=== PATIENT | female | born 1955 | race Caucasian/White ===

== ENCOUNTER 2023-04-22 23:38 | Emergency (ER) | payer MEDICARE, SELFPAY ==
[2023-04-22 23:45] VITALS: BP 155/99; PULSE 101; RESP 18; TEMP 36.6; O2SAT 100; BMI 40.2
[2023-04-23] MEDS: 0.9 % SODIUM CHLORIDE 1,000 ML 999 ML IV (00:46)
[2023-04-23] MEDS: HYOSCYAMINE SULFATE 0.125 MG TAB.SUBL SL (00:47)
[2023-04-23 00:54] LABS: Basophils Absolute Auto 0.1 10^3/uL (0.0-0.1); Basophils Percent Auto 0.9 % (0.2-2.0); Eosinophils Absolute Auto 0.4 10^3/uL (0.0-0.7); Eosinophils Percent Auto 5.8 % (0.9-7.0); Hematocrit 31.4 % (36.0-48.0); Hemoglobin 10.6 g/dL (12.0-16.0); Immature Granulocytes Abs Auto 0.05 10^3/uL (0.00-0.03); Immature Granulocytes Pct Auto 0.8 % (0.0-0.5); Lymphocytes Absolute Auto 1.4 10^3/uL (1.2-3.8); Lymphocytes Percent Auto 22.7 % (20.5-60.0); Mean Corpuscular HGB Conc 33.8 g/dL (29.9-35.2); Mean Corpuscular Hemoglobin 30.6 pg (26.7-34.0); Mean Corpuscular Volume 90.8 fL (81.0-99.0); Mean Platelet Volume 8.5 fL (9.5-13.5); Monocytes Absolute Auto 1.2 10^3/uL (0.3-0.8); Monocytes Percent Auto 19.4 % (1.7-12.0); Neutrophils Absolute Auto 3.2 10^3/uL (1.4-6.5); Neutrophils Percent Auto 50.4 % (43.0-75.0); Platelet Count 307 10^3/uL (150-450); Red Blood Count 3.46 10^6/uL (4.20-5.40); Red Cell Distribution Width 14.3 % (11.0-15.0); White Blood Count 6.3 10^3/uL (4.0-11.0)
[2023-04-23 01:15] LABS: Alanine Aminotransferase 29 U/L (14-59); Albumin Globulin Ratio 0.9; Albumin Level 3.2 g/dL (3.4-5.0); Alkaline Phosphatase 89 U/L (46-116); Anion Gap 13.5; Aspartate Amino Transferase 16 U/L (15-37); BUN Creatinine Ratio 15.2; Bilirubin Total 0.2 mg/dL (0.2-1.0); Calcium 9.4 mg/dL (8.5-10.1); Carbon Dioxide 24.1 mmol/L (21.0-32.0); Chloride 96 mmol/L (98-107); Estimated GFR (African America >60 (>=60); Estimated GFR (Non-African Ame >60 (>=60); Globulin 3.4 g/dL; Glucose 111 mg/dL (74-106); Potassium 3.6 mmol/L (3.5-5.1); Sodium 130 mmol/L (136-145); Total Protein 6.6 g/dL (6.4-8.2)
[2023-04-23 01:17] LABS: Bilirubin Urine NEGATIVE (NEGATIVE); Blood Urine NEGATIVE (NEGATIVE); Clarity Urine CLEAR (CLEAR); Color Urine LT. YELLOW (YELLOW); Glucose Urine UA NEGATIVE (NEGATIVE); Ketones Urine NEGATIVE (NEGATIVE); Leukocyte Esterase Urine NEGATIVE (NEGATIVE); Nitrite Urine NEGATIVE (NEGATIVE); Protein Urine NEGATIVE (NEG/TRACE); Specific Gravity Urine <=1.005 (1.005-1.025); Urine Microscopic Indicated NO; Urobilinogen Urine 0.2 EU/dL (0.2-1.0); pH Urine 5.5 (5.0-9.0)
--- NOTE | 2023-04-23 01:27 | CT_ITS ---
The [address] [address] Patient Name: SELENA REYES MRN: [id number] date: 1955 Sex: F Assigned Patient Location: ER Current Patient Location: ER Accession/Order Number: [id number] Exam Date: 04/23/2023 01:27 Report Date: 04/23/2023 02:13 At the request of: LOPEZ RICHARD Procedure: CT abdomen pelvis w con CT abdomen pelvis w con: 04/23/2023 1:27 AM EDT CLINICAL HISTORY: 67 years old Female with midline abdominal pain. TECHNIQUE: Axial CT images through the abdomen and pelvis are obtained after the intravenous administration of contrast. Coronal and sagittal reformations are also obtained. Dose reduction techniques were achieved by using automated exposure control and/or adjustment of mA and/or kV according to patient size and/or use of iterative reconstruction technique. COMPARISON: CT abdomen pelvis 08/18/2022. FINDINGS: The lung bases are clear with no dependent infiltrate or effusion. The gallbladder, spleen, pancreas and bilateral adrenal glands are unremarkable. Simple renal cyst of the left hepatic lobe measures 2.1 cm. Numerous subcentimeter hypoattenuation's of the liver too small to characterize likely cysts or biliary hamartomas. The bilateral kidneys demonstrate normal enhancement without hydronephrosis. Normal excretion of the kidneys bilaterally is present. The bilateral ureters demonstrate no gross abnormality or obstruction. The stomach and small bowel are unremarkable. The appendix is not clearly delineated; however no pericecal inflammatory changes present innumerable diverticula of the descending and sigmoid colon are. Minimal mesenteric stranding and vascular engorgement at the proximal sigmoid colon is present with focal mucosal thickening. The bladder appears unremarkable. There is no evidence of aortic aneurysm present. Calcific atherosclerosis is present. No enlarged lymph nodes are seen. No free air or free fluid is seen. The uterus and adnexa are within normal limits. Sclerosis is present with multilevel degenerative change with diffuse vacuum disc phenomena. No acute compression fracture deformity or suspicious osseous abnormality is identified. IMPRESSION: Uncomplicated proximal sigmoid colon acute diverticulitis. Electronically authenticated by: ALICE MARCUS Date: 04/23/2023 02:13
--- NOTE | 2023-04-23 01:31 | ED_ITS ---
HPI - Abdominal Pain General Chief Complaint: Abdominal Pain Stated Complaint: constipation Time Seen by Provider: 04/23/23 00:15 Source: patient Mode of arrival: walk-in Limitations: no limitations History of Present Illness HPI narrative: cc - I am constipated Patient has been experiencing waxing and waning abdominal pain for at least 2 months. She was previously diagnosed with Crohn's but told me that it is in remission . Over the last few months she has been experinecing abdominal pain - usually along the midline - along with constipation. No blood in urine or stool. No symptoms. She has been eating normally - no nausea or vomiting - but passing stools has been difficult. She said that the stools are hard and smaller amounts than usual pass. The pain has steadily worsened and tonight became severe . She previously saw Dr Pineda in [place]. She has not spoke with her PCP, Dr Prater, about the abdominal pain oer constipation. No relief with laxatives and other OTC preps. She also told me that she has chronic low sodium and wanted that checked as well. Related Data Home Medications Medication Instructions Recorded Confirmed albuterol sulfate 2.5 mg/3 mL mg 04/22/23 (0.083 %) solution for nebulization albuterol sulfate 90 mcg/actuation inhalation 04/22/23 aerosol inhaler (Ventolin HFA) cyclobenzaprine 10 mg tablet mg 04/22/23 lisinopril 20 mg tablet mg 04/22/23 lisinopril 40 mg tablet mg 04/22/23 montelukast 10 mg tablet mg 04/22/23 theophylline 400 mg mg PO 04/22/23 tablet,extended release 24 hr Allergies Allergy/AdvReac Type Severity Reaction Status Date / Time Sulfa (Sulfonamide Allergy Severe Verified 04/23/23 00:01 Antibiotics) Penicillins AdvReac Intermediate Verified 04/23/23 00:01 codine AdvReac Severe Uncoded 04/23/23 00:01 [facility] Medical History (Updated 04/23/23 @ 02:30 by Tavo Chun) Exam Narrative Exam Narrative: Nurses notes and vital signs reviewed and patient is not hypoxic. afebrile General: Well-appearing and in no apparent distress. Skin: Warm, dry, no pallor noted. No rash to abdomen or flank. Head: Normocephalic, atraumatic. Eye: Pupils are equal, round and EOMI. No scleral icterus. Ears, Nose, Mouth, and Throat: Oral mucosa is moist Cardiovascular: Regular Rate and Rhythm without murmur, gallop or rub. Respiratory: No accessory muscle use or respiratory distress. Lungs are clear to auscultation, no wheezing, rales or rhonchi Back: No midline thoracic or lumbar vertebral tenderness. No CVA tenderness Musculoskeletal: normal ROM, no calf or popliteal tenderness, no lower extremity edema/swelling GI: Abdomen is soft, non-distended. Normal bowel sounds. No masses appreciated. Midline tenderness to palpation. No rebound, guarding, or rigidity noted. Neurological: A&O x4. No cranial nerve dysfunction observed. No truncal ataxia. Moves all extremities. Sensation intact. Psychiatric: Cooperative and interactive. Normal mood and affect. Constitutional Vital Signs - 24 hr 04/22/23 23:45 04/23/23 02:04 Temperature 98 F Pulse Rate [Monitor] 101 H 80 Respiratory Rate 18 16 Blood Pressure [Left Arm] 155/99 H 129/76 H Pulse Oximetry 100 99 Oxygen Delivery Method Room Air Room Air Course Vital Signs Vital signs: Vital Signs Temperature 98 F 04/22/23 23:45 Pulse Rate 101 H 04/22/23 23:45 Respiratory Rate 18 04/22/23 23:45 Blood Pressure 155/99 H 04/22/23 23:45 Pulse Oximetry 100 04/22/23 23:45 Oxygen Delivery Method Room Air 04/22/23 23:45 Temperature 98 F 04/22/23 23:45 Pulse Rate 80 04/23/23 02:04 Respiratory Rate 16 04/23/23 02:04 Blood Pressure 129/76 H 04/23/23 02:04 Pulse Oximetry 99 04/23/23 02:04 Oxygen Delivery Method Room Air 04/23/23 02:04 MDM - Abdominal Pain MDM Narrative Medical decision making narrative: Patient sent for CT scan of abdomen and pelvis while we awaited the results of her blood and urine testing. CBC with normal WBC, Hb 10. CMP revealed Na 130 and Cl; 96, the rest was unremarkable. Patient given NS IVF along with levsin while in the ED. CT revealed acute sigmoid diverticulitis so she was given Cipro and Flagyl in the ED and prescribed the same to take at home. She was also rpescribed levsin. Recommended clear liquid diet for the next 2 days. PCP follow up recommended. ED return if she worsens. Lab Data Attestation: I reviewed the patient's lab results. Labs: Lab Results 04/23/23 04/23/23 Range/Units 00:45 00:56 WBC 6.3 (4.0-11.0) 10^3/uL RBC 3.46 L (4.20-5.40) 10^6/uL Hgb 10.6 L (12.0-16.0) g/dL Hct 31.4 L (36.0-48.0) % MCV 90.8 (81.0-99.0) fL MCH 30.6 (26.7-34.0) pg MCHC 33.8 (29.9-35.2) g/dL RDW 14.3 (11.0-15.0) % Plt Count 307 (150-450) 10^3/uL MPV 8.5 L (9.5-13.5) fL Neut % (Auto) 50.4 (43.0-75.0) % Lymph % (Auto) 22.7 (20.5-60.0) % [place] % (Auto) 19.4 H (1.7-12.0) % Eos % (Auto) 5.8 (0.9-7.0) % Baso % (Auto) 0.9 (0.2-2.0) % Neut # (Auto) 3.2 (1.4-6.5) 10^3/uL Lymph # (Auto) 1.4 (1.2-3.8) 10^3/uL [place] # (Auto) 1.2 H (0.3-0.8) 10^3/uL Eos # (Auto) 0.4 (0.0-0.7) 10^3/uL Baso # (Auto) 0.1 (0.0-0.1) 10^3/uL Abs Immat Gran (auto) 0.05 H (0.00-0.03) 10^3/uL Imm/Tot Granulo (auto) 0.8 H (0.0-0.5) % Sodium 130 L (136-145) mmol/L Potassium 3.6 (3.5-5.1) mmol/L Chloride 96 L (98-107) mmol/L Carbon Dioxide 24.1 (21.0-32.0) mmol/L Anion Gap 13.5 BUN 10.0 (7.0-18.0) mg/dL Creatinine 0.66 (0.55-1.02) mg/dL Est GFR ( Amer) >60 (>=60) Est GFR (Non-Af Amer) >60 (>=60) BUN/Creatinine Ratio 15.2 Glucose 111 H (74-106) mg/dL Calcium 9.4 (8.5-10.1) mg/dL Total Bilirubin 0.2 (0.2-1.0) mg/dL AST 16 (15-37) U/L ALT 29 (14-59) U/L Alkaline Phosphatase 89 (46-116) U/L Total Protein 6.6 (6.4-8.2) g/dL Albumin 3.2 L (3.4-5.0) g/dL Globulin 3.4 g/dL Albumin/Globulin Ratio 0.9 Lipase 65.0 L (73.0-393.0) U/L Urine Color Lt. yellow (YELLOW) Urine Clarity Clear (CLEAR) Urine pH 5.5 (5.0-9.0) Ur Specific [place] <=1.005 A (1.005-1.025) Urine Protein Negative (NEG/TRACE) mg/dL Urine Glucose (UA) Negative (NEGATIVE) mg/dL Urine Ketones Negative (NEGATIVE) mg/dL Urine Occult Blood Negative (NEGATIVE) Urine Nitrite Negative (NEGATIVE) Urine Bilirubin Negative (NEGATIVE) Urine Urobilinogen 0.2 (0.2-1.0) EU/dL Ur Leukocyte Esterase Negative (NEGATIVE) Imaging Data ct abd/pelvis: Radiologist's impression: FINDINGS: The lung bases are clear with no dependent infiltrate or effusion. The gallbladder, spleen, pancreas and bilateral adrenal glands are unremarkable. Simple renal cyst of the left hepatic lobe measures 2.1 cm. Numerous subcentimeter hypoattenuation's of the liver too small to characterize likely cysts or biliary hamartomas. The bilateral kidneys demonstrate normal enhancement without hydronephrosis. Normal excretion of the kidneys bilaterally is present. The bilateral ureters demonstrate no gross abnormality or obstruction. The stomach and small bowel are unremarkable. The appendix is not clearly delineated; however no pericecal inflammatory changes present innumerable diverticula of the descending and sigmoid colon are. Minimal mesenteric stranding and vascular engorgement at the proximal sigmoid colon is present with focal mucosal thickening. The bladder appears unremarkable. There is no evidence of aortic aneurysm present. Calcific atherosclerosis is present. No enlarged lymph nodes are seen. No free air or free fluid is seen. The uterus and adnexa are within normal limits. Sclerosis is present with multilevel degenerative change with diffuse vacuum disc phenomena. No acute compression fracture deformity or suspicious osseous abnormality is identified. IMPRESSION: Uncomplicated proximal sigmoid colon acute diverticulitis. Electronically authenticated by: ALICE MARCUS Date: 04/23/2023 02:13 Discharge Plan Discharge Chief Complaint: Abdominal Pain Clinical Impression: Diverticulitis, Abdominal pain, Chronic hyponatremia Time of Disposition Decision: 02:19 Condition: Good Prescriptions / Home Meds: No Action cyclobenzaprine 10 mg tablet albuterol sulfate 2.5 mg /3 mL (0.083 %) solution for nebulization theophylline 400 mg tablet extended release 24 hr PO lisinopril 20 mg tablet montelukast 10 mg tablet albuterol sulfate [Ventolin HFA] 90 mcg/actuation HFA aerosol inhaler INHALATION lisinopril 40 mg tablet Instructions: Diverticulitis (ED), Hyponatremia (ED) Stand Alone Forms: Portal Instructions Referrals: LARRY PRATER [Primary Care Provider] - 1 week
[2023-04-23 02:04] VITALS: BP 129/76; PULSE 80; RESP 16; O2SAT 99
[2023-04-23] MEDS: METRONIDAZOLE 250 MG TABLET 500 MG PO (02:37)
[2023-04-23] MEDS: CIPROFLOXACIN HCL 500 MG TABLET PO (02:38)
== END 2023-04-23 02:46 | disposition home or self-care (01) ==
PROVIDERS: Emergency Provider Emergency Medicine; PCP Family Medicine
DX: R10.9 Unspecified abdominal pain (principal); K57.32 Diverticulitis of large intestine without perforation or abscess without bleeding; E87.1 Hypo-osmolality and hyponatremia; Z79.899 Other long term (current) drug therapy
CPT/HCPCS: 36415; 74177; 80053; 81003; 83690; 85025; 99284; Q9967

== ENCOUNTER 2023-05-06 10:07 | Outpatient (OUT) | payer MEDICARE, SELFPAY ==
[2023-05-06 11:02] LABS: BUN Creatinine Ratio 10.8; Calcium 9.3 mg/dL (8.5-10.1); Carbon Dioxide 25.1 mmol/L (21.0-32.0); Chloride 100 mmol/L (98-107); Estimated GFR (African America >60 (>=60); Estimated GFR (Non-African Ame >60 (>=60); Glucose 102 mg/dL (74-106); Potassium 4.1 mmol/L (3.5-5.1); Sodium 134 mmol/L (136-145)
== END 2023-05-06 10:08 ==
LOC: LAB 10:09
PROVIDERS: PCP Family Medicine; Visit Provider Family Medicine
DX: E87.1 Hypo-osmolality and hyponatremia (principal)
CPT/HCPCS: 36415; 80048

== ENCOUNTER 2023-08-01 14:33 | Outpatient (OUT) | payer MEDICARE, SELFPAY ==
--- NOTE | 2023-08-01 14:36 | CT_ITS ---
The [address] [address] Patient Name: SELENA REYES MRN: [id number] date: 1955 Sex: F Assigned Patient Location: CT Current Patient Location: Accession/Order Number: [id number] Exam Date: 08/01/2023 14:40 Report Date: 08/02/2023 07:19 At the request of: SUE STARR Procedure: CT lung screening low-dose EXAMINATION: CT lung screening low-dose HISTORY: History of tobacco dependence Z87.891 COMPARISON: 07/31/2022 TECHNIQUE: Axial, Coronal, and Sagittal images were created without the administration of IV contrast material. Dose reduction techniques were achieved by using automated exposure control and/or adjustment of mA and/or kV according to patient size and/or use of iterative reconstruction technique. FINDINGS: LUNGS: Scattered subcentimeter solid noncalcified pulmonary nodules the largest in the right lower lobe measures 5 mm, axial image 70 and left lower lobe axial image 62. Mild paraseptal emphysema with an upper lobe predominance. PLEURA: No mass, effusion, or pneumothorax. VASCULATURE: No abnormality. ZAYNAB: No mass or pathologic adenopathy. MEDIASTINUM: No mass or pathologic adenopathy. CARDIAC: No enlargement, pericardial thickening, or significant calcification. AORTA: No aortic aneurysm. Mild to moderate atherosclerosis CHEST WALL: No mass or axillary adenopathy BONES: No bone lesion or fracture. LIMITED ABDOMEN: No suspicious findings. Limited images of the upper abdomen. OTHER: Negative. CT/CT lung screening low-dose IMPRESSION: Slight interval increase in both number and size of subcentimeter pulmonary nodules measuring up to 5 mm. Short interval follow-up is recommended given the change from the prior exam LUNG SCREENING: Lung-RADS Category 3- Probably benign. Probably benign finding(s)- short term follow up suggested; includes nodules with a low likelihood of becoming a clinically active cancer. Six month LDCT. Electronically authenticated by: FRANCISCO JAVIER WHEELER Date: 08/02/2023 07:19
== END 2023-08-01 14:34 | disposition home or self-care (01) ==
LOC: CT 14:33
PROVIDERS: PCP Family Medicine; Visit Provider Internal Medicine
DX: Z87.891 Personal history of nicotine dependence (principal)
CPT/HCPCS: 71271

== ENCOUNTER 2024-07-30 17:01 | Emergency (ER) | payer OTHER, SELFPAY ==
[2024-07-30] VITALS (25 sets, daily range): BP systolic 148–180; BP diastolic 94–121; PULSE 86–97; TEMP 36.8; O2SAT 93; BMI 40.7
--- NOTE | 2024-07-30 17:24 | ECG_ITS ---
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
--- NOTE | 2024-07-30 17:24 | ED.GENADUL1 ---
HPI HPI - General Adult General Chief complaint: Recheck/Abnormal Lab/Rx Stated complaint: REFERRAL, HIGH BLOOD PRESSURE Time Seen by Provider: 07/30/24 17:21 Source: patient and family Mode of arrival: Wheelchair Limitations: no limitations History of Present Illness HPI narrative: 68-year-old female presents for elevated blood pressure. She has a history of hypertension and has been taking her medicine as prescribed. She checked her blood pressure at home and it was high so she came in. She does not seem to have any symptoms. She does not have a headache or chest pain or dizziness or palpitations. Related Data Home Medications ?Medication ?Instructions ?Recorded ?Confirmed albuterol sulfate 2.5 mg/3 mL mg 04/22/23 (0.083 %) solution for nebulization albuterol sulfate 90 mcg/actuation inhalation 04/22/23 aerosol inhaler (Ventolin HFA) cyclobenzaprine 10 mg tablet mg 04/22/23 lisinopril 20 mg tablet mg 04/22/23 lisinopril 40 mg tablet mg 04/22/23 montelukast 10 mg tablet mg 04/22/23 theophylline 400 mg mg PO 04/22/23 tablet,extended release 24 hr Allergies Allergy/AdvReac Type Severity Reaction Status Date / Time Sulfa (Sulfonamide Allergy Severe Verified 04/23/23 00:01 Antibiotics) Penicillins AdvReac Intermediate Verified 04/23/23 00:01 codine AdvReac Severe Uncoded 04/23/23 00:01 Opioid HPI Opioid Management Most Recent Opioid Data: No Data to Display Review of Systems ROS Narrative A ten point review of systems is negative except as noted above. Positive for mild chronic low back pain [facility] Medical History (Updated 07/30/24 @ 18:47 by Alexandro Max MD) Crohn's disease ?K50.90 - Crohn's disease, unspecified, without complications (ICD-10) Colitis ?K52.9 - Noninfective gastroenteritis and colitis, unspecified (ICD-10) Acute diverticulitis ?K57.92 - Diverticulitis of intestine, part unspecified, without perforation or abscess without bleeding (ICD-10) IBS (irritable bowel syndrome) ?K58.9 - Irritable bowel syndrome without diarrhea (ICD-10) Exam Narrative Exam Narrative: Nurses note and vital signs reviewed and patient is not hypoxic. General: The patient appears well and in no apparent distress. Patient is resting comfortably on cart. Skin: Warm, dry, no pallor noted. There is no rash noted. Head: Normocephalic, atraumatic Eye: Normal conjunctiva, no drainage Ears, Nose, Mouth, and Throat: oral mucosa is moist. Nares patent. Cardiovascular: Regular Rate and Rhythm Respiratory: Patient is in no distress, no accessory muscle use, lungs are clear to auscultation, no wheezing, rales or rhonchi Back: non-tender GI: Soft and nontender Musculoskeletal: The patient has no evidence of calf tenderness, no pitting edema, symmetrical pulses noted bilaterally Neurological: Awake and alert Psychiatric: Cooperative Constitutional Vital Signs, click to edit/add: Last Vital Signs Temp 98.3 F 07/30/24 17:11 Pulse 88 07/30/24 17:11 Resp 18 07/30/24 17:11 BP 170/110 H 07/30/24 18:22 Pulse Ox 93 L 07/30/24 17:11 O2 Del Method Room Air 07/30/24 17:11 Course Vital Signs Vital signs: Vital Signs Temperature 98.3 F 07/30/24 17:11 Pulse Rate 88 07/30/24 17:11 Respiratory Rate 18 07/30/24 17:11 Blood Pressure 151/121 H 07/30/24 17:11 Pulse Oximetry 93 L 07/30/24 17:11 Oxygen Delivery Method Room Air 07/30/24 17:11 Temperature 98.3 F 07/30/24 17:11 Pulse Rate 88 07/30/24 17:11 Respiratory Rate 18 07/30/24 17:11 Blood Pressure 170/110 H 07/30/24 18:22 Pulse Oximetry 93 L 07/30/24 17:11 Oxygen Delivery Method Room Air 07/30/24 17:11 Medical Decision Making MDM Narrative Medical decision making narrative: The patient presents with elevated blood pressure. The patient was given IV hydralazine and the patient is signed out to Dr. Whipple at change of shift. Differential Diagnosis Differential Diagnosis: Hypertension, acute kidney injury Lab Data Lab results reviewed: Yes I reviewed the patient's lab results Labs: Lab Results 07/30/24 Range/Units 17:52 WBC 6.1 (4.0-11.0) 10^3/uL RBC 4.14 L (4.20-5.40) 10^6/uL Hgb 13.5 (12.0-16.0) g/dL Hct 40.0 (36.0-48.0) % MCV 96.6 (81.0-99.0) fL MCH 32.6 (26.7-34.0) pg MCHC 33.8 (29.9-35.2) g/dL RDW 13.4 (11.0-15.0) % Plt Count 235 (150-450) 10^3/uL MPV 9.5 (9.5-13.5) fL Neut % (Auto) 55.6 (43.0-75.0) % Lymph % (Auto) 24.4 (20.5-60.0) % [place] % (Auto) 13.7 H (1.7-12.0) % Eos % (Auto) 4.8 (0.9-7.0) % Baso % (Auto) 0.8 (0.2-2.0) % Neut # (Auto) 3.4 (1.4-6.5) 10^3/uL Lymph # (Auto) 1.5 (1.2-3.8) 10^3/uL [place] # (Auto) 0.8 (0.3-0.8) 10^3/uL Eos # (Auto) 0.3 (0.0-0.7) 10^3/uL Baso # (Auto) 0.1 (0.0-0.1) 10^3/uL Abs Immat Gran (auto) 0.04 H (0.00-0.03) 10^3/uL Imm/Tot Granulo (auto) 0.7 H (0.0-0.5) % Sodium 134 L (136-145) mmol/L Potassium 4.1 (3.5-5.1) mmol/L Chloride 100 (98-107) mmol/L Carbon Dioxide 28.2 (21.0-32.0) mmol/L Anion Gap 9.9 BUN 15.0 (7.0-18.0) mg/dL Creatinine 0.64 (0.55-1.02) mg/dL Est GFR ( Amer) >60 (>=60) Est GFR (Non-Af Amer) >60 (>=60) BUN/Creatinine Ratio 23.4 Glucose 105 (74-106) mg/dL Calcium 9.4 (8.5-10.1) mg/dL TSH & Free T4 Interp 0.812 (0.358-3.740) uIU/mL ECG Data Attestation: I personally reviewed and interpreted this ECG as follows: (EKG on my interpretation shows normal sinus rhythm with a rate of 85 and no acute change) Critical Care Time Critical Care Time Critical Care Time: Yes Total Critical Care Time: 35 Attestation: Due to the high probability of sudden and clinically significant deterioration in the patient's condition he/she required the highest level of my preparedness to intervene urgently I provided critical care time including documentation time, medication orders and management, reevaluation, vital sign assessment, ordering and reviewing of lab tests, ordering and reviewing of x-ray studies, and admission orders. Aggregate critical care time is 35 minutes including only time during which I was engaged in work directly related to his/her care and did not include time spent treating other patients simultaneously. Discharge Plan Discharge Patient Disposition: Still a Patient
[2024-07-30 18:04] LABS: Basophils Absolute Auto 0.1 10^3/uL (0.0-0.1); Basophils Percent Auto 0.8 % (0.2-2.0); Eosinophils Absolute Auto 0.3 10^3/uL (0.0-0.7); Eosinophils Percent Auto 4.8 % (0.9-7.0); Hemoglobin 13.5 g/dL (12.0-16.0); Immature Granulocytes Abs Auto 0.04 10^3/uL (0.00-0.03); Immature Granulocytes Pct Auto 0.7 % (0.0-0.5); Lymphocytes Absolute Auto 1.5 10^3/uL (1.2-3.8); Lymphocytes Percent Auto 24.4 % (20.5-60.0); Mean Corpuscular HGB Conc 33.8 g/dL (29.9-35.2); Mean Corpuscular Hemoglobin 32.6 pg (26.7-34.0); Mean Corpuscular Volume 96.6 fL (81.0-99.0); Mean Platelet Volume 9.5 fL (9.5-13.5); Monocytes Absolute Auto 0.8 10^3/uL (0.3-0.8); Monocytes Percent Auto 13.7 % (1.7-12.0); Neutrophils Absolute Auto 3.4 10^3/uL (1.4-6.5); Neutrophils Percent Auto 55.6 % (43.0-75.0); Platelet Count 235 10^3/uL (150-450); Red Blood Count 4.14 10^6/uL (4.20-5.40); Red Cell Distribution Width 13.4 % (11.0-15.0); White Blood Count 6.1 10^3/uL (4.0-11.0)
[2024-07-30 18:17] LABS: Anion Gap 9.9; BUN Creatinine Ratio 23.4; Calcium 9.4 mg/dL (8.5-10.1); Carbon Dioxide 28.2 mmol/L (21.0-32.0); Chloride 100 mmol/L (98-107); Estimated GFR (African America >60 (>=60); Estimated GFR (Non-African Ame >60 (>=60); Glucose 105 mg/dL (74-106); Sodium 134 mmol/L (136-145)
[2024-07-30] MEDS: HYDRALAZINE HCL 20 MG/ML VIAL 10 MG IVP (18:22)
[2024-07-30 18:28] LABS: Potassium 4.1 mmol/L (3.5-5.1)
[2024-07-30 18:30] LABS: TSH W/ REFLEX FT4 0.812 uIU/mL (0.358-3.740)
[2024-07-30] MEDS: CLONIDINE HCL 0.1 MG TABLET PO (19:34)
== END 2024-07-30 20:17 | disposition home or self-care (01) ==
PROVIDERS: Emergency Medicine; Emergency Provider Internal Medicine; PCP Family Medicine
DX: I10 Essential (primary) hypertension (principal); Z79.899 Other long term (current) drug therapy
CPT/HCPCS: 36415; 80048; 84443; 85025; 93005; 96374; 99285; J0360

== ENCOUNTER 2024-09-25 12:40 | Outpatient (OUT) | payer OTHER, SELFPAY ==
--- NOTE | 2024-09-25 12:49 | CT_ITS ---
[address] [address] Patient Name: SELENA REYES MRN: [id number] date: 1955 Sex: F Assigned Patient Location: CT Current Patient Location: Accession/Order Number: [id number] Exam Date: 09/25/2024 12:55 Report Date: 09/29/2024 07:45 At the request of: SUE STARR Procedure: CT chest wo con EXAMINATION: CT chest wo con HISTORY: Nonspecific Abnormal Finding Of Lung Field COMPARISON: 08/01/2023 TECHNIQUE: Multi-planar CT images were created with IV contrast. Axial, Coronal, and Sagittal images. Dose reduction techniques were achieved by using automated exposure control and/or adjustment of mA and/or kV according to patient size and/or use of iterative reconstruction technique. FINDINGS: LUNGS: Mild paraseptal emphysema with an upper lobe predominance. Linear opacities in both lung bases likely atelectasis. Scattered punctate pulmonary nodules measuring up to 5 mm. PLEURA: No mass, effusion, or pneumothorax. VASCULATURE: No abnormality. ZAYNAB: No mass or adenopathy. MEDIASTINUM: No mass or adenopathy. CARDIAC: No enlargement, pericardial thickening, or significant calcification. AORTA: No aortic aneurysm. Moderate calcific atherosclerosis CHEST WALL: No mass or axillary adenopathy. BONES: No bone lesion or fracture. LIMITED ABDOMEN: Diffuse hypoattenuation of the liver suggests hepatic steatosis. OTHER: Negative. CT/CT chest wo con IMPRESSION: Scattered punctate pulmonary nodules measuring up to 5 mm Electronically authenticated by: FRANCISCO JAVIER WHEELER Date: 09/29/2024 07:45
[2024-09-25 13:21] LABS: Basophils Absolute Auto 0.1 10^3/uL (0.0-0.1); Eosinophils Absolute Auto 0.3 10^3/uL (0.0-0.7); Eosinophils Percent Auto 5.7 % (0.9-7.0); Hematocrit 40.9 % (36.0-48.0); Hemoglobin 13.7 g/dL (12.0-16.0); Immature Granulocytes Abs Auto 0.02 10^3/uL (0.00-0.03); Immature Granulocytes Pct Auto 0.3 % (0.0-0.5); Lymphocytes Absolute Auto 1.6 10^3/uL (1.2-3.8); Lymphocytes Percent Auto 27.9 % (20.5-60.0); Mean Corpuscular HGB Conc 33.5 g/dL (29.9-35.2); Mean Corpuscular Hemoglobin 32.2 pg (26.7-34.0); Mean Corpuscular Volume 96.2 fL (81.0-99.0); Mean Platelet Volume 9.3 fL (9.5-13.5); Monocytes Absolute Auto 1.1 10^3/uL (0.3-0.8); Monocytes Percent Auto 18.1 % (1.7-12.0); Neutrophils Absolute Auto 2.7 10^3/uL (1.4-6.5); Platelet Count 226 10^3/uL (150-450); Red Blood Count 4.25 10^6/uL (4.20-5.40); Red Cell Distribution Width 13.2 % (11.0-15.0); White Blood Count 5.8 10^3/uL (4.0-11.0)
== END 2024-09-25 12:41 | disposition home or self-care (01) ==
LOC: CT 12:43
PROVIDERS: PCP Family Medicine; Visit Provider Internal Medicine
DX: J43.8 Other emphysema (principal); R91.8 Other nonspecific abnormal finding of lung field
CPT/HCPCS: 36415; 71250; 85025

== ENCOUNTER 2025-03-01 21:06 | Emergency (ER) | payer MEDICARE, SELFPAY ==
[2025-03-01 21:14] VITALS: BP 188/97; PULSE 92; TEMP 36.8; O2SAT 97; BMI 35.4
--- OUTSIDE RECORDS SUMMARY | 2025-03-01 21:16 | XMS_ITS | CCD ---
Author Organization [facility] CliniSymo Care Team Providers Care Family [facility] Justice Name Role Phone MD Madeleine Garcia Attending Provider [phone] Geovany, DO Rios Primary Care Provider [phone] Madeleine Garcia Unavailable Silvano Hooker Unavailable Gabriel Prater Unavailable Unavailable Unavailable Dr. PASTORA JOYNER Attending Unavailable AR, Dr. ARIAS Referring Unavailable Geovany, Dr. Rios [facility] Primary Care Unava ilable Jose Miguel Diehl Unavailable [phone] House, DO Rios Primary Care Provider DO Gabriel Prater Referring Provider [phone] MD Jose Miguel Diehl Attending Provider Vineet Rowley II Unavailable [phone] House, DO Rios Primary Care Provider MD Vineet Rowley II Attending Provider [phone] MD Madeleine Garcia Attending Provider DR GABRIEL PRATER Primary Care Unavailable MISC, DR BRASHER Admitting Unavailable MISC, DR BRASHER Consulting Unavailable MISC, DR BRASHER Attending Unavailable ZIVICENTA, DR CHANI Burton Consulting Unavailable SAMSA .SUE Attending Unavailable SAMSA .SUE Admitting Unavailable HOUSE, DR RIOS Primary Care Unavailable SAMSA .SUE Consulting Unavailable HOUSE, DR RIOS Consulting Unavailable HOUSE, DR RIOS Attending Unavailable HOUSE, DR RIOS Admitting Unavailable HOUSE, DR RIOS Primary Care Unavailable NAYELI MARTINS Consulting Unavailable MOMO .RON Attending Unavailable MOMO ., RON Consulting Unavailable MOMO .RON Admitting Unavailable HOUSE, DR RIOS Primary Care Unavailable DREA HA Consulting Unavailable PAY ., DR HEALY Attending Unavailable PAY ., DR HEALY Admitting Unavailable PAY ., DR HEALY Consulting Unavailable HOUSE, DR RIOS Primary Care Unavailable DUSTIN LAMB Consulting Unavailable MISC, DR BRASHER Admitting Unavailable HOUSE, DR RIOS Primary Care Unavailable MISC, DR BRASHER Consulting Unavailable MISC, DR BRASHER Attending Unavailable Joyner, Pastora Referring Unavailable House, Dr. Gabriel Bautista Primary Care Unava ilable Joyner, Pastora Attending Unavailable Joyner, Pastora Attending Unavailable Joyner, Pastora Referring Unavailable House, Dr. Gabriel Bautista Primary Care Unava ilable Joyner, Pastora Attending Unavailable Joyner, Pastora Referring Unavailable House, Dr. Gabriel Bautista Primary Care Unava ilGabriel Bangura Primary Care Physician [phone] DO Gabriel Prater Primary Care Provider Ritchie Rodrigues Unavailable MD Vineet Juarez Primary Care Provider MD Ritchie Rodrigues Attending Provider VINEET JUAREZ Primary Care Physician MD Vineet Juarez Primary Care Provider MD Madeleine Garcia Attending Provider MD Vineet Juarez Primary Care Provider MD Madeleine Garcia Attending Provider DO Pierre Guadalupe Emergency Provider MD Vineet Juarez Primary Care Provider MD Madeleine Garcia Attending Provider DO Mary Hassan Attending Provider [phone] MO Sharpe Referring Provider MD Vineet Juarez Primary Care Provider [phone] MD Madeleine Garcia Attending Provider [phone] Vineet Juarez MD Primary Care Provider [phone] Paul KAUFMAN, Elsie Ross Unavailable Ritchie Rodrigues MD Unavailable Madeleine Garcia MD Unavailable Ar KAUFMAN, Pastora Unavailable Larry KAUFMAN, Vineet Brunson Unavailable Larry KAUFMAN, Vineet Primary Care Provider [phone] Madeleine Garcia MD Attending Provider [phone] LyMary Admitting Unavailable Ly, Mary Brunson Attending Unavailable Magan Sharpe Referring Unavail able Hill, Vineet Primary Care Unavailable Pierre Guadalupe Admitting Unavailable Pierre Guadalupe Attending Unavailable Hill, Vineet Primary Care Unavailable Hill, Vineet Primary Care Unavailable Calvey, Madeleine R Attending Unavailable Calvey, Madeleine R Admitting Unavailable Hill, Vineet Primary Care Unavailable Janinaey, Madeleine R Attending Unavailable Calvey, Madeleine R Admitting Unavailable Hill, Vineet Primary Care Unavailable Ritchie Rodrigues Admitting Unavailable Ritchie Rodrigues Attending Unavailable Jose, Madeleine R Attending Unavailable Jose, Madeleine R Admitting Unavailable Hill, Vineet Primary Care Unavailable Jose, Madeleine R Attending Unavailable Janinaey, Madeleine R Admitting Unavailable Hill, Vineet Primary Care Unavailable Hill, Vineet Primary Care Unavailable Calvey, Madeleine R Admitting Unavailable Jose, Madeleine R Attending Unavailable Jose, Madeleine Burton Attending Unavailable Janinaey, Madeleine R Admitting Unavailable Hill, Vineet Primary Care Unavailable Larry KAUFMAN, Vineet Brunson Unavailable Sue Macdonald MD Unavailable PRABHJOT ALEXANDRE Attending Unavailable ANGIE RODRIGUES Attending Unavailable PRABHJOT ALEXANDRE Referring Unavailable HILL, VINEET Brunson Attending Unavailable HILL, VINEET L Referring Unavailable HILL, VINEET L Referring Unavailable RISALITIJENNIFER Attending Unavailable DARRYL BUTT Attending Unavailable MADELEINE GARCIA Referring Unavailable MAGAN PATEL Attending Unavailable MAGAN PATEL Referring Unavailable HILL, VINEET L Referring Unavailable DIDIONADEOLA Attending Unavailable DIDIONADEOLA Referring Unavailable HILL, VINEET L Attending Unavailable HILL, VINEET L Referring Unavailable PRABHJOT ALEXANDRE Attending Unavailable HILL, VINEET L Referring Unavailable HILL, VINEET L Referring Unavailable RISALITIJENNIFER Attending Unavailable HILL, VINEET L Referring Unavailable HILL, VINEET L Referring Unavailable Pastora Joyner MD Unavailable Larry KAUFMAN, Vineet Brunson Unavailable Papito Funez Attending Unavaila Papito Harris Referring Unavaila Papito Harris Admitting Unavaila Papito Harris Attending Unavaila stephani Allergies Allergy Classification Reported Allergen(s) Allergy Type Date of Onset Reaction(s) Facility (20 sources) Codeine; Translations: [codeine] Drug Allergy 3 Other [facility] (20 sources) moxifloxacin; Translations: [moxifloxacin] Drug Allergy 2 Unknown [facility] Comment on above: beet red skin reacti on whole body rash (20 sources) Penicillins; Translations: [Penicillins] Allergy to substance 3 Hives [facility] (20 sources) perfume; Translations: [perfume] Allergy to substance 2 Difficulty Breathing [facility] (10 sources) scents Allergy to substance 2 Difficulty Breathing [facility] (17 sources) penicillAMINE Drug Allergy 4 Unknown, Unknown Reaction [facility] (11 sources) moxifloxacin; Translations: [Avelox] Drug Allergy Shortness of breath [facility] Rep[facility] (2 sources) Sucralose, Splenda Allergy to substance (finding) [facility] Work Phone: (2 sources) Aspartame, Nutrasweet, Equal Allergy to substance (finding) [facility] y 250 DO Work Phone: (1 source) Aspartame Drug Allergy [facility] Rep[facility] (1 source) Erythromycin Drug Allergy 4 [facility] (1 source) moxifloxacin Drug Allergy 3 [facility] (9 sources) Mold Extract; Translations: [Mold] Drug Allergy Cough (finding) [facility] (9 sources) Penicillin; Translations: [Penicillin] Drug Allergy [facility] (20 sources) tenapanor; Translations: [tenapanor] Allergy to substance 4 Diarrhea [facility] (11 sources) Aluminum aspirin Drug Allergy 3 GI intolerance [facility] (11 sources) Lisinopril Propensity to adverse reactions 4 Swelling [facility] (11 sources) Metoprolol Drug Allergy 4 [facility] (11 sources) Nifedipine Allergy to substance 4 Swelling [facility] (3 sources) carvedilol Drug Allergy 4 [facility] Medications Current Medications Medication Drug Class(es) Dates Sig (Normalized) Sig (Original) acetaminophen 500 mg oral tablet (8 sources) take 500-1000 mg by mouth every six hours as needed for pain acetaminophen (Tylenol) 500 MG tablet Take 500-1,000 mg by mouth every 6 (six) hours if needed for mild pain Active Acidophilus Probiotic Blend (5 sources) Start: 11-14-2023 Acidophilus Probiotic Blend Oral, Daily, Refill(s) 0, Prophylaxis Start Date: 11/14/23 Status: Ordered Repeat number: 1 Start: 11-14-2023 Acidophilus Pr obiotic Blend Refill(s) 0 Start Date: 11/14/23 Status: Ordered [id number] 200 actuat albuterol 0.09 mg/actuat metered dose inhaler (20 sources) beta2-Adrenergic Agonist Start: 06-24-2024 take 2 puff(s) by mouth every six hours as needed albuterol HFA 90 mcg/act inhaler Indications: Asthma, chronic, severe persistent, uncomplicated (CMS/HCC) INHALE 2 PUFFS BY MOUTH EVERY 6 HOURS NEEDED SHORTNESS OF BREATH 18 g 3 06/24/2024 Active Start: 12-12-2023 albuterol (2.5 MG/3ML) 0.083% nebulizer solution Indications: Asthma, chronic, severe persistent, uncomplicated (CMS/HCC) Take 3 mL (2.5 mg) by nebulization every 6 (six) hours if needed for shortness of breath 75 mL 3 12/12/2023 Active Start: 09-15-2022 take 1 puff(s) by in halation every four hours as needed Ventolin HFA 108 (90 Base) MCG/ACT Inhalation Aerosol Solution INHALE 1 PUFF EVERY 4 HOURS NEEDED. Quantity: 0 Refills: 0 Ordered: 15-Sep-2022 DO Start : 29-Oct-2022 Active Start: 02-08-2022 Albuterol Sulf ate (Ventolin Hfa) 90 mcg/actuation HFA aerosol inhaler Active 2 INH INHALATION Four times daily as needed for Shortness Of Breath Or Wheezing February 07, 2022 11:00pm Ventolin HFA 108 (90 Base) MCG/ACT Inhalation for 25 Active 120 actuat budesonide 0.16 mg/actuat / formoterol fumarate 0.0048 mg/actuat / glycopyrrolate 0.009 mg/actuat metered dose inhaler (6 sources) Corticosteroid, beta2-Adrenergic Agonist Start: 09-22-2024 take 2 puff(s) by mouth twice daily Breztri Aerosphere 160-9-4.8 MCG/ACT aerosol INHALE 2 PUFFS BY MOUTH TWICE DAILY (rinse after use) 09/22/2024 Active candesartan cilexetil 16 mg oral tablet (20 sources) Angiotensin 2 Receptor Hannah Start: 08-26-2024 take 1 tablet by mouth twice daily candesartan 16 mg Tab 16 mg = 1 tab(s), Oral, BID, Refills(s) 0, High blood pressure Start Date: 02/03/25 Status: Ordered Repeat number: 1 Start: 06-02-2024 take 1 tablet by butch th once daily Candesartan 16 mg tablet Active 16 MG PO Daily June 01, 2024 11:00pm Start: 06-01-2024 End: 06-01-2025 take 1 tablet by mouth once daily candesartan (Atacand) 32 MG tablet Indications: Essential hypertension (CMS/HCC) Take 1 tablet (32 mg) by mouth Daily 30 tablet 06/01/2024 2024 Discontinued carvedilol 6.25 mg oral tablet (20 sources) alpha-Adrenergic Hannah, beta-Adrenergic Hannah Start: 08-04-2024 take 1 tablet by mouth in the morning carvedilol (Coreg) 6.25 MG tablet Indications: Essential hypertension (CMS/HCC) Take 1 tablet (6.25 mg) by mouth in the morning and 1 tablet (6.25 mg) in the evening. Take with meals. 180 tablet 3 08/04/2024 Active Start: 02-13-2024 End: 08-04-2024 take 1 tablet by mouth in the morning carvedilol (Coreg) 3.125 MG tablet Take 3.125 mg by mouth in the morning and 3.125 mg in the evening. Take with meals. 02/13/2024 08/04/2024 Discontinued celecoxib 100 mg oral capsule (20 sources) Nonsteroidal Anti-inflammatory Drug Start: 02-13-2024 take 1 capsule by mouth twice daily at mealtime Celecoxib 100 mg capsule Active 100 MG PO Twice daily February 12, 2024 11:00pm [employer] capsule with food Orally TWICE A DAY; Note: Source Status: Not-TakingundefinedPRN; Refills: 1; Qty: 60 Capsule; Provider: Amrik Wilder Start: 01-17-2023 take 1 capsule by [facility] every twelve hours Celecoxib 100 MG 1 capsule with food Orally TWICE A DAY for 30 days Jan, Not-Taking/PRN cyclobenzaprine hydrochloride 10 mg oral tablet (20 sources) Muscle Relaxant Start: 02-03-2025 take 1 tablet by mouth three times daily at bedtime cyclobenzaprine (Flexeril) 10 MG tablet Indications: Chronic bilateral low back pain with right-sided sciatica TAKE 1 TABLET BY MOUTH THREE TIMES DAILY (IN THE MORNING, IN THE EVENING, and BEFORE bedtime) 90 tablet 3 02/03/2025 Active Start: 05-02-2023 cyclobenzaprin e Refills(s) 0, Muscle pain Start Date: 05/02/23 Status: Ordered Repeat number: 1 Start: 05-02-2023 cyclobenzaprin e Refills(s) 0, Muscle pain Start Date: 05/02/23 Status: Ordered Start: 05-02-2023 cyclobenzaprin e Refills(s) 0 Start Date: 05/02/23 Status: Ordered Start: 03-25-2023 take 1 tablet by butch th three times daily at bedtime cyclobenzaprine (Flexeril) 10 MG tablet Indications: Chronic bilateral low back pain with right-sided sciatica TAKE 1 TABLET BY MOUTH THREE TIMES DAILY (IN THE MORNING, IN THE EVENING, and BEFORE bedtime) 90 tablet 3 09/28/2024 Active take 1 tablet by butch th every twenty-four hours Cyclobenzaprine HCl 10 MG 1 tablet at bedtime as needed Orally Once a day Active docusate sodium 100 mg oral capsule (13 sources) Start: 02-13-2024 Docusate Sodium (Dulcolax Stool Softener (Dss)) 100 mg capsule Active 200 MG PO Every morning February 12, 2024 11:00pm fluticasone / salmeterol (6 sources) Corticostero id, beta2-Adrene rgic Agonist Start: 01-06-2016 take 1 puff(s) by inhalation once daily Advair 250 mcg-50 mcg Powder 1 puff(s), Inhalation, Daily Allergy symptoms, Refill(s) 0 Start Date: 01/06/16 Status: Ordered hydroCHLOROthiazide 12.5 mg oral tablet (2 sources) Thiazide Diuretic Start: 08-04-2024 End: 09-03-2024 take 1 tablet by mouth once daily hydroCHLOROthiazide (HYDRODiuril) 12.5 MG tablet Indications: Essential hypertension (CMS/HCC) Take 1 tablet (12.5 mg) by mouth Daily 30 tablet 2 08/04/2024 09/03/2024 Active hydroCHLOROthiazide 25 mg / triamterene 37.5 mg oral capsule (13 sources) Potassium-sp aring Diuretic, Thiazide Diuretic Start: 02-13-2024 take 1 capsule by mouth once daily in the morning Triamterene-Hydrochlor othiazid 37.5-25 mg capsule Active 1 CAP PO Every morning February 12, 2024 11:00pm lactobacillus acidophilus [id number] unt oral capsule (18 sources) Start: 02-13-2024 take 10 capsules by mouth once daily in the morning Lactobacillus Acidophilus (Probiotic) 10 billion cell capsule Active 56481 MMU CELLS PO Every morning February 12, 2024 11:00pm End: 2024 take 1 capsule by mouth once daily Lactobacillus (Probiotic Acidophilus) capsule Take 1 capsule by mouth Daily 2024 Discontinued Levsin Sublingual (6 sources) Start: 01-06-2016 take 1 tablet by mouth four times daily as needed for muscle spasms Levsin Sublingual 0.125 mg = 1 tab(s), Oral, QID, PRN for spasm, # 40 tab(s), Refills(s) 1 Start Date: 01/06/16 Status: Ordered lidocaine 0.05 mg/mg medicated patch (8 sources) Antiarrhythmic, Amide Local Anesthetic Start: 2024 End: 2025 apply 1 dose transdermal route every twelve hours lidocaine (Lidoderm) 5 % patch Indications: Chronic bilateral low back pain with right-sided sciatica , Primary osteoarthritis involving multiple joints Apply 1 patch over 12 hours topically Daily Apply to painful area 12 hours per day, remove for 12 hours. 30 patch 11 2024 2025 Active linaclotide 0.145 mg oral capsule (3 sources) Guanylate Cyclase-C Agonist Start: 05-02-2023 take 1 capsule by mouth every other day Linzess 145 mcg oral capsule 145 mcg = 1 cap(s), Oral, Every other day, Refills(s) 0, Constipation Start Date: 05/02/23 Status: Ordered Magnesium (8 sources) Magnesium Active magnesium oxide 500 mg oral tablet (20 sources) Start: 08-04-2024 take 1 tablet by mouth once daily magnesium oxide 500 MG tablet Indications: Essential hypertension (CMS/HCC) Take 1 tablet (500 mg) by mouth Daily 08/04/2024 Active Start: 05-02-2023 magnesium oxid e Refills(s) 0, Prophylaxis Start Date: 05/02/23 Status: Ordered Repeat number: 1 Start: 05-02-2023 magnesium oxid e Refills(s) 0, Prophylaxis Start Date: 05/02/23 Status: Ordered Start: 05-02-2023 magnesium oxid e Refills(s) 0 Start Date: 05/02/23 Status: Ordered Start: 03-25-2023 take 1 tablet by butch th once daily magnesium oxide (Mag-Ox) 400 (240 Mg) MG tablet Indications: Irritable bowel syndrome with both constipation and diarrhea TAKE 1 TABLET BY MOUTH DAILY 30 tablet 11 03/30/2024 Active Magnesium Oxide 400 MG CAPS TAKE 1 CAPSULE Daily Quantity: 0 Refills: 0 Ordered: 26-Jul-2022 DO Active montelukast 10 mg oral tablet (20 sources) Leukotriene Receptor Antagonist Start: 05-02-2023 montelukast Refills(s) 0, Asthma Start Date: 05/02/23 Status: Ordered Repeat number: 1 Start: 05-02-2023 montelukast Re fills(s) 0, Asthma Start Date: 05/02/23 Status: Ordered Start: 05-02-2023 montelukast Re fills(s) 0 Start Date: 05/02/23 Status: Ordered Start: 03-25-2023 take 1 tablet by butch th in the morning montelukast (Singulair) 10 MG tablet Take 10 mg by mouth in the morning. 07/13/2023 Active pantoprazole 40 mg extended release oral tablet (6 sources) Proton Pump Inhibitor Start: 01-06-2016 take 40 mg by mouth once daily pantoprazole 40 mg, Oral, Daily, Refills(s) 0, Control of stomach acid Start Date: 01/06/16 Status: Ordered polyethylene glycol 3350 08516 mg powder for oral solution (18 sources) Osmotic Laxative Start: 02-13-2024 Polyethylene Glycol 3350 (Miralax) 17 gram/dose powder Active 17 GM PO Daily as needed for constipation February 12, 2024 11:00pm Start: 11-14-2023 take 17 g by mouth every week Miralax 14 dose bottle 17 gm, Oral, qWeek, Refills(s) 0, Constipation Start Date: 11/14/23 Status: Ordered Repeat number: 1 Start: 11-14-2023 Miralax 14 dos e bottle Refills(s) 0 Start Date: 11/14/23 Status: Ordered prednisoLONE acetate 10 mg/ml ophthalmic suspension (13 sources) Corticosteroid Start: 02-13-2024 take 1 drop(s) into the eye(s) once daily Prednisolone Acetate 1 % drops,suspension Active 1 DROPS EYE-RIGHT Daily February 12, 2024 11:00pm Start: 02-13-2024 take 1 drop(s) into the eye(s) once daily Prednisolone Acetate Active 1 DROPS EYE-RIGHT Daily February 13, 2024 12:00am Psyllium Husk (Daily Fiber) 0.4 gram capsule (13 sources) Start: 02-13-2024 Psyllium Husk (Daily Fiber) 0.4 gram capsule Active 0.4 GM PO Q2D February 12, 2024 11:00pm Start: 02-13-2024 Psyllium Husk (Daily Fiber) 0.4 gram capsule Active 0.4 GM PO Q2D February 13, 2024 12:00am sodium chloride 0.854 meq/ml ophthalmic solution (11 sources) Start: 02-20-2024 take 1 drop(s) into the eye(s) in the morning sodium chloride (Aleida 128) 5 % ophthalmic solution Administer 1 drop into both eyes in the morning and 1 drop before bedtime. 02/20/2024 Active sulfaSALAzine 500 mg oral tablet (20 sources) Aminosalicylate Start: 02-08-2022 Sulfasalazine 500 mg tablet Active 500 MG PO As Directed as needed for Crohn's flare up February 07, 2022 11:00pm Start: 11-17-2015 take 2 tablets by mo uth three times daily as needed sulfasalazine 500 mg, Oral, TID, PRN Irritable bowel symptoms, 2 tablets tid/anti-inflammatory, Refills(s) 0 Start Date: 11/17/15 Status: Ordered Repeat number: 1 Start: 11-17-2015 take 2 tablets by mo uth three times daily as needed sulfasalazine 500 mg, Oral, TID, PRN Irritable bowel symptoms, 2 tablets tid/anti-inflammatory, Refills(s) 0 Start Date: 11/17/15 Status: Ordered tenapanor 50 mg oral tablet (3 sources) Start: 11-14-2023 take 1 tablet by mouth twice daily tenapanor 50 mg oral tablet 50 mg = 1 tab(s), Oral, BID, # 60 tab(s), Refills(s) 6, Pharmacy: [id number], 157, cm, 11/14/23 13:35:00 EST, Height/Length Dosing, 102, kg, 11/14/23 13:35:00 EST, Weight Dosing Start Date: 11/14/23 Status: Ordered theophylline 400 mg extended release oral tablet (20 sources) Methylxanthine Start: 01-06-2016 take 1 tablet by mouth in the morning, then take 1 tablet by mouth every twenty-four hours theophylline ER (Uniphyl) 400 MG 24 hr tablet Take 400 mg by mouth in the morning. 07/13/2023 Active take 1 tablet by butch every twenty-four hours Theophylline ER 400 MG Oral Tablet Extended Release 24 Hour TAKE TABLET Quantity: 0 Refills: 0 Ordered: 26-Jul-2022 DO Active traMADol hydrochloride 50 mg oral tablet (6 sources) Opioid Agonist Start: 12-24-2024 End: 02-11-2025 take 1-2 tablets by mouth every six hours for pain traMADol (Ultram) 50 MG tablet Indications: Chronic bilateral low back pain with right-sided sciatica Take 1-2 tablets (50-100 mg) by mouth every 6 (six) hours if needed for severe pain 42 tablet 02/11/2025 Active Trelegy Ellipta (6 sources) Start: 05-02-2023 Trelegy Ellipt a Refills(s) 0, Asthma Start Date: 05/02/23 Status: Ordered Start: 05-02-2023 Trelegy Ellipt a Refills(s) 0 Start Date: 05/02/23 Status: Ordered Triamcinolone (20 sources) Corticosteroid Start: 01-14-2025 Azmacort inhal er Azmacort inhaler, See Instructions Start Date: 01/14/25 Status: Ordered Repeat number: 1 Start: 01-14-2025 Azmacort inhal er Azmacort inhaler, See Instructions Start Date: 01/14/25 Status: Ordered Start: 12-18-2023 Kenalog-40 Nov, 20 mg Start: 04-24-2021 Kenalog -40 mg Apr, 20 mg Ventolin HFA 90 mcg/inh Aerosol (8 sources) Start: 11-17-2015 Ventolin HFA 9 0 mcg/inh Aerosol 1 puff(s), Inhalation, Shortness of breath or wheezing, Refill(s) 0 Start Date: 11/17/15 Status: Ordered Repeat number: 1 Start: 11-17-2015 Ventolin HFA 9 0 mcg/inh Aerosol 1 puff(s), Inhalation, Shortness of breath or wheezing, Refill(s) 0 Start Date: 11/17/15 Status: Ordered Completed/Discontinued Medications Medication Drug Class(es) Dates Sig (Normalized) Sig (Original) acetaminophen 325 mg / HYDROcodone bitartrate 5 mg oral tablet (20 sources) Opioid Agonist Start: 02-27-2024 End: 05-19-2024 take 1 tablet by mouth every four to six hours as needed for pain Hydrocodone-Acetami nophen 5-325 mg tablet Discontinued 1 - 2 TAB PO EVERY 4-6 HOURS as needed for pain 30 April 07, 2024 May 19, 2024 1:03pm dispense #30 (thirty) dx: Z98.890 postoperative status Start: 03-08-2022 End: 03-25-2023 take 1 tablet by mouth every four to six hours as needed for pain Hydrocodone-Acetaminophen 5-325 mg table t Discontinued 1 - 2 TAB PO EVERY 4-6 HOURS as needed for pain 50 7 March 08, 2022 March 25, 2023 10:09am azithromycin 250 mg oral tablet (2 sources) Macrolide Antimicrobial Start: 07-10-2024 End: 09-30-2024 Azithromycin 250 mg tablet Discontinued 0 PO .COMPLEX 6 July 09, 2024 11:00pm September 30, 2024 1:26pm For 250 mg dose pack: take 500 mg today (day 1), then 250 mg for 4 days (days 2-5) PO bumetanide 1 mg oral tablet (10 sources) Loop Diuretic take 1 tablet by mouth once daily Bumetanide 1 MG Oral Tablet Take 1 tablet daily Quantity: 0 Refills: 0 Ordered: 26-Jul-2022 DO Active doxycycline hyclate 100 mg oral capsule (20 sources) Tetracycline-class Drug Start: 04-07-2024 End: 05-19-2024 take 1 capsule by mouth twice daily Doxycycline Hyclate 100 mg capsule Discontinued 100 MG PO Twice daily April 06, 2024 11:00pm May 19, 2024 1:03pm Start: 02-27-2024 End: 03-04-2024 take 1 tablet by mouth twice daily Doxycycline Hyclate 100 mg tablet Discontinued 100 MG PO Twice daily 10 February 26, 2024 11:00pm March 04, 2024 10:13am Start: 03-08-2022 End: 03-25-2023 take 1 tablet by mouth twice daily Doxycycline Hyclate 100 mg tablet Discontinued 100 MG PO Twice daily 10 March 07, 2022 11:00pm March 25, 2023 10:09am lisinopril 20 mg oral tablet (20 sources) Angiotensin Converting Enzyme Inhibitor Start: 02-08-2022 End: 06-02-2024 take 2 tablets by mouth once daily in the morning Lisinopril 20 mg tablet Discontinued 40 MG PO Every morning February 07, 2022 11:00pm June 02, 2024 10:20am Start: 02-08-2022 End: 06-02-2024 take 40 mg by mouth once daily in the morning Lisinopril Discontinued 40 MG PO Every morning February 08, 2022 12:00am June 02, 2024 11:20am Start: 03-24-2022 take 20 mg by mouth once daily in the morning Lisinopril Active 20 MG PO Every morning February 08, 2022 11:41am Start: 11-17-2015 take 40 mg by mouth once daily lisinopril 40 mg, Oral, Daily, Refills(s) 0, High blood pressure Start Date: 11/17/15 Status: Ordered Repeat number: 1 meloxicam 15 mg oral tablet (20 sources) Nonsteroidal Anti-inflammatory Drug Start: 06-15-2021 End: 03-25-2023 take 1 tablet by mouth once daily in the morning Meloxicam 15 mg tablet Discontinued 15 MG PO Every morning February 07, 2022 11:00pm March 25, 2023 10:14am methylPREDNISolone (2 sources) Corticosteroid Start: 02-11-2025 End: 02-18-2025 methylPREDNISolone (Medrol Dospak) 4 MG tablets Indications: Chronic bilateral low back pain with right-sided sciatica Take as directed on package. 21 tablet 02/11/2025 02/18/2025 24 hr metoprolol succinate 50 mg extended release oral tablet (18 sources) beta-Adrenergic Hannah Start: 02-13-2024 End: 06-02-2024 take 1 tablet by mouth once daily in the morning Metoprolol Succinate 50 mg tablet extended release 24 hr Discontinued 50 MG PO Every morning February 12, 2024 11:00pm June 02, 2024 10:21am Start: 11-14-2023 metoprolol 25 mg ER Tab Refills(s) 0 Start Date: 11/14/23 Status: Ordered take 1 tablet by butch every twelve hours Metoprolol Tartrate 25 MG 1 tablet with food Orally Twice a day Active naproxen 375 mg oral tablet (19 sources) Nonsteroidal Anti-inflammatory Drug Start: 08-04-2024 End: 2024 take 1 tablet by mouth twice daily as needed for pain naproxen (Naprosyn) 375 MG tablet Indications: Primary osteoarthritis involving multiple joints Take 1 tablet (375 mg) by mouth 2 (two) times a day as needed for mild pain (pain) 08/04/2024 2024 Discontinued Start: 03-25-2023 take 2 capsules by m outh every eight hours as needed for headache Naproxen Sodium (Aleve) 220 mg Capsule Active 440 MG PO Q8H as needed for Headache March 24, 2023 11:00pm NIFEdipine 60 mg osmotic 24 hr extended release oral tablet (20 sources) Dihydropyridine Calcium Channel Hannah Start: 02-08-2022 End: 03-25-2023 Nifedipine 60 mg tablet extended release 24 hr Discontinued 50 MG PO Every morning February 07, 2022 11:00pm March 25, 2023 10:15am Start: 02-08-2022 End: 03-25-2023 take 50 mg by mouth once daily in the morning Nifedipine Discontinued 50 MG PO Every morning February 08, 2022 12:00am March 25, 2023 11:15am Start: 11-17-2015 take 60 mg by mouth once daily NIFEdipine 60 mg, Oral, Daily, Refills(s) 0, High blood pressure Start Date: 11/17/15 Status: Ordered Repeat number: 1 NIFEdipine ER Os motic Release 60 MG Oral for 30 Not-Taking/PRN nystatin 162073 unt/ml oral suspension (17 sources) Polyene Antifungal Start: 03-25-2023 End: 02-13-2024 take 1 mL by mouth three times daily Nystatin 100,000 unit/mL suspension Discontinued 5 ML PO Three times daily March 24, 2023 11:00pm February 13, 2024 10:15am polyethylene glycol 3350 [id number] mg / potassium chloride 1480 mg / sodium bicarbonate 5720 mg / sodium chloride 07770 mg powder for oral solution (1 source) Osmotic Laxative Start: 05-02-2023 NuLYTELY Colon oral powder for reconstitution See Instructions, 1 EA, Refill(s) 0, Prior to colonoscopy., [facility], 157.4, cm, 05/02/23 13:27:00 EDT, Height/Length Dosing, 102.3, kg, 05/02/23 13:27:00 EDT, Weight Dosing Start Date: 05/02/23 Status: Ordered predniSONE 20 mg oral tablet (2 sources) Start: 07-10-2024 End: 09-30-2024 take 2 tablets by mouth once daily Prednisone 20 mg tablet Discontinued 20 MG PO .COMPLEX July 09, 2024 11:00pm September 30, 2024 1:26pm Take 2 tabs po daily x 5 days Psyllium (5 sources) End: 2024 take 2 capsules by mouth in the morning psyllium (Metamucil) 0.36 g capsule Take 2 capsules by mouth in the morning. 2024 Discontinued take 2 capsules by mouth in the morning psyllium (Metamucil) 0.36 g capsule Take 2 capsules by mouth in the morning. Active spironolactone 25 mg oral tablet (20 sources) Aldosterone Antagonist Start: 02-08-2022 End: 06-02-2024 take 1 tablet by mouth twice daily Spironolactone 25 mg tablet Discontinued 25 MG PO Twice daily February 07, 2022 11:00pm June 02, 2024 10:22am sulindac 200 mg oral tablet (6 sources) Nonsteroidal Anti-inflammatory Drug Sulindac 200 MG Oral for 30 Not-Taking Problems Active Problems Problem Classification Problem Date Documented Da te Episodic/Chronic Abdominal pain (18 sources) Unspecified abdominal pain; Translations: [Epigastric pain] Onset: 2 Episodic Administrative/social admission (3 sources) Follow-up status; Translations: [Other specified counseling] Episodic Asthma (20 sources) Asthma; Translations: [Asthma, unspecified type, unspecified] Onset: 2 09-11-2024 Chronic Chronic obstructive pulmonary disease and bronchiectasis (15 sources) Pulmonary emphysema; Translations: [Other emphysema] Onset: 4 09-11-2024 Chronic Chronic obstructive pulmonary disease and bronchiectasis (4 sources) Bronchitis; Translations: [Bronchitis, not specified as acute or chronic] 07-10-2024 Episodic Deficiency and other anemia (11 sources) Anemia; Translations: [Anemia, unspecified] Onset: 3 Episodic Diverticulosis and diverticulitis (1 source) Diverticula of intestine; Translations: [Diverticulosis of intestine, part unspecified, without perforation or abscess without bleeding] Onset: 3 Chronic Essential hypertension (20 sources) Benign essential hypertension; Translations: [Benign essential hypertension] Onset: 2 Resolved: 2 11-14-2023 Chronic Fluid and electrolyte disorders (4 sources) Hypo-osmolality and hyponatremia; Translations: [Hyponatremia] Onset: 2 2024 Episodic Immunizations and screening for infectious disease (15 sources) Patient encounter status; Translations: [Other specified vaccination] Resolved: 3 07-10-2024 Episodic Neoplasms of unspecified nature or uncertain behavior (2 sources) Neoplastic disease; Translations: [Neoplasm of unspecified behavior of bone, soft tissue, and skin] 12-28-2024 Episodic Osteoarthritis (20 sources) Arthritis of hand; Translations: [Unilateral primary osteoarthritis of first carpometacarpal joint, unspecified hand] Onset: 2 Resolved: 2 03-08-2022 Chronic Other aftercare (10 sources) Treatment changed; Translations: [Long-term (current) use of other medications] Episodic Other and unspecified benign neoplasm (8 sources) History of polyp of colon; Translations: [Personal history of colonic polyps] Onset: 4 Episodic Other bone disease and musculoskeletal deformities (2 sources) Osteopenia; Translations: [Other specified disorders of bone density and structure, multiple sites] 12-22-2024 Episodic Other connective tissue disease (1 source) Other bursitis of hip, right hip Episodic Other connective tissue disease (2 sources) Pain in left hand Episodic Other diseases of veins and lymphatics (10 sources) Lymphedema; Translations: [Other lymphedema] Chronic Other diseases of veins and lymphatics (9 sources) Lymphedema, not elsewhere classified; Translations: [Lymphedema] Chronic Other diseases of veins and lymphatics (10 sources) Vascular insufficiency; Translations: [Venous (peripheral) insufficiency, unspecified] Episodic Other gastrointestinal disorders (13 sources) Irritable bowel syndrome; Translations: [Mixed irritable bowel syndrome] Onset: 4 09-11-2024 Chronic Other gastrointestinal disorders (1 source) Irritable bowel syndrome with constipation; Translations: [Irritable bowel syndrome with constipation] Onset: 4 Chronic Other gastrointestinal disorders (10 sources) History of irritable bowel syndrome; Translations: [Personal history of other diseases of digestive system] Episodic Other gastrointestinal disorders (2 sources) Constipation, unspecified; Translations: [Constipation, unspecified] Onset: 3 Episodic Other gastrointestinal disorders (2 sources) H/O: gastrointestinal disease; Translations: [Personal history of other diseases of the digestive system] Onset: 3 Episodic Other gastrointestinal disorders (15 sources) Constipation; Translations: [Constipation, unspecified] 05-02-2023 Episodic Other gastrointestinal disorders (8 sources) History of Crohns disease 05-02-2023 Episodic Other gastrointestinal disorders (8 sources) History of diverticulitis 05-02-2023 Episodic Other lower respiratory disease (11 sources) Dyspnea; Translations: [Shortness of breath] Onset: 2 Episodic Other lower respiratory disease (10 sources) Snoring; Translations: [Other respiratory abnormalities] Episodic Other nervous system disorders (2 sources) Chronic pain; Translations: [Other chronic pain] Chronic Other nervous system disorders (1 source) Other chronic pain Chronic Other nervous system disorders (4 sources) Chronic low back pain; Translations: [Other chronic pain] Onset: 3 02-11-2025 Chronic Other nervous system disorders (20 sources) Pain in limb; Translations: [Other acute postprocedural pain] 03-08-2022 Episodic Other non-traumatic joint disorders (2 sources) Pain in right hip Episodic Other nutritional; endocrine; and metabolic disorders (10 sources) Body mass index 40+ - severely obese; Translations: [Morbid obesity] Chronic Other screening for suspected conditions (not mental disorders or infectious disease) (2 sources) Mammography abnormal; Translations: [Other abnormal and inconclusive findings on diagnostic imaging of breast] 12-24-2024 Episodic Other skin disorders (1 source) Localized swelling, mass and lump, lower limb, bilateral Episodic Other skin disorders (2 sources) Excessive sweating; Translations: [Generalized hyperhidrosis] 2024 Episodic Other skin disorders (2 sources) Disorder of sweat gland; Translations: [Eccrine sweat disorder, unspecified] 08-04-2024 Episodic Other skin disorders (2 sources) Inflamed seborrheic keratosis; Translations: [Inflamed seborrheic keratosis] 12-28-2024 Episodic Other upper respiratory disease (4 sources) Lesion of skin of nose; Translations: [Disorder of the skin and subcutaneous tissue, unspecified] 12-24-2024 Episodic Other upper respiratory infections (2 sources) Viral upper respiratory tract infection; Translations: [Acute upper respiratory infection, unspecified] 2024 Episodic Regional enteritis and ulcerative colitis (10 sources) Crohn's disease; Translations: [Regional enteritis of unspecified site] Chronic Residual codes; unclassified (10 sources) Edema of lower extremity; Translations: [Edema] Episodic Residual codes; unclassified (3 sources) Family history of malignant neoplasm of digestive organ; Translations: [Family history of malignant neoplasm of digestive organs] Onset: 4 Episodic Residual codes; unclassified (4 sources) Family history of cancer of colon 02-05-2024 Episodic Residual codes; unclassified (14 sources) Postprocedural state finding; Translations: [Other specified postprocedural states] 02-10-2024 Episodic Residual codes; unclassified (2 sources) Abnormal flushing and sweating; Translations: [Flushing] 02-11-2025 Episodic Screening and history of mental health and substance abuse codes (14 sources) Ex-smoker; Translations: [Personal history of tobacco use] Onset: 2 Episodic Comment on above: Quit in 2013; Spondylosis; intervertebral disc disorders; other back problems (6 sources) Lumbar spondylosis; Translations: [Other spondylosis with radiculopathy, lumbar region] Chronic Unclassified (1 source) COUGH, UNSPECIFIED; Translations: [COUGH, UNSPECIFIED] Onset: 2 Unclassified (1 source) CONTACT W/AND (SUSP) EXPOS COVID-19; Translations: [CONTACT W/AND (SUSP) EXPOS COVID-19] Onset: 2 Unclassified (2 sources) LOW BACK PAIN, UNSPECIFIED; Translations: [LOW BACK PAIN, UNSPECIFIED] Onset: 2 Unclassified (1 source) Other low back pain; Translations: [Other low back pain] Onset: 3 Viral infection (11 sources) Herpes simplex; Translations: [Herpesviral infection, unspecified] Onset: 3 07-31-2023 Episodic Past or Other Problems Problem Classification Problem Date Documented Da te Episodic/Chronic Other aftercare (1 source) Other usp (current) drug therapy; Translations: [OTH REDUCING SYSTEM OPERATOR CURRENT DRUG THERAPY] Onset: 08-21-2022 Episodic Other connective tissue disease (1 source) Other muscle spasm; Translations: [OTHER MUSCLE SPASM] Onset: 08-21-2022 Episodic Other connective tissue disease (1 source) Pain in unspecified limb; Translations: [Pain in unspecified limb] Onset: 02-27-2024 Episodic Other gastrointestinal disorders (13 sources) Chronic constipation; Translations: [Other constipation] Onset: 07-31-2023 09-11-2024 Episodic Other lower respiratory disease (4 sources) Shortness of breath; Translations: [Shortness of breath] Onset: 08-20-2022 Episodic Other nervous system disorders (1 source) Other acute postprocedural pain; Translations: [Other acute postprocedural pain] Onset: 02-27-2024 Episodic Residual codes; unclassified (20 sources) Other specified postprocedural states; Translations: [Other postprocedural status] Onset: 03-16-2022 Resolved: 05-15-2022 Episodic Residual codes; unclassified (5 sources) Localized edema; Translations: [Localized edema] Onset: 08-09-2022 Episodic Spondylosis; intervertebral disc disorders; other back problems (15 sources) Chronic low back pain; Translations: [Lumbago with sciatica, right side] Onset: 07-31-2023 09-22-2024 Episodic Unclassified (10 sources) Patient status finding; Translations: [Patient new to provider] Resolved: 09-17-2022 Unclassified (1 source) LOW BACK PAIN, UNSPECIFIED; Translations: [LOW BACK PAIN, UNSPECIFIED] Onset: 08-18-2022 Unclassified (1 source) Other low back pain M54.59 Results Test Name Value Interpretation Reference Range Facility Patient Letter FTon 2024 Patient Letter [facility] Patient Letter [facility] February 23, 2025 ELSA FIGUEREDO [address] [place] [id number] : 1955 Below is a summary of the results of your recent colonoscopy. Your results have been sent to your primary care provider along with recommendations on when the procedure should be repeated. COLONOSCOPY Type of polyp no polyps identified Based on your results we are recommending you repeat the procedure in 5 years- due to family history of colon cancer Please contact the office with any further questions or concerns or if you wish to make an appointment. [facility] [phone] [facility] Reminderson 02-23-2025 Reminders Reminders From: Lyly James MA S To: [facility] - Reminders/Recalls; Sent: 02/23/2025 13:09:43 EDT Show up: 12/19/2029 13:09:00 EST Subject: colon recall Due Date/Time: 02/03/2030 13:09:00 EDT Reminder/Recall [address] Funez 02/03/25 [facility] Basic metabolic 1998 panelon 02-17-2025 Calcium [Mass/Vol] 10.1 mg/dL 8.7 - 10. 3 mg/dL [facility] Chloride [Moles/Vol] 100 mmol/L 96 - 10 6 mmol/L [facility] CO2 [Moles/Vol] 24 mmol/L 20 - 29 mmol/L [facility] Creatinine [Mass/Vol] 0.66 mg/dL 0.57 - 1.00 mg/dL [facility] GFR/1.73 sq M.predicted among non-blacks MDRD (S/P/Bld) [Vol rate/Area] 95 mL/min/{1.73_m2} 59 - PINF mL/min/1.7 3 [facility] Glucose [Mass/Vol] 99 mg/dL 70 - 99 mg/dL [facility] Potassium [Moles/Vol] 4.4 mmol/L 3.5 - 5.2 mmol/L [facility] Sodium [Moles/Vol] 138 mmol/L 134 - 144 mmol/L [facility] Urea nitrogen [Mass/Vol] 11 mg/dL 8 - 27 mg/dL [facility] Urea nitrogen/Creatinine [Mass ratio] 17 mg/mg 12 - 28 [facility] CBC W Auto Differential pane l (Bld)on 02-17-2025 Basophils (Bld) [#/Vol] 0.1 10*3/uL [facility] Basophils/100 WBC (Bld) 1 % Not Estab. [facility] Eosinophils (Bld) [#/Vol] 0.3 10*3/uL [facility] Eosinophils/100 WBC (Bld) 5 % Not Estab. [facility] Erythrocyte distribution width (RBC) [Ratio] 13 % 11.7 - 15.4 % [facility] Hematocrit (Bld) [Volume fraction] 42.6 % 34.0 - 46.6 % [facility] Hemoglobin (Bld) [Mass/Vol] 14.4 g/dL 11.1 - 15.9 g/dL [facility] Immature granulocytes (Bld) [#/Vol] 0 10*3/uL [facility] Immature granulocytes/100 WBC (Bld) 0 % Not Estab. [facility] Lymphocytes (Bld) [#/Vol] 1.6 10*3/uL [facility] Lymphocytes/100 WBC (Bld) 29 % Not Estab. [facility] MCH (RBC) [Entitic mass] 31.6 pg 26.6 - 33.0 pg [facility] MCHC (RBC) [Mass/Vol] 33.8 g/dL 31.5 - 35.7 g/dL [facility] MCV (RBC) [Entitic vol] 94 fL 79 - 97 fL [facility] Monocytes (Bld) [#/Vol] 0.7 10*3/uL [facility] Monocytes/100 WBC (Bld) 14 % Not Estab. [facility] Neutrophils (Bld) [#/Vol] 2.7 10*3/uL [facility] Neutrophils/100 WBC (Bld) 51 % Not Estab. [facility] Platelets (Bld) [#/Vol] 243 10*3/uL [facility] RBC (Bld) [#/Vol] 4.55 10*6/uL [facility] WBC (Bld) [#/Vol] 5.3 10*3/uL [facility] Hepatic function 2000 panelo n 02-17-2025 Albumin [Mass/Vol] 4.4 g/dL 3.9 - 4.9 g/dL [facility] ALP [Catalytic activity/Vol] 129 U/L High [facility] ALT [Catalytic activity/Vol] 67 U/L High [facility] AST [Catalytic activity/Vol] 46 U/L High [facility] Bilirubin [Mass/Vol] 0.4 mg/dL 0.0 - 1 .2 mg/dL [facility] Bilirubin.direct [Mass/Vol] 0.15 mg/dL 0.00 - 0.40 mg/dL [facility] Protein [Mass/Vol] 6.8 g/dL 6.0 - 8.5 g/dL [facility] Laboratory - Chemistry and C hemistry - challengeon 02-17-2025 CRP [Mass/Vol] 7 mg/L 0 - 10 mg/L [facility] Free T3 [Mass/Vol] 3.4 pg/mL 2.0 - 4.4 pg/mL [facility] Free T4 [Mass/Vol] 0.86 ng/dL 0.82 - 1.77 ng/dL [facility] Metanephrine Free [Mass/Vol] <25.0 0.0 - 88.0 pg/mL [facility] Normetanephrine [Mass/Vol] 291.3 pg/mL High 0.0 - 285.2 pg/mL [facility] TSH Qn 1.19 m[IU]/L [facility] Laboratory - Hematology and Cell countson 02-17-2025 ESR (Bld) [Velocity] 33 mm/h [facility] No Panel Informationon 02-17 Interpretation and review of laboratory results Abnormal [facility] Test(s) 358170-[id number], Pl; [id number]-Glyrdbwetjtc, Pl was developed and its performance characteristics determined by [facility]. It has not been cleared or approved by the Food and Drug Administration. Performed at: [address] [id number] Assurance Sourcing Manager: Lucas Burgos MD, Phone: [phone] [facility] Performed at: [address] [id number] Assurance Sourcing Manager: Mariano Gastelum PhD, Phone: [phone] [facility] XR LUMBAR SPINE 2-3 VIEWSon 02-11-2025 XR LUMBAR SPINE 2-3 VIEWS Exam: XR LUMBAR SPINE 2-3 VIEWS Reason for exam: Worsening low back pain, right lower back pain into right posterior hip, no injury Prior comparative studies: None Findings: There is a sigmoid scoliosis to a moderate degree in the thoracolumbar spine. Vertebral heights are maintained. No subluxation is apparent. There is profound endplate sclerosis and osteophyte formation throughout the lumbar spine. Facet sclerosis is pronounced at L3-S1. No acute fractures identified. Aortic calcification is noted without dilatation. IMPRESSION: 1. Severe degenerative changes throughout the lumbar spine with moderate sigmoid scoliosis. Dictated on: 02/11/2025 10:08 AM This report has been electronically signed and approved by the interpreting radiologist. Normal Not Available XR Lumbar spine 2 or 3 Views on 02-11-2025 Exam: XR LUMBAR SPIN E 2-3 VIEWS Reason for exam: Worsening low back pain, right lower back pain into right posterior hip, no injury Prior comparative studies: None Findings: There is a sigmoid scoliosis to a moderate degree in the thoracolumbar spine. Vertebral heights are maintained. No subluxation is apparent. There is profound endplate sclerosis and osteophyte formation throughout the lumbar spine. Facet sclerosis is pronounced at L3-S1. No acute fractures identified. Aortic calcification is noted without dilatation. IMPRESSION: 1. Severe degenerative changes throughout the lumbar spine with moderate sigmoid scoliosis. Dictated on: 02/11/2025 10:08 AM This report has been electronically signed and approved by the interpreting radiologist. IMAGING Magno Barrera MD - 02/11/2025 Exam: XR LUMBAR SPINE 2-3 VIEWS Reason for exam: Worsening low back pain, right lower back pain into right posterior hip, no injury Prior comparative studies: None Findings: There is a sigmoid scoliosis to a moderate degree in the thoracolumbar spine. Vertebral heights are maintained. No subluxation is apparent. There is profound endplate sclerosis and osteophyte formation throughout the lumbar spine. Facet sclerosis is pronounced at L3-S1. No acute fractures identified. Aortic calcification is noted without dilatation. IMPRESSION: 1. Severe degenerative changes throughout the lumbar spine with moderate sigmoid scoliosis. Dictated on: 02/11/2025 10:08 AM This report has been electronically signed and approved by the interpreting radiologist. [facility] Radiology Study observation (narrative) [facility] XR Lumbar spine 2 or 3 Views Ordered By: Magno Barrera on 02-11-2025 [facility] Work Phone: Main OR Intraoperative Recor don 02-04-2025 Main OR Intraoperative Record Main OR Intraoperative Record IntraOp Document Type FT Summary Primary Physician: Papito Funez MD Finalized Date/Time: 02/04/25 12:29:01 Pt. Name: ELSA FIGUEREDO/Sex: 1955 Female Med Rec #: [id number] Physician: Papito Funez MD Financial #: [id number] Pt. Type: O Room/Bed: / Admit/Disch: 02/03/25 11:10:37 - 02/04/25 23:59:59 Institution: Case Times FT Entry 1 Patient Times In Room 02/03/25 12:42:00 Out Room 02/03/25 13:08:00 Procedure Times Start 02/03/25 12:46:00 Stop 02/03/25 13:06:00 Anesthesia Times Start 02/03/25 12:42:00 Stop 02/03/25 13:08:00 Time at [facility] 02/03/25 12:54:00 Last Modified By: Clint SEPULVEDA, Socorro Tripp 02/03/25 13:08:48 Case Attendance FT Entry 1 Entry 2 Entry 3 Case Attendee Alin FOSS, Jose Antonio Jaramillo RN, Socorro Landaverde SHEET ROCK TAPER, Jaclyn Wilder Role Performed BLACK ASH BURNER OPERATOR Personal Security Specialist - Primary Scrub - Primary Time In 02/03/25 12:42:00 02/03/25 12:42:00 02/03/25 12:42:00 Time Out 02/03/25 13:08:00 02/03/25 13:08:00 02/03/25 13:08:00 Procedure COLONOSCOPY(.) COLONOSCOPY(.) COLONOSCOPY(.) Comments Dr. Garcia supervising procedure. Last Modified By: Chanell SHEET ROCK TAPER, Angelica Jaramillo RN, Socorro Jaramillo RN, Socorro Tripp 02/04/25 12:28:32 02/03/25 13:08:49 02/03/25 13:08:49 Entry 4 Case Attendee Papito Funez MD Role Performed Surgeon - Primary Time In 02/03/25 12:42:00 Time Out 02/03/25 13:08:00 Procedure COLONOSCOPY(.) Comments Last Modified By: Socorro Jaramillo RN 02/03/25 13:08:49 Perioperative Protocols FT Pre-Care Text: Implements protective measures prior to operative or invasive procedure, confirms identity before the operative or invasive procedure, verifies operative procedure, surgical site, and laterality Entry 1 Procedure(s) COLONOSCOPY(.) Patient Identity Birthday, ID Band Verified (select at Check, Patient least 2): Participation Consents / H and P Anesthesia Consent, Operative Site N/A Verified H&P, Surgery/Procedure Marking Verified Consent Surgical Site No Laterality Verified n/a Verified Procedure Verified Yes Correct Patient Yes Position Verified Availability Equipment, Medication Prep Dry n/a Verified (If Applicable) PreOp Antibiotic No Time Out AlinJose Antonio farmer CRNA, Given Participants Clint SEPULVEDA, Socorro Tripp, Akhil SHEET ROCK TAPER, Armin Villegas MD, Papito Nuno Time Out Complete 02/03/25 12:43:00 Outcomes Met? Yes Last Modified By: Socorro Jaramillo RN 02/03/25 12:44:25 Post-Care Text: The patient is free from signs and symptoms of injury caused by extraneous objects Allergy Information FT Pre-Care Text: Verifies allergies Entry 1 Allergies Reviewed? Yes Allergies Reviewed Self/Patient With Outcomes Met? Yes Last Modified By: Socorro Jaramillo RN 02/03/25 12:44:32 Post-Care Text: The patient received appropriate medication(s) safely administered during the perioperative period Surgical Procedures FT Entry 1 Procedure Description Procedure COLONOSCOPY Modifiers . Surgeon Description Colonoscopy Primary Procedure Yes Primary Surgeon Armin KAUFMAN, Papito Nuno Start 02/03/25 12:46:00 Stop 02/03/25 13:06:00 Anesthesia Type General Surgical Service Gastroenterology Wound Class 2 - Clean-Contaminated Last Modified By: Socorro Jaramillo RN 02/03/25 13:06:34 General Case Data FT Pre-Care Text: Classifies surgical wound, implements aseptic technique, initiates traffic control Entry 1 Case Information OR ENDO 1 FT Case Level Level 2 Wound Class 2 - Clean-Contaminated Specialty Gastroenterology ASA Class 3 Preop Diagnosis FAMILY HX OF COLON Postop Same As Preop No CANCER, HX OF COLON POLYPS Postop Diagnosis Diverticulosis, Outcomes Met? Yes ascending colon lipoma and internal hemorrhoids Last Modified By: Socorro Jaramillo RN 02/03/25 13:06:28 Post-Care Text: The patient is free from signs and symptoms of infection Skin Assessment (Pre Procedure) FT Pre-Care Text: Implements protective measures to prevent skin/ tissue injury due to thermal or mechanical sources Evaluates for signs and symptoms of physical injury to skin and tissue Entry 1 Skin Integrity Intact, [place], Warm, & Skin Abnormality No Dry Outcomes Met? Yes Last Modified By: Socorro Jaramillo RN 02/03/25 12:44:55 Post-Care Text: The patient is free from signs and symptoms of injury caused by extraneous objects Patient Positioning FT Pre-Care Text: Identifies physical alterations that require additional precautions for procedure-specific positioning, verifies presence of prosthetics or corrective devices, positions the patient, evaluates the patient for signs and symptoms of injury as a result of positioning Entry 1 Procedure COLONOSCOPY(.) Body Position Lateral, right side up Feet Uncrossed? Yes Left Arm Position Resting at Side Right Arm Position Resting at Side Left Leg Position Extended Right Leg Position Ext (more content not included)... Normal [facility] Discharge Instructionson Discharge Instructions Discharge Instructions ELSA FIGUEREDO :1955 Visit Date:02/03/2025 Inpatient Discharge Instructions Your Care Team Admitting Physician - Papito Funez MD Referring Physician - Papito Funez MD Reason for Your Visit FAMILY HX OF COLON CANCER, HX OF COLON POLYPS Your Diagnosis Family history of colon cancer This Is Your Medications List NIFEdipine Non-Formulary Medication (Azmacort inhaler) albuterol (Ventolin HFA 90 mcg/inh Aerosol) candesartan (candesartan 16 mg Tab) cyclobenzaprine lactobacillus acidophilus (Acidophilus Probiotic Blend) lisinopril magnesium oxide montelukast polyethylene glycol 3350 (Miralax 14 dose bottle) sulfasalazine theophylline Procedure History Colonoscopy (02/03/2025), Mammography (11/07/2023), Colonoscopy (07/11/2023), Colonoscopy (06/21/2023), Esophagogastroduodenoscopy (06/21/2023), EGD (esophagogastroduodenoscop y) and closure of duodenal fistula (01/06/2016), Colonoscopy (11/29/2015). What to do next Instructions From Your Doctor Event Name Event Result Discharge Activity Resume normal activities in 24 hours Discharge Restrictions No driving for 24 hrs Discharge Diet(s) Regular Call Your Doctor For Persistent or heavy bleeding Discharge Instructions Discharge Instructions New Follow Up Appointments after Discharge Follow Up with Armin KAUFMAN, Papito Nuno, [facility], [facility] When: Comments: Office to call with pathology results in 7-10 days. If you do not have a follow-up appointment already scheduled, please call to make follow up appointment. Please call for any problems. Where: [address] [place], [place] [address]samanta Bazan, [address] [address] [phone] Medications What How Much When Instructions Next Dose Unchanged albuterol (Ventolin HFA 90 mcg/ inh Aerosol) 1 Puffs Inhalation As needed for Shortness of breath or wheezing Unchanged candesartan (candesartan 16 mg Tab) 1 Tablets By Mouth 2 times a day Unchanged cyclobenzaprine Unchanged lactobacillus acidophilus (Acidophilus Probiotic Blend) By Mouth Every day Unchanged lisinopril 40 Milligram By Mouth Every day Unchanged magnesium oxide Unchanged montelukast Unchanged NIFEdipine 60 Milligram By Mouth Every day Unchanged Non-Formulary Medication (Azmacort inhaler) See instructions Unchanged polyethylene glycol 3350 (Miralax 14 dose bottle) 17 Gram By Mouth Every week Unchanged sulfasalazine 500 Milligram By Mouth 3 times a day as needed for Irritable bowel symptoms 2 tablets tid/ anti-inflammatory Unchanged theophylline 400 Milligram By Mouth Every day Test Results No qualifying data available. Allergies Mold (Cough) Avelox Penicillin codeine Problems Ongoing - Any problem that you are currently receiving treatment for. Anemia Constipation Epigastric pain Family history of colon cancer in mother History of colon polyps History of Crohn's disease History of diverticulitis Hypertension Personal history of colonic polyps Education Materials Colonoscopy Care After Surgery Please read the instructions outlined below and refer to this sheet in the next few weeks. These discharge instructions provide you with general information on caring for yourself after you leave the hospital. Your doctor may also give you specific instructions. While your treatment has been planned according to the most current medical practices available, unavoidable complications occasionally occur. If you have any problems or questions after discharge, please call your doctor. ACTIVITY You may resume your regular activity, but move at a slower pace for the next 24 hours. Take frequent rest periods for the next 24 hours. Walking will help get rid of the air and reduce the bloated feeling in your abdomen (belly). No driving for 24 hours (because of the anesthesia (medicine) used during the test). You may shower. Do not sign any important legal documents or operate any machinery for 24 hours (because of the anesthesia used during the test). NUTRITION Drink plenty of fluids. You may resume your normal diet as instructed by your doctor. Begin with a light meal and progress to your normal diet. Heavy or fried foods are harder to digest and may make you feel nauseated (sick to your stomach). Avoid alcoholic beverages for 24 hours or as instructed. MEDICATIONS You may resume your normal medications unless your doctor tells you otherwise. WHAT YOU CAN EXPECT TODAY Some feelings of bloating in the abdomen. Passage of more gas than usual. Spotting of blood in your stool or on the toilet paper. FOLLOW-UP Your doctor will discuss the results of your test with you. SEEK IMMEDIATE MEDICAL ATTENTION IF: There is more than a spotting of blood in your stool. There is abdominal distention (your abdomen is swollen). There is vomiting. You have a temperature over 101.5 F. There is abdominal (more content not included)... Normal [facility] Comment on above: Result Comment: Elec tronically Signed By: Zac SEPULVEDA, Vanessa Carranza\.br\Date and Time Signed: 02/03/25 13:19 EDT Inpatient Patient Summaryon 02-03-2025 Inpatient Patient Summary Inpatient Patient Summary [place] [id number] [facility] Clinical Discharge Instructions PERSON INFORMATION Name: ELSA FIGUEREDO PHYSICIANS Admitting Physician: Papito Funez MD Attending Physician: Papito Funez MD PCP: LARRY KAUFMAN, VINEET Brunson Discharge Diagnosis: Family history of colon cancer Comment: PATIENT EDUCATION INFORMATION Instructions: Medication Leaflets: Follow up: MEDICATION LIST Medications to Continue with No Changes Other Medications albuterol (Ventolin HFA 90 mcg/inh Aerosol) 1 Puffs Inhalation as needed Shortness of breath or wheezing. candesartan (candesartan 16 mg Tab) 1 Tablets By Mouth 2 times a day. cyclobenzaprine lactobacillus acidophilus (Acidophilus Probiotic Blend) By Mouth every day., takes daily lisinopril 40 Milligram By Mouth every day. magnesium oxide montelukast NIFEdipine 60 Milligram By Mouth every day. Non-Formulary Medication (Azmacort inhaler) polyethylene glycol 3350 (Miralax 14 dose bottle) 17 Gram By Mouth every week., takes once a week sulfasalazine 500 Milligram By Mouth 3 times a day as needed Irritable bowel symptoms. 2 tablets tid/anti-inflammatory. theophylline 400 Milligram By Mouth every day. Comment: Normal [facility] Main OR PACU II Recordon Main OR PACU II Record Main OR PACU II Record PACU Phase II Document Type FT Summary Primary Physician: Papito Funez MD Finalized Date/Time: 02/03/25 13:54:20 Pt. Name: ELSA FIGUEREDO Amber Grant/Sex: 1955 Female Med Rec #: [id number] Physician: Papito Funez MD Financial #: [id number] Pt. Type: O Room/Bed: / Admit/Disch: 02/03/25 11:10:37 - Institution: Case Times PACU II FT Pre-Care Text: Identifies barriers to communication and implements measures to provide psychological support and determines knowledge level Develops individualized plan of care, and ensures continuity of care Maintains patient's dignity and privacy, and maintains patient confidentiality Identifies and reports philosophical, cultural, and spiritual beliefs and values Identifies individual values and wishes concerning care administers prescribed antibiotic therapy and immunizing agents as ordered, Evaluates postoperative tissue perfusion Implements thermoregulation measures, and monitors body temperature Evaluates postoperative respiratory status Evaluates postoperative cardiac status Evaluates postoperative neurological status Assesses pain control, collaborated in initiating patient-controlled analgesia and implements alternative methods of pain control Verifies allergies, administers prescribed medications and solutions, evaluates response to medications Entry 1 In PACU II 02/03/25 13:10:00 Discharge from PACU 02/03/25 13:40:00 II Outcomes Met? Yes Last Modified By: Zac SEPULVEDA, Vanessa Carranza 02/03/25 13:54:17 Post-Care Text: The patient demonstrates knowledge of the expected response to the operative or invasive procedure The patient's care is consistent with the individualized perioperative plan of care The patient's right to privacy is maintained The patient's value system, lifestyle, ethnicity, and culture are considered, respected, and incorporated into the perioperative plan of care The patient participates in decisions affecting his or her perioperative plan of care. The patient is free from signs and symptoms of infection The patient has wound/tissue perfusion consistent with or improved from baseline levels established preoperatively The patient is at or returning to normothermia at the conclusion of the immediate postoperative period The patient's respiratory function is consistent with or improved from baseline levels established preoperatively The patient's cardiovascular status is consistent with or improved from baseline levels established preoperatively The patient's neurological status is consistent with or improved from baseline levels established preoperatively The patient demonstrates and/or reports adequate pain control throughout the perioperative period The patient received appropriate medication(s), safely administered during the perioperative period Finalized By: Vanessa Frank RN Document Signatures Signed By: Vanessa Frank RN 02/03/25 13:[address] [facility] Main OR Preoperative Recordo n 02-03-2025 Main OR Preoperative Record Main OR Preoperative Record Holding Area Document Type FT Summary Primary Physician: Papito Funez MD Finalized Date/Time: 02/03/25 11:33:41 Pt. Name: ELSA FIGUEREDO/Sex: 1955 Female Med Rec #: [id number] Physician: Papito Funez MD Financial #: [id number] Pt. Type: O Room/Bed: / Admit/Disch: 02/03/25 11:10:37 - Institution: Case Times Holding FT Pre-Care Text: Verifies consent for planned procedure, identifies individual values and wishes concerning care, includes family members in perioperative teaching Secures patient's records' belongings, and valuables, maintains patient's dignity and privacy, and maintains patient confidentiality Entry 1 In Holding 02/03/25 11:28:00 Outcomes Met? Yes Last Modified By: Bakari SEPULVEDA, Maria T Alvarado 02/03/25 11:32:42 Post-Care Text: The patient participates in decisions affecting his or her perioperative plan of care The patient's right to privacy is maintained Surgery Checklist FT Entry 1 Patient Birthday, ID Band Procedure History and Physical, Identification: Check, Patient Verification: Surgical Consent, With Participation Patient NPO after Midnight: Yes Date/Time: 02/03/25 08:30:00 Personal Items: Cataract Lens Implant, Personal Items dentures, clothes, Dentures Comment: shoes, bilat. cataract lens implant Limitations: n/a Complaints of Pain: Yes Pain Comment: 8/10 abdominal cramps Operative Site n/a Marking: Marked By: n/a Availability Equipment Verified: Does Patient Smoke No Patient states Yes Comment - Adult sister postop adult Supervision supervision available Case Cancelled in No Holding Area see comments below for reason Last Modified By: Maria T Villegas RN 02/03/25 11:33:39 General Comments: Pt finished colon prep at 0830, states stool is clear liquid yellow, has been NPO since. /,RN Finalized By: Maria T Villegas RN Document Signatures Signed By: Maria T Villegas RN 02/03/25 11:[address] [facility] Outpatient Surgery Discharge Instructionon 02-03-2025 Outpatient Surgery Discharge Instruction Outpatient Surgery Discharge Instruction [place] [id number] Patient Discharge Instructions PERSON INFORMATION Name: ELSA FIGUEREDO Date of : 1955 Current Date: 02/03/2025 12:40:44 PHYSICIANS Admitting Physician: Papito Funez MD Discharge Diagnosis: Family history of colon cancer ELSA FIGUEREDO has been given the following list of follow-up instructions, prescriptions, and patient education materials: PATIENT FOLLOW-UP INFORMATION Diet: Regular Discharge Activity: Resume normal activities in 24 hours Discharge Restrictions: No driving for 24 hrs Call Your Doctor For: Persistent or heavy bleeding IF UNABLE TO CONTACT YOUR PHYSICIAN AND YOU FEEL IT IS AN EMERGENCY, GO TO THE NEAREST EMERGENCY ROOM OR CALL 911 IAMY LAUREL J, have received the attached patient education materials/instructions and have verbalized understanding: May we do a follow up call? Yes No I was present when discharge instructions were given ____ Patient Signature _ Date Clinican/Nurse Signature Date Follow up: Pharmacy Information: You may receive a survey from Geovanna Hamlin asking you to rate your care experience. Your feedback is important and will help us understand what we do well and how we can improve the quality of care we provide to you, your loved ones and our community. It???s an honor to serve you. Thank you for choosing [facility] HERE ARE THE MEDICATION CHANGES THAT OCCURRED DURING YOUR HOSPITAL STAY Medications to Continue with No Changes Other Medications albuterol (Ventolin HFA 90 mcg/inh Aerosol) 1 Puffs Inhalation as needed Shortness of breath or wheezing. candesartan (candesartan 16 mg Tab) 1 Tablets By Mouth 2 times a day. cyclobenzaprine lactobacillus acidophilus (Acidophilus Probiotic Blend) By Mouth every day., takes daily lisinopril 40 Milligram By Mouth every day. magnesium oxide montelukast NIFEdipine 60 Milligram By Mouth every day. Non-Formulary Medication (Azmacort inhaler) polyethylene glycol 3350 (Miralax 14 dose bottle) 17 Gram By Mouth every week., takes once a week sulfasalazine 500 Milligram By Mouth 3 times a day as needed Irritable bowel symptoms. 2 tablets tid/anti-inflammatory. theophylline 400 Milligram By Mouth every day. PATIENT EDUCATION INFORMATION Instructions: Medication Leaflets: Normal [facility] Gastroenterology Office/Clin ic Noteon 01-14-2025 Gastroenterology Office/Clinic Note Gastroenterology Office/Clinic Note Chief Complaint 1 year colon recall HPI Staff Established patient is a(n) 69 year old female who presents today for a 1 year colonoscopy recall. Was scheduled 2023 but canceled. Constipation bloating Fhx colon cancer - mother. Hx colon polyps - hyperplastic 2015. Denies n/v/c/d, abd pain, bloody or mucus stools. Blood thinners? no. GLP-1 agonists? no. History of Present Illness Reviewed HPI collected by staff Review of Systems PHQ Score Initial Depression Screen Score: 0 SCORE All systems reviewed, negative; Except for above Physical Exam Vitals & Measurements HR: 65(Peripheral) RR: 14 BP: 147/88 HT: 62 in HT: 157 cm WT: 110 kg WT: 242.508 lb BMI: 44.63 General: in Nad Abdomen: Soft, NTND Procedure EGD 06/21/23 w/Dr. Pineda: Impression and Plan Normal EGD, random duodenal biopsies obtained Pathology: Final Diagnosis (Verified) DUODENUM, BIOPSY: ??? DUODENAL MUCOSA WITHIN NORMAL LIMITS. Colonoscopy 07/11/23 w/Dr. Pineda: Impression and Plan 1. External hemorrhoids 2. Severe diverticulosis of the sigmoid colon 3. No large polyps or lesions noted, but given the fair prep small lesions might have been missed. Recommendations: Repeat colonoscopy:: In 1 year, We will need to ensure good 2-day prep with 2 days of clear liquid diet, encourage patient compliance Assessment/Plan 1. History of colon polyps (Z86.0100: Personal history of colon polyps, unspecified) Colon 07/10 showed sever diverticulosis, no polyps but had a fair prep Was scheduled 2023 but canceled. Schedule Colonoscopy to evaluate. Discussed risks and benefits, patient agreeable. 2. Family history of colon cancer in mother (Z80.0: Family history of malignant neoplasm of digestive organs) I, Adeola Palomo, personally scribed for Papito Funez on 01/14/2025 15:27:29. . Documentation recorded by Janine Palomo, accurately reflects the services I performed and decisions made by me. Papito Funez MD Follow-up No qualifying data available Problem List/Past Medical History Ongoing Anemia Constipation Epigastric pain Family history of colon cancer in mother History of colon polyps History of Crohn's disease History of diverticulitis Hypertension Personal history of colonic polyps Historical No qualifying data Procedure/Surgical History Mammography (11/07/2023), Colonoscopy (07/11/2023), Colonoscopy (06/21/2023), Esophagogastroduodenoscopy (06/21/2023), EGD (esophagogastroduodenoscop y) and closure of duodenal fistula (01/06/2016), Colonoscopy (11/29/2015). Medications Acidophilus Probiotic Blend Azmacort inhaler, See Instructions cyclobenzaprine lisinopril, 40 mg, Oral, Daily magnesium oxide Miralax 14 dose bottle montelukast NIFEdipine, 60 mg, Oral, Daily, Not taking sulfasalazine, 500 mg, Oral, TID, PRN theophylline, 400 mg, Oral, Daily Ventolin HFA 90 mcg/inh Aerosol, 1 puff(s), Inhalation, PRN Allergies Mold (Cough) Avelox Penicillin codeine Social History Tobacco Former smoker, quit more than 30 days ago Tobacco Use:., 01/14/2025 Former smoker, quit more than 30 days ago Tobacco Use:. Never Smokeless Tobacco Use:. Cigarettes, Yes, 02/06/2024 Family History Primary malignant neoplasm of colon: Mother. Immunizations Vaccine Date Status influenza virus vaccine, inactivated 07/31/2023 Recorded influenza virus vaccine, inactivated 11/21/2022 Recorded SARS-CoV-2 (COVID-19) mRNA BNT-162b2 vax 2021 Recorded influenza virus vaccine, inactivated 08/30/2021 Recorded SARS-CoV-2 (COVID-19) mRNA BNT-162b2 vax 02/28/2021 Recorded SARS-CoV-2 (COVID-19) mRNA BNT-162b2 vax 02/06/2021 Recorded pneumococcal 13-valent vaccine 11/18/2020 Recorded zoster vaccine, inactivated 01/08/2020 Recorded pneumococcal 23-valent vaccine 09/17/2016 Recorded influenza, unspecified formulation 09/17/2016 Recorded influenza virus vaccine, inactivated 11/16/2013 Recorded Normal [facility] Comment on above: Result Comment: Elec tronically Signed By: Papito Funez MD\.br\Date and Time Signed: 01/14/25 15:32 EST\.br\Electronically Co-Signed By: Adeola Palomo MA\.br\Date and Time Co-Signed: 01/14/25 15:31 EST No Panel Informationon 12-28 Type of biopsy: key ential Informed consent: discussed and consent obtained Informed consent comment: The risks and benefits of the biopsy were discussed. Risks include but are not limited to bleeding, infection, scarring, pain, and nerve damage. An opportunity to ask questions prior to the procedure was permitted and all questions were answered. Patient was prepped and draped in usual sterile fashion: area cleansed with alcohol. Anesthesia: the lesion was anesthetized in a standard fashion Anesthetic: 1% lidocaine w/ epinephrine 1-100,000 buffered w/ 8.4% NaHCO3 Instrument used: DermaBlade Hemostasis achieved with: electrodesiccation Outcome: patient tolerated procedure well Outcome comment: The specimen was placed in a prelabeled formalin container to be sent for pathology Post-procedure details: sterile dressing applied and wound care instructions given Post-procedure details comment: Emphasized need to contact clinic for any signs of infection, uncontrollable bleeding, or complications. Dressing type: bandage Additional details: Photo taken Amount of lidocaine used: 1.0 cc [facility] [employer] [facility] [employer] [facility] BI MAMMOGRAM DIAGNOSTIC JOSESITO SYNTHESIS BILATERALon 12-02-2024 BI MAMMOGRAM DIAGNOSTIC TOMOSYNTHESIS BILATERAL This is a summary report. The complete report is available in the patient's medical record. If you cannot access the medical record, please contact the sending organization for a detailed fax or copy. EXAMINATION: BI MAMMOGRAM DIAGNOSTIC TOMOSYNTHESIS BILATERAL CLINICAL HISTORY: right breast lump TECHNIQUE: Diagnostic digital mammogram study of both breasts was performed with 2D and 3D tomosynthesis imaging. Study was compared to the screening mammograms of the breasts dated 11/07/2023 and ultrasound study of the right breast dated 12/02/2024. FINDINGS: Standard views of the breast were obtained as well as coned-down compression cc view on the right in the area of interest and true lateral view of the right breast. Skin marker is seen on the right in the area of clinically palpable lump. There is no convincing evidence of dominant spiculated mass, grouped microcalcifications or skin thickening which would be suggestive of malignancy. Ill-defined increased density in the area of lump similar to prior reviewed studies dating back to 10/25/2020, likely representing focal fibroglandular tissue. A few benign-appearing calcifications are seen bilaterally. Axillary lymph nodes are noted bilaterally. Ultrasound study demonstrates focal dense tissue without discrete mass. IMPRESSION: No specific evidence of malignancy seen in either breast. Likely dense fibroglandular tissue in the area of clinically palpable lump without obvious focal mass identified. Ultrasound study demonstrates dense tissue in the area of clinically palpable lump without discrete mass. When correlating the studies no convincing evidence of neoplasm. Follow-up diagnostic mammogram study of the right breast as well as ultrasound study of the right breast in 6 months recommended to assess stability. BIRADS 3 - Probably Benign Findings DENSITY: There are scattered areas of fibroglandular density. FOLLOW-UP: Diagnostic Mammogram in 6 Months, breast ultrasound in 6 months Board Certified Radiologists. Accredited by the ACR and FDA. MAMMOGRAPHY IS VERY IMPORTANT TO YOUR HEALTH. THE [place] [employer] GUIDELINES RECOMMEND THAT WOMEN 40 YEARS OF AGE AND OLDER SHOULD HAVE A MAMMOGRAM EVERY YEAR. A REMINDER LETTER WILL BE SENT AT THE APPROPRIATE TIME. ELECTRONICALLY SIGNED BY: Stanley Valdes M.D. Normal Not Available BI US BREAST LIMITED RIGHTon 12-02-2024 BI US BREAST LIMITED RIGHT Examination: BI US BREAST LIMITED RIGHT Reason for Study: right breast lump Comparison: Screening mammogram study of the breasts dated 11/07/2023, diagnostic mammogram study of the breasts dated 12/02/2024. Technique: Right breast ultrasound study was performed from the 1:00 to the 3:00 positions to include the area of clinically palpable lump. Findings: In the area of clinically palpable lump at the 1 o'clock position extending to approximately 3 o'clock position there is an area of decreased echogenicity which is ill-defined and somewhat linear in orientation likely representing dense fibroglandular tissue when correlated with the mammogram study. No obvious focal solid vascular mass to suggest neoplasm. IMPRESSION: Impression: Likely dense fibroglandular tissue at the 1:00 through 3:00 positions of the right breast as described. No obvious focal mass in the area of clinically palpable lump. No obvious neoplasm. Follow-up diagnostic mammogram study of the right breast as well as ultrasound study of the right breast in 6 months is recommended to assess stability. BI-RADS 3 ELECTRONICALLY SIGNED BY: Stanley Valdes M.D. 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 XR hand LT min 3V* 09/30/2024 9:10 AM SIGNS AND SYMPTOMS: Status post removal of trapezium PROTOCOL: Frontal, lateral, and oblique radiographs of the left hand COMPARISON: None FINDINGS: The trapezium has been removed. Degenerative changes are noted at the base of the first metacarpal. There is narrowing of the distal interphalangeal joints. There is no evidence of fracture or subluxation. XR/XR hand LT min 3V* IMPRESSION: The trapezium has been removed. Degenerative changes are noted at the base of the first metacarpal. There is narrowing of the distal interphalangeal joints. Impression dictated by: Nayeli Thompson M.D.09/30/2024 5:03 PM Dictation Location: [place] [address] Transcribed By: [facility] 09/30/241702 Dictated By: Nayeli Thompson II, MD 09/30/241701 Signed By: 09/30/24 [facility] Work Phone: XR hand LT min 3V*on 024 XR hand LT min 3V* [facility] [address] [place] [address] XRay Report Signed Patient: Elsa Figueredo MR#: [id number] : 1955 Acct:[id number] Age/Sex: 69 / F ADM Date: 09/30/24 Loc: [facility] Room: Type: [facility] CLI Attending Dr: Mdaeleine Garcia MD Copies to: Madeleine Garcia MD Ordering Provider: Madeleine Garcia MD Date of Service: 09/30/24 XR/XR hand LT min 3V*: 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 XR hand LT min 3V* 09/30/2024 9:10 AM SIGNS AND SYMPTOMS: Status post removal of trapezium PROTOCOL: Frontal, lateral, and oblique radiographs of the left hand COMPARISON: None FINDINGS: The trapezium has been removed. Degenerative changes are noted at the base of the first metacarpal. There is narrowing of the distal interphalangeal joints. There is no evidence of fracture or subluxation. XR/XR hand LT min 3V* IMPRESSION: The trapezium has been removed. Degenerative changes are noted at the base of the first metacarpal. There is narrowing of the distal interphalangeal joints. Impression dictated by: Nayeli Thompson M.D.09/30/2024 5:03 PM Dictation Location: [place] [address] Transcribed By: [facility] 09/30/241702 Dictated By: Nayeli Thompson II, MD 09/30/241701 Signed By: 09/30/241702 Normal [facility] XR hand LT min 3V*on 024 XR hand LT min 3V* [facility] [address] [place] [address] XRay Report Signed Patient: Elsa Figueredo MR#: [id number] : 1955 Acct:[id number] Age/Sex: 68 / F ADM Date: 06/30/24 Loc: [facility] Room: Type: [facility] Attending Dr: Madeleine Garcia MD Copies to: Madeleine Garcia MD Ordering Provider: Madeleine Garcia MD Date of Service: 06/30/24 XR/XR hand LT min 3V*: 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 4 views left hand plain film COMPARISON: 05/19/2024 HISTORY: Resection of the left trapezium. Follow-up assessment ACUTE FINDINGS: None DEGENERATIVE CHANGE: Similar interphalangeal degenerative changes. SOFT TISSUE FINDINGS: Unremarkable JOINT EFFUSION: None POSTOP CHANGES: Stable resection changes of the trapezium. Similar alignment. BONY MINERALIZATION: Adequate XR/XR hand LT min 3V* IMPRESSION: Stable postsurgical change Impression dictated by: Michael Godinez M.D.06/30/2024 4:12 PM Dictation Location: [place] [address] Transcribed By: [facility] 06/30/24 161 Dictated By: Michael Godinez DO 06/30/24 1611 Signed By: 06/30/24 1612 Normal [facility] No Panel InformationOrdered By: Mary Hassan on 06-16-2024 Miscellaneous Pathology Test See comment [facility] Comment on above: See report. Scanned copy available in EMR. Pathology Request for Lab Co rpon 06-16-2024 Pathology Request for Lab Samara Normal [facility] Comment on above: Order Comment: PATH- GI BX Result Comment: See report. Scanned copy available in EMR. PERFORMED BY: [place] [address] PATHOLOGIST RADIOLOGICAL HEALTH SPECIALIST ROMANA LEMUS M.D. Performed By: #### P ATH TO [facility] #### [facility] [address] [place] [address] [place] Alanine aminotransferase [En zymatic activity/volume] in Serum or PlasmaOrdered By: Pierre Guadalupe on 05-26-2024 ALT [Catalytic activity/Vol] 54 U/L High 7-52 [facility] Comment on above: Performed By: #### H EPATIC, CBC, LIPASE, CMP #### [facility] [address] [place] [address] [place] Albumin [Mass/volume] in Ser um or Plasma by Bromocresol green (BCG) dye binding methoOrdered By: Pierre Guadalupe on 05-26-2024 Albumin BCG dye [Mass/Vol] 4.2 g/dL 3.5-5.7 [facility] Alkaline phosphatase [Enzyma tic activity/volume] in Serum or PlasmaOrdered By: Pierre Guadalupe on 05-26-2024 ALP [Catalytic activity/Vol] 74 U/L Normal 34-104 [facility] Comment on above: Performed By: #### H EPATIC, CBC, LIPASE, CMP #### [address] Aspartate aminotransferase [ Enzymatic activity/volume] in Serum or PlasmaOrdered By: Pierre Guadalupe on 05-26-2024 AST [Catalytic activity/Vol] 35 U/L Normal 13-39 [facility] Comment on above: Performed By: #### H EPATIC, CBC, LIPASE, CMP #### [address] Automated basophil %Ordered By: Pierre Guadalupe on 05-26-2024 Basophils/100 WBC (Bld) 0.8 % Normal . [facility] Comment on above: Performed By: #### H EPATIC, CBC, LIPASE, CMP #### [address] Automated basophil countOrde red By: Pierre Guadalupe on 05-26-2024 Basophils (Bld) [#/Vol] 0.0 10*3/uL Normal 0.0-0.2 [facility] Comment on above: Result Comment: PERF ORMED BY: [place] [address] PATHOLOGIST RADIOLOGICAL HEALTH SPECIALIST ROMANA LEMUS M.D. Performed By: #### H EPATIC, CBC, LIPASE, CMP #### [address] Automated blood monocyte cou ntOrdered By: Pierre Guadalupe on 05-26-2024 Monocytes (Bld) [#/Vol] 0.8 10*3/uL Normal 0.0-0.8 [facility] Comment on above: Performed By: #### H EPATIC, CBC, LIPASE, CMP #### [address] Automated eosinophil %Ordere d By: Pierre Guadalupe on 05-26-2024 Eosinophils/100 WBC (Bld) 4.7 % Normal . [facility] Comment on above: Performed By: #### H EPATIC, CBC, LIPASE, CMP #### [address] Automated eosinophil countOr dered By: Pierre Guadalupe on 05-26-2024 Eosinophils (Bld) [#/Vol] 0.3 10*3/uL Normal 0.0-0.45 [facility] Comment on above: Performed By: #### H EPATIC, CBC, LIPASE, CMP #### [facility] [address] [place] [address] Automated monocyte %Ordered By: Pierre Guadalupe on 05-26-2024 Monocytes/100 WBC (Bld) 14.7 % Normal . [facility] Comment on above: Performed By: #### H EPATIC, CBC, LIPASE, CMP #### [address] Automated neutrophil %Ordere d By: Pierre Guadalupe on 05-26-2024 Neutrophils/100 WBC (Bld) 49.1 % Normal . [facility] Comment on above: Performed By: #### H EPATIC, CBC, LIPASE, CMP #### [address] Bilirubin Test strip Ql (U)O rdered By: Pierre Guadalupe on 05-26-2024 Bilirubin Ql (U) Negative Negative [facility] Bilirubin.direct [Mass/volum e] in Serum or PlasmaOrdered By: Pierre Guadalupe on 05-26-2024 Bilirubin.direct [Mass/Vol] 0.10 mg/dL 0.03-0.18 [facility] Bilirubin.total [Mass/volume ] in Serum or PlasmaOrdered By: Pierre Guadalupe on 05-26-2024 Bilirubin [Mass/Vol] 0.5 mg/dL Normal 0.3-1.0 [facility] Comment on above: Performed By: #### H EPATIC, CBC, LIPASE, CMP #### [facility] [address] [place] [address] CT abdomen pelvis w conon CT abdomen pelvis w con [facility] [place] [address] [place] [address] CT Scan Report Signed Patient: Elsa Figueredo MR#: [id number] : 1955 Acct:[id number] Age/Sex: 68 / F ADM Date: 05/26/24 Loc: ER Room: Type: [facility] ER Attending Dr: Copies to: Pierre Guadalupe DO Ordering Provider: Pierre Guadaulpe DO Date of Service: 05/26/24 CT/CT abdomen pelvis w con: abd pain CT ABDOMEN AND PELVIS WITH INTRAVENOUS CONTRAST: CLINICAL HISTORY: Nausea vomiting pain rule out bowel obstruction. COMPARISON: None TECHNIQUE: Spiral images were obtained through the abdomen and pelvis following the administration of intravenous contrast. This CT exam was performed using one or more following dose reduction techniques: Automated exposure control, adjustment of the mA and/or kV according to patient size, or use of iterative reconstruction technique. FINDINGS: Lung Bases: [Mild bibasilar scarring.] Organs:Hepatic steatosis. Liver cyst. Gallbladder portal vein spleen pancreas and adrenal glands appear unremarkable. No enhancing renal mass. Asymmetrical prominence of the right collecting system without obstructing mass or stone. Abdominal aorta appears normal in caliber.[ GI: Stomach is grossly unremarkable. Small bowel appears nondilated. Left colon diverticulosis.[ Pelvis:[Urinary bladder is grossly unremarkable. Uterus is atrophic. No adnexal mass.] Peritoneum/Retroperitoneum :No free air, free fluid or lymphadenopathy.[ Abd wall/Bones:Abdominal wall demonstrates no acute findings.[Osseous structures demonstrate degenerative change. CT/CT abdomen pelvis w con IMPRESSION: 1. No acute findings. 2. Asymmetrical prominence of the right collecting system without obstructing mass or stone. Finding is nonspecific. Attention on follow-up is suggested. 3. Left colon diverticulosis. Impression dictated by: Rakesh Joshi Jr., D.O.05/26/2024 2:05 PM Dictation Location: [place] [address] Transcribed By: [facility] 05/26/24 140 Dictated By: Rakesh Joshi Jr, DO 05/26/24 1402 Signed By: 05/26/24 140 Normal [facility] Calcium [Mass/volume] in Ser um or PlasmaOrdered By: Pierre Guadalupe on 05-26-2024 Calcium [Mass/Vol] 9.4 mg/dL Normal 8.6-10.3 [facility] Comment on above: Performed By: #### H EPATIC, CBC, LIPASE, CMP #### [address] Carbon dioxide, total [Moles /volume] in Serum or PlasmaOrdered By: Pierre Guadalupe on 05-26-2024 CO2 [Moles/Vol] 27.2 mmol/L Normal 21.0-31.[address] [facility] Comment on above: Performed By: #### H EPATIC, CBC, LIPASE, CMP #### [address] Chloride [Moles/volume] in S anamaria or PlasmaOrdered By: Pierre Guadalupe on 05-26-2024 Chloride [Moles/Vol] 101 mmol/L Normal 98-107 [facility] Comment on above: Performed By: #### H EPATIC, CBC, LIPASE, CMP #### [address] Color of Urine by AutoOrdere d By: Pierre Guadalupe on 05-26-2024 Color (U) Light-yellow Normal Yellow [facility] Comment on above: Order Comment: Name Collection Type:: Clean-Voided Midstream Performed By: #### U A #### [address] Complete Blood Count Auto Di ffon 05-26-2024 Mean Corpuscular HGB Conc 34.3 g/dL Normal 32.0-35.0 [facility] Comment on above: Performed By: #### H EPATIC, CBC, LIPASE, CMP #### [place] [address] [place] Monocytes/100 WBC (Bld) 15.79 % Normal 0.00-20.00 [facility] Comment on above: Performed By: #### H EPATIC, CBC, LIPASE, CMP #### [address] NRBC% 0.1 /100{WBC} Normal 0-0.5 [facility] Comment on above: Performed By: #### H EPATIC, CBC, LIPASE, CMP #### [address] Comprehensive Metabolic Pane meño 05-26-2024 Albumin [Mass/Vol] 4.2 g/dL Normal 3.5-5.7 The Count includes the [facility] Comment on above: Performed By: #### H EPATIC, CBC, LIPASE, CMP #### [address] Creatinine Clr Calc Pharmacy 79.54 Normal [facility] Comment on above: Performed By: #### H EPATIC, CBC, LIPASE, CMP #### [address] GFR/1.73 sq M.predicted MDRD (S/P/Bld) [Vol rate/Area] mL/min/{1.73_m2} Normal [facility] Comment on above: Performed By: #### H EPATIC, CBC, LIPASE, CMP #### [address] Creatinine [Mass/volume] in Serum or PlasmaOrdered By: Pierre Guadalupe on 05-26-2024 Creatinine [Mass/Vol] 0.62 mg/dL Normal 0.60-1.20 [facility] Comment on above: Performed By: #### H EPATIC, CBC, LIPASE, CMP #### [address] Erythrocyte distribution wid th [Ratio] by Automated countOrdered By: Pierre Guadalupe on 05-26-2024 Erythrocyte distribution width (RBC) [Ratio] 13.4 % Normal 11.9-15.3 [facility] Comment on above: Performed By: #### H EPATIC, CBC, LIPASE, CMP #### [address] Erythrocytes [#/volume] in B lood by Automated countOrdered By: Pierre Guadalupe on 05-26-2024 RBC (Bld) [#/Vol] 4.23 10*6/uL Normal 3.60-5.00 [facility] Comment on above: Performed By: #### H EPATIC, CBC, LIPASE, CMP #### [address] Glucose [Mass/volume] in Ser um or PlasmaOrdered By: Pierre Guadalupe on 05-26-2024 Glucose [Mass/Vol] 99 mg/dL Normal 70-100 [facility] Comment on above: ADA recommended refe rence rangeRandom Glucose Reference Range is dependent on time and content of last meal. Glucose of more than 200 mg/dL in a nonstressed, ambulatory subject supports the diagnosis of Diabetes Mellitus. Result Comment: [place] om Glucose Reference Range is dependent on time and content of last meal. Glucose of more than 200 mg/dL in a nonstressed, ambulatory subject supports the diagnosis of Diabetes Mellitus. ADA recommended reference range Performed By: #### H EPATIC, CBC, LIPASE, CMP #### [address] Glucose [Mass/volume] in Uri ne by Test stripOrdered By: Pierre Guadalupe on 05-26-2024 Glucose Test strip (U) [Mass/Vol] Normal mg/dL Normal [facility] Hematocrit [Volume Fraction] of Blood by Automated countOrdered By: Pierre Guadalupe on 05-26-2024 Hematocrit (Bld) [Volume fraction] 40.1 % Normal 34.0-46.4 [facility] Comment on above: Performed By: #### H EPATIC, CBC, LIPASE, CMP #### [address] Hemoglobin Test strip Ql (U) Ordered By: Pierre Guadalupe on 05-26-2024 Hemoglobin Ql (U) Negative Negative [facility] Hemoglobin [Mass/volume] in BloodOrdered By: Pierre Guadalupe on 05-26-2024 Hemoglobin (Bld) [Mass/Vol] 13.8 g/dL Normal 11.8-15.4 [facility] Comment on above: Performed By: #### H EPATIC, CBC, LIPASE, CMP #### [facility] [address] Hepatic Panelon 05-26-2024 Bilirubin,Indirect 0.4 mg/dL Normal The Count includes the [facility] Comment on above: Performed By: #### H EPATIC, CBC, LIPASE, CMP #### [facility] [address] [place] [address] Bilirubin.indirect [Mass/Vol] 0.10 mg/dL Normal 0.03-0.18 [facility] Comment on above: Performed By: #### H EPATIC, CBC, LIPASE, CMP #### [address] Ketones [Presence] in Urine by Test stripOrdered By: Pierre Guadalupe on 05-26-2024 Ketones Ql (U) Negative Normal Negative [facility] Comment on above: Order Comment: Name Collection Type:: Clean-Voided Midstream Performed By: #### U A #### [address] Leukocyte esterase [Presence ] in Urine by Test stripOrdered By: Pierre Guadalupe on 05-26-2024 Leukocyte esterase Test strip Ql (U) Negative Normal Negative [facility] Comment on above: Order Comment: Name Collection Type:: Clean-Voided Midstream Performed By: #### U A #### [address] Leukocytes [#/volume] correc jose for nucleated erythrocytes in Blood by Automated counOrdered By: Pierre Guadalupe on 05-26-2024 WBC corrected for nucl RBC Auto (Bld) [#/Vol] 5.6 10*3/uL 3.8-11.6 [facility] Leukocytes [#/volume] in Blo od by Automated countOrdered By: Pierre Guadalupe on 05-26-2024 WBC (Bld) [#/Vol] 5.6 10*3/uL Normal 3.8-11.6 [facility] Comment on above: Performed By: #### H EPATIC, CBC, LIPASE, CMP #### [facility] [address] [place] [address] [place] Lipase [Enzymatic activity/v olume] in Serum or PlasmaOrdered By: Pierre Guadalupe on 05-26-2024 Lipase [Catalytic activity/Vol] 5.0 U/L Low 11.0-82.0 [facility] Comment on above: Result Comment: PERF ORMED BY: [place] [address] PATHOLOGIST RADIOLOGICAL HEALTH SPECIALIST ROMANA LEMUS M.D. Performed By: #### B MP #### [address] Lymphocytes [#/volume] in Bl ood by Automated countOrdered By: Pierre Guadalupe on 05-26-2024 Lymphocytes (Bld) [#/Vol] 1.7 10*3/uL Normal 1.00-4.8 [facility] Comment on above: Performed By: #### H EPATIC, CBC, LIPASE, CMP #### [address] Lymphocytes/100 leukocytes i n Blood by Automated countOrdered By: Pierre Guadalupe on 05-26-2024 Lymphocytes/100 WBC (Bld) 30.7 % Normal . [facility] Comment on above: Performed By: #### H EPATIC, CBC, LIPASE, CMP #### [address] MCH [Entitic mass] by Automa ojse countOrdered By: Pierre Guadalupe on 05-26-2024 MCH (RBC) [Entitic mass] 32.6 pg Normal 24.7-34.3 [facility] Comment on above: Performed By: #### H EPATIC, CBC, LIPASE, CMP #### [address] MCHC Auto (RBC) [Mass/Vol]Or dered By: Pierre Guadalupe on 05-26-2024 MCHC (RBC) [Mass/Vol] 34.3 g/dL 32.0-35.0 [facility] MCV [Entitic volume] by Auto mated countOrdered By: Pierre Guadalupe on 05-26-2024 MCV (RBC) [Entitic vol] 94.9 fL Normal 80-100 [facility] Comment on above: Performed By: #### H EPATIC, CBC, LIPASE, CMP #### [address] Monocyte distribution width [Entitic volume] in Blood by AutomatedOrdered By: Pierre Guadalupe on 05-26-2024 Monocyte distribution width Auto (Bld) [Entitic vol] 15.79 % 0.00-20.00 [facility] Neutrophils [#/volume] in Bl ood by Automated countOrdered By: Pierre Guadalupe on 05-26-2024 Neutrophils (Bld) [#/Vol] 2.7 10*3/uL Normal 1.8-7.7 [facility] Comment on above: Performed By: #### H EPATIC, CBC, LIPASE, CMP #### [facility] [address] [place] [address] Nitrite Test strip Ql (U)Ord ered By: Pierre Guadalupe on 05-26-2024 Nitrite Ql (U) Negative Negative [facility] No Panel InformationOrdered By: Pierre Guadalupe on 05-26-2024 Estimated GFR (CKD-EPI) > 60.0 mL/Min [facility] Creatinine Clearance (Chem 79.54 [facility] Nucleated erythrocytes [Pres ence] in Blood by Automated countOrdered By: Pierre Guadalupe on 05-26-2024 Nucleated RBC Auto Ql (Bld) 0.1 /100{WBC} 0-0.5 [facility] Platelet mean volume [Entiti c volume] in Blood by Automated countOrdered By: Pierre Guadalupe on 05-26-2024 Platelet mean volume (Bld) [Entitic vol] 7.4 fL Normal 6.3-10.7 [facility] Comment on above: Performed By: #### H EPATIC, CBC, LIPASE, CMP #### [facility] [address] [place] [address] Platelets [#/volume] in Bloo d by Automated countOrdered By: Pierre Guadalupe on 05-26-2024 Platelets (Bld) [#/Vol] 265 10*3/uL Normal 150-450 [facility] Comment on above: Performed By: #### H EPATIC, CBC, LIPASE, CMP #### [facility] [address] [place] [address] [place] Potassium [Moles/volume] in Serum or PlasmaOrdered By: Pierre Guadalupe on 05-26-2024 Potassium [Moles/Vol] 3.9 mmol/L Normal 3.5-5.1 [facility] Comment on above: Performed By: #### H EPATIC, CBC, LIPASE, CMP #### [address] Protein Test strip (U) [Mass /Vol]Ordered By: Pierre Guadalupe on 05-26-2024 Protein (U) [Mass/Vol] Negative Negative [facility] Protein [Mass/volume] in Ser um or PlasmaOrdered By: Pierre Guadalupe on 05-26-2024 Protein [Mass/Vol] 7.2 g/dL Normal 6.4-8.9 [facility] Comment on above: Performed By: #### H EPATIC, CBC, LIPASE, CMP #### [address] Serum globulin measurement b y calculation (mass/volume)Ordered By: Pierre Guadalupe on 05-26-2024 Globulin (S) [Mass/Vol] 3.0 g/dL [facility] Comment on above: Performed By: #### H EPATIC, CBC, LIPASE, CMP #### [address] Serum or plasma albumin/glob ulin mass ratioOrdered By: Pierre Guadalupe on 05-26-2024 Albumin/Globulin [Mass ratio] 1.4 {ratio} [facility] Comment on above: Performed By: #### H EPATIC, CBC, LIPASE, CMP #### [facility] [address] [place] [address] Serum or plasma anion gap de terminationOrdered By: Pierre Guadalupe on 05-26-2024 Anion gap [Moles/Vol] 10.7 mmol/L Normal 6.0-15.0 [facility] Comment on above: Performed By: #### H EPATIC, CBC, LIPASE, CMP #### [address] Serum or plasma non-glucuron idated bilirubin measurement (mass/volume)Ordered By: Pierre Guadalupe on 05-26-2024 Bilirubin.indirect [Mass/Vol] 0.4 mg/dL [facility] Sodium [Moles/volume] in Ser um or PlasmaOrdered By: Pierre Guadalupe on 05-26-2024 Sodium [Moles/Vol] 135 mmol/L Low 136-145 [facility] Comment on above: Performed By: #### H EPATIC, CBC, LIPASE, CMP #### [address] Specific gravity Test strip (U) [Rel density]Ordered By: Pierre Guadalupe on 05-26-2024 Specific gravity (U) [Rel density] 1.008 1.001-1.03 0 [facility] Urea nitrogen [Mass/volume] in Serum or PlasmaOrdered By: Pierre Guadalupe on 05-26-2024 Urea nitrogen [Mass/Vol] 10 mg/dL Normal 7-25 [facility] Comment on above: Performed By: #### H EPATIC, CBC, LIPASE, CMP #### [address] Urinalysison 05-26-2024 Bilirubin,Urine Negative Normal Negative [facility] Comment on above: Order Comment: Name Collection Type:: Clean-Voided Midstream Performed By: #### U A #### [address] Glucose Ql (U) Normal Normal Normal [facility] Comment on above: Order Comment: Name Collection Type:: Clean-Voided Midstream Performed By: #### U A #### [place] [address] [place] Nitrite,Urine Negative Normal Negative [facility] Comment on above: Order Comment: Name Collection Type:: Clean-Voided Midstream Performed By: #### U A #### [address] Occult Blood,Urine Negative Normal Negative The Count includes the [facility] Comment on above: Order Comment: Name Collection Type:: Clean-Voided Midstream Result Comment: PERF ORMED BY: [place] [address] PATHOLOGIST RADIOLOGICAL HEALTH SPECIALIST ROMANA LEMUS M.D. Performed By: #### U A #### [facility] [address] Protein,Urine Negative Normal Negative [facility] Comment on above: Order Comment: Name Collection Type:: Clean-Voided Midstream Performed By: #### U A #### [address] Specificy [place],Urine 1.008 Normal 1.001-1.03 0 [facility] Comment on above: Order Comment: Name Collection Type:: Clean-Voided Midstream Performed By: #### U A #### [address] Urobilinogen,Urine Normal Normal Normal The Count includes the [facility] Comment on above: Order Comment: Name Collection Type:: Clean-Voided Midstream Performed By: #### U A #### [address] Urine appearanceOrdered By: Pierre Guadalupe on 05-26-2024 Appearance (U) Clear Normal Clear [facility] Comment on above: Order Comment: Name Collection Type:: Clean-Voided Midstream Performed By: #### U A #### [address] Urobilinogen Test strip (U) [Mass/Vol]Ordered By: Pierre Guadalupe on 05-26-2024 Urobilinogen (U) [Mass/Vol] Normal mg/dL Normal [facility] pH of Urine by Test stripOrd ered By: Pierre Guadalupe on 05-26-2024 pH (U) 5.5 [pH] Normal 5.0-9.0 [facility] Comment on above: Order Comment: Name Collection Type:: Clean-Voided Midstream Performed By: #### U A #### [place] [address] [place] XR hand LT min 3V*on 024 XR hand LT min 3V* [facility] [address] [place] [id number] XRay Report Signed Patient: Elsa Figueredo MR#: [id number] 3128 : 1955 Acct:[id number] Age/Sex: 68 / F ADM Date: 05/19/24 Loc: SOXD Room: Type: [facility] Attending Dr: Madeleine Garcia MD Copies to: Madeleine Garcia MD Ordering Provider: Madeleine Garcia MD Date of Service: 05/19/24 XR/XR hand LT min 3V*: 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 4 views left hand plain film COMPARISON: 04/07/2024 HISTORY: Resection of trapezium. Follow-up assessment ACUTE FINDINGS: Stable trapezium resection changes. DEGENERATIVE CHANGE: Similar SOFT TISSUE FINDINGS: Unremarkable JOINT EFFUSION: None POSTOP CHANGES: K wire removed BONY MINERALIZATION: Adequate XR/XR hand LT min 3V* IMPRESSION: Stable resection changes of trapezium. Impression dictated by: Michael Godinez M.D.05/19/2024 3:59 PM Dictation Location: [place] [address] Transcribed By: [facility] 05/19/24 1559 Dictated By: Michael Godinez DO 05/19/24 1557 Signed By: 05/19/24 1559 Normal [facility] CT CHEST WO IV CONTRASTon CT CHEST WO IV CONTRAST EXAM: CT CHEST WO IV CONTRAST History: Pulmonary nodule Technique: Multiple contiguous axial images were obtained of the thorax from the thoracic inlet through the upper abdomen without IV contrast. Multiplanar reformats were obtained including maximum intensity projection images (MIPS). All CT scans at this facility use dose modulation, iterative reconstruction, and/or weight based dosing when appropriate to reduce radiation dose to as low as reasonably achievable. Comparison: Chest radiographs September 10, 2023 Findings: Visualized portion of the thyroid gland is within normal limits. No axillary, mediastinal, or hilar lymphadenopathy. No thoracic aortic aneurysm. Atherosclerotic calcification of the thoracic aorta. Heart size is within normal limits. No significant pericardial effusion. No coronary artery calcifications noted. Esophagus is within normal limits. Solid pleural-based 3 mm right upper lobe nodule as seen on axial series 3 image 29. Solid pleural-based 3 mm left lower lobe nodule as seen on axial series 3 image 41. No consolidation, pleural effusion, or pneumothorax. No acute osseous abnormality. Visualized upper abdomen demonstrates no acute abnormality. A few simple density fluid structures scattered throughout the liver measure up to approximately 2 cm and are most likely cysts. IMPRESSION: Bilateral pulmonary nodules measuring up to 3 mm. Follow-up recommended per Fleischner criteria. Fleischner Society 2017 Guidelines for Management of Incidentally Detected Pulmonary Nodules in Adults A: Solid Nodules* Single Low risk <6 mm No routine follow-up 6-[address] at 6-12 months, then consider CT at 18-24 months >[address] at 3 months, PET/CT, or tissue sampling Nodules <6 mm do not require routine follow-up, but certain patients at high risk with suspicious nodule morphology, upper lobe location, or both may warrant 12-month follow-up (recommendation 1A). High risk <[address] at 12 months 6-[address] at 6-12 months, then CT at 18-24 months >[address] at 3 months, PET/CT, or tissue sampling Nodules <6 mm do not require routine follow-up, but certain patients at high risk with suspicious nodule morphology, upper lobe location, or both may warrant 12-month follow-up (recommendation 1A). Multiple Low risk <6 mm No routine follow-up 6-[address] at 3-6 months, then consider CT at 18-24 months >[address] at 3-6 months, then consider CT at 18-24 months Use most suspicious nodule as guide to management. Follow-up intervals may vary according to size and risk (recommendation 2A). High risk <[address] at 12 months 6-[address] at 3-6 months, then at 18-24 months >[address] at 3-6 months, then at 18-24 months Use most suspicious nodule as guide to management. Follow-up intervals may vary according to size and risk (recommendation 2A). B: Subsolid Nodules* Single Ground glass <6 mm No routine follow-up >=[address] at 6-12 months to confirm persistence, then CT every 2 years until 5 years In certain suspicious nodules <6 mm, consider follow-up at 2 and 4 years. If solid component(s) or growth develops, consider resection. (Recommendations 3A and 4A). Part solid <6 mm No routine follow-up >=[address] at 3-6 months to confirm persistence. If unchanged and solid component remains <6 mm, annual CT should be performed for 5 years. In practice, part-solid nodules cannot be defined as such until >=6 mm, and nodules <6 mm do not usually require follow-up. Persistent part-solid nodules with solid components >=6 mm should be considered highly suspicious (recommendations 4A-4C) Multiple <[address] at 3-6 months. If stable, consider CT at 2 and 4 years. >=[address] at 3-6 months. Subsequent management based on the most suspicious nodule(s). Multiple <6 mm pure ground-glass nodules are usually benign, but consider follow-up in selected patients at high risk at 2 and 4 years (recommendation 5A). Note.--These recommendations do not apply to lung cancer screening, patients with immunosuppression, or patients with known primary cancer. * Dimensions are average of long and short axes, rounded to the nearest millimeter. Consider all relevant risk factors (see Risk Factors). ELECTRONICALLY SIGNED BY: Vineet Honeycutt, Normal Not Available XR hand LT min 3V*on 024 XR hand LT min 3V* [facility] [address] [place] [address] XRay Report Signed Patient: Elsa Figueredo MR#: [id number] 3128 : 1955 Acct:[id number] Age/Sex: 68 / F ADM Date: 04/07/24 Loc: [facility] Room: Type: [facility] Attending Dr: Madeleine Garcia MD Copies to: Madeleine Garcia MD Ordering Provider: Madeleine Garcia MD Date of Service: 04/07/24 XR/XR hand LT min 3V*: Z98.890 - Other specified postprocedural states LEFT HAND - 4 views CLINICAL DATA: Follow-up after trapeziectomy COMPARISON: 02/27/2024 AP, lateral and oblique views were obtained along with supplemental AP view of the thumb. There is prior trapeziectomy. There is redemonstration of a K wire that traverses the first metacarpal and metacarpal phalangeal joint. There is no developing fracture or dislocation. Mild degenerative changes are again seen at the interphalangeal joints. There are no significant soft tissue abnormalities. XR/XR hand LT min 3V* IMPRESSION: STABLE POSTOPERATIVE AND DEGENERATIVE CHANGES. Impression dictated by: Drea Castillo M.D.04/07/2024 5:47 PM Dictation Location: [place] [address] Transcribed By: [facility] 04/07/241746 Dictated By: Drea Castillo MD 04/07/241744 Signed By: 04/07/241746 Normal [facility] XR finger LT thumbon 024 XR finger LT thumb [facility] [place] [address] XRay Report Signed Patient: Elsa Figueredo MR#: [id number] 3128 : 1955 Acct:[id number] Age/Sex: 68 / F ADM Date: 02/27/24 Loc: [place] Room: Type: [facility] Attending Dr: Madeleine Garcia MD Copies to: Madeleine Garcia MD Ordering Provider: Madeleine Garcia MD Date of Service: 02/27/24 XR/XR finger LT thumb: . Fluoroscopy for left thumb trapezium ectomy HISTORY: Resection of the trapezium with pending. 21 image was obtained. Cumulative Air Kerma in mGy: 1.2 mGy Trapezium resection changes. Adequate bony alignment impending. XR/XR finger LT thumb IMPRESSION: Postsurgical change. Impression dictated by: Michael Godinez M.D.03/13/2024 1:48 PM Dictation Location: [facility] Transcribed By: MARK 03/13/24 1348 Dictated By: Michael Godinez DO 03/13/24 1346 Signed By: 03/13/24 1348 Normal [facility] Amphetamine Screen Ql (U)Ord ered By: Rajat Rosas on 02-27-2024 Amphetamines Ql (U) Negative Negative [facility] Barbiturates [Presence] in U rine by Screen methodOrdered By: Rajat Rosas on 02-27-2024 Barbiturates Screen Ql (U) Negative Negative [facility] Basic Metabolic Panelon 02-16 Creatinine Clr Calc Pharmacy 79.59 Normal [facility] Comment on above: Order Comment: Comme nt please send stat on admission Result Comment: PERF ORMED BY: [place] [address] PATHOLOGIST RADIOLOGICAL HEALTH SPECIALIST ROMANA LEMUS M.D. Performed By: #### B MP #### [facility] [address] [place] [address] GFR/1.73 sq M.predicted MDRD (S/P/Bld) [Vol rate/Area] mL/min/{1.73_m2} Normal [facility] Comment on above: Order Comment: Comme nt please send stat on admission Performed By: #### B MP #### [facility] [address] [place] [address] Benzodiazepines Screen Ql (U )Ordered By: Rajat Rosas on 02-27-2024 Benzodiazepines Ql (U) Negative Negative [facility] Benzoylecgonine [Presence] i n Urine by Screen methodOrdered By: Rajat Rosas on 02-27-2024 Benzoylecgonine Screen Ql (U) Negative Negative [facility] Calcium [Mass/volume] in Ser um or PlasmaOrdered By: Vineet Cummings on 02-27-2024 Calcium [Mass/Vol] 9.3 mg/dL Normal 8.6-10.3 [facility] Comment on above: Order Comment: Comme nt please send stat on admission Performed By: #### B MP #### [facility] [address] [place] [address] Cannabinoids [Presence] in U rine by Screen methodOrdered By: Rajat Alison on 02-27-2024 Cannabinoids Screen Ql (U) Negative Negative [facility] Comment on above: These are unconfirme d results and should not be used for legal purposes. Drug Cut-Off Concentration: AMPH 1000 ng/mL TONIE 200 ng/mL MISTI 200 ng/mL COCM 300 ng/mL OP 300 ng/mL PCP 25 ng/mL THC 20 ng/mL Carbon dioxide, total [Moles /volume] in Serum or PlasmaOrdered By: Vineet Cummings on 02-27-2024 CO2 [Moles/Vol] 26.0 mmol/L Normal 21.0-31.[address] [facility] Comment on above: Order Comment: Comme nt please send stat on admission Performed By: #### B MP #### [place] [address] [place] Chloride [Moles/volume] in S anamaria or PlasmaOrdered By: Vineet Cummings on 02-27-2024 Chloride [Moles/Vol] 100 mmol/L Normal 98-107 [facility] Comment on above: Order Comment: Comme nt please send stat on admission Performed By: #### B MP #### [place] [address] [place] Creatinine [Mass/volume] in Serum or PlasmaOrdered By: Vineet Cummings on 02-27-2024 Creatinine [Mass/Vol] 0.59 mg/dL Low 0.60-1.20 [facility] Comment on above: Order Comment: Comme nt please send stat on admission Performed By: #### B MP #### [facility] [address] [place] [address] [place] Drug Screen,Urineon 02-27-20 24 Amphetamine Screen,Urine Negative Normal Negative [facility] Comment on above: Performed By: #### U RDS #### [place] [address] [place] Barbiturate Screen,Urine Negative Normal Negative [facility] Comment on above: Performed By: #### U RDS #### [place] [address] [place] Benzodiazepines Screen,Urine Negative Normal Negative [facility] Comment on above: Performed By: #### U RDS #### [address] Cannabinoid Screen,Urine Negative Normal Negative [facility] Comment on above: Result Comment: Thes e are unconfirmed results and should not be used for legal purposes. Drug Cut-Off Concentration: AMPH 1000 ng/mL TONIE 200 ng/mL MISTI 200 ng/mL COCM 300 ng/mL OP 300 ng/mL PCP 25 ng/mL THC 20 ng/mL PERFORMED BY: [place] [address] PATHOLOGIST RADIOLOGICAL HEALTH SPECIALIST ROMANA LEMUS M.D. Performed By: #### U RDS #### [address] Cocaine Screen,Urine Negative Normal Negative [facility] Comment on above: Performed By: #### U RDS #### [address] Opiate Screen,Urine Negative Normal Negative [facility] Comment on above: Performed By: #### U RDS #### [address] Phencyclidine Screen,Urine Negative Normal Negative [facility] Comment on above: Performed By: #### U RDS #### [address] Glucose [Mass/volume] in Ser um or PlasmaOrdered By: Vineet Cummings on 02-27-2024 Glucose [Mass/Vol] 99 mg/dL Normal 70-100 [facility] Comment on above: ADA recommended refe rence rangeRandom Glucose Reference Range is dependent on time and content of last meal. Glucose of more than 200 mg/dL in a nonstressed, ambulatory subject supports the diagnosis of Diabetes Mellitus. Order Comment: Comme nt please send stat on admission Result Comment: [place] om Glucose Reference Range is dependent on time and content of last meal. Glucose of more than 200 mg/dL in a nonstressed, ambulatory subject supports the diagnosis of Diabetes Mellitus. ADA recommended reference range Performed By: #### B MP #### [address] [place] [address] [place] No Panel InformationOrdered By: Vineet Cummings on 02-27-2024 Estimated GFR (CKD-EPI) > 60.0 mL/Min [facility] Creatinine Clearance (Chem 79.59 [facility] Opiates [Presence] in Urine by Screen methodOrdered By: Rajat Rosas on 02-27-2024 Opiates Screen Ql (U) Negative Negative [facility] Phencyclidine Screen Ql (U)O rdered By: Rajat Rosas on 02-27-2024 Phencyclidine Ql (U) Negative Negative [facility] Potassium [Moles/volume] in Serum or PlasmaOrdered By: Vineet Cummings on 02-27-2024 Potassium [Moles/Vol] 3.7 mmol/L Normal 3.5-5.1 [facility] Comment on above: Order Comment: Comme nt please send stat on admission Performed By: #### B MP #### [facility] [address] Serum or plasma anion gap de terminationOrdered By: Vineet Cummings on 02-27-2024 Anion gap [Moles/Vol] 12.7 mmol/L Normal 6.0-15.0 [facility] Comment on above: Order Comment: Comme nt please send stat on admission Performed By: #### B MP #### [facility] [address] [place] [address] [place] Sodium [Moles/volume] in Ser um or PlasmaOrdered By: Vineet Cummings on 02-27-2024 Sodium [Moles/Vol] 135 mmol/L Low 136-145 [facility] Comment on above: Order Comment: Comme nt please send stat on admission Performed By: #### B MP #### [facility] [address] [place] [address] [place] Urea nitrogen [Mass/volume] in Serum or PlasmaOrdered By: Vineet Cummings on 02-27-2024 Urea nitrogen [Mass/Vol] 10 mg/dL Normal 7-25 [facility] Comment on above: Order Comment: Comme nt please send stat on admission Performed By: #### B MP #### [facility] [address] [place] [address] [place] Alanine aminotransferase [En zymatic activity/volume] in Serum or PlasmaOrdered By: Madeleine Garcia on 02-13-2024 ALT [Catalytic activity/Vol] 31 U/L Normal 7-52 [facility] Comment on above: Performed By: #### C MP wRFX A1C, CBC #### [facility] [address] [place] [address] [place] Albumin [Mass/volume] in Ser um or Plasma by Bromocresol green (BCG) dye binding methoOrdered By: Madeleine Garcia on 02-13-2024 Albumin BCG dye [Mass/Vol] 4.2 g/dL 3.5-5.7 [facility] Alkaline phosphatase [Enzyma tic activity/volume] in Serum or PlasmaOrdered By: Madeleine Garcia on 02-13-2024 ALP [Catalytic activity/Vol] 81 U/L Normal 34-104 [facility] Comment on above: Result Comment: PERF ORMED BY: [place] [address] PATHOLOGIST RADIOLOGICAL HEALTH SPECIALIST ROMANA LEMUS M.D. Performed By: #### C MP wRFX A1C, CBC #### [address] Aspartate aminotransferase [ Enzymatic activity/volume] in Serum or PlasmaOrdered By: Madeleine Garcia on 02-13-2024 AST [Catalytic activity/Vol] 23 U/L Normal 13-39 [facility] Comment on above: Performed By: #### C MP wRFX A1C, CBC #### [facility] [address] [place] [address] Automated basophil %Ordered By: Madeleine Garcia on 02-13-2024 Basophils/100 WBC (Bld) 1.0 % Normal . [facility] Comment on above: Performed By: #### C MP wRFX A1C, CBC #### [facility] [address] [place] [address] Automated basophil countOrde red By: Madeleine Garcia on 02-13-2024 Basophils (Bld) [#/Vol] 0.1 10*3/uL Normal 0.0-0.2 [facility] Comment on above: Result Comment: PERF ORMED BY: [place] [address] PATHOLOGIST RADIOLOGICAL HEALTH SPECIALIST ROMANA LEMUS M.D. Performed By: #### C MP wRFX A1C, CBC #### [address] Automated blood monocyte cou ntOrdered By: Madeleine Garcia on 02-13-2024 Monocytes (Bld) [#/Vol] 0.9 10*3/uL High 0.0-0.8 [facility] Comment on above: Performed By: #### C MP wRFX A1C, CBC #### [address] Automated eosinophil %Ordere d By: Madeleine Garcia on 02-13-2024 Eosinophils/100 WBC (Bld) 6.2 % Normal . [facility] Comment on above: Performed By: #### C MP wRFX A1C, CBC #### [address] Automated eosinophil countOr dered By: Madeleine Garcia on 02-13-2024 Eosinophils (Bld) [#/Vol] 0.3 10*3/uL Normal 0.0-0.45 [facility] Comment on above: Performed By: #### C MP wRFX A1C, CBC #### [address] Automated monocyte %Ordered By: Madeleine Garcia on 02-13-2024 Monocytes/100 WBC (Bld) 18.8 % Normal . [facility] Comment on above: Performed By: #### C MP wRFX A1C, CBC #### [address] Automated neutrophil %Ordere d By: Madeleine Garcia on 02-13-2024 Neutrophils/100 WBC (Bld) 49.6 % Normal . [facility] Comment on above: Performed By: #### C MP wRFX A1C, CBC #### [address] [place] [address] [place] Bilirubin.total [Mass/volume ] in Serum or PlasmaOrdered By: Madeleine Garcia on 02-13-2024 Bilirubin [Mass/Vol] 0.3 mg/dL Normal 0.3-1.0 [facility] Comment on above: Performed By: #### C MP wRFX A1C, CBC #### [facility] [address] CMP with reflex to A1Con Albumin [Mass/Vol] 4.2 g/dL Normal 3.5-5.7 The Count includes the [facility] Comment on above: Performed By: #### C MP wRFX A1C, CBC #### [place] [address] [place] GFR/1.73 sq M.predicted MDRD (S/P/Bld) [Vol rate/Area] mL/min/{1.73_m2} Normal [facility] Comment on above: Performed By: #### C MP wRFX A1C, CBC #### [place] [address] [place] Calcium [Mass/volume] in Ser um or PlasmaOrdered By: Madeleine Garcia on 02-13-2024 Calcium [Mass/Vol] 9.5 mg/dL Normal 8.6-10.3 [facility] Comment on above: Performed By: #### C MP wRFX A1C, CBC #### [facility] [address] [place] [address] [place] Carbon dioxide, total [Moles /volume] in Serum or PlasmaOrdered By: Madeleine Garcia on 02-13-2024 CO2 [Moles/Vol] 26.5 mmol/L Normal 21.0-31.[address] [facility] Comment on above: Performed By: #### C MP wRFX A1C, CBC #### [facility] [address] [place] [address] [place] Chloride [Moles/volume] in S anamaria or PlasmaOrdered By: Madeleine Garcia on 02-13-2024 Chloride [Moles/Vol] 94 mmol/L Low 98-107 [facility] Comment on above: Performed By: #### C MP wRFX A1C, CBC #### [facility] [address] [place] [address] Complete Blood Count Auto Di ffon 02-13-2024 Mean Corpuscular HGB Conc 34.3 g/dL Normal 32.0-35.0 [facility] Comment on above: Performed By: #### C MP wRFX A1C, CBC #### [facility] [address] NRBC% 0.0 /100{WBC} Normal 0-0.5 [facility] Comment on above: Performed By: #### C MP wRFX A1C, CBC #### [facility] [address] [place] [address] Creatinine [Mass/volume] in Serum or PlasmaOrdered By: Madeleine Garcia on 02-13-2024 Creatinine [Mass/Vol] 0.55 mg/dL Low 0.60-1.20 [facility] Comment on above: Performed By: #### C MP wRFX A1C, CBC #### [facility] [address] [place] [address] ECG 12 lead ECGon 02-13-2024 ECG 12 lead ECG [facility] [place] [address] [place] [address] Electrocardiograph Report Signed Patient: Elsa Figueredo MR#: [id number] 3128 : 1955 Acct:[id number] Age/Sex: 68 / F ADM Date: 02/13/24 Loc: Room: Type: [facility] Attending Dr: Madeleine Garcia MD Ordering Provider: Madeleine Garcia MD Date of Service: 02/13/24 ECG/ECG 12 lead ECG: Pre op Copies to: Test Reason : Blood Pressure : / mmHG Vent. Rate : 085 BPM Atrial Rate : 085 BPM P-R Int : 162 ms QRS Dur : 094 ms QT Int : 370 ms P-R-T Axes : 055 -08 006 degrees QTc Int : 440 ms Normal sinus rhythm Nonspecific T wave abnormality Abnormal ECG When compared with ECG of 08-FEB-2022 11:08, No significant change was found Confirmed by CARLOS KAUFMAN [id number] on 02/13/2024 1:56:20 PM Referred By: JOSE Electronically Signed By:BELTRAN RICHARDSON MD [facility] Transcribed By: JOLIE Signed By Mahesh Richardson MD 02/13/24 1356 Normal [facility] Erythrocyte distribution wid th [Ratio] by Automated countOrdered By: Madeleine Garcia on 02-13-2024 Erythrocyte distribution width (RBC) [Ratio] 13.6 % Normal 11.9-15.3 [facility] Comment on above: Performed By: #### C MP wRFX A1C, CBC #### [facility] [address] [place] [address] [place] Erythrocytes [#/volume] in B lood by Automated countOrdered By: Madeleine Garcia on 02-13-2024 RBC (Bld) [#/Vol] 4.02 10*6/uL Normal 3.60-5.00 [facility] Comment on above: Performed By: #### C MP wRFX A1C, CBC #### [facility] [address] [place] [address] [place] Glucose [Mass/volume] in Ser um or PlasmaOrdered By: Madeleine Garcia on 02-13-2024 Glucose [Mass/Vol] 95 mg/dL Normal 70-100 [facility] Comment on above: Performed By: #### C MP wRFX A1C, CBC #### [facility] [address] [place] [address] [place] Hematocrit [Volume Fraction] of Blood by Automated countOrdered By: Madeleine Garcia on 02-13-2024 Hematocrit (Bld) [Volume fraction] 38.5 % Normal 34.0-46.4 [facility] Comment on above: Performed By: #### C MP wRFX A1C, CBC #### [facility] [address] [place] [address] [place] Hemoglobin [Mass/volume] in BloodOrdered By: Madeleine Garcia on 02-13-2024 Hemoglobin (Bld) [Mass/Vol] 13.2 g/dL Normal 11.8-15.4 [facility] Comment on above: Performed By: #### C MP wRFX A1C, CBC #### [facility] [address] Leukocytes [#/volume] correc jose for nucleated erythrocytes in Blood by Automated counOrdered By: Madeleine Garcia on 02-13-2024 WBC corrected for nucl RBC Auto (Bld) [#/Vol] 4.9 10*3/uL 3.8-11.6 [facility] Leukocytes [#/volume] in Blo od by Automated countOrdered By: Madeleine Garcia on 02-13-2024 WBC (Bld) [#/Vol] 4.9 10*3/uL Normal 3.8-11.6 [facility] Comment on above: Performed By: #### C MP wRFX A1C, CBC #### [address] Lymphocytes [#/volume] in Bl ood by Automated countOrdered By: Madeleine Garcia on 02-13-2024 Lymphocytes (Bld) [#/Vol] 1.2 10*3/uL Normal 1.00-4.8 [facility] Comment on above: Performed By: #### C MP wRFX A1C, CBC #### [address] Lymphocytes/100 leukocytes i n Blood by Automated countOrdered By: Madeleine Garcia on 02-13-2024 Lymphocytes/100 WBC (Bld) 24.4 % Normal . [facility] Comment on above: Performed By: #### C MP wRFX A1C, CBC #### [facility] [address] [place] [address] [place] MCH [Entitic mass] by Automa jose countOrdered By: Madeleine Garcia on 02-13-2024 MCH (RBC) [Entitic mass] 32.8 pg Normal 24.7-34.3 [facility] Comment on above: Performed By: #### C MP wRFX A1C, CBC #### [address] MCHC Auto (RBC) [Mass/Vol]Or dered By: Madeleine Garcia on 02-13-2024 MCHC (RBC) [Mass/Vol] 34.3 g/dL 32.0-35.0 [facility] MCV [Entitic volume] by Auto mated countOrdered By: Madeleine Garcia on 02-13-2024 MCV (RBC) [Entitic vol] 95.7 fL Normal 80-100 [facility] Comment on above: Performed By: #### C MP wRFX A1C, CBC #### [facility] [address] Neutrophils [#/volume] in Bl ood by Automated countOrdered By: Madeleine Garcia on 02-13-2024 Neutrophils (Bld) [#/Vol] 2.4 10*3/uL Normal 1.8-7.7 [facility] Comment on above: Performed By: #### C MP wRFX A1C, CBC #### [facility] [address] No Panel InformationOrdered By: Madeleine Garcia on 02-13-2024 Estimated GFR (CKD-EPI) > 60.0 mL/Min [facility] Creatinine Clearance (Chem N/A [facility] Nucleated erythrocytes [Pres ence] in Blood by Automated countOrdered By: Madeleine Garcia on 02-13-2024 Nucleated RBC Auto Ql (Bld) 0.0 /100{WBC} 0-0.5 [facility] Platelet mean volume [Entiti c volume] in Blood by Automated countOrdered By: Madeleine Garcia on 02-13-2024 Platelet mean volume (Bld) [Entitic vol] 7.2 fL Normal 6.3-10.7 [facility] Comment on above: Performed By: #### C MP wRFX A1C, CBC #### [facility] [address] Platelets [#/volume] in Bloo d by Automated countOrdered By: Madeleine Garcia on 02-13-2024 Platelets (Bld) [#/Vol] 275 10*3/uL Normal 150-450 [facility] Comment on above: Performed By: #### C MP wRFX A1C, CBC #### [facility] [address] Potassium [Moles/volume] in Serum or PlasmaOrdered By: Madeleine Garcia on 02-13-2024 Potassium [Moles/Vol] 4.6 mmol/L Normal 3.5-5.1 [facility] Comment on above: Performed By: #### C MP wRFX A1C, CBC #### [facility] [address] [place] [address] Protein [Mass/volume] in Ser um or PlasmaOrdered By: Madeleine Garcia on 02-13-2024 Protein [Mass/Vol] 6.5 g/dL Normal 6.4-8.9 [facility] Comment on above: Performed By: #### C MP wRFX A1C, CBC #### [facility] [address] [place] [address] Serum globulin measurement b y calculation (mass/volume)Ordered By: Madeleine Garcia on 02-13-2024 Globulin (S) [Mass/Vol] 2.3 g/dL [facility] Comment on above: Performed By: #### C MP wRFX A1C, CBC #### [facility] [address] [place] [address] Serum or plasma albumin/glob ulin mass ratioOrdered By: Madeleine Garcia on 02-13-2024 Albumin/Globulin [Mass ratio] 1.8 {ratio} [facility] Comment on above: Performed By: #### C MP wRFX A1C, CBC #### [facility] [address] [place] [address] Serum or plasma anion gap de terminationOrdered By: Madeleine Garcia on 02-13-2024 Anion gap [Moles/Vol] 10.1 mmol/L Normal 6.0-15.0 [facility] Comment on above: Performed By: #### C MP wRFX A1C, CBC #### [facility] [address] [place] [address] [place] Sodium [Moles/volume] in Ser um or PlasmaOrdered By: Madeleine Garcia on 02-13-2024 Sodium [Moles/Vol] 126 mmol/L Low 136-145 [facility] Comment on above: Performed By: #### C TRISTA wRFX A1C, CBC #### [facility] [address] [place] [address] [place] Urea nitrogen [Mass/volume] in Serum or PlasmaOrdered By: Madeleine Garcia on 02-13-2024 Urea nitrogen [Mass/Vol] 12 mg/dL Normal 7-25 [facility] Comment on above: Performed By: #### C MP wRFX A1C, CBC #### [facility] [address] [place] [address] [facility] CHEMISTRYOrdered By: SYSTEM SYSTEM on 11-14-2023 Ferritin Lvl 21 ng/mL Normal 11 - 307 ng/mL Remisol Chem Iron [Mass/Vol] 119 ug/dL Normal 35 - 153 mcg/dL Remisol Chem TIBC 435 ug/dL High 250 - 400 mcg/dL Remisol Chem Transferrin [Mass/Vol] 311 mg/dL Normal 200 - 370 mg/dL Remisol Chem HEMATOLOGYOrdered By: SYSTEM SYSTEM on 11-14-2023 Basophils/100 WBC (Bld) 1.1 % Normal 0.0 - 2.0 % [facility] Basophils/Leukocytes Auto (Bld) [Pure # fraction] 0.1 E9/L Normal 0.0 - 0.2 E9/L [facility] Eosinophils/100 WBC (Bld) 5.3 % Normal 0.0 - 8.0 % [facility] Eosinophils/Leukocyte s Auto (Bld) [Pure # fraction] 0.3 E9/L Normal 0.0 - 0.5 E9/L [facility] Lymphocytes/100 WBC (Bld) 21.0 % Normal 14.0 - 50.0 % [facility] Lymphocytes/Leukocyte s Auto (Bld) [Pure # fraction] 1.3 E9/L Normal 1.0 - 4.0 E9/L [facility] Monocytes/100 WBC (Bld) 11.9 % Normal 4.0 - 14.0 % [facility] Monocytes/Leukocytes Auto (Bld) [Pure # fraction] 0.7 E9/L Normal 0.2 - 1.0 E9/L [facility] Neutrophils/100 WBC (Bld) 60.7 % Normal 36.0 - 75.0 % [facility] Neutrophils/Leukocyte s Auto (Bld) [Pure # fraction] 3.8 E9/L Normal 2.0 - 7.5 E9/L [facility] HEMATOLOGYOrdered By: Massiel Rock on 11-14-2023 Erythrocyte distribution width (RBC) [Ratio] 14.9 % High 10.9 - 14.2 % [facility] Hematocrit (Bld) [Volume fraction] 40.1 % Normal 34.0 - 46.0 % [facility] Hemoglobin (Bld) [Mass/Vol] 13.7 g/dL Normal 12.0 - 16.0 gm/dL [facility] MCH (RBC) [Entitic mass] 31.5 pg Normal 27.0 - 34.0 pg [facility] MCHC (RBC) [Mass/Vol] 34.0 g/dL Normal 31.4 - 36.0 gm/dL [facility] MCV (RBC) [Entitic vol] 92.7 fL Normal 80.0 - 100.0 fL [facility] Platelet mean volume (Bld) [Entitic vol] 7.4 fL Normal 6.4 - 10.8 fL [facility] Platelets (Bld) [#/Vol] 238.0 E9/L Normal 150.0 - 500.0 E9/L [facility] RBC (Bld) [#/Vol] 4.3 E12/L Normal 4.3 - 5.9 E12/L [facility] WBC corrected for nucl RBC Auto (Bld) [#/Vol] 6.3 E9/L Normal 4.0 - 11.0 E9/L [facility] XR lumbar spine AP/LAT/FLX/E XTon 10-23-2023 XR lumbar spine AP/LAT/FLX/EXT [address] [address] XRay Report Signed Patient: Elsa Figueredo MR#: [id number] : 1955 Acct:[id number] Age/Sex: 68 / F ADM Date: 10/23/23 Loc: XD Room: Type: [facility] Attending Dr: Ritchie Rodrigues MD Copies to: Ritchie Rodrigues MD Ordering Provider: Ritchie Rodrigues MD Date of Service: 10/23/23 XR/XR lumbar spine AP/LAT/FLX/EXT: Other low back pain XR lumbar spine AP/LAT/FLX/EXT 10/23/2023 12:26 PM SIGNS AND SYMPTOMS: Low back pain PROTOCOLS: Frontal, lateral, and flexion-extension views of the lumbar spine COMPARISON: None FINDINGS: There is a dextro convex curvature of the thoracolumbar junction with a levoconvex curvature of the lumbar spine. There is preservation of vertebral body height. There is moderate disc height loss at T12-L1. There is severe disc height loss at L1-L2, L2-3 and L3-L4, and L4-5. There is mild disc height loss throughout otherwise. There is anterior osteophyte formation at the thoracolumbar junction. The sacroiliac joints. Atherosclerotic changes are noted in the abdominal aorta. Flexion and extension view show no pathologic movement. XR/XR lumbar spine AP/LAT/FLX/EXT IMPRESSION: No fracture or subluxation. There is an S-shaped curvature of the thoracolumbar spine. Degenerative changes are noted throughout the lumbar spine, as above. Impression dictated by: Nayeli Thompson M.D.10/23/2023 4:52 PM Dictation Location: [place] [address] Transcribed By: [facility] 10/23/23 1652 Dictated By: Nayeli Thompson II, MD 10/23/23 1649 Signed By: 10/23/23 165 Normal [facility] Office Visit (Cardiology)on 04-01-2023 Follow-up visit Diagnoses/Problems Assessed Primary hypertension (401.9) (I10) Hyponatremia (276.1) (E87.1) Former smoker (V15.82) (Z87.891) Quit in 2013 Medication list inaccurate Morbid obesity with BMI of 40.0-44.9, adult (278.01,V85.41) (E66.01,Z68.41) Preop cardiovascular exam (V72.81) (Z01.810) Orders Morbid obesity with BMI of 40.0-44.9, adult Healthy Weight Tips; Status:Complete - Retrospective Authorization; Done: [id number] Some eating tips that can help you lose weight.; Status:Complete - Retrospective Authorization; Done: [id number] SocHx: Former smoker Tobacco Use Screening; Status:Complete; Done: [id number] Patient Instructions Please bring all medicines, vitamins, and herbal supplements with you when you come to the office. Prescriptions will not be filled unless you are compliant with your follow up appointments or have a follow up appointment scheduled as per instruction of your physician. Refills should be requested at the time of your visit. Patient is clear for surgery from a cardiac standpoint Follow up as needed only Chief Complaint ELSA FIGUEREDO is being seen for a 6 month follow-up of. History of Present Illness 6-month follow-up. Patient with hypertension possible reactive airway disease, possible obstructive sleep apnea, I first saw her for lower extremity edema, her edema has resolved with initiation of some diuretic therapy and discontinuation of nifedipine. Her blood pressure is on the low side. She does not bring in her medications today, tells me that Dr. Prater has discontinued her spironolactone because of hyponatremia and I concur. I do not think she is taking Bumex at this time. She does not seem volume overloaded. She is planning to have surgery to her wrist area this coming week. She breaks out in a sweat during the night and sometimes sporadically. She denies any shortness of breath or palpitations. She denies lightheadedness or falls. Laboratory data reviewed. On 03/25/2023, glucose was 104 BUN 13 creatinine 1.7 sodium 121 GFR greater than 60 potassium 5.1. In July 2022 sodium was 123 potassium 4.3 History so far ; 1. Hypertension 2. Lower extremity edema 3. Increased BMI 4. ? Reactive airway disease.Pt on inhalers. 5. Lexiscan Myoview July 2021- normal perfusion ,LVef 65% 6. History of snoring-no prior sleep study. 7. Lower extremity edema could be multifactorial. He had to look for systolic and diastolic heart failure, pulmonary hypertension, she has pulmonary hypertension we need to look for obstructive sleep apnea as one of the causes, and lastly she may benefit from evaluation at the vein clinic to look for venous insufficiency. 8. Increasing aerobic activity will increase venous tone, and help venous return as well. 9. Procardia may be contributory to her lower extremity edema.Procardia was discontinued. 10. Echocardiogram July 2021-normal LV systolic and diastolic function, grossly normal valves, normal right-sided pressures, trace anterior pericardial effusion. LV wall thickness 1.3 cm consistent with at least mild concentric left ventricular hypertrophy, left atrial volume index 26 mL/m, left atrial diameter 4 cm, no aortic stenosis mitral stenosis no mitral regurgitation was reported, RV systolic pressure was about 25 mmHg. 11. Venous duplex lower extremities was negative for DVT. No reflux was identified in the left lower extremity. In the right lower extremity there was reflux of greater than 5 seconds in the common femoral vein, saphenofemoral junction and greater saphenous vein. The right greater saphenous vein was patent from groin to ankle. 13. Echocardiogram August 2022-LVEF 55% normal pattern of LV diastolic filling left atrial diameter 3.6 cm right atrial size normal aortic sclerosis peak and mean gradient 10 and 5 mmHg respectively trace mitral regurgitation trace tricuspid regurgitation no pericardial effusion. RV systolic pressure 21 mmHg. Assessment: 1. Hypertension-blood pressure is running on the low side, she does not report any symptoms of arterial hypotension 2. Hyponatremia, slight decrease from July 2022 at which time also patient was noted to have hyponatremia 3. Possible culprits for hyponatremia particularly in the setting of trending up potassium is spironolactone and I completely agree with discontinuation of this medication. 4. Other possible etiologies of hyponatremia include resume Bumex and lisinopril. Patient looked at the medication list and told me that she is not taking Bumex anymore. 5. Preoperative cardiac risk is acceptable to proceed with surgery as planned. Recommendations: 1. Could down titrate lisinopril to 20 mg daily and follow blood pressure and sodium levels. If significant hyponatremia still persists, then patient will have to come off the lisinopril, and be could use an alternate agent such as diltiazem for blood pressure management. Would stay off of beta-blockers given her history of asthma requiring theophylline (more content not included)... Normal [employer] Tobacco Screening.on 023 Adult depression screening assessment No [facility] y 250 DO Work Phone: Fall risk assessment a) No falls within the last year [facility] 250 DO Work Phone: Tobacco use status [facility] b) No [facility] 250 DO Work Phone: PROF CHEM 8 (BAS METB)on Anion gap [Moles/Vol] 10.6 mmol/L Normal [facility] Comment on above: Performed By: #### B MP ####[facility] [address] [place] [address]Dr. Lucho España Calcium [Mass/Vol] 9.1 mg/dL Normal 8.5-10.1 [facility] Comment on above: Performed By: #### B MP ####[facility] [address] [place], [place] [address]Dr. Lucho España Chloride [Moles/Vol] 88 mmol/L Critically low 98-107 [facility] Comment on above: Performed By: #### B MP ####[facility] [address] [place], [place] [address]Dr. Lucho España CO2 [Moles/Vol] 26.4 mmol/L Normal 21.0-32.[address] [facility] Comment on above: Performed By: #### B MP ####[facility] [address] [place], [place] [address]Dr. Lucho España Creatinine [Mass/Vol] 0.73 mg/dL Normal 0.55-1.02 [facility] Comment on above: Performed By: #### B MP ####[facility] [address] [place], [place] [address]Dr. Lucho España EGFR-AF GEORGIAN >60 Normal >=[address] [facility] Comment on above: Performed By: #### B MP ####[facility] [address] [place], [place] [address]Dr. Lucho España EGFR-NON AF GEORGIAN >60 Normal >=60 [facility] Comment on above: Performed By: #### B MP ####[facility] [address] [place], [place] [address]Dr. Lucho España Glucose [Mass/Vol] 107 mg/dL Critically high 74-106 [facility] Comment on above: Performed By: #### B MP ####[facility] [address] [place], [place] [address]Hx. Lucho España Potassium [Moles/Vol] 5.0 mmol/L Normal 3.5-5.1 [facility] Comment on above: Performed By: #### B MP ####[facility] [address] [place], [place] [address]Kw. Lucho España Sodium [Moles/Vol] 119 mmol/L Critically low 136-145 [facility] Comment on above: Performed By: #### B MP ####[facility] [address] [place], [place] [address]SlTulio España Urea nitrogen [Mass/Vol] 10.0 mg/dL Normal 7.0-18.0 [facility] Comment on above: Performed By: #### B MP ####[facility] [address] [place] [id number]. Lucho España Urea nitrogen/Creatinine [Mass ratio] 13.7 mg/mg Normal [facility] Comment on above: Performed By: #### B MP ####[facility] [address] [place], [place] [address]QtTulio España SODIUM RANDOM URINEon 2022 Sodium (U) [Moles/Vol] 19 mmol/L Critically low 30-90 [facility] Comment on above: Performed By: #### N AU #### [facility] [address] [place], [place] [address] Dr. Lucho España XR CHEST 2 Von 03-29-2023 XR CHEST 2 V EXAM: XR CHEST 2 V HISTORY: Chronic obstructive lung disease COMPARISON: 10/22/2022 TECHNIQUE: PA and lateral views of the chest. FINDINGS: The cardiomediastinal silhouette is normal. No focal consolidation is identified. There is no pneumothorax. No pleural effusion is noted. The osseous structures are intact. IMPRESSION: No acute cardiopulmonary process. Electronically authenticated by: NAYELI MARTINS Date: 2023-03-29 12:36 Normal [facility] Alanine aminotransferase [En zymatic activity/volume] in Serum or PlasmaOrdered By: Madeleine Garcia on 03-25-2023 ALT [Catalytic activity/Vol] 19 U/L 7-52 [facility] Albumin [Mass/volume] in Ser um or Plasma by Bromocresol green (BCG) dye binding methoOrdered By: Madeleine Garcia on 03-25-2023 Albumin BCG dye [Mass/Vol] 4.2 g/dL 3.5-5.7 [facility] Alkaline phosphatase [Enzyma tic activity/volume] in Serum or PlasmaOrdered By: Madeleine Garcia on 03-25-2023 ALP [Catalytic activity/Vol] 64 U/L 34-104 [facility] Aspartate aminotransferase [ Enzymatic activity/volume] in Serum or PlasmaOrdered By: Madeleine Garcia on 03-25-2023 AST [Catalytic activity/Vol] 16 U/L 13-39 [facility] Basophils Auto (Bld) [#/Vol] Ordered By: Madeleine Garcia on 03-25-2023 Basophils (Bld) [#/Vol] 0.1 10*3/uL 0.0-0.2 [facility] Basophils/100 WBC Auto (Bld) Ordered By: Madeleine Garcia on 03-25-2023 Basophils/100 WBC (Bld) 0.8 % . [facility] Bilirubin.total [Mass/volume ] in Serum or PlasmaOrdered By: Madeleine Garcia on 03-25-2023 Bilirubin [Mass/Vol] 0.5 mg/dL 0.3-1.0 [facility] Calcium [Mass/volume] in Ser um or PlasmaOrdered By: Madeleine Garcia on 03-25-2023 Calcium [Mass/Vol] 9.6 mg/dL 8.6-10.3 [facility] Carbon dioxide, total [Moles /volume] in Serum or PlasmaOrdered By: Madeleine Garcia on 03-25-2023 CO2 [Moles/Vol] 25.7 mmol/L 21.0-31.[address] [facility] Chloride [Moles/volume] in S anamaria or PlasmaOrdered By: Madeleine Garcia on 03-25-2023 Chloride [Moles/Vol] 88 mmol/L 98-107 [facility] Creatinine [Mass/volume] in Serum or PlasmaOrdered By: Madeleine Garcia on 03-25-2023 Creatinine [Mass/Vol] 0.70 mg/dL 0.60-1.20 [facility] Eosinophils Auto (Bld) [#/Vo l]Ordered By: Madeleine Garcia on 03-25-2023 Eosinophils (Bld) [#/Vol] 0.4 10*3/uL 0.0-0.45 [facility] Eosinophils/100 WBC Auto (Bl d)Ordered By: Madeleine Garcia on 03-25-2023 Eosinophils/100 WBC (Bld) 4.6 % . [facility] Erythrocyte distribution wid th Auto (RBC) [Ratio]Ordered By: Madeleine Garcia on 03-25-2023 Erythrocyte distribution width (RBC) [Ratio] 13.9 % 11.9-15.3 [facility] Globulin Calc (S) [Mass/Vol] Ordered By: Madeleine Garcia on 03-25-2023 Globulin (S) [Mass/Vol] 2.4 g/dL [facility] Glucose [Mass/volume] in Ser um or PlasmaOrdered By: Madeleine Garcia on 03-25-2023 Glucose [Mass/Vol] 104 mg/dL 70-100 [facility] Comment on above: ADA recommended refe rence rangeRandom Glucose Reference Range is dependent on time and content of last meal. Glucose of more than 200 mg/dL in a nonstressed, ambulatory subject supports the diagnosis of Diabetes Mellitus. Hematocrit Auto (Bld) [Volum e fraction]Ordered By: Madeleine Garcia on 03-25-2023 Hematocrit (Bld) [Volume fraction] 39.0 % 34.0-46.4 [facility] Hemoglobin [Mass/volume] in BloodOrdered By: Madeleine Garcia on 03-25-2023 Hemoglobin (Bld) [Mass/Vol] 13.3 g/dL 11.8-15.4 [facility] Leukocytes [#/volume] correc jose for nucleated erythrocytes in Blood by Automated counOrdered By: Madeleine Garcia on 03-25-2023 WBC corrected for nucl RBC Auto (Bld) [#/Vol] 8.8 10*3/uL 3.8-11.6 [facility] Lymphocytes Auto (Bld) [#/Vo l]Ordered By: Madeleine Garcia on 03-25-2023 Lymphocytes (Bld) [#/Vol] 1.4 10*3/uL 1.00-4.8 [facility] Lymphocytes/100 WBC Auto (Bl d)Ordered By: Madeleine Garcia on 03-25-2023 Lymphocytes/100 WBC (Bld) 15.4 % . [facility] MCH Auto (RBC) [Entitic mass ]Ordered By: Madeleine Garcia on 03-25-2023 MCH (RBC) [Entitic mass] 31.4 pg 24.7-34.3 [facility] MCHC Auto (RBC) [Mass/Vol]Or dered By: Madeleine Garcia on 03-25-2023 MCHC (RBC) [Mass/Vol] 33.9 g/dL 32.0-35.0 [facility] MCV Auto (RBC) [Entitic vol] Ordered By: Madeleine Garcia on 03-25-2023 MCV (RBC) [Entitic vol] 92.4 fL 80-100 [facility] Monocytes Auto (Bld) [#/Vol] Ordered By: Madeleine Garcia on 03-25-2023 Monocytes (Bld) [#/Vol] 1.5 10*3/uL 0.0-0.8 [facility] Monocytes/100 WBC Auto (Bld) Ordered By: Madeleine Garcia on 03-25-2023 Monocytes/100 WBC (Bld) 17.0 % . [facility] Neutrophils Auto (Bld) [#/Vo l]Ordered By: Madeleine Garcia on 03-25-2023 Neutrophils (Bld) [#/Vol] 5.5 10*3/uL 1.8-7.7 [facility] Neutrophils/100 WBC Auto (Bl d)Ordered By: Madeleine Garcia on 03-25-2023 Neutrophils/100 WBC (Bld) 62.2 % . [facility] No Panel InformationOrdered By: Madeleine Garcia on 03-25-2023 Estimated GFR (CKD-EPI) > 60.0 mL/Min [facility] Creatinine Clearance (Chem N/A [facility] Nucleated erythrocytes [Pres ence] in Blood by Automated countOrdered By: Madeleine Garcia on 03-25-2023 Nucleated RBC Auto Ql (Bld) 0.1 /100{WBC} 0-0.5 [facility] Platelet mean volume Auto (B ld) [Entitic vol]Ordered By: Madeleine Garcia on 03-25-2023 Platelet mean volume (Bld) [Entitic vol] 6.3 fL 6.3-10.7 [facility] Platelets Auto (Bld) [#/Vol] Ordered By: Madeleine Garcia on 03-25-2023 Platelets (Bld) [#/Vol] 363 10*3/uL 150-450 [facility] Potassium [Moles/volume] in Serum or PlasmaOrdered By: Madeleine Garcia on 03-25-2023 Potassium [Moles/Vol] 5.1 mmol/L 3.5-5.1 [facility] Protein [Mass/volume] in Ser um or PlasmaOrdered By: Madeleine Garcia on 03-25-2023 Protein [Mass/Vol] 6.6 g/dL 6.4-8.9 [facility] RBC Auto (Bld) [#/Vol]Ordere d By: Madeleine Garcia on 03-25-2023 RBC (Bld) [#/Vol] 4.22 10*6/uL 3.60-5.00 [facility] Serum or plasma albumin/glob ulin mass ratioOrdered By: Madeleine Garcia on 03-25-2023 Albumin/Globulin [Mass ratio] 1.8 {ratio} [facility] Serum or plasma anion gap de terminationOrdered By: Madeleine Garcia on 03-25-2023 Anion gap [Moles/Vol] 12.4 mmol/L 6.0-15.0 [facility] Sodium [Moles/volume] in Ser um or PlasmaOrdered By: Madeleine Garcia on 03-25-2023 Sodium [Moles/Vol] 121 mmol/L 136-145 [facility] Comment on above: Critical Result Call ed to and read back by: HARLAN PUGA at: 03/25/2023 13:55:01 by:[id number] Urea nitrogen [Mass/volume] in Serum or PlasmaOrdered By: Madeleine Garcia on 03-25-2023 Urea nitrogen [Mass/Vol] 13 mg/dL 7-25 [facility] WBC Auto (Bld) [#/Vol]Ordere d By: Madeleine Garcia on 03-25-2023 WBC (Bld) [#/Vol] 8.8 10*3/uL 3.8-11.6 [facility] XR hip RT min 2V(w/wo pelvis )*on 01-17-2023 XR hip RT min 2V(w/wo pelvis)* [facility] [employer] Other XR hip RT min 2V(w/wo pelvis)* [facility] [employer] Other XR hip RT min 2V(w/wo pelvis)* [address] [place] [address] [employer] Other XR hip RT min 2V(w/wo pelvis)* [place] [address] [employer] Other XR hip RT min 2V(w/wo pelvis)* XRay Report [employer] Other XR hip RT min 2V(w/wo pelvis)* Signed [employer] Other XR hip RT min 2V(w/wo pelvis)* Patient: Elsa Figueredo MR#: [id number] [employer] Other XR hip RT min 2V(w/wo pelvis)* 5185 [employer] Other XR hip RT min 2V(w/wo pelvis)* : 1955 Acct:[id number] [employer] Other XR hip RT min 2V(w/wo pelvis)* Age/Sex: 67 / F ADM Date: 01/17/23 [employer] Other XR hip RT min 2V(w/wo pelvis)* Loc: SOX Room: Type: [facility] [employer] Other XR hip RT min 2V(w/wo pelvis)* Attending Dr: Vineet Rowley II, MD [employer] Other XR hip RT min 2V(w/wo pelvis)* Copies to: Vineet Rowley MD [employer] Other XR hip RT min 2V(w/wo pelvis)* Ordering Provider: Vineet Rowley MD [employer] Other XR hip RT min 2V(w/wo pelvis)* Date of Service: 01/17/23 [employer] Other XR hip RT min 2V(w/wo pelvis)* XR/XR hip RT min 2V(w/wo pelvis)*: Right hip pain [employer] Other XR hip RT min 2V(w/wo pelvis)* RIGHT HIP - 2 views: [employer] Other XR hip RT min 2V(w/wo pelvis)* CLINICAL HISTORY: Right hip pain for 2 weeks. [employer] Other XR hip RT min 2V(w/wo pelvis)* COMPARISON: None [employer] Other XR hip RT min 2V(w/wo pelvis)* FINDINGS: No acute bony process or significant degenerative change. There are changes are noted [employer] Other XR hip RT min 2V(w/wo pelvis)* involving the visualized lower lumbar spine and SI joints. [employer] Other XR hip RT min 2V(w/wo pelvis)* XR/XR hip RT min 2V(w/wo pelvis)* [employer] Other XR hip RT min 2V(w/wo pelvis)* IMPRESSION: [employer] Other XR hip RT min 2V(w/wo pelvis)* NO ACUTE BONY PROCESS OR SIGNIFICANT DEGENERATIVE CHANGE OF THE HIPS.. [employer] Other XR hip RT min 2V(w/wo pelvis)* Impression dictated by: Rakesh Joshi Jr., D.O.01/17/2023 2:24 PM [employer] Other XR hip RT min 2V(w/wo pelvis)* Dictation Location: [place] [address] [employer] Other XR hip RT min 2V(w/wo pelvis)* Transcribed By: PWS 01/17/23 [facility] [employer] Other XR hip RT min 2V(w/wo pelvis)* Dictated By: Rakesh Joshi Jr, DO 01/17/23 [facility] [employer] Other XR hip RT min 2V(w/wo pelvis)* Signed By: [employer] Other XR hip RT min 2V(w/wo pelvis)* 01/17/23 [facility] [employer] Other BNPon 10-22-2022 Natriuretic peptide B (Bld) [Mass/Vol] 53.0 pg/mL Normal <=900.0 [facility] Comment on above: Performed By: #### C MP, CMADM, BNP #### [facility] [address] [place] [address] [address] Lucho España CARDIAC NAYELI ADMITon 022 CK [Catalytic activity/Vol] 62 U/L Normal 26-192 [facility] Comment on above: Performed By: #### C MP, CMADM, BNP #### [facility] [address] [place] [address] [address] Lucho España CK.MB [Mass/Vol] 1.21 ng/mL Normal <=3.60 [facility] Comment on above: Performed By: #### C MP, CMADM, BNP #### [facility] [address] [place] [address] Dr. Lucho España HSTROP 5.3 pg/mL Normal 4.0-51.3 [facility] Comment on above: Result Comment: CUT- OFF POINTS HAVE BEEN ESTABLISHED BASED ON THE FOURTH UNIVERSAL DEFINITIONS OF MYOCARDIAL INFARCTION. THE UPPER REFERENCE LIMIT (URL) OF TROPONIN, DEFINED THE 99TH PERCENTILE OF cTnI DISTRIBUTION IN A REFERENCE POPULATION, HAS BEEN CONFIRMED THE DECISION THRESHOLD FOR CA DIAGNOSIS. Performed By: #### C MP, CMADM, BNP #### [facility] [address] [place] [address] [address] Lucho España OLIVE 40 ng/mL Normal 9-82 [facility] Comment on above: Performed By: #### C MP, CMADM, BNP #### [facility] [address] [place] [address] [address] Lucho España CBC W MANUAL DIFFon 10-22-20 22 ATYPICAL LYMPH # Normal [facility] Comment on above: Performed By: #### C BCMAN ####[facility] [address] [place] [address]Dr. Lucho España ATYPICAL LYMPH % Normal [facility] Comment on above: Performed By: #### C RYLEE ####[facility] [address] [place] [address]Dr. Yilan España BAND # Normal 0.0-0.3 [facility] Comment on above: Performed By: #### C RYLEE ####[facility] [address] [place] [address]Dr. Yilan España BAND % Normal 0-5 [facility] Comment on above: Performed By: #### C BCMAN ####[facility] [address] [place] [address]Dr. Yilan España BASOM # 0.18 103/ul Critically high 0.00-0.10 [facility] Comment on above: Performed By: #### C BCMAN ####[facility] [address] [place] [address]Dr. Lucho España BASOM % 2.0 % Normal 0.2-2.0 [facility] Comment on above: Performed By: #### C BCMAN ####[facility] [address] [place] [address]Dr. Yilan España BLAST # Normal [facility] Comment on above: Performed By: #### C BCPEREZ ####[facility] [address] [place], [place] [address]Dr. Yilan España BLAST % Normal [facility] Comment on above: Performed By: #### C RYLEE ####[facility] [address] [place], [place] [address]Sy. Lucho España CORRECTED WBC Normal 4.0-11.0 [facility] Comment on above: Performed By: #### C RYLEE ####[facility] [address] [place], [place] [address]Td. Lucho España EOS # 0.27 103/ul Normal 0.00-0.70 [facility] Comment on above: Performed By: #### C RYLEE ####[facility] [address] [place], [place] [address]Uz. Lucho España EOS% 3.0 % Normal 0.9-7.0 [facility] Comment on above: Performed By: #### C RYLEE ####[facility] [address] [place], [place] [address]Hi. Lucho España HCT 31.3 % Critically low 36.0-48.0 [facility] Comment on above: Performed By: #### C RYLEE ####[facility] [address] [place], [place] [address]Zx. Lucho España HGB 11.0 g/dl Critically low 12.0-16.0 [facility] Comment on above: Performed By: #### C RYLEE ####[facility] [address] [place], [place] [address]Jb. Lucho España LYMPHM # 0.73 103/ul Critically low 1.20-3.80 [facility] Comment on above: Performed By: #### C RYLEE ####[facility] [address] [place], [place] [address]Pd. Lucho España LYMPHM% 8.0 % Critically low 20.5-60.0 [facility] Comment on above: Performed By: #### C RYLEE ####[facility] [address] [place], [place] [address]Qr. Lucho España MCH 31.8 pg Normal 26.7-34.0 [facility] Comment on above: Performed By: #### C RYLEE ####[facility] [address] [place] [id number]. Lucho España MCHC 35.1 g/dl Normal 29.9-35.2 [facility] Comment on above: Performed By: #### C RYLEE ####[facility] [address] [place] [id number]. Lucho España MCV 90.5 fL Normal 81.0-99.0 [facility] Comment on above: Performed By: #### C RYLEE ####[facility] [address] [place] [address]Dr. Lucho España METAMYELOCYTE # Normal [facility] Comment on above: Performed By: #### Duane MCKEE ####[facility] [address] [place] [address]Dr. Lucho España METAMYELOCYTE % Normal [facility] Comment on above: Performed By: #### Duane MCKEE ####[facility] [address] [place], [place] [address]Dr. Lucho España MONOM# 1.00 103/ul Critically high 0.30-0.[address] [facility] Comment on above: Performed By: #### Duane MCKEE ####[facility] [address] [place], [place] [address]Dr. Lucho España MONOM% 11.0 % Normal 1.7-12.0 [facility] Comment on above: Performed By: #### Duane MCKEE ####[facility] [address] [place], [place] [address]Dr. Lucho España MPV 8.6 fL Critically low 9.5-13.5 [facility] Comment on above: Performed By: #### Duane MCKEE ####[facility] [address] [place], [place] [address]Dr. Lucho España MYELOCYTE # Normal [facility] Comment on above: Performed By: #### Duane MCKEE ####[facility] [address] [place], [place] [address]Dr. Lucho España MYELOCYTE % Normal [facility] Comment on above: Performed By: #### Duane MCKEE ####[facility] [address] [place] [id number]. Lucho España NRBC Normal [facility] Comment on above: Performed By: #### Duane MCKEE ####[facility] [address] [place] [id number]. Lucho España PLT 235 103/ul Normal 150-450 [facility] Comment on above: Performed By: #### Duane MCKEE ####[facility] [address] [place] [id number]. Lucho España RBC 3.46 106/ul Critically low 4.20-5.40 [facility] Comment on above: Performed By: #### Duane MCKEE ####[facility] [address] [place] [id number]. Lucho España RDW 13.3 % Normal 11.0-15.0 [facility] Comment on above: Performed By: #### Duane MCKEE ####[facility] [address] [place] [id number]. Lucho España SEG # 6.92 103/ul Critically high 1.40-6.[address] [facility] Comment on above: Performed By: #### Duane MCKEE ####[facility] [address] [place] [id number]. Lucho España SEG % 76.0 % Critically high 43.0-75.0 [facility] Comment on above: Performed By: #### Duane MCKEE ####[facility] [address] [place] [address]Dr. Lucho España WBC 9.1 103/ul Normal 4.0-11.0 [facility] Comment on above: Performed By: #### Duane MCKEE ####[facility] [address] [place], [place] [address]Dr. Lucho España [facility]on SARS-CoV-2 (COVID-19) RNA WOO+probe Ql (Unsp spec) Not detected Normal NOT DETECTED [facility] Comment on above: Result Comment: When diagnostic testing is negative, the possibility of a false negative should be considered in the context of a patient's recent exposures and the presence of clinical signs and symptoms consistent with SARS-CoV-2. This test is not yet approved or cleared by the [place] FDA. When there are no FDA-approved or cleared tests available, and other criteria are met, FDA can make tests available under an emergency access mechanism called an Emergency Use Authorization (EUA). The EUA for this test is supported by the Optical Engineer of Health and Human Service's declaration that circumstances exist to justify the emergency use of in vitro diagnostics for the detection and/or diagnosis of the virus that causes COVID-19. This EUA will remain in effect for the duration of the COVID-19 declaration justifying emergency of IVDs, unless it is terminated or revoked by the FDA (after which the test may no longer be used). Performed By: #### C VDTBH ####[facility] [address] [place] [address]Dr. Lucho España PH VENOUS BLOODon 10-22-2022 PCO2 VENOUS 37.9 mmHg Critically low 40.0-52.0 [facility] Comment on above: Performed By: #### P HVEN #### [facility] [address] [place] [address] [address] Lucho España pH VENOUS 7.407 Normal 7.330-7.43 0 [facility] Comment on above: Performed By: #### P HVEN #### [facility] [address] [place] [address] Dr. Lucho España PROF 14(COMP METB)on 022 Albumin [Mass/Vol] 3.4 g/dL Normal 3.4-5.0 [facility] Comment on above: Performed By: #### C MP, CMADM, BNP #### [facility] [address] [place] [address] Dr. Lucho España Albumin/Globulin [Mass ratio] 1.1 {ratio} Normal [facility] Comment on above: Performed By: #### C MP, CMADM, BNP #### [facility] [address] [address] [address] Lucho España ALP [Catalytic activity/Vol] 81 U/L Normal 46-116 [facility] Comment on above: Performed By: #### C MP, CMADM, BNP #### [facility] [address] [place] [address] Dr. Lucho España ALT [Catalytic activity/Vol] 27 U/L Normal 14-59 [facility] Comment on above: Performed By: #### C MP, CMADM, BNP #### [facility] [address] [place] [address] Dr. Lucho España Anion gap [Moles/Vol] 11.9 mmol/L Normal [facility] Comment on above: Performed By: #### C MP CMADM, BNP #### [facility] [address] [place] [address] Dr. Lucho España AST [Catalytic activity/Vol] 16 U/L Normal 15-37 [facility] Comment on above: Performed By: #### C MP CMADM, BNP #### [facility] [address] [place] [address] Dr. Lucho España Bilirubin [Mass/Vol] 0.3 mg/dL Normal 0.2-1.0 [facility] Comment on above: Performed By: #### C MP CMADM, BNP #### [facility] [address] [place] [address] Dr. Lucho España Calcium [Mass/Vol] 9.3 mg/dL Normal 8.5-10.1 [facility] Comment on above: Performed By: #### C MP, CMADM, BNP #### [facility] [address] [place] [address] Dr. Lucho España Chloride [Moles/Vol] 93 mmol/L Critically low 98-107 [facility] Comment on above: Performed By: #### C MP, CMADM, BNP #### [facility] [address] [place] [address] Dr. Lucho España CO2 [Moles/Vol] 25.4 mmol/L Normal 21.0-32.[address] [facility] Comment on above: Performed By: #### C MP, CMADM, BNP #### [facility] [address] [address] [address] Lucho España Creatinine [Mass/Vol] 0.77 mg/dL Normal 0.55-1.02 [facility] Comment on above: Performed By: #### C MP, CMADM, BNP #### [facility] [address] [address] [address] Lucho España EGFR-AF GEORGIAN >60 Normal >=[address] [facility] Comment on above: Performed By: #### C MP, CMADM, BNP #### [facility] [address] [address] [address] Lucho España EGFR-NON AF GEORGIAN >60 Normal >=60 [facility] Comment on above: Performed By: #### C MP, CMADM, BNP #### [facility] [address] [address] [address] Lucho España Globulin (S) [Mass/Vol] 3.2 g/dL Normal [facility] Comment on above: Performed By: #### C MP, CMADM, BNP #### [facility] [address] [address] [address] Lucho España Glucose [Mass/Vol] 99 mg/dL Normal 74-106 [facility] Comment on above: Performed By: #### C MP, CMADM, BNP #### [facility] [address] [address] [address] Lucho España Potassium [Moles/Vol] 4.3 mmol/L Normal 3.5-5.1 [facility] Comment on above: Performed By: #### C MP, CMADM, BNP #### [facility] [address] [address] [address] Lucho España Protein [Mass/Vol] 6.6 g/dL Normal 6.4-8.2 [facility] [place] [facility] Comment on above: Performed By: #### C MP, CMADM, BNP #### [facility] [address] [address] [address] Lucho España Sodium [Moles/Vol] 126 mmol/L Critically low 136-145 [facility] Comment on above: Performed By: #### C MP, CMADM, BNP #### [facility] [address] [place], [place] [address] Dr. Lucho España Urea nitrogen [Mass/Vol] 12.0 mg/dL Normal 7.0-18.0 [facility] Comment on above: Performed By: #### C MP, CMADM, BNP #### [facility] [address] [place], [place] [address] Dr. Lucho España Urea nitrogen/Creatinine [Mass ratio] 15.6 mg/mg Normal [facility] Comment on above: Performed By: #### C MP, CMADM, BNP #### [facility] [address] [place], [place] [address] Dr. Lucho España XR CHEST 1 Von 10-22-2022 XR CHEST 1 V XR CHEST 1 V 10/22/20 3:51 PM EST HISTORY: Shortness of breath COMPARISON: 02/02/2022 FINDINGS: The lungs and pleural spaces are clear. No focal airspace opacity. No pleural effusion. The central airway is clear. No pneumothorax. The heart and pulmonary vascularity appear unremarkable. No acute bony abnormality. IMPRESSION: No acute cardiopulmonary abnormality. Electronically authenticated by: DUSTIN LAMB Date: 2022-10-22 16:39 Normal [facility] Office Visit (Cardiology)on 09-17-2022 Follow-up visit Diagnoses/Problems Assessed Crohn disease (555.9) (K50.90) History of Hypertension, essential, benign (401.1) (I10) Venous insufficiency (459.81) (I87.2) Morbid obesity with BMI of 40.0-44.9, adult (278.01,V85.41) (E66.01,Z68.41) Former smoker (V15.82) (Z87.891) Quit in 2013 Primary hypertension (401.9) (I10) Edema of lower extremity (782.3) (R60.0) Encounter to discuss test results (V65.49) (Z71.2) Orders Morbid obesity with BMI of 40.0-44.9, adult Healthy Weight Tips; Status:Complete - Retrospective Authorization; Done: 17Sep2022 Some eating tips that can help you lose weight.; Status:Complete - Retrospective Authorization; Done: 17Sep2022 PMH: Hypertension, essential, benign, Venous insufficiency Basic Metabolic Panel; Status:Active - Retrospective Authorization; Requested for:16Jan2023; SocHx: Former smoker Tobacco Use Screening; Status:Complete; Done: 17Sep2022 Patient Instructions Please bring all medicines, vitamins, and herbal supplements with you when you come to the office. Prescriptions will not be filled unless you are compliant with your follow up appointments or have a follow up appointment scheduled as per instruction of your physician. Refills should be requested at the time of your visit Follow up in 6 months Chief Complaint ECHO RESULTS. History of Present Illness Patient presents for follow-up after testing and medication change. She has noticed improvement in lower extremity edema when Procardia was discontinued. She is tolerating her current medical regimen and her blood pressure is at target. Results of testing was reviewed with her. She does have reflux in the greater saphenous vein on the right side. Her lower extremity edema is probably multifactorial, and she would benefit from continued follow-up at the vein clinic. I have encouraged her to increase aerobic activity. Results of echo were reviewed. Patient is satisfied with the way she feels at this time. No additional cardiac work-up is warranted. Will defer sleep study issue to primary care. May also benefit from pulmonary function testing if shortness of breath is of major concern. She did not report significant shortness of breath today. History so far ; 1. Hypertension 2. Lower extremity edema 3. Increased BMI 4. ? Reactive airway disease.Pt on inhalers. 5. Lexiscan Myoview July 2021- normal perfusion ,LVef 65% 6. History of snoring-no prior sleep study. 7. Lower extremity edema could be multifactorial. He had to look for systolic and diastolic heart failure, pulmonary hypertension, she has pulmonary hypertension we need to look for obstructive sleep apnea as one of the causes, and lastly she may benefit from evaluation at the vein clinic to look for venous insufficiency. 8. Increasing aerobic activity will increase venous tone, and help venous return as well. 9. Procardia may be contributory to her lower extremity edema.Procardia was discontinued. 10. Echocardiogram July 2021-normal LV systolic and diastolic function, grossly normal valves, normal right-sided pressures, trace anterior pericardial effusion. LV wall thickness 1.3 cm consistent with at least mild concentric left ventricular hypertrophy, left atrial volume index 26 mL/m, left atrial diameter 4 cm, no aortic stenosis mitral stenosis no mitral regurgitation was reported, RV systolic pressure was about 25 mmHg. 11. Venous duplex lower extremities was negative for DVT. No reflux was identified in the left lower extremity. In the right lower extremity there was reflux of greater than 5 seconds in the common femoral vein, saphenofemoral junction and greater saphenous vein. The right greater saphenous vein was patent from groin to ankle. 13. Echocardiogram August 2022-LVEF 55% normal pattern of LV diastolic filling left atrial diameter 3.6 cm right atrial size normal aortic sclerosis peak and mean gradient 10 and 5 mmHg respectively trace mitral regurgitation trace tricuspid regurgitation no pericardial effusion. RV systolic pressure 21 mmHg. Assessment: At this point I believe that her lower extremity edema is multifactorial, related to medications such as Procardia, venous insufficiency, and poor muscle tone.. There is improvement with a combination of diuretics and withdrawal of Procardia. Recommendations: 1. Continue current cardiac medications 2. Walking program is encouraged 3. 6-month follow-up 4. Abstain from cigarettes 5. Basic metabolic profile prior to next visit. 6. Strong consideration should be given to follow-up at the vein clinic for further recommendations. Past Medical History Problems History of Hypertension, essential, benign (401.1) (I10) Resolved Date: 17 Sep 2022 History of Patient new to provider Current Meds Medication NameInstruction Bumetanide 1 MG Oral TabletTake 1 tablet daily Lisinopril 40 MG Oral TabletTAKE 1 TABLET DAILY DIRECTED. Magnesium Oxide 400 MG CAPSTAKE 1 CAPSULE Daily Meloxicam 15 (more content not included)... Normal [employer] Tobacco Screening.on 022 Tobacco use status [facility]PHS b) No [facility] y 250 DO Work Phone: Echocardiogramon 08-20-[address] [facility] [address] [place] [address], Suite [facility], [place] [address] TRANSTHORACIC ECHOCARDIOGRAM REPORT Patient Name: ELSARUBEN FIGUEREDO Reading Physician: [id number] Mahesh Richardson MD Study Date: 08/20/2022 Referring Physician: PASTORA JOYNER MRN/PID: [id number] PCP: Gabriel Prater MD Accession/Order#: [id number] Department Location: [facility] Date of : 1955 Fellow: Gender: F Nurse: Admit Date: Aerial Photograph Interpreter: Ximena Barksdale RDCS, RVT Height: 157.48 cm CC Report to: Weight: 106.60 kg Study Type: Echocardiogram BSA: 2.05 m2 Blood Pressure: 132 /76 mmHg Diagnosis/ICD: R60.0-Localized edema; R06.02-Shortness of breath; S04-Cdeusatzw (primary) hypertension Indication: Morbid Obesity, Former Smoker, Asthma, Chron's Disease, Venous Insufficiency, Lymphedema Procedure/CPT: Echo Complete w Full Doppler-[id number] Study Detail: The following Echo studies were performed: 2D, M-Mode, Doppler and color flow. PHYSICIAN INTERPRETATION: Left Ventricle: Left ventricular systolic function is normal, with an estimated ejection fraction of 55%. There are no regional wall motion abnormalities. The left ventricular cavity size is normal. Spectral Doppler shows a normal pattern of left ventricular diastolic filling. Left Atrium: The left atrium is normal in size. Right Ventricle: The right ventricle is normal in size. There is normal right ventricular global systolic function. Right Atrium: The right atrium is normal in size. Aortic Valve: The aortic valve is trileaflet. There is evidence of mildly elevated transaortic gradients consistent with sclerosis of the aortic valve. There is no evidence of aortic valve regurgitation. The peak instantaneous gradient of the aortic valve is 10.2 mmHg. The mean gradient of the aortic valve is 5.0 mmHg. Mitral Valve: The mitral valve is normal in structure. There is trace mitral valve regurgitation. Tricuspid Valve: The tricuspid valve is structurally normal. There is trace tricuspid regurgitation. Pulmonic Valve: The pulmonic valve is not well visualized. There is no indication of pulmonic valve regurgitation. Pericardium: There is no pericardial effusion noted. Aorta: The aortic root is normal. CONCLUSIONS: 1. Left ventricular systolic function is normal with a 55% estimated ejection fraction. 2. Aortic valve sclerosis. QUANTITATIVE DATA SUMMARY: 2D MEASUREMENTS: Normal Ranges: Ao Root d: 3.30 cm (2.0-3.7cm) LAs: 3.60 cm (2.7-4.0cm) RVIDd: 2.70 cm (0.9-3.6cm) IVSd: 0.70 cm (0.6-1.1cm) LVPWd: 0.90 cm (0.6-1.1cm) LVIDd: 5.40 cm (3.9-5.9cm) LVIDs: 4.10 cm LV Mass Index: 75.7 g/m2 LV % FS 24.1 % LV SYSTOLIC FUNCTION BY 2D PLANIMETRY (MOD): Normal Ranges: EF-A4C View: 52.6 % (>55%) LV DIASTOLIC FUNCTION: Normal Ranges: MV Peak E: 0.88 m/s (0.7-1.2 m/s) MV Peak A: 1.05 m/s (0.42-0.7 m/s) E/A Ratio: 0.84 (1.0-2.2) MV lateral e' 0.12 m/s MV medial e' 0.11 m/s E/e' Ratio: 7.40 (<8.0) MITRAL VALVE: Normal Ranges: MV Vmax: 1.09 m/s (<1.3m/s) MV peak P.8 mmHg (<5mmHg) MV mean P.0 mmHg (<48mmHg) AORTIC VALVE: Normal Ranges: AoV Vmax: 1.60 m/s (<1.7m/s) AoV Peak P.2 mmHg (<20mmHg) AoV Mean P.0 mmHg (1.7-11.5mmHg) LVOT Max Rafita: 1.13 m/s (<1.1m/s) AoV VTI: 35.90 cm (18-25cm) LVOT VTI: 22.80 cm LVOT Diameter: 2.30 cm (1.8-2.4cm) AoV Area, VTI: 2.64 cm2 (2.5-5.5cm2) AoV Area,Vmax: 2.93 cm2 (2.5-4.5cm2) AoV Dimensionless Index: 0.64 TRICUSPID VALVE/RVSP: Normal Ranges: Peak TR Velocity: 2.10 m/s RV Syst Pressure: 20.6 mmHg (< 30mmHg) PULMONIC VALVE: Normal Ranges: PV Max Rafita: 1.0 m/s (0.6-0.9m/s) PV Max P.1 mmHg [id number] Mahesh Richardson MD Electronically signed on 08/22/2022 at 5:52:07 PM Final Normal [facility] Echocardiography Please click on the link to view the study images Normal [facility] [address] [place] Work Phone: Falls Screening (Age 18+)on 08-20-2022 Fall risk assessment a) No falls within the last year [facility] [address] [place] Work Phone: CBC AUTO DIFFon 08-18-2022 BASO # 0.1 103/ul Normal 0.0-0.1 [facility] Comment on above: Performed By: #### C BC #### [facility] [address] [place] [address] [address] Lucho España Basophils/100 WBC (Bld) 1.3 % Normal 0.2-2.0 [facility] [facility] Comment on above: Performed By: #### C BC #### [facility] [address] [address] [address] Lucho España EO # 0.3 103/ul Normal 0.0-0.7 [facility] Comment on above: Performed By: #### C BC #### [facility] [address] [address] [address] Lucho España Eosinophils/100 WBC (Bld) 6.8 % Normal 0.9-7.0 [facility] Comment on above: Performed By: #### C BC #### [facility] [address] [address] [address] Lucho España Erythrocyte distribution width (RBC) [Ratio] 12.9 % Normal 11.0-15.0 [facility] Comment on above: Performed By: #### C BC #### [facility] [address] [address] [address] Lucho España Hematocrit (Bld) [Volume fraction] 32.8 % Critically low 36.0-48.0 [facility] Comment on above: Performed By: #### C BC #### [facility] [address] [address] [address] Lucho España Hemoglobin (Bld) [Mass/Vol] 11.2 g/dL Critically low 12.0-16.0 [facility] Comment on above: Performed By: #### C BC #### [facility] [address] [address] [address] Lucho España IG # 0.01 10e3/ul Normal 0.00-0.03 [facility] Comment on above: Performed By: #### C BC #### [facility] [address] [address] [address] Lucho España IG % 0.2 % Normal 0.0-0.5 [facility] Comment on above: Performed By: #### C BC #### [facility] [address] [place] [address] Dr. Lucho España LYMPH # 1.1 103/ul Critically low 1.2-3.8 [facility] Comment on above: Performed By: #### C BC #### [facility] [address] [place] [address] Dr. Lucho España Lymphocytes/100 WBC (Bld) 24.7 % Normal 20.5-60.0 [facility] Comment on above: Performed By: #### C BC #### [facility] [address] [place] [address] Dr. Lucho España MANUAL DIFF REQ NO Normal [facility] Comment on above: Performed By: #### C BC #### [facility] [address] [place] [address] Dr. Lucho España MCH (RBC) [Entitic mass] 32.4 pg Normal 26.7-34.0 [facility] Comment on above: Performed By: #### C BC #### [facility] [address] [place] [address] Dr. Lucho España MCHC (RBC) [Mass/Vol] 34.1 g/dL Normal 29.9-35.2 [facility] Comment on above: Performed By: #### C BC #### [facility] [address] [place] [address] Dr. Lucho España MCV (RBC) [Entitic vol] 94.8 fL Normal 81.0-99.0 [facility] Comment on above: Performed By: #### C BC #### [facility] [address] [address] [address] Lucho España MONO # 0.7 103/ul Normal 0.3-0.8 [facility] Comment on above: Performed By: #### C BC #### [facility] [address] [address] [address] Lucho España Monocytes/100 WBC (Bld) 14.2 % Critically high 1.7-12.0 [facility] Comment on above: Performed By: #### C BC #### [facility] [address] [place] [address] Dr. Lucho España NEUT # 2.4 103/ul Normal 1.4-6.5 [facility] Comment on above: Performed By: #### C BC #### [facility] [address] [place] [address] Dr. Lucho España Neutrophils/100 WBC (Bld) 52.8 % Normal 43.0-75.0 [facility] Comment on above: Performed By: #### C BC #### [facility] [address] [place] [address] Dr. Lucho España Platelet mean volume (Bld) [Entitic vol] 8.4 fL Critically low 9.5-13.5 [facility] Comment on above: Performed By: #### C BC #### [facility] [address] [place] [address] Dr. Lucho España PLT 296 103/ul Normal 150-450 [facility] Comment on above: Performed By: #### C BC #### [facility] [address] [place] [address] Dr. Lucho España RBC 3.46 106/ul Critically low 4.20-5.40 [facility] Comment on above: Performed By: #### C BC #### [facility] [address] [place] [address] Dr. Lucho España WBC 4.6 103/ul Normal 4.0-11.0 [facility] Comment on above: Performed By: #### C BC #### [facility] [address] [address] [address] ABD/PELVIS WO CONon 08-18 CT ABD/PELVIS WO CON EXAM: CT ABD/PELVIS WO CON INDICATION: CALCULUS OF KIDNEY. COMPARISON: None. TECHNIQUE: Multiple contiguous axial CT images of the abdomen and pelvis were obtained without the use of intravenous contrast. Sagittal and coronal reconstructions were performed. Dose reduction techniques were achieved by using: automated exposure control and/or adjustment of mA and /or kV according to patient size and/or use of iterative reconstruction technique. FINDINGS: Evaluation of visceral organs limited by noncontrast technique. LOWER CHEST: Clear lung bases. The heart is normal in size. No pericardial or pleural effusion. ABDOMEN: No renal, ureteral, or bladder calculi. No hydronephrosis or perinephric fatty stranding. Stable hypoattenuating liver lesions, likely a combination of cysts and hemangiomas. Unremarkable gallbladder, pancreas, spleen, and adrenal glands. Normal caliber bowel without wall thickening or inflammation. Colonic diverticulosis without diverticulitis. The appendix is surgically absent. Nonaneurysmal abdominal aorta with mild atherosclerotic calcifications. No abdominal adenopathy or ascites. PELVIS: Unremarkable uterus, adnexa, and bladder. No free pelvic fluid or adenopathy. MUSCULOSKELETAL: No acute osseous abnormality or suspicious osseous lesion. Moderate to advanced multilevel degenerative changes of the lumbar spine. Thoracolumbar spine dextroscoliosis. IMPRESSION: 1. No acute process identified in the abdomen or pelvis. Specifically, no collecting system stone or hydronephrosis. 2. Colonic diverticulosis. Electronically authenticated by: DREA HA Date: 2022-08-18 14:01 Normal [facility] ER URINE PROFILEon 2 Bilirubin Ql (U) Negative Normal NEGATIVE [facility] Comment on above: Performed By: #### E RUR ####[facility] [address] [address]DrTulio España Clarity (U) CLEAR Normal CLEAR [facility] Comment on above: Performed By: #### E RUR ####[facility] [address] [address]DrTulio España Color (U) LT. YELLOW Normal YELLOW [facility] Comment on above: Performed By: #### E RUR ####[facility] [address] [address]Dr. Lucho España ERUAHD A micrscopic examina tion will be performed if indicated. Normal [facility] Comment on above: Performed By: #### E RUR ####[facility] [address] [address]Dr. Lucho España Glucose Ql (U) Negative Normal NEGATIVE [facility] Comment on above: Performed By: #### E RUR ####[facility] [address] [place], [place] [address]Dr. Lucho España Hemoglobin Ql (U) Negative Normal NEGATIVE [facility] Comment on above: Performed By: #### E RUR ####[facility] [address] [place], [place] [address]Dr. Lucho Taco Ketones Ql (U) Negative Normal NEGATIVE [facility] Comment on above: Performed By: #### E RUR ####[facility] [address] [place], [place] [address]Dr. Lucho Taco LEUKOCYTES Negative Normal NEGATIVE [facility] Comment on above: Performed By: #### E RUR ####[facility] [address] [place], [place] [address]Dr. Lucho España Nitrite Ql (U) Negative Normal NEGATIVE [facility] Comment on above: Performed By: #### E RUR ####[facility] [address] [place], [place] [address]Dr. Marcelladarian Taco pH (U) 6.0 [pH] Normal 5-9 [facility] Comment on above: Performed By: #### E RUR ####[facility] [address] [place], [place] [address]Dr. Marcelladarian Taco SPEC GRAVITY 1.010 Normal 1.005-<=1. 025 [facility] Comment on above: Performed By: #### E RUR ####[facility] [address] [place], [place] [address]Dr. Lucho España UA PROTEIN Negative Normal NEGATIVE/ TRACE [facility] Comment on above: Performed By: #### E RUR ####[facility] [address] [place], [place] [address]CtTulio España UR MICRO IND NOT INDICATED Normal [facility] Comment on above: Performed By: #### E RUR ####[facility] [address] [place], [place] [address]SpTulio España Urobilinogen Qn (U) 0.2 {Kristyn'U}/dL Normal 0.2 - 1. 0 [facility] Comment on above: Performed By: #### E RUR ####[facility] [address] [place], [place] [address]VhTulio España PROF CHEM 8 (BAS METB)on Anion gap [Moles/Vol] 7.9 mmol/L Normal [facility] Comment on above: Performed By: #### B MP #### [facility] [address] [address] [address] Lucho España Calcium [Mass/Vol] 8.7 mg/dL Normal 8.5-10.1 [facility] Comment on above: Performed By: #### B MP #### [facility] [address] [address] [address] Lucho España Chloride [Moles/Vol] 93 mmol/L Critically low 98-107 [facility] Comment on above: Performed By: #### B MP #### [facility] [address] [address] [address] Lucho España CO2 [Moles/Vol] 28.0 mmol/L Normal 21.0-32.0 [facility] Comment on above: Performed By: #### B MP #### [facility] [address] [address] [address] Lucho España Creatinine [Mass/Vol] 0.75 mg/dL Normal 0.55-1.02 [facility] Comment on above: Performed By: #### B MP #### [facility] [address] [address] [address] Lucho España EGFR-AF GEORGIAN >60 Normal >=60 [facility] Comment on above: Performed By: #### B MP #### [facility] [address] [address] [address] Lucho España EGFR-NON AF GEORGIAN >60 Normal >=60 [facility] Comment on above: Performed By: #### B MP #### [facility] [address] [address] [address] Lucho España Glucose [Mass/Vol] 98 mg/dL Normal 74-106 [facility] Comment on above: Performed By: #### B MP #### [facility] [address] [address] [address] Lucho España Potassium [Moles/Vol] 4.9 mmol/L Normal 3.5-5.1 [facility] Comment on above: Performed By: #### B MP #### [facility] [address] [address] [address] Lucho España Sodium [Moles/Vol] 124 mmol/L Critically low 136-145 [facility] Comment on above: Performed By: #### B MP #### [facility] [address] [address] [address] Lucho España Urea nitrogen [Mass/Vol] 13.0 mg/dL Normal 7.0-18.0 [facility] Comment on above: Performed By: #### B MP #### [facility] [address] [address] [address] Lucho España Urea nitrogen/Creatinine [Mass ratio] 17.3 mg/mg Normal [facility] Comment on above: Performed By: #### B MP #### [facility] [address] [address] [address] Lucho España PROF CHEM 8 (BAS METB)on Anion gap [Moles/Vol] 11.0 mmol/L Normal [facility] Comment on above: Performed By: #### B MP #### [facility] [address] [address] [address] Lucho España Calcium [Mass/Vol] 9.2 mg/dL Normal 8.5-10.1 [facility] Comment on above: Performed By: #### B MP #### [facility] [address] [address] [address] Lucho España Chloride [Moles/Vol] 92 mmol/L Critically low 98-107 [facility] Comment on above: Performed By: #### B MP #### [facility] [address] [address] [address] Lucho España CO2 [Moles/Vol] 26.6 mmol/L Normal 21.0-32.[address] [facility] Comment on above: Performed By: #### B MP #### [facility] [address] [address] [address] Lucho España Creatinine [Mass/Vol] 0.84 mg/dL Normal 0.55-1.02 [facility] Comment on above: Performed By: #### B MP #### [facility] [address] [place] [address] Dr. Lucho España EGFR-AF GEORGIAN >60 Normal >=[address] [facility] Comment on above: Performed By: #### B MP #### [facility] [address] [address] [address] Lucho España EGFR-NON AF GEORGIAN >60 Normal >=60 [facility] Comment on above: Performed By: #### B MP #### [facility] [address] [place] [address] Dr. Lucho España Glucose [Mass/Vol] 109 mg/dL Critically high 74-106 [facility] Comment on above: Performed By: #### B MP #### [facility] [address] [address] [address] Lucho España Potassium [Moles/Vol] 4.6 mmol/L Normal 3.5-5.1 [facility] Comment on above: Performed By: #### B MP #### [facility] [address] [address] [address] Lucho España Sodium [Moles/Vol] 125 mmol/L Critically low 136-145 [facility] Comment on above: Performed By: #### B MP #### [facility] [address] [address] [address] Lucho España Urea nitrogen [Mass/Vol] 13.0 mg/dL Normal 7.0-18.0 [facility] Comment on above: Performed By: #### B MP #### [facility] [address] [place], [place] [address] Dr. Lucho España Urea nitrogen/Creatinine [Mass ratio] 15.5 mg/mg Normal [facility] Comment on above: Performed By: #### B MP #### [facility] [address] [place], [place] [address] [address] LUNG CANCER SCREENINGon 0 07-31-2022 CT LUNG CANCER SCREENING EXAMINATION: CT LUNG CANCER SCREENING HISTORY: Nicotine dependence COMPARISON: CT lung cancer screening 07/28/2021 TECHNIQUE: Axial, Coronal, and Sagittal images were created without the administration of IV contrast material. Dose reduction techniques were achieved by using automated exposure control and/or adjustment of mA and/or kV according to patient size and/or use of iterative reconstruction technique. FINDINGS: LUNGS: Stable appearance of a few tiny 2-3 mm nodules scattered within the lungs. No suspicious nodules or acute infiltrates. No significant emphysematous changes. PLEURA: No mass, effusion, or pneumothorax. VASCULATURE: No abnormality. ZAYNAB: No mass or pathologic adenopathy. MEDIASTINUM: No mass or pathologic adenopathy. CARDIAC: No enlargement, pericardial thickening, or significant calcification. AORTA: No aneurysm or dissection. CHEST WALL: No mass or axillary adenopathy BONES: No bone lesion or fracture. LIMITED ABDOMEN: Stable small cysts versus hemangioma within right hepatic dome. Limited images of the upper abdomen. OTHER: Negative. IMPRESSION: 1. LUNG SCREENING: Lung-RADS Category 2- Benign Appearance or Behavior. Nodules with a very low likelihood of becoming a clinically active cancer due to size or lack of growth. 2. Continue annual screening with LDCT in 12 months. Electronically authenticated by: CHANI HAYDEN Date: 2022-07-31 15:33 Normal [facility] Office Visit (Cardiology)on 07-26-2022 Follow-up visit Diagnoses/Problems Assessed Patient new to provider Morbid obesity with BMI of 40.0-44.9, adult (278.01,V85.41) (E66.01,Z68.41) Asthma, unspecified asthma severity, unspecified whether complicated, unspecified whether persistent (493.90) (J45.909) History of IBS (V12.79) (Z87.19) Crohn disease (555.9) (K50.90) Medication course changed (V58.69) (Z79.899) Snoring (786.09) (R06.83) Lymphedema (457.1) (I89.0) Venous insufficiency (459.81) (I87.2) Shortness of breath (786.05) (R06.02) Hypertension, essential, benign (401.1) (I10) Edema of lower extremity (782.3) (R60.0) *Orders Edema of lower extremity Basic Metabolic Panel; Status:Active; Requested for:09Aug2022; Edema of lower extremity, Shortness of breath Basic Metabolic Panel; Status:Active; Requested for:26Jul2022; Echocardiogram; Status:Active; Requested for:20Aug2022; AMA Intake Activity Log Entry by Zulma Barnes ([email or web address]) on 2022-08-01 16:54 Status Change : Confirmed - SMN Module AMA Intake updated by Zulma Barnes ([email or web address]) on 2022-08-01 16:54 New Recipient: Pastora Joyner Appointment Date: 2022-08-20 14:30 AMA Intake Activity Log Entry by Zulma Barnes ([email or web address]) on 2022-08-01 16:54 Status Change: To Confirmed - N/A Hypertension, essential, benign Start: Lisinopril 40 MG Oral Tablet; TAKE 1 TABLET DAILY DIRECTED IO EKG Electrocardiogram- 12 Lead; Status:Complete; Done: 26Jul2022 Lymphedema Vascular Medicine Referral Evaluation and Treatment Evaluate AND Treat Status: Active Requested for: 26Jul2022 AMA Intake Activity Log Entry by Zulma Barnes ([email or web address]) on 2022-08-01 16:56 Status Change: To Closed - Unable To Schedule-Patient Will Schedule With Non-[facility] Morbid obesity with BMI of 40.0-44.9, adult Healthy Weight Tips; Status:Complete; Done: 26Jul2022 Snoring Adult Sleep Medicine Referral Evaluation and Treatment Evaluate AND Treat Status: Active Requested for: 26Jul2022 Unlinked Stop: NIFEdipine ER 60 MG Oral Tablet Extended Release 24 Hour Edema of lower extremity (782.3) (R60.0) Hypertension, essential, benign (401.1) (I10) Shortness of breath (786.05) (R06.02) Venous insufficiency (459.81) (I87.2) Lymphedema (457.1) (I89.0) Edema of lower extremity (782.3) (R60.0) Hypertension, essential, benign (401.1) (I10) Shortness of breath (786.05) (R06.02) Patient Instructions Please bring all medicines, vitamins, and herbal supplements with you when you come to the office. Prescriptions will not be filled unless you are compliant with your follow up appointments or have a follow up appointment scheduled as per instruction of your physician. Refills should be requested at the time of your visit. Follow up after testing The provider reviewed the following test(s) and result(s) with the patient: chest x-ray, ECG, echocardiogram, laboratory tests and Myocardial perfusion study Chief Complaint ELSA FIGUEREDO is being seen for an initial evaluation of Leg edema. History of Present Illness Patient is new to this provider, she is a 56-year-old female who presents for evaluation of lower extremity edema that has been noticeable for at least a year. She says it is worse in the evenings, and better in the mornings. She also has some exertional shortness of breath functional class III, with unaccustomed physical activity. She does not report any palpitations chest pressure tightness or heaviness. BMI is excessive. She has degenerative joint disease and hypertension. Medications were reviewed. She is also giving a diagnosis of history of asthma, she will take theophylline Ventolin as needed. Prior testing and EKGs were reviewed. Patient does not report orthopnea or PND but does admit to excessive snoring. She does not complain of chest pressure tightness or heaviness, denies lightheadedness presyncope or syncope. Does have joint disease for which she takes meloxicam. Assessment: 1. Hypertension 2. Lower extremity edema 3. Increased BMI 4. Patient symptomatic prolapse,-? Reactive airway disease 5. History of Vascepa cigarettes 6. Increased BMI 7. Lower extremity edema could be multifactorial. He had to look for systolic and diastolic heart failure, pulmonary hypertension, she has pulmonary hypertension we need to look for obstructive sleep apnea as one of the causes, and lastly she may benefit from evaluation at the vein clinic to look for venous insufficiency. 8. Increasing aerobic activity will increase venous tone, and help venous return as well. 9. Cardiac may be contributory to her lower extremity edema. Recommendations: 1. Discontinue Procardia XL, start lisinopril 40 mg p.o. daily 2. Proceed with echocardiogram in the near future 3. Venous duplex of lower extremities to rule out DVT 4. Vein clinic referral if edema persists despite changing medical therapy 5. Defer to primary to whether she needs a home sleep study 6. She should continue the bumetanide 1 mg daily 7. Basic meta (more content not included)... Normal [facility] PROF CHEM 8 (BAS METB)on Anion gap [Moles/Vol] 12.8 mmol/L Normal [facility] Comment on above: Performed By: #### B MP ####[facility] [address] [address] Lucho España Calcium [Mass/Vol] 9.5 mg/dL Normal 8.5-10.1 [facility] Comment on above: Performed By: #### B MP ####[facility] [address] [address]Dr. Lucho España Chloride [Moles/Vol] 90 mmol/L Critically low 98-107 [facility] Comment on above: Performed By: #### B MP ####[facility] [address] [address]Dr. Lucho España CO2 [Moles/Vol] 25.6 mmol/L Normal 21.0-32.0 [facility] Comment on above: Performed By: #### B MP ####[facility] [address] [address]Dr. Lucho España Creatinine [Mass/Vol] 0.85 mg/dL Normal 0.55-1.02 [facility] Comment on above: Performed By: #### B MP ####[facility] [address] [address]Dr. Lucho España EGFR-AF GEORGIAN >60 Normal >=60 [facility] Comment on above: Performed By: #### B MP ####[facility] [address] [place], [place] [address]Md. Lucho Taco EGFR-NON AF GEORGIAN >60 Normal >=60 [facility] Comment on above: Performed By: #### B MP ####[facility] [address] [place], [place] [address]Mo. Marcelladarian Taco Glucose [Mass/Vol] 111 mg/dL Critically high 74-106 [facility] Comment on above: Performed By: #### B MP ####[facility] [address] [id number] Lucho España Potassium [Moles/Vol] 4.3 mmol/L Normal 3.5-5.1 [facility] Comment on above: Performed By: #### B MP ####[facility] [address] [address]. Lucho España Sodium [Moles/Vol] 123 mmol/L Critically low 136-145 [facility] Comment on above: Performed By: #### B MP ####[facility] [address] [address]Dr. Marcelladarian España Urea nitrogen [Mass/Vol] 16.0 mg/dL Normal 7.0-18.0 [facility] Comment on above: Performed By: #### B MP ####[facility] [address] [address]. Lucho España Urea nitrogen/Creatinine [Mass ratio] 18.8 mg/mg Normal [facility] Comment on above: Performed By: #### B MP ####[facility] [address]. Marcelladarian España Tobacco Screening.on 022 Adult depression screening assessment No [facility] y 250 DO Work Phone: Fall risk assessment a) No falls within the last year [facility] y 250 DO Work Phone: Tobacco use status [facility] b) No [facility] y 250 DO Work Phone: Creatinine and Glomerular fi ltration rate.predicted panel (S/P/Bld)Ordered By: Farhat Leahy on 03-08-2022 Creatinine [Mass/Vol] 0.70 mg/dL 0.44-1.03 [facility] Estimated glomerular filtrat ion rate (GFR) non- AmericanOrdered By: Farhta Leahy on 03-08-2022 GFR/1.73 sq M.predicted among non-blacks MDRD (S/P/Bld) [Vol rate/Area] > 60 mL/Min [facility] No Panel InformationOrdered By: Farhat Leahy on 03-08-2022 Estimated GFR () > 60 mL/Min [facility] Comment on above: GFR estimated refere nce range: According to KDOQI guidelines, <60 ml/min/1.73m2 is sufficient to diagnose a patient with chronic kidney disease. Pharmacy Creatinine Clearance (Chem 81.46 [facility] Serum or plasma calcium [place] urement (mass/volume)Ordered By: Farhat Leahy on 03-08-2022 Calcium [Mass/Vol] 9.6 mg/dL 8.2-10.2 [facility] Serum or plasma chloride [place] surement (moles/volume)Ordered By: Farhat Leahy on 03-08-2022 Chloride [Moles/Vol] 99 mmol/L 95-114 [facility] Serum or plasma glucose [place] urement (mass/volume)Ordered By: Farhat Leahy on 03-08-2022 Glucose [Mass/Vol] 104 mg/dL 70-100 [facility] Comment on above: ADA recommended refe rence rangeRandom Glucose Reference Range is dependent on time and content of last meal. Glucose of more than 200 mg/dL in a nonstressed, ambulatory subject supports the diagnosis of Diabetes Mellitus. ADA recommended refe rence range Random Glucose Reference Range is dependent on time and content of last meal. Glucose of more than 200 mg/dL in a nonstressed, ambulatory subject supports the diagnosis of Diabetes Mellitus. Serum or plasma potassium me asurement (moles/volume)Ordered By: Farhat Leahy on 03-08-2022 Potassium [Moles/Vol] 4.0 mmol/L 3.5-5.1 [facility] Serum or plasma sodium measu rement (moles/volume)Ordered By: Farhat Armond on 03-08-2022 Sodium [Moles/Vol] 133 mmol/L 136-146 [facility] Serum or plasma total carbon dioxide measurement (moles/volume)Ordered By: Farhat Armond on 03-08-2022 CO2 [Moles/Vol] 21.5 mmol/L 22.0-30.[address] [facility] Serum or plasma urea nitroge n measurement (mass/volume)Ordered By: Farhat Leahy on 03-08-2022 Urea nitrogen [Mass/Vol] 8 mg/dL 9- [facility] COVID-19 Positive/NegativeOr dered By: Madeleine Garcia on 02-20-2022 SARS-CoV-2 (COVID-19) N gene WOO+probe Ql (Resp) Positive Negative [facility] Comment on above: Positive results jj l only be called to Providers for the following groups of patients: Pre-Surgical Testing, Emergency Room, and Inpatients.Testing for SARS-CoV-2 by RT-PCRThis test was developed and its performance characteristics determined by [employer] and validated at the [facility]. This test has not been FDA cleared or approved. This test has been authorized by FDA under an Emergency Use Authorization (EUA). This test has been validated in accordance with the FDA's Guidance Document (Policy for Diagnostics Testing in Laboratories Certified to Perform High Complexity Testing under CLIA prior to Emergency Use Authorization for Coronavirus Disease-2019 during the Public Health Emergency) issued on February 18, 2020. This test is only authorized for the duration of time the declaration that circumstances exist justifying the authorization of the emergency use of in vitro diagnostic tests for detection of SARS-CoV-2 virus and/or diagnosis of COVID-19 infection under section 564(b)(1) of the Act, 21 U.S.C. 360bbb-3(b)(1), unless the authorization is terminated or revoked sooner. Positive results jj l only be called to Providers for the following groups of patients: Pre-Surgical Testing, Emergency Room, and Inpatients. Testing for SARS-CoV-2 by RT-PCR This test was developed and its performance characteristics determined by [employer] and validated at the [facility]. This test has not been FDA cleared or approved. This test has been authorized by FDA under an Emergency Use Authorization (EUA). This test has been validated in accordance with the FDA's Guidance Document (Policy for Diagnostics Testing in Laboratories Certified to Perform High Complexity Testing under CLIA prior to Emergency Use Authorization for Coronavirus Disease-2019 during the Public Health Emergency) issued on February 18, 2020. This test is only authorized for the duration of time the declaration that circumstances exist justifying the authorization of the emergency use of in vitro diagnostic tests for detection of SARS-CoV-2 virus and/or diagnosis of COVID-19 infection under section 564(b)(1) of the Act, 21 U.S.C. 360bbb-3(b)(1), unless the authorization is terminated or revoked sooner. Basophils Auto (Bld) [#/Vol] Ordered By: Madeleine Garcia on 02-08-2022 Basophils (Bld) [#/Vol] 0.1 10*3/uL 0.0-0.2 [facility] Basophils/100 WBC Auto (Bld) Ordered By: Madeleine Garcia on 02-08-2022 Basophils/100 WBC (Bld) 1.1 % [facility] Blood hemoglobin measurement (mass/volume)Ordered By: Madeleine Garcia on 02-08-2022 Hemoglobin (Bld) [Mass/Vol] 12.8 g/dL 11.8-15.4 [facility] Blood leukocytes automated c ount (number/volume)Ordered By: Madeleine Garcia on 02-08-2022 WBC (Bld) [#/Vol] 6.3 10*3/uL 4.5-11.0 [facility] Body fluid albumin measureme nt (mass/volume)Ordered By: Madeleine Garcia on 02-08-2022 Albumin (Body fld) [Mass/Vol] 3.7 g/dL 3.2-5.5 [facility] Creatinine and Glomerular fi ltration rate.predicted panel (S/P/Bld)Ordered By: Madeleine Garcia on 02-08-2022 Creatinine [Mass/Vol] 0.69 mg/dL 0.44-1.03 [facility] Eosinophils Auto (Bld) [#/Vo l]Ordered By: Madeleine Garcia on 02-08-2022 Eosinophils (Bld) [#/Vol] 0.4 10*3/uL 0.0-0.45 [facility] Eosinophils/100 WBC Auto (Bl d)Ordered By: Madeleine Garcia on 02-08-2022 Eosinophils/100 WBC (Bld) 6.5 % [facility] Erythrocyte distribution wid th Auto (RBC) [Ratio]Ordered By: Madeleine Garcia on 02-08-2022 Erythrocyte distribution width (RBC) [Ratio] 13.1 % 11.9-15.3 [facility] Estimated glomerular filtrat ion rate (GFR) non- AmericanOrdered By: Madeleine Garcia on 02-08-2022 GFR/1.73 sq M.predicted among non-blacks MDRD (S/P/Bld) [Vol rate/Area] > 60 mL/Min [facility] Globulin Calc (S) [Mass/Vol] Ordered By: Madeleine Garcia on 02-08-2022 Globulin (S) [Mass/Vol] 2.5 g/dL [facility] Hematocrit Auto (Bld) [Volum e fraction]Ordered By: Madeleine Garcia on 02-08-2022 Hematocrit (Bld) [Volume fraction] 37.2 % 34.0-46.4 [facility] Laboratory - Hematology and Cell countsOrdered By: Madeleine Garcia on 02-08-2022 Nucleated RBC/100 WBC (Bld) [Ratio] 0.1 % 0-0.5 [facility] Lymphocytes Auto (Bld) [#/Vo l]Ordered By: Madeleine Garcia on 02-08-2022 Lymphocytes (Bld) [#/Vol] 1.0 10*3/uL 1.00-4.8 [facility] Lymphocytes/100 WBC Auto (Bl d)Ordered By: Madeleine Garcia on 02-08-2022 Lymphocytes/100 WBC (Bld) 16.7 % [facility] MCH Auto (RBC) [Entitic mass ]Ordered By: Madeleine Garcia on 02-08-2022 MCH (RBC) [Entitic mass] 32.6 pg 24.7-34.3 [facility] MCHC Auto (RBC) [Mass/Vol]Or dered By: Madeleine Garcia on 02-08-2022 MCHC (RBC) [Mass/Vol] 34.4 g/dL 32.0-35.0 [facility] MCV Auto (RBC) [Entitic vol] Ordered By: Madeleine Garcia on 02-08-2022 MCV (RBC) [Entitic vol] 95.0 fL 80-100 [facility] Monocytes Auto (Bld) [#/Vol] Ordered By: Madeleine Garcia on 02-08-2022 Monocytes (Bld) [#/Vol] 1.0 10*3/uL 0.0-0.8 [facility] Monocytes/100 WBC Auto (Bld) Ordered By: Madeleine Garcia on 02-08-2022 Monocytes/100 WBC (Bld) 15.4 % [facility] Neutrophils Auto (Bld) [#/Vo l]Ordered By: Madeleine Garcia on 02-08-2022 Neutrophils (Bld) [#/Vol] 3.8 10*3/uL 1.8-7.7 [facility] Neutrophils/100 WBC Auto (Bl d)Ordered By: Madeleine Garcia on 02-08-2022 Neutrophils/100 WBC (Bld) 60.3 % [facility] No Panel InformationOrdered By: Madeleine Garcia on 02-08-2022 Estimated GFR () > 60 mL/Min [facility] Comment on above: GFR estimated refere nce range: According to KDOQI guidelines, <60 ml/min/1.73m2 is sufficient to diagnose a patient with chronic kidney disease. Pharmacy Creatinine Clearance (Chem N/A [facility] Platelet mean volume Auto (B ld) [Entitic vol]Ordered By: Madeleine Garcia on 02-08-2022 Platelet mean volume (Bld) [Entitic vol] 7.3 fL 6.3-10.7 [facility] Platelets Auto (Bld) [#/Vol] Ordered By: Madeleine Garcia on 02-08-2022 Platelets (Bld) [#/Vol] 258 10*3/uL 150-450 [facility] Protein [Mass/volume] in Ser um or PlasmaOrdered By: Madeleine Garcia on 02-08-2022 Protein [Mass/Vol] 6.2 g/dL 6.1-7.9 [facility] RBC Auto (Bld) [#/Vol]Ordere d By: Madeleine Garcia on 02-08-2022 RBC (Bld) [#/Vol] 3.91 10*6/uL 3.60-5.00 [facility] Serum or plasma alanine mclaughlin otransferase measurement without P-5'-P (enzymatic activiOrdered By: Madeleine Garcia on 02-08-2022 ALT No additional P-5'-P [Catalytic activity/Vol] 36 U/L 10-60 [facility] Serum or plasma albumin/glob ulin mass ratioOrdered By: Madeleine Garcia on 02-08-2022 Albumin/Globulin [Mass ratio] 1.5 {ratio} [facility] Serum or plasma alkaline nasir sphatase measurement (enzymatic activity/volume)Ordered By: Madeleine Garcia on 02-08-2022 ALP [Catalytic activity/Vol] 63 U/L 32-92 [facility] Serum or plasma aspartate am inotransferase measurement (enzymatic activity/volume)Ordered By: Madeleine Garcia on 02-08-2022 AST [Catalytic activity/Vol] 29 U/L 10-42 [facility] Serum or plasma calcium [place] urement (mass/volume)Ordered By: Madeleine Garcia on 02-08-2022 Calcium [Mass/Vol] 9.9 mg/dL 8.2-10.2 [facility] Serum or plasma chloride [place] surement (moles/volume)Ordered By: Madeleine Garcia on 02-08-2022 Chloride [Moles/Vol] 96 mmol/L 95-114 [facility] Serum or plasma glucose [place] urement (mass/volume)Ordered By: Madeleine Garcia on 02-08-2022 Glucose [Mass/Vol] 100 mg/dL 70-100 [facility] Comment on above: ADA recommended refe rence rangeRandom Glucose Reference Range is dependent on time and content of last meal. Glucose of more than 200 mg/dL in a nonstressed, ambulatory subject supports the diagnosis of Diabetes Mellitus. ADA recommended refe rence range Random Glucose Reference Range is dependent on time and content of last meal. Glucose of more than 200 mg/dL in a nonstressed, ambulatory subject supports the diagnosis of Diabetes Mellitus. Serum or plasma potassium me asurement (moles/volume)Ordered By: Madeleine Garcia on 02-08-2022 Potassium [Moles/Vol] 4.9 mmol/L 3.5-5.1 [facility] Serum or plasma sodium measu rement (moles/volume)Ordered By: Madeleine Garcia on 02-08-2022 Sodium [Moles/Vol] 130 mmol/L 136-146 [facility] Serum or plasma total biliru bin measurement (mass/volume)Ordered By: Madeleine Garcia on 02-08-2022 Bilirubin [Mass/Vol] 0.6 mg/dL 0.3-1.2 [facility] Serum or plasma total carbon dioxide measurement (moles/volume)Ordered By: Madeleine Garcia on 02-08-2022 CO2 [Moles/Vol] 24.4 mmol/L 22.0-30.[address] [facility] Serum or plasma urea nitroge n measurement (mass/volume)Ordered By: Madeleine Garcia on 02-08-2022 Urea nitrogen [Mass/Vol] 15 mg/dL 9-23 [facility] Vital Signs Date Time Vital Sign Value Performing Clinician Facility 02-11-2025 10:47-0400 Diastolic blood pressure 70 mm[Hg] Vineet Juarez MD Work Phone: [facility] 02-11-2025 10:47-0400 Heart rate 101 /min Vineet Juarez MD Work Phone: [facility] 02-11-2025 10:47-0400 SaO2% (BldA) [Mass fraction] 97 % Vineet Juarez MD Work Phone: [facility] 02-11-2025 10:47-0400 Systolic blood pressure 136 mm[Hg] Vineet Juarez MD Work Phone: [facility] 02-03-2025 13:30-0400 Diastolic blood pressure 74 mm[Hg] Papito Funez [facility] 02-03-2025 13:30-0400 Heart rate 82 /min Cobos Sarmini [facility] 02-03-2025 13:30-0400 Respiratory rate 18 /min Cobos Sarmini [facility] 02-03-2025 13:30-0400 SaO2% (BldA) [Mass fraction] 97 % Cobos Sarmini [facility] 02-03-2025 13:30-0400 Systolic blood pressure 125 mm[Hg] Cobos Sarmini [facility] 02-03-2025 13:20-0400 Heart rate 91 /min Cobos Sarmini [facility] 02-03-2025 13:20-0400 Respiratory rate 17 /min Cobos Sarmini [facility] 02-03-2025 13:20-0400 SaO2% (BldA) [Mass fraction] 95 % Cobos Sarmini [facility] 02-03-2025 13:20-0400 Diastolic blood pressure 76 mm[Hg] Cobos Sarmini [facility] 02-03-2025 13:20-0400 Systolic blood pressure 135 mm[Hg] Cobos Sarmini [facility] 02-03-2025 13:10-0400 SaO2% (BldA) [Mass fraction] 97 % Cobos Sarmini [facility] 02-03-2025 13:10-0400 Diastolic blood pressure 75 mm[Hg] Cobos Sarmini [facility] 02-03-2025 13:10-0400 Systolic blood pressure 148 mm[Hg] Cobos Sarmini [facility] 02-03-2025 13:10-0400 Body temperature 97.7 [degF] Cobos Sarmini [facility] 02-03-2025 13:10-0400 Heart rate 97 /min Cobos Sarmini [facility] 02-03-2025 13:10-0400 Respiratory rate 18 /min Cobos Sarmini [facility] 02-03-2025 11:46-0400 Blood Pressure Location Cobos Sarmini [facility] 02-03-2025 11:44-0400 Blood Pressure Location Cobos Sarmini [facility] 02-03-2025 11:40-0400 Blood Pressure Location Cobos Sarmini [facility] 02-03-2025 11:40-0400 Body temperature 98.06 [degF] Cobos Sarmini [facility] 01-14-2025 15:01-0500 Blood Pressure Location Cobos Sarmini [facility] 01-14-2025 15:01-0500 Diastolic blood pressure 88 mm[Hg] Cobos Sarmini [facility] 01-14-2025 15:01-0500 Heart rate 65 /min Cobos Sarmini [facility] 01-14-2025 15:01-0500 Respiratory rate 14 /min Cobos Sarmini [facility] 01-14-2025 15:01-0500 Systolic blood pressure 147 mm[Hg] Cobos Sarmini [facility] 12-24-2024 14:09-0500 Body height 160 cm Summer Workman PA Work Phone: [facility] 12-24-2024 14:09-0500 Body mass index (BMI) [Ratio] 43.05 kg/m2 Summer Workman PA Work Phone: [facility] 12-24-2024 14:09-0500 Body weight 110.22 kg Summer Workman PA Work Phone: [facility] 12-24-2024 14:09-0500 Diastolic blood pressure 88 mm[Hg] Summer Workman PA Work Phone: [facility] 12-24-2024 14:09-0500 Heart rate 89 /min Summer Workman PA Work Phone: [facility] 12-24-2024 14:09-0500 SaO2% (BldA) [Mass fraction] 96 % Summer Workman PA Work Phone: [facility] 12-24-2024 14:09-0500 Systolic blood pressure 138 mm[Hg] [facility] Workman PA Work Phone: [facility] 2024 13:53-0500 Body height 160 cm Vineet Juarez MD Work Phone: [facility] 2024 13:53-0500 Body mass index (BMI) [Ratio] 42.34 kg/m2 Vineet Juarez MD Work Phone: [facility] 2024 13:53-0500 Body weight 108.41 kg Vineet Juarez MD Work Phone: [facility] 2024 13:53-0500 Diastolic blood pressure 80 mm[Hg] Vineet Juarez MD Work Phone: [facility] 2024 13:53-0500 Heart rate 78 /min Vineet Juarez MD Work Phone: [facility] 2024 13:53-0500 SaO2% (BldA) [Mass fraction] 97 % Vineet Juarez MD Work Phone: [facility] 2024 13:53-0500 Systolic blood pressure 140 mm[Hg] Vineet Juarez MD Work Phone: [facility] 08-04-2024 13:22-0400 Body height 160 cm Summer Workman PA Work Phone: [facility] 08-04-2024 13:22-0400 Body mass index (BMI) [Ratio] 42.69 kg/m2 Summer Workman PA Work Phone: [facility] [employer] 08-04-2024 13:22-0400 Body weight 109.32 kg Summer Workman PA Work Phone: [facility] 08-04-2024 13:22-0400 Diastolic blood pressure 80 mm[Hg] [employer] Workman PA Work Phone: [facility] 08-04-2024 13:22-0400 Heart rate 95 /min [employer] Workman PA Work Phone: [facility] 08-04-2024 13:22-0400 SaO2% (BldA) [Mass fraction] 99 % Summer Workman PA Work Phone: [facility] 08-04-2024 13:22-0400 Systolic blood pressure 142 mm[Hg] [employer] Workman PA Work Phone: [facility] 07-10-2024 [id number] Body height 160.02 cm MD Vineet Juarez Work Phone: [facility] 07-10-2024 14:17-0400 Body mass index (BMI) [Ratio] 41.8 kg/m2 MD Vineet Juarez Work Phone: [facility] 07-10-2024 [id number] Body temperature 97.2 [degF] MD Vineet Juarez Work Phone: [facility] 07-10-2024 14:17-0400 Body weight 107.1 kg MD Vineet Juarez Work Phone: [facility] 07-10-2024 14:17-0400 Diastolic blood pressure 94 mm[Hg] MD Vineet Juarez Work Phone: [facility] 07-10-2024 14:17-0400 Heart rate 60 /min MD Vineet Juarez Work Phone: [facility] 07-10-2024 14:17-0400 Respiratory rate 18 /min MD Vineet Juarez Work Phone: [facility] 07-10-2024 14:17-0400 SaO2% (BldA) [Mass fraction] 91 % MD Vineet Juarez Work Phone: [facility] 07-10-2024 14:17-0400 Systolic blood pressure 171 mm[Hg] MD Vineet Juarez Work Phone: [facility] 06-16-2024 09:43-0400 Diastolic blood pressure 83 mm[Hg] MD Vineet Juarez Work Phone: [facility] 06-16-2024 09:43-0400 Heart rate 78 /min MD Vineet Juarez Work Phone: [facility] 06-16-2024 09:43-0400 Respiratory rate 16 /min MD Vineet Juarez Work Phone: [facility] 06-16-2024 09:43-0400 SaO2% (BldA) [Mass fraction] 97 % MD Vineet Juarez Work Phone: [facility] 06-16-2024 09:43-0400 Systolic blood pressure 122 mm[Hg] MD Vineet Juarez Work Phone: [facility] 06-16-2024 08:22-0400 Body height 160.02 cm MD Vineet Juarez Work Phone: [facility] 06-16-2024 08:22-0400 Body weight 104.32 kg MD Vineet Juarez Work Phone: [facility] 05-26-2024 13:47-0400 Diastolic blood pressure 86 mm[Hg] MD Vineet Juarez Work Phone: [facility] 05-26-2024 13:47-0400 Heart rate 93 /min MD Vineet Juarez Work Phone: [facility] 05-26-2024 13:47-0400 Respiratory rate 20 /min MD Vineet Juarez Work Phone: [facility] 05-26-2024 13:47-0400 SaO2% (BldA) [Mass fraction] 97 % MD Vineet Juarez Work Phone: [facility] 05-26-2024 13:47-0400 Systolic blood pressure 172 mm[Hg] MD Vineet Juarez Work Phone: [facility] 05-26-2024 10:52-0400 Body height 160.02 cm MD Vineet Juarez Work Phone: [facility] 05-26-2024 10:52-0400 Body temperature 98.2 [degF] MD Vineet Juarez Work Phone: [facility] 05-26-2024 10:52-0400 Body weight 106 kg MD Vineet Juarez Work Phone: [facility] 02-27-2024 10:45-0400 Diastolic blood pressure 77 mm[Hg] MD Vineet Juarez Work Phone: [facility] 02-27-2024 10:45-0400 Heart rate 91 /min MD Vineet Juarez Work Phone: [facility] 02-27-2024 10:45-0400 Inhaled oxygen flow rate 4 L/min MD Vineet Juarez Work Phone: [facility] 02-27-2024 10:45-0400 Respiratory rate 16 /min MD Vineet Juarez Work Phone: [facility] 02-27-2024 10:45-0400 SaO2% (BldA) [Mass fraction] 96 % MD Vineet Juarez Work Phone: [facility] 02-27-2024 10:45-0400 Systolic blood pressure 127 mm[Hg] MD Vineet Juarez Work Phone: [facility] 02-27-2024 07:27-0400 Body mass index (BMI) [Ratio] 41.4 kg/m2 MD Vineet Juarez Work Phone: [facility] 02-27-2024 07:15-0400 Body height 160.02 cm MD Vineet Juarez Work Phone: [facility] 02-27-2024 07:15-0400 Body weight 106.1 kg MD Vineet Juarez Work Phone: [facility] 02-27-2024 06:08-0400 Body temperature 97.8 [degF] MD Vineet Juarez Work Phone: [facility] 02-11-2024 11:04-0400 Body height 152.4 cm [facility] 02-11-2024 11:04-0400 Body mass index (BMI) [Ratio] 43.1 kg/m2 [facility] 02-11-2024 11:04-0400 Body weight 100.24 kg [facility] 02-06-2024 14:47-0400 Blood Pressure Location Cobos Sarmini [facility] 02-06-2024 14:47-0400 Diastolic blood pressure 82 mm[Hg] Cobos Sarmini [facility] 02-06-2024 14:47-0400 Heart rate 78 /min Cobos Sarmini [facility] 02-06-2024 14:47-0400 Respiratory rate 18 /min Cobos Sarmini [facility] 02-06-2024 14:47-0400 Systolic blood pressure 138 mm[Hg] Cobos Sarmini [facility] 12-18-2023 14:30-0500 Body height 160.02 cm Madeleine Garcia Other [facility] 12-18-2023 14:30-0500 Body mass index (BMI) [Ratio] 39.14 kg/m2 Madeleine Garcia Other [facility] [place] Other 12-18-2023 14:30-0500 Body weight 100.25 kg Madeleine Garcia Other [facility] [place] Other 12-18-2023 14:30-0500 Body weight 100.24 kg [facility] 07-11-2023 14:28-0400 Diastolic blood pressure 98 mm[Hg] Cobos Sarmini [facility] 07-11-2023 14:28-0400 Heart rate 82 /min Cobos Sarmini [facility] 07-11-2023 14:28-0400 Mean blood pressure 103 mm[Hg] Cobos Sarmini [facility] 07-11-2023 14:28-0400 Respiratory rate 16 /min Cobos Sarmini [facility] 07-11-2023 14:28-0400 SaO2% (BldA) [Mass fraction] 98 % Cobos Sarmini [facility] 07-11-2023 14:28-0400 Systolic blood pressure 114 mm[Hg] Cobos Sarmini [facility] 07-11-2023 14:15-0400 Diastolic blood pressure 94 mm[Hg] Cobos Sarmini [facility] 07-11-2023 14:15-0400 Heart rate 87 /min Cobos Sarmini [facility] 07-11-2023 14:15-0400 Mean blood pressure 114 mm[Hg] Cobos Sarmini [facility] 07-11-2023 14:15-0400 Respiratory rate 17 /min Cobos Sarmini [facility] 07-11-2023 14:15-0400 SaO2% (BldA) [Mass fraction] 97 % Cobos Sarmini [facility] 07-11-2023 14:15-0400 Systolic blood pressure 154 mm[Hg] Cobos Sarmini [facility] 07-11-2023 14:10-0400 Diastolic blood pressure 81 mm[Hg] Cobos Sarmini [facility] 07-11-2023 14:10-0400 Heart rate 93 /min Cobos Sarmini [facility] 07-11-2023 14:10-0400 Mean blood pressure 97 mm[Hg] Cobos Sarmini [facility] 07-11-2023 14:10-0400 Respiratory rate 17 /min Cobos Sarmini [facility] 07-11-2023 14:10-0400 SaO2% (BldA) [Mass fraction] 98 % Cobos Sarmini [facility] 07-11-2023 14:10-0400 Systolic blood pressure 129 mm[Hg] Cobos Sarmini [facility] 07-11-2023 14:03-0400 Body temperature 97.52 [degF] Cobos Sarmini [facility] 07-11-2023 13:55-0400 Respiratory rate 17 /min Cobos Sarmini [facility] 07-11-2023 13:50-0400 Respiratory rate 18 /min Cobos Sarmini [facility] 07-11-2023 13:45-0400 Respiratory rate 15 /min Cobos Sarmini [facility] 07-11-2023 12:58-0400 Blood Pressure Location Cobos Sarmini [facility] 07-11-2023 12:58-0400 Body temperature 96.8 [degF] Cobos Sarmini [facility] 06-21-2023 12:45-0400 Diastolic blood pressure 90 mm[Hg] Byrnes SALAM [facility] 06-21-2023 12:45-0400 Heart rate 83 /min Byrnes SALAM [facility] 06-21-2023 12:45-0400 Respiratory rate 20 /min Byrnes SALAM [facility] 06-21-2023 12:45-0400 SaO2% (BldA) [Mass fraction] 96 % Byrnes SALAM [facility] 06-21-2023 12:45-0400 Systolic blood pressure 143 mm[Hg] Byrnes SALAM [facility] 06-21-2023 12:30-0400 Diastolic blood pressure 88 mm[Hg] Byrnes SALAM [facility] 06-21-2023 12:30-0400 Heart rate 93 /min Byrnes SALAM [facility] 06-21-2023 12:30-0400 Respiratory rate 13 /min Byrnes SALAM [facility] 06-21-2023 12:30-0400 SaO2% (BldA) [Mass fraction] 97 % Byrnes SALAM [facility] 06-21-2023 12:30-0400 Systolic blood pressure 133 mm[Hg] Byrnes SALAM [facility] 06-21-2023 12:25-0400 Diastolic blood pressure 89 mm[Hg] Byrnes SALAM [facility] 06-21-2023 12:25-0400 Heart rate 96 /min Byrnes SALAM [facility] 06-21-2023 12:25-0400 Respiratory rate 22 /min Byrnes SALAM [facility] 06-21-2023 12:25-0400 SaO2% (BldA) [Mass fraction] 96 % Byrnes SALAM [facility] 06-21-2023 12:25-0400 Systolic blood pressure 125 mm[Hg] Byrnes SALAM [facility] 06-21-2023 12:18-0400 Body temperature 96.98 [degF] Byrnes SALAM [facility] 06-21-2023 12:04-0400 Respiratory rate 12 /min Byrnes SALAM [facility] 06-21-2023 11:49-0400 Blood Pressure Location Byrnes SALAM [facility] 06-21-2023 11:49-0400 Body temperature 97.7 [degF] Byrnes SALAM [facility] 05-02-2023 13:20-0400 Blood Pressure Location Rosalinda Martinez [facility] 05-02-2023 13:20-0400 Body temperature 97.7 [degF] Rosalinda Martinez [place] [facility] 13:20-0400 Diastolic blood pressure 84 mm[Hg] Rosalinda Martinez [facility] 05-02-2023 13:20-0400 Heart rate 86 /min Rosalinda Martinez [facility] 05-02-2023 13:20-0400 Systolic blood pressure 132 mm[Hg] Rosalinda Martinez [facility] 04-01-2023 13:12-0400 Body height 157.48 cm Gabriel P Eyenalyze Work Phone: [facility] 250 DO Work Phone: 04-01-2023 13:12-0400 Body mass index (BMI) [Ratio] 41.15 kg/m2 Gabriel P House Work Phone: [facility] 250 DO Work Phone: 04-01-2023 13:12-0400 Body surface area Derived from formula 2.01 m2 Gabriel P House Work Phone: [facility] 250 DO Work Phone: 04-01-2023 13:12-0400 Body weight 102.06 kg Gabriel P House Work Phone: [facility] 250 DO Work Phone: 04-01-2023 13:12-0400 Diastolic blood pressure 74 mm[Hg] Gabriel P House Work Phone: [facility] 250 DO Work Phone: 04-01-2023 13:12-0400 Heart rate 86 /min Gabriel P House Work Phone: [facility] 250 DO Work Phone: 04-01-2023 13:12-0400 Systolic blood pressure 108 mm[Hg] Gabriel P House Work Phone: [facility] 250 DO Work Phone: 03-25-2023 10:34-0400 Body height 157.48 cm DO Gabriel House Work Phone: [facility] 03-25-2023 10:34-0400 Body temperature 98.4 [degF] DO Gabriel House Work Phone: [facility] 03-25-2023 10:34-0400 Body weight 102 kg DO Gabriel House Work Phone: [facility] 03-25-2023 10:34-0400 Diastolic blood pressure 82 mm[Hg] DO Gabriel House Work Phone: [facility] 03-25-2023 10:34-0400 Heart rate 101 /min DO Gabriel House Work Phone: [facility] 03-25-2023 10:34-0400 Respiratory rate 20 /min DO Gabriel House Work Phone: [facility] 03-25-2023 10:34-0400 SaO2% (BldA) [Mass fraction] 95 % DO Gabriel House Work Phone: [facility] 03-25-2023 10:34-0400 Systolic blood pressure 138 mm[Hg] DO Gabriel House Work Phone: [facility] 03-13-2023 15:15-0400 Body height 160.02 cm Madeleine Jose Other [employer] [facility] [place] Other 03-13-2023 15:15-0400 Body mass index (BMI) [Ratio] 40.74 kg/m2 Madeleine Garcia Other [employer] [facility] [place] Other 03-13-2023 15:15-0400 Body weight 104.33 kg Madeleine Garcia Other [employer] Other 01-17-2023 11:30-0500 Body height 160.02 cm Vineet Rowley II Other [employer] Other 01-17-2023 11:30-0500 Body mass index (BMI) [Ratio] 40.74 kg/m2 Vineet Leonle II Other [employer] Other 01-17-2023 11:30-0500 Body weight 104.33 kg Vineet Leonle II Other [employer] Other 09-17-2022 13:12-0400 Body height 157.48 cm Gabriel P [employer]ze [facility] DO Work Phone: 09-17-2022 13:12-0400 Body mass index (BMI) [Ratio] 42.62 kg/m2 Gabriel P House Work Phone: [facility] DO Work Phone: 09-17-2022 13:12-0400 Body surface area Derived from formula 2.04 m2 Gabriel P House Work Phone: [facility] 250 DO Work Phone: 09-17-2022 13:12-0400 Body weight 105.69 kg Gabriel P House Work Phone: [facility] 250 DO Work Phone: 09-17-2022 13:12-0400 Diastolic blood pressure 70 mm[Hg] Gabriel P House Work Phone: [facility] 250 DO Work Phone: 09-17-2022 13:12-0400 Heart rate 88 /min Gabriel P House Work Phone: [facility] [employer] 250 DO Work Phone: 09-17-2022 13:12-0400 Systolic blood pressure 118 mm[Hg] Gabriel P House Work Phone: [facility] 250 DO Work Phone: 08-29-2022 12:15-0400 Body height 160.02 cm Jose Miguel Diehl Other [employer] Other 08-29-2022 12:15-0400 Body mass index (BMI) [Ratio] 37.2 kg/m2 Jose Miguel Diehl Other [employer] Other 08-29-2022 12:15-0400 Body temperature 98.1 [degF] Jose Miguel Diehl Other [employer] Other 08-29-2022 12:15-0400 Body weight 95.26 kg Jose Miguel Diehl Other [employer] Other 08-29-2022 12:15-0400 Diastolic blood pressure 76 mm[Hg] Jose Miguel Diehl Other [employer] Other 08-29-2022 12:15-0400 SaO2% (BldA) [Mass fraction] 95 % Jose Miguel Diehl Other [employer] Other 08-29-2022 12:15-0400 Systolic blood pressure 124 mm[Hg] Jose Miguel Diehl Other [employer] Other 08-20-2022 14:30-0400 55 1 Gabriel P House Work Phone: [facility] [employer] 250 DO Work Phone: Comment on above: [id number] 07-26-2022 14:56-0400 Diastolic blood pressure 78 mm[Hg] Gabriel P House Work Phone: [facility] 250 DO Work Phone: 07-26-2022 14:56-0400 Systolic blood pressure 136 mm[Hg] Gabriel P House Work Phone: [facility] 250 DO Work Phone: 07-26-2022 14:55-0400 Body height 157.48 cm Gabriel P House Work Phone: [facility] 250 DO Work Phone: 07-26-2022 14:55-0400 Body mass index (BMI) [Ratio] 42.98 kg/m2 Gabriel P House Work Phone: [facility] 250 DO Work Phone: 07-26-2022 14:55-0400 Body surface area Derived from formula 2.05 m2 Gabriel P House Work Phone: [facility] 250 DO Work Phone: 07-26-2022 14:55-0400 Body weight 106.6 kg Gabriel P House Work Phone: [facility] 250 DO Work Phone: 07-26-2022 14:55-0400 Diastolic blood pressure 70 mm[Hg] Gabriel P House Work Phone: [facility] 250 DO Work Phone: 07-26-2022 14:55-0400 Heart rate 85 /min Gabriel P House Work Phone: [facility] 250 DO Work Phone: 07-26-2022 14:55-0400 Systolic blood pressure 138 mm[Hg] Gabriel P House Work Phone: [facility] 250 DO Work Phone: 03-08-2022 12:55-0400 Diastolic blood pressure 66 mm[Hg] MD Madeleine Garcia Work Phone: [facility] 03-08-2022 12:55-0400 Heart rate 66 /min MD Madeleine Garcia Work Phone: [facility] 03-08-2022 12:55-0400 Respiratory rate 16 /min MD Madeleine Garcia Work Phone: [facility] 03-08-2022 12:55-0400 SaO2% (BldA) [Mass fraction] 94 % MD Madeleine Garcia Work Phone: [facility] 03-08-2022 12:55-0400 Systolic blood pressure 109 mm[Hg] MD Madeleine Garcia Work Phone: [facility] 03-08-2022 12:25-0400 Inhaled oxygen flow rate 3 L/min MD Madeleine Garcia Work Phone: [facility] 03-08-2022 10:21-0400 Body height 157.48 cm MD Madeleine Garcia Work Phone: [facility] 03-08-2022 10:21-0400 Body mass index (BMI) [Ratio] 43.9 kg/m2 MD Madeleine Garcia Work Phone: [facility] 03-08-2022 10:21-0400 Body weight 108.86 kg MD Madeleine Garcia Work Phone: [facility] 03-08-2022 08:36-0400 Body temperature 97.9 [degF] MD Madeleine Garcia Work Phone: [facility] 02-08-2022 11:00-0400 Body height 157.48 cm MD Madelenie Garcia Work Phone: [facility] 02-08-2022 11:00-0400 Body mass index (BMI) [Ratio] 44.7 kg/m2 MD Madeleine Garcia Work Phone: [facility] 02-08-2022 11:00-0400 Body temperature 98.1 [degF] MD Madeleine Garcia Work Phone: [facility] 02-08-2022 11:00-0400 Body weight 111 kg MD Madeleine Garcia Work Phone: [facility] 02-08-2022 11:00-0400 Diastolic blood pressure 73 mm[Hg] MD Madeleine Garcia Work Phone: [facility] 02-08-2022 11:00-0400 Heart rate 80 /min MD Madeleine Garcia Work Phone: [facility] 02-08-2022 11:00-0400 Respiratory rate 22 /min MD Madeleine Garcia Work Phone: [facility] 02-08-2022 11:00-0400 SaO2% (BldA) [Mass fraction] 97 % MD Madeleine Garcia Work Phone: [facility] 02-08-2022 11:00-0400 Systolic blood pressure 128 mm[Hg] MD Madeleine Garcia Work Phone: [facility] 01-31-2022 12:00-0400 Body height 160.02 cm Madeleine Garcia Other [employer] [facility] [place] Other 01-31-2022 12:00-0400 Body mass index (BMI) [Ratio] 37.2 kg/m2 Madeleine Garcia Other [employer] [facility] [place] Other 01-31-2022 12:00-0400 Body weight 95.26 kg Madeleine Garcia Other [facility] [place] Other Encounters Encounter Date Encounter Type Care Provider Facility Start: 02-11-2025 End: 02-11-2025 Office outpatient visit 25 minutes Vineet Juarez MD Work Phone: [facility] Comment on above: Chronic bilateral lo w back pain with right-sided sciatica (Primary Dx); Abnormal flushing and sweating Start: 02-11-2025 End: 02-11-2025 ambulatory VINEET JUAREZ Not Available Start: 02-03-2025 End: 02-03-2025 ambulatory Papito Funez Facility:[facility] Start: 02-03-2025 End: 02-04-2025 Patient encounter procedure Papito Kessleri [facility] Start: 01-14-2025 End: 01-14-2025 ambulatory Papito Funez Facility:[facility] Start: 01-14-2025 End: 01-14-2025 Patient encounter procedure Papito Funez [facility] Start: 12-28-2024 End: 12-28-2024 ambulatory ANGIE Cody FRANKLIN Not Available Start: 12-28-2024 End: 12-28-2024 Patient encounter procedure Angie Rodrigues CARE PROVIDER-[employer] WORKER Work Phone: [facility] Comment on above: Inflamed seborrheic keratosis; Neoplasm of unspecified behavior of bone, soft tissue, and skin Start: 12-24-2024 End: 12-24-2024 Office outpatient visit 25 minutes Prabhjot VICENTE Work Phone: [facility] Comment on above: Essential hypertensi on (CMS/HCC) (Primary Dx); Asthma, chronic, severe persistent, uncomplicated (CMS/HCC); Other emphysema (CMS/HCC); Primary osteoarthritis involving multiple joints; Osteopenia of multiple sites; Medicare annual wellness visit, subsequent; ACP (advance care planning); Screening for lipid disorders; Abnormal mammogram of right breast; Chronic bilateral low back pain with right-sided sciatica; Lesion of skin of nose Start: 12-24-2024 End: 12-24-2024 Patient encounter procedure Prabhjot VICENTE Work Phone: [facility] Start: 12-24-2024 End: 12-24-2024 ambulatory SUMMER M WORKMAN Not Available Start: 12-02-2024 End: 12-02-2024 ambulatory VINEET JUAREZ Not Available Start: 09-30-2024 End: 09-30-2024 ambulatory Vineet Juarez MD Work Phone: [facility] Work Phone: Start: 09-30-2024 End: 09-30-2024 Patient encounter procedure Vineet Juarez MD Work Phone: [facility] Work Phone: Start: 09-30-2024 End: 09-30-2024 Patient encounter procedure Vineet Juarez MD Work Phone: [facility] Start: 09-30-2024 End: 09-30-2024 ambulatory Vineet Juarez MD Work Phone: [facility] Work Phone: Start: 2024 End: 2024 Office outpatient visit 25 minutes Vineet Juarez MD Work Phone: [facility] Comment on above: Essential hypertensi on (CMS/HCC) (Primary Dx); Asthma, chronic, severe persistent, uncomplicated (CMS/HCC); Chronic constipation; Other emphysema (CMS/HCC); Irritable bowel syndrome with both constipation and diarrhea; Chronic bilateral low back pain with right-sided sciatica; Primary osteoarthritis involving multiple joints; Viral URI with cough; Hyponatremia; Diaphoresis Start: 2024 End: 2024 ambulatory VINEET JUAREZ Not Available Start: 08-04-2024 End: 08-04-2024 Bamboo flowsheet summer Workman PA Work Phone: [facility] Start: 08-04-2024 End: 08-04-2024 Bamboo flowsheet Summer M Workman PA Work Phone: [facility] Start: 08-04-2024 End: 08-04-2024 Office outpatient visit 25 minutes summer Workman PA Work Phone: [facility] Comment on above: Essential hypertensi on (CMS/HCC) (Primary Dx); Sweating abnormality Start: 08-04-2024 End: 08-04-2024 ambulatory PRABHJOT Wilder WORKMAN Not Available Start: 07-30-2024 Non-patient / Non-visit Vineet Juarez MD Work Phone: [facility] Work Phone: Start: 07-10-2024 End: 07-10-2024 ambulatory MD Vineet Juarez Work Phone: [facility] Work Phone: Start: 07-10-2024 End: 07-10-2024 Patient encounter procedure MD Vineet Juarez Work Phone: [facility] Ur[facility] Care Luis Work Phone: Start: 06-30-2024 End: 06-30-2024 ambulatory MD Vineet Juarez Work Phone: [facility] Work Phone: Start: 06-30-2024 End: 06-30-2024 Patient encounter procedure MD Vineet Juarez Work Phone: [facility] Work Phone: Start: 06-30-2024 End: 06-30-2024 Patient encounter procedure MD Vineet Juarez Work Phone: [facility] Start: 06-30-2024 End: 06-30-2024 ambulatory MD Vineet Juarez Work Phone: [facility] Work Phone: Start: 06-24-2024 Non-patient / Non-visit MD Salazar Juarez Work Phone: [facility] Work Phone: Start: 06-16-2024 Non-patient / Non-visit MD Salazar Juarez Work Phone: [facility] Work Phone: Start: 06-16-2024 End: 06-16-2024 Admission to same day surgery center MD Vineet Juarez Work Phone: [facility] Work Phone: Start: 06-16-2024 End: 06-16-2024 ambulatory MD Vineet Juarez Work Phone: [facility] Work Phone: Start: 06-11-2024 End: 06-11-2024 ambulatory VINEET JUAREZ Not Available Start: 05-26-2024 End: 05-26-2024 Emergency department patient visit MD Vineet Juarez Work Phone: [facility]Emer[facility] Work Phone: Start: 05-19-2024 End: 05-19-2024 ambulatory ADEOLA Nannette SZYMANSKI Not Available Start: 05-19-2024 End: 05-19-2024 ambulatory MD Vineet Juarez Work Phone: [facility] Work Phone: Start: 05-19-2024 End: 05-19-2024 Patient encounter procedure MD Vineet Juarez Work Phone: [facility] Work Phone: Start: 05-19-2024 End: 05-19-2024 Patient encounter procedure MD Vineet Juarez Work Phone: [facility] Start: 05-19-2024 End: 05-19-2024 ambulatory MD Vineet Juarez Work Phone: [facility] Work Phone: Start: 05-07-2024 End: 05-07-2024 ambulatory MAGAN PATEL Not Available Start: 04-30-2024 End: 04-30-2024 ambulatory MAGAN PATEL Not Available Start: 04-21-2024 End: 04-21-2024 ambulatory DARRYL BUTT Not Available Start: 04-07-2024 End: 04-07-2024 ambulatory MD Vineet Juarez Work Phone: [facility] Work Phone: Start: 04-07-2024 End: 04-07-2024 Patient encounter procedure MD Vineet Juarez Work Phone: [facility] Work Phone: Start: 03-04-2024 End: 03-04-2024 ambulatory MD Vineet Juarez Work Phone: [facility] Work Phone: Start: 03-04-2024 End: 03-04-2024 Patient encounter procedure MD Vineet Juarez Work Phone: [facility] Work Phone: Start: 02-27-2024 Non-patient / Non-visit MD Salazar Juarez Work Phone: [facility] Work Phone: Start: 02-27-2024 End: 02-27-2024 Admission to same day surgery center MD Vineet Juarez Work Phone: [facility] [place] Start: 02-27-2024 End: 02-27-2024 ambulatory Madeleine Garcia Facility:[facility] Start: 02-21-2024 End: 02-21-2024 ambulatory JENNIFER ALMARAZ Not Available Start: 02-13-2024 End: 02-13-2024 Patient encounter procedure MD Vineet Juarez Work Phone: [facility] Testing Work Phone: Start: 02-13-2024 End: 02-13-2024 ambulatory MD Vineet Juarez Work Phone: [facility] Work Phone: Start: 02-13-2024 Encounter for other preprocedural examination Madeleine Garcia [facility] Start: 02-11-2024 End: 02-11-2024 ambulatory [facility] Work Phone: Start: 02-11-2024 End: 02-11-2024 Patient encounter procedure [facility] Work Phone: Start: 02-10-2024 Patient encounter status [facility] Start: 02-06-2024 End: 06-16-2024 Pre-admission assessment Papito Cornellal [facility] Start: 02-06-2024 End: 02-06-2024 Patient encounter procedure Papito Cornellal [facility] Start: 12-18-2023 End: 12-18-2023 ambulatory Madeleine Garcia Other [employer] [facility] [place] Other Start: 12-18-2023 Office outpatient vi sit 25 minutes Madeleine Garcia [facility] Start: 12-18-2023 End: 12-18-2023 Patient encounter procedure [facility]- Start: 11-14-2023 End: 11-14-2023 Patient encounter procedure Papito Kessleri [facility] Start: 10-24-2023 End: 10-24-2023 ambulatory Ritchie Rodrigues Other [employer] [facility] [place] Other Start: 10-24-2023 Office outpatient vi sit 25 minutes Ritchie Rodrigues [facility] [place] Start: 10-23-2023 End: 10-23-2023 Patient encounter procedure MD Vineet Juarez Work Phone: [facility] Work Phone: Start: 10-23-2023 End: 10-23-2023 ambulatory MD Vineet Juarez Work Phone: [facility] Work Phone: Start: 10-14-2023 End: 10-14-2023 ambulatory Ritchie Rodrigues Other [facility] [place] Other Start: 10-14-2023 Telephone encounter Ritchie Rodrigues [facility] [place] Start: 08-29-2023 End: 08-29-2023 ambulatory Madeleine Garcia Other [facility] [place] Other Start: 08-29-2023 Telephone encounter Madeleine [facility] Start: 07-11-2023 End: 07-11-2023 Patient encounter procedure Papito Funez [facility] Start: 06-21-2023 End: 06-21-2023 Patient encounter procedure Soniya PINEDA [facility] Start: 05-02-2023 End: 05-02-2023 Patient encounter procedure Rosalinda Martinez [facility] Start: 04-04-2023 End: 04-04-2023 ambulatory DO Gabriel Prater Work Phone: [facility] Work Phone: Start: 04-04-2023 End: 04-04-2023 Departed Referred DO Gabriel Prater Work Phone: [facility] [place] Start: 04-01-2023 ambulatory Pastora Joyner Facility:[id number] Start: 04-01-2023 Office outpatient vi sit 15 minutes Gabriel Floyd House Work Phone: -[facility] 250 DO Work Phone: Start: 03-29-2023 End: 03-30-[address] GABRIEL PRATER Facility: Start: 03-25-2023 Telephone encounter Madeleine Calvey [facility] Start: 03-25-2023 End: 03-25-2023 ambulatory DO Gabriel House Work Phone: [facility] Work Phone: Start: 03-25-2023 End: 03-25-2023 Patient encounter procedure DO Gabriel House Work Phone: [facility]gd-Lvt[facility]qsio[facility] Testing Work Phone: Start: 03-13-2023 End: 03-13-2023 Patient encounter procedure DO Gabriel House Work Phone: [facility] Start: 03-13-2023 End: 03-13-2023 ambulatory Madeleine Garcia Other [employer] Other Start: 03-13-2023 Office outpatient vi sit 25 minutes Madeleine Garcia [facility] Start: 02-14-2023 End: 02-14-2023 ambulatory Vineet [place] II Other [employer] Other Start: 02-14-2023 Telephone encounter Vineet Rowley II [facility] Start: 01-17-2023 End: 01-17-2023 ambulatory Vineet [place] II Other [employer] Other Start: 01-17-2023 FQ visit new patient Vineet Leon le II [facility] Start: 01-17-2023 End: 01-17-2023 Patient encounter procedure DO Gabriel House Work Phone: [facility] Start: 10-22-2022 End: 10-22-[address] MICHAEL ACKERMAN . Facility: Start: 09-17-2022 Office outpatient vi sit 15 minutes Gabriel P House Work Phone: [facility] 250 DO Work Phone: Start: 10-31-2022 ambulatory Pastora Joyner Facility:[id number] Start: 09-05-2022 End: 09-05-2022 ambulatory DO Gabriel Geovany Work Phone: [facility] Work Phone: Start: 09-05-2022 End: 09-05-2022 Patient encounter procedure DO Gabriel Prater Work Phone: [facility]-Ul[facility]ound [facility] [place] Start: 08-29-2022 End: 08-29-2022 ambulatory Jose Miguel Diehl Other [employer] Other Start: 08-29-2022 Office outpatient ne w 30 minutes Jose Miguel Diehl [facility] Vascular Surgery Start: 08-20-2022 Result Review Gabriel P Hous e Work Phone: [facility] 250 DO Work Phone: Start: 08-20-2022 Patient encounter procedure Gabriel P House Work Phone: [facility] [place] Work Phone: Start: 08-20-[address] PASTORA JOYNER [facility] ty:[id number] Start: 08-18-2022 End: 08-18-2022 ambulatory RON BARR . Facility:[facility] Start: 08-09-2022 End: 08-10-[address] DOCTOR CHAVEZ Facility:[facility] Start: 07-31-2022 End: 08-01-[address] CHANI HAYDEN Facility:[facility] Start: 07-26-2022 End: 07-27-[address] GABRIEL PRATER Facility:[facility] Start: 07-26-2022 Patient encounter procedure Gabriel P House Work Phone: [facility] 250 DO Work Phone: Start: 07-26-2022 ambulatory Pastora Joyner Facility:[id number] Start: 05-15-2022 End: 05-15-2022 ambulatory Madeleine Garcia Other [facility] [place] Other Start: 05-15-2022 Postop follow up vis it related to original px Madeleine Calvey [facility] Start: 04-13-2022 End: 04-13-2022 ambulatory Madeleine Garcia Other [employer] Other Start: 04-13-2022 Postop follow up vis it related to original px Madeleine Calvey [facility] Start: 04-13-2022 End: 04-13-2022 Patient encounter procedure MD Madeleine Garcia Work Phone: [facility] Start: 03-16-2022 End: 03-16-2022 ambulatory Madeleine Garcia Other [employer] Other Start: 03-16-2022 Postop follow up vis it related to original px Madeleine Calvey [facility] Start: 03-14-2022 End: 03-14-2022 ambulatory Madeleine Garcia Other [employer] Other Start: 03-14-2022 Telephone encounter Madeleine Alvarado [facility] Start: 03-08-2022 End: 03-08-2022 Admission to same day surgery center MD Madeleine Garcia Work Phone: [facility] [place] Start: 02-22-2022 End: 02-22-2022 ambulatory Silvano Hooker Other [employer] Other Start: 02-22-2022 Telephone encounter Silvano Hooker [facility] Start: 02-22-2022 End: 02-22-2022 Departed Referred MD Madeleine Garcia Work Phone: [facility] [place] Start: 02-20-2022 End: 02-20-2022 Patient encounter procedure MD Madeleine Garcia Work Phone: [facility]-Pre-Surgical Testing Start: 02-08-2022 End: 02-08-2022 Patient encounter procedure MD Madeleine Garcia Work Phone: [facility]-Surgical [facility] Start: 01-31-2022 End: 01-31-2022 ambulatory Madeleine Garcia Other [facility] [place] Other Start: 01-31-2022 Encounter for other preprocedural examination Madeleine Garcia [facility] Start: 01-31-2022 Office outpatient ne w 45 minutes Madeleine Garcia [facility] Patient encounter status Gabriel Prater Work Phone: -[facility] 250 DO Work Phone: Procedures Date Procedure Procedure Detail Performing Clinician Start: 02-11-2025 Basic metabolic panel calcium total Vineet Juarez MD Work Phone: Start: 02-11-2025 Complete blood count with white cell differential, automated Vineet Juarez MD Work Phone: Start: 02-11-2025 Hepatic function panel Vineet Juarez MD Work Phone: Start: 02-11-2025 Radex spine lumbosacral 2/3 views Vineet Juarez MD Work Phone: Start: 02-03-2025 Colonoscopy Vineet Juarez MD Work Phone: Start: 02-03-2025 Colonoscopy [facility] Start: 12-28-2024 SKIN / NAIL BIOPSY Angie Brarer CARE PROVIDER-[employer] MILL WORKER Work Phone: Start: 12-28-2024 CRYOTHERAPY SKIN LESION Angie A Felter CARE PROVIDER-SUGAR MILL WORKER Work Phone: Start: 12-02-2024 Mammography Summer Workman CINTHIA Work Phone: Start: 09-30-2024 Plain X-ray of left hand Vineet Juarez MD Work Phone: Start: 06-30-2024 Plain X-ray of left hand MD Vineet Juarez Work Phone: Start: 06-16-2024 End: 06-16-2024 Colonoscopy MD Vineet Juarez Work Phone: Start: 05-26-2024 Computed tomography of abdomen and pelvis with contrast MD Vineet Juarez Work Phone: Start: 05-19-2024 Plain X-ray of left hand MD Vineet Juarez Work Phone: Start: 04-07-2024 Plain X-ray of left hand MD Vineet Juarez Work Phone: Start: 02-27-2024 Arthroplasty of joint of the thumb MD Debora Juarez Work Phone: Start: 02-27-2024 Plain X-ray of left thumb MD Vineet Juarez Work Phone: Start: 11-07-2023 End: 11-07-2023 Mammography Prabhjot Workperez CINTHIA Work Phone: Start: 10-23-2023 X-ray of lumbar spine, four views MD Salazar Juarez Work Phone: Start: 07-11-2023 Colonoscopy Papito Funez Start: 06-21-2023 Colonoscopy Soniya PINEDA Comment on above: poor prep Start: 06-21-2023 Esophagogastroduodenoscopy Byrnes DEN Comment on above: biopsied for celiac Start: 03-13-2023 Plain X-ray of left hand DO Gabriel Hous e Work Phone: Start: 01-17-2023 Plain X-ray of right hip DO Gabriel Hous e Work Phone: Start: 08-20-2022 Echocardiography Gabriel Prater Work Phone: Start: 04-13-2022 Plain X-ray of right hand MD Madeleine rolon Work Phone: Start: 03-08-2022 Plain X-ray of right hand MD Madeleine rolon Work Phone: Start: 03-08-2022 Wrist reconstruction MD Madeleine Garcia Work Phone: Start: 03-08-2022 Plain X-ray of right thumb MD Madeleine leyva Work Phone: Start: 11-18-2016 Total colonoscopy Gabriel Prater Work Phone: Start: 01-06-2016 Esophagogastroduodenoscopy and closure of duodenal fistula Rosalinda Martinez Start: 11-29-2015 Colonoscopy Rosalinda Martinez Arthroscopy of knee Gabriel Floyd Eyenalyze Work Phone: Ligation of fallopian tube C harmathieu Floyd Eyenalyze Work Phone: Operative procedure on foot Gabriel Floyd Eyenalyze Work Phone: Repair of shoulder Gabriel Floyd Eyenalyze Work Phone: Tonsillectomy and adenoidectomy Gabriel Floyd Eyenalyze Work Phone: Plan of Treatment Date Care Activity Detail Author Start: 02-03-2035 Screening for malignant neoplasm of colon [facility] Start: 06-16-2034 Screening for malignant neoplasm of colon [facility] Start: 12-24-2025 Medicare Annual Wellness (AWV) Medicare Annual Wellness (AWV) [facility] Start: 12-02-2025 Screening for malignant neoplasm of breast Mammogram [facility] Start: 07-19-2025 Influenza vaccination Influenza Vaccine (Season Ended) [facility] Start: 06-28-2025 End: 06-28-2025 Patient encounter procedure 06/28/2025 1:35 PM EDT Office Visit [facility] [address] [place] [id number] Angie Rodrigues APRN-SUGAR MILL WORKER [address] [place] [address] [facility] Start: 06-23-2025 End: 02-21-2026 DBT Breast - right diagnostic Right diagnostic mammogram with tomosynthesis Imaging Routine Abnormal mammogram of right breast Expected: 06/23/2025, Expires: 02/21/2026 [facility] Comment on above: Expected: 06/23/2025, Expires: Start: 06-23-2025 End: 12-24-2025 US Breast - right Right breast US complete Imaging Routine Abnormal mammogram of right breast Expected: 06/23/2025 (Approximate), Expires: 12/24/2025 [facility] Comment on above: Expected: 06/23/2025 (Approximate), Expi res: 12/24/2025 Start: 04-07-2025 End: 04-07-2025 Patient encounter procedure 04/07/2025 1:30 PM EDT Office Visit [facility] [address] [place] [address] Vineet Juarez MD [address] [place] [address] [facility] Start: 03-23-2025 End: 06-23-2025 CBC W Auto Differential panel - Blood CBC and differential Lab Routine Essential hypertension (CMS/HCC) Expected: 03/23/2025 (Approximate), Expires: 06/23/2025 [facility] Comment on above: Expected: 03/23/2025 (Approximate), Expi res: 06/23/2025 Start: 03-23-2025 End: 06-23-2025 Comprehensive metabolic 2000 panel - Serum or Plasma Comprehensive metabolic panel Lab Routine Essential hypertension (CMS/HCC) Expected: 03/23/2025 (Approximate), Expires: 06/23/2025 [facility] Work Phone: Comment on above: Expected: 03/23/2025 (Approximate), Expi res: 06/23/2025 Start: 03-23-2025 End: 06-23-2025 Lipid 1996 panel - Serum or Plasma Lipid panel Lab Routine Screening for lipid disorders Expected: 03/23/2025 (Approximate), Expires: 06/23/2025 [facility] Comment on above: Expected: 03/23/2025 (Approximate), Expi res: 06/23/2025 Start: 12-23-2024 End: 12-23-2024 Patient encounter procedure 12/23/2024 2:00 PM EST Office Visit [facility] [address] [place] [address] Vineet Juarez MD [address] [place] [address] [facility] Start: 11-16-2024 Influenza vaccination Influenza Vaccine (#1) [facility] Comment on above: Postponed from 07/19/2024 (Patient Refus ed) Start: 11-07-2024 Screening for malignant neoplasm of breast Mammogram [facility] Start: 10-30-2024 Medicare Annual Wellness (AWV) Medicare Annual Wellness (AWV) [facility] Start: 09-30-2024 Plain X-ray of left hand XR hand LT min 3V* [facility] Start: 09-30-2024 XR Hand - left GE 3 Views [facility] Start: 2024 End: 2024 Patient encounter procedure 2024 2:00 PM EST Office Visit [facility] [address] [address] Vineet Juarez MD [address] [place] [address] [facility] Start: 08-11-2024 End: 08-04-2025 Basic metabolic 1998 panel - Serum or Plasma Basic metabolic panel Lab Routine Essential hypertension (CMS/HCC) Expected: 08/11/2024 (Approximate), Expires: 08/04/2025 [facility] Comment on above: Expected: 08/11/2024 (Approximate), Expi res: 08/04/2025 Start: 08-04-2024 End: 08-04-2025 Metanephrines, urine, 24 hour Metanephrines, urine, 24 hour Lab Routine Essential hypertension (CMS/HCC) Expected: 08/04/2024 (Approximate), Expires: 08/04/2025 [facility] Work Phone: Comment on above: Expected: 08/04/2024 (Approximate), Expi res: 08/04/2025 Start: 08-04-2024 End: 08-04-2024 Patient encounter procedure 08/04/2024 1:00 PM EDT Office Visit [facility] [address] [place] [address] AbdiasPrabhjot toddCINTHIA [address] [place] [address] Arrived [facility] Comment on above: Arrived Start: 07-19-2024 Influenza vaccination Influenza Vaccine (#1) [facility] Start: 06-30-2024 Plain X-ray of left hand XR hand LT min 3V* [facility] Start: 06-30-2024 XR Hand - left GE 3 Views [facility] Start: 06-16-2024 [facility] Start: 05-19-2024 Plain X-ray of left hand XR hand LT min 3V* [facility] Start: 05-19-2024 XR Hand - left GE 3 Views [facility] Start: 04-07-2024 Plain X-ray of left hand XR hand LT min 3V* [facility] Start: 04-07-2024 XR Hand - left GE 3 Views [facility] Start: 02-27-2024 [facility] Start: 02-27-2024 [facility] Start: 02-27-2024 Plain X-ray of left thumb XR finger LT thumb [facility] Start: 02-27-2024 XR Thumb - left Views [facility] Start: 04-04-2023 Arthroplasty of joint of the thumb OR Thumb Arthroplasty (Left) [facility] Start: 04-01-2023 FUV, Provider: Pastora Joyner, Status: Pen, Time: 1:00 PM FUV, Provider: Pastora Joyner, Status: Pen, Time: 1:00 PM -[facility] [address] DO Work Phone: Start: 09-17-2022 FUV, Provider: Pastora Joyner, Status: Pen, Time: 1:30 PM FUV, Provider: Pastora Joyner, Status: Pen, Time: 1:30 PM [facility] Work Phone: Start: 09-05-2022 Duplex scan of lower limb veins US venous duplex LE BI [facility] Start: 09-05-2022 US Lower extremity vein - bilateral [facility] Start: 08-20-2022 ECHO, Provider: LDIIA HONEYCUTTI ULTRASOUND 01,[id number], Status: Pen, Time: 2:30 PM ECHO, Provider: [place] HONEYCUTTI ULTRASOUND 01,[id number], Status: Pen, Time: 2:30 PM [facility] Work Phone: Start: 03-08-2022 Plain X-ray of right hand XR hand RT min 3V* [facility] Start: 03-08-2022 Plain X-ray of right thumb XR finger RT thumb [facility] Start: 02-22-2022 Wrist reconstruction OR Trapeziectomy (Right) [facility] Start: 1955 Medicare Annual Wellness (AWV) Medicare Annual Wellness (AWV) [facility] Start: 1955 Screening for malignant neoplasm of colon [facility] C reactive protein [Mass/volume] in Serum or Plasma C-reactive protein Lab Routine Diaphoresis Ordered: 2024 [facility] Comment on above: Ordered: 2024 CBC W Auto Different ial panel - Blood CBC and differential Lab Routine Diaphoresis Ordered: 2024 [facility] Work Phone: Comment on above: Ordered: 2024 Comprehensive metabo lic 2000 panel - Serum or Plasma Comprehensive metabolic panel Lab Routine Hyponatremia Diaphoresis Ordered: 2024 [facility] Comment on above: Ordered: 2024 Dermatopathology exam Dermatopat hology exam Pathology and Cytology Timed Neoplasm of unspecified behavior of bone, soft tissue, and skin Release Upon Ordering for 1 Occurrences starting 12/28/2024 [facility] Work Phone: Comment on above: Release Upon Ordering for 1 Occurrences starting 12/28/2024 Osmolality, urine Osmolality, ur ine Lab Routine Hyponatremia Ordered: 2024 [facility] Comment on above: Ordered: 2024 Patient Education [facility] Work Phone: Patient referral [facility] Work Phone: Sodium, urine, random Sodium, ur ine, random Lab Routine Hyponatremia Ordered: 2024 [facility] Comment on above: Ordered: 2024 Thyrotropin [Units/volume] in Serum or Plasma TSH Lab Routine Diaphoresis Ordered: 2024 [facility] Comment on above: Ordered: 2024 Urinalysis complete panel - Urine Urinalysis with microscopic Lab Routine Diaphoresis Ordered: 2024 [facility] Comment on above: Ordered: 2024 [facility] Immunizations Immunization Date Immunization Notes Care Provider Fa cili 09-16-2023 ABRYSVO - Respirator y syncytial virus (RSV), vaccine, bivalent, protein subunit RSV prefusion F, diluent reconstituted, 0.5 mL, PF Summer Workman PA Work Phone: [facility] 07-31-2023 influenza virus vacc ine, unspecified formulation Papito Funez [facility] 07-31-2023 Influenza, Seasonal, Quadrivalent, Adjuvanted Summer Workman PA Work Phone: [facility] 11-21-2022 influenza virus vacc ine, unspecified formulation Rosalinda Martinez [facility] 11-21-2022 Influenza, High-dose Seasonal, Quadrivalent, Preservative Free Summer Workman PA Work Phone: [facility] 2021 COVID-19 mRNA, Selvin noel (Pfizer) MD Madeleine Garcia Work Phone: [facility] Comment on above: Series: 08-30-2021 influenza virus vacc ine, unspecified formulation Rosalinda Martinez [facility] 08-30-2021 influenza, injectabl e, quadrivalent, preservative free [email or web address] Work Phone: [facility] Work Phone: 02-28-2021 COVID-19 mRNASelvin (Pfizer) MD Madeleine Garcia Work Phone: [facility] Comment on above: Series: 02-06-2021 COVID-19 mRNASelvin (Pfizer) MD Madeleine Garcia Work Phone: [facility] Comment on above: Series: 11-18-2020 pneumococcal conjuga te vaccine, 13 valent Gabriel P Eyenalyze Work Phone: [facility] Comment on above: Series: 01-08-2020 zoster vaccine recombinant [address] [employer] Work Phone: [facility] 09-17-2016 influenza virus vacc ine, unspecified formulation Gabriel P Eyenalyze [facility] Work Phone: 09-17-2016 influenza, unspecifi ed formulation [employer] [facility] 09-17-2016 pneumococcal polysaccharide vaccine, 23 valent Gabriel P Eyenalyze Work Phone: [facility] 11-16-2013 influenza virus vacc ine, unspecified formulation [employer] [facility] 11-16-2013 influenza, seasonal, injectable Gabriel P Eyenalyze Work Phone: [facility] Work Phone: Payers Date Payer Category Payer Unknown [id number] 2023 Self-pay [id number] 2023 Medicare (Managed Care) 1.2. [id number] 2023 Unknown 2023 Unknown [id number] 2.16.840 .1.012434.19 1959 Private Health Insurance [id number] 1959 Unknown [id number] 1956 Unknown [id number] 2.16.8 40.1.769782.3.579.2.1068 1956 Unknown [id number] 2.16.84 0.1.763200.3.579.2.593 1956 Unknown [id number] 2.16.84 0.1.439292.3.579.2.593 1956 Unknown [id number] 2.16.84 0.1.171964.3.579.2.593 1956 Unknown [id number] 2.16.84 0.1.849684.3.579.2.593 1956 Unknown [id number] 2.16.84 0.1.855556.3.579.2.593 1956 Unknown [id number] 2.16.84 0.1.041896.3.579.2.593 1956 Unknown [id number] 2.16. 840.1.204522.3.579.2.356 1956 Unknown [id number] 2.16. 840.1.907348.3.579.2.356 1956 Unknown [id number] 2.16. 840.1.403616.3.579.2.356 1956 Unknown [id number] 2.16.84 0.1.894115.3.579.2.1259 1956 Unknown [id number] 2.16.84 0.1.205793.3.579.2.1259 1956 Unknown [id number] 2.16.84 0.1.925899.3.579.2.1259 1956 Unknown [id number] 2.16.84 0.1.406467.3.579.2.1259 1956 Unknown [id number] 2.16.84 0.1.829471.3.579.2.1259 1956 Unknown [id number] 2.16.84 0.1.517626.3.579.2.9 1956 Unknown [id number] 2.16.84 0.1.957827.3.579.2.9 1956 Unknown [id number] 2.16.84 0.1.885447.3.579.2.1258 1956 Unknown [id number] 2.16.84 0.1.234211.3.579.2.9 1956 Unknown [id number] 2.16.84 0.1.423080.3.579.2.1258 1956 Unknown [id number] 2.16.84 0.1.729270.3.579.2.1259 1956 Unknown [id number] 2.16.84 0.1.147180.3.579.2.125 1956 Unknown [id number] 2.16.84 0.1.503360.3.579.2.125 1956 Unknown [id number] 2.16.84 0.1.665888.3.579.2.1259 1956 Unknown [id number] 2.16.84 0.1.051303.3.579.2.1259 1956 Unknown [id number] 2.16.8 40.1.510077.3.579.2.727 1956 Unknown [id number] 2.16.8 40.1.151809.3.579.2.727 Unknown [id number] Unknown [id number] 2.16.8 40.1.733736.3.579.2.531 Unknown [id number] 2.16.8 40.1.847124.3.579.2.531 Unknown [id number] 2.16.8 40.1.004391.3.579.2.531 Unknown [id number] 2.16.8 40.1.529294.3.579.2.531 Unknown [id number] 2.16.8 40.1.688241.3.579.2.531 Unknown [id number] 2.16.8 40.1.606032.3.579.2.531 Unknown [id number] 2.16.8 40.1.354045.3.579.2.531 Unknown [id number] 2.16.8 40.1.308355.3.579.2.531 Social History Date Type Detail Facility Start: 02-08-2022 End: 06-11-2024 Tobacco smoking status [facility] Ex-smoker (finding) [facility] Start: 1955 Sex Assigned At Female F [facility] Start: 2024 End: 12-24-2024 Sex Assigned At [facility] Start: 06-11-2024 End: 12-24-2024 Former smoker Former smoker [place] [address] DO Work Phone: Comment on above: Quit in 2013; Tobacco smoking status Never [facility] Start: 05-26-2024 Tobacco smoking stat [facility] Never smoked tobacco (finding) [facility] Start: 04-20-1985 End: 04-20-2015 History of tobacco use Current smoker [facility] Start: 04-20-1985 End: 04-20-2015 History of tobacco use Cigarette Smoker [facility] Start: 07-25-2024 Tobacco use and exposure Smoke less tobacco non-user [facility] Start: 2024 End: 02-20-2025 Alcoholic beverage intake Current drinker of alcohol (finding) [facility] Start: 07-31-2023 Alcohol Comment 1-2 drinks mon thly or less. No Caffeine [facility] Start: 1955 Sex assigned at Not on file [facility] Start: 03-01-2010 End: 09-30-2024 Sex Female (finding) [facility] Sexual Orientation [facility] Medical Equipment Procedure Code Equipment Code Equipment Origin al Text Equipment Identifier Dates Trapeziectomy Tendon/ligament bone anchor, non-bioabsorbable [id number] FDA Start: 03-08-2022 Arthroplasty, thumb Orthopaedic bone wire [id number] FDA Start: 02-27-2024 Arthroplasty, thumb Tendon/ligam ent bone anchor, non-bioabsorbable [id number] FDA Start: 02-27-2024 Goals Date Patient Goal Desired Activity /State Functional Status Date Assessment Result Facility 02-03-2025 Functional Status N/A [facility] 01-14-2025 Functional Status N/A [facility] 02-06-2024 Functional Status N/A [facility] 07-11-2023 Functional Status N/A [facility] 06-21-2023 Functional Status N/A [facility] 05-02-2023 Functional Status N/A [facility] Clinical Notes 01-31-2022 to 02-11-2025 Vineet Juarez MD - 02/11/2025 10:45 AM EDTResult Encounter Note - Vineet Juarez MD - 02/11/2025 10:45 AM EDTResult Encounter Note - Vineet Juarez MD - 02/11/2025 10:45 AM EDT Note Date & Type Note Facility 02-11-2025 History of Presen t illness Narrative Images from the original note were not included. Elsa Figueredo is a 69 y.o. female presents with chief complaint of Back Pain (Pt has radicular pain down both legs, worsened over the past week. Denies any fall or known injury. At December she was prescribed Tramadol which does help. Requesting refill.) HPI: History of Present Illness The patient is a 69-year-old female who presents for evaluation of back pain and excessive sweating. She reports experiencing an exacerbation of her chronic back pain, which she has previously attempted to manage through therapy without success. The pain radiates down her right leg, occasionally shifting to the left, but never simultaneously affecting both legs. She also reports numbness and tingling sensations in her buttock and leg. She has not received any injections for her back pain but has had injections administered to her shoulders. She has been managing the pain with tramadol, which she finds effective, and cyclobenzaprine, which unfortunately does not provide relief. She has a history of steroid use and scoliosis. She continues to experience hot flashes, a symptom that has persisted since the onset of menopause at age 49. She is uncertain if these hot flashes were accompanied by sweating at that time. Currently, she experiences profuse sweating even at rest, but does not report any associated chest pain or nausea. She also reports episodes of night sweats, despite not covering herself. She is considering the use of [id number]-[id number] medications to manage these symptoms. I have reviewed and reconciled the history and medication list with the patient today. HISTORIES: PAST MEDICAL HISTORY: Past Medical History: Diagnosis Date Asthma, chronic, severe persistent, uncomplicated ([facility]) 07/31/2023 Chronic bilateral low back pain with right-sided sciatica 07/31/2023 Chronic constipation 07/31/2023 Essential hypertension ([facility]) 07/31/2023 Irritable bowel syndrome with both constipation and diarrhea 02/11/2024 Other emphysema ([facility]) 01/26/2024 Primary osteoarthritis involving multiple joints 07/31/2023 Recurrent cold sores 02/20/2025 SURGICAL HISTORY: Past Surgical History: Procedure Laterality Date APPENDECTOMY 1978 BUNIONECTOMY Left 2018 CATARACT EXTRACTION Bilateral COLONOSCOPY 06/16/2024 mod. diverticulosis, internal hemorrhoids, normal colon COLONOSCOPY 02/03/2025 small internal hemorrhoids, moderate sigmoid diverticulosis FINGER SURGERY Right 2021 R Thumb ROTATOR CUFF REPAIR Right 2009 TONSILLECTOMY 1994 TUBAL LIGATION 1980 SOCIAL HISTORY: Social History Tobacco Use Smoking status: Former Current packs/day: 0.00 Average packs/day: 1 pack/day for 30.0 years (30.0 ttl pk-yrs) Types: Cigarettes Start date: 04/20/1985 Quit date: 04/20/2015 Years since quittin.8 Smokeless tobacco: Never Vaping Use Vaping status: Never Used Substance Use Topics Alcohol use: Yes Comment: 1-2 drinks monthly or less. No Caffeine Drug use: Never Depression: Not at risk (12/24/2024) PHQ-2 PHQ-2 Score: 0 FAMILY HISTORY: Family History Problem Relation Name Age of Onset Diabetes Mother Colon cancer Mother Stomach cancer Mother 56 Osteoarthritis Father Stroke Father Other (cva) Father Osteoarthritis Sister Coronary artery disease Sister MEDICATIONS: Current Outpatient Medications Medication Instructions acetaminophen (TYLENOL) 500-1,000 mg, Every 6 hours PRN albuterol HFA 90 mcg/act inhaler INHALE 2 PUFFS BY MOUTH EVERY 6 HOURS NEEDED SHORTNESS OF BREATH albuterol 2.5 mg, Nebulization, Every 6 hours PRN Breztri Aerosphere 160-9-4.8 MCG/ACT aerosol INHALE 2 PUFFS BY MOUTH TWICE DAILY (rinse after use) candesartan (ATACAND) 16 mg, Oral, 2 times daily carvedilol (COREG) 6.25 mg, Oral, 2 times daily with meals cyclobenzaprine (Flexeril) 10 MG tablet TAKE 1 TABLET BY MOUTH THREE TIMES DAILY (IN THE MORNING, IN THE EVENING, and BEFORE bedtime) lidocaine (Lidoderm) 5 % patch 1 patch, Apply externally, Daily, Apply to painful area 12 hours per day, remove for 12 hours. magnesium oxide 500 mg, Oral, Daily montelukast (SINGULAIR) 10 mg, Daily sodium chloride (Aleida 128) 5 % ophthalmic solution 1 drop, 2 times daily theophylline ER (UNIPHYL) 400 mg, Daily traMADol (ULTRAM) 50-100 mg, Oral, Every 6 hours PRN ALLERGIES: Allergies Allergen Reactions Tenapanor Other Reaction(s): Diarrhea Aspirin GI intolerance Codeine Other syncope Lisinopril Swelling Metoprolol Moxifloxacin Unknown Nifedipine Swelling Penicillins Hives PHYSICAL EXAM: Visit Vitals BP 136/70 (BP Location: Left arm, Patient Position: Sitting) Pulse 101 SpO2 97% OB Status Postmenopausal Smoking Status Former BP Readings from Last 3 Encounters: 02/11/25 136/70 12/24/24 138/88 09/21/24 140/80 Wt Readings from Last 3 Encounters: 12/24/24 243 lb 09/21/24 239 lb 08/04/24 241 lb Physical Exam Vitals reviewed. Constitutional: General: She is not in acute distress. Appearance: Normal appearance. Neck: Vascular: No carotid bruit. Cardiovascular: Rate and Rhythm: Normal rate and regular rhythm. Heart sounds: No murmur heard. No friction rub. Pulmonary: Breath sounds: Normal breath sounds. No wheezing or rhonchi. Musculoskeletal: General: No deformity or signs of injury. Cervical back: Neck supple. Right lower leg: No edema. Left lower leg: No edema. Lymphadenopathy: Cervical: No cervical adenopathy. Skin: General: Skin is warm and dry. Neurological: General: No focal deficit present. Mental Status: She is alert. Comments: No foot drop noted ASSESSMENT AND PLAN: Assessment & Plan 1. Back pain The etiology of the pain could be attributed to nerve impingement or spinal canal stenosis. The absence of recent x-rays necessitates further investigation. A prescription for a steroid Dosepak will be provided to alleviate inflammation. Additionally, a refill of tramadol 50 mg will be sent to her pharmacy. She is advised to continue taking cyclobenzaprine as needed for muscle relaxation. A plain x-ray of the back will be ordered to rule out any compression fractures or other abnormalities. If the pain persists, physical therapy and potential injections will be considered. 2. Excessive sweating Previous tests for this condition have yielded negative results. A comprehensive panel of blood tests will be ordered to further investigate the cause of the sweating. She is advised to be patient as some results may take longer to process. Will also consider testing for GEORGINA to help explain possible night sweats. documented in this encounter [facility] 02-11-2025 Miscellaneous Notes Please call and tell her the x-ray showed severe arthritis and degenerative disc disease as well as some scoliosis. No fractures. documented in this encounter [facility] 02-11-2025 Progress note Formatting of t his note might be different from the original. Please call and tell her the x-ray showed severe arthritis and degenerative disc disease as well as some scoliosis. No fractures. [facility] 02-03-2025 Hospital Discharg e instructions Patient Education 02/03/2025 13:18:43 Colonoscopy, Care After Surgery Salam (CUSTOM) Colonoscopy Care After Surgery Please read the instructions outlined below and refer to this sheet in the next few weeks. These discharge instructions provide you with general information on caring for yourself after you leave the hospital. Your doctor may also give you specific instructions. While your treatment has been planned according to the most current medical practices available, unavoidable complications occasionally occur. If you have any problems or questions after discharge, please call your doctor. ACTIVITY You may resume your regular activity, but move at a slower pace for the next 24 hours. Take frequent rest periods for the next 24 hours. Walking will help get rid of the air and reduce the bloated feeling in your abdomen (belly). No driving for 24 hours (because of the anesthesia (medicine) used during the test). You may shower. Do not sign any important legal documents or operate any machinery for 24 hours (because of the anesthesia used during the test). NUTRITION Drink plenty of fluids. You may resume your normal diet as instructed by your doctor. Begin with a light meal and progress to your normal diet. Heavy or fried foods are harder to digest and may make you feel nauseated (sick to your stomach). Avoid alcoholic beverages for 24 hours or as instructed. MEDICATIONS You may resume your normal medications unless your doctor tells you otherwise. WHAT YOU CAN EXPECT TODAY Some feelings of bloating in the abdomen. Passage of more gas than usual. Spotting of blood in your stool or on the toilet paper. FOLLOW-UP Your doctor will discuss the results of your test with you. SEEK IMMEDIATE MEDICAL ATTENTION IF: There is more than a spotting of blood in your stool. There is abdominal distention (your abdomen is swollen). There is vomiting. You have a temperature over 101.5 F. There is abdominal pain or discomfort that is severe or gets worse throughout the day. 02/03/2025 13:18:40 Hemorrhoids, Sufx-en-Ynhy Hemorrhoids Hemorrhoids are swollen veins that may form: In the butt (rectum). These are called internal hemorrhoids. Around the opening of the butt (anus). These are called external hemorrhoids. Most hemorrhoids do not cause very bad problems. They often get better with changes to your lifestyle and what you eat. What are the causes? Having trouble pooping (constipation) or watery poop (diarrhea). Pushing too hard when you poop. . Being very overweight (obese). Sitting for too long. Riding a bike for a long time. Heavy lifting or other things that take a lot of effort. Anal sex. What are the signs or symptoms? Pain. Itching or soreness in the butt. Bleeding from the butt. Leaking poop. Swelling. One or more lumps around the opening of your butt. How is this treated? In most cases, hemorrhoids can be treated at home. You may be told to: Change what you eat. Make changes to your lifestyle. If these treatments do not help, you may need to have a procedure done. Your doctor may need to: Place rubber bands at the bottom of the hemorrhoids to make them fall off. Put medicine into the hemorrhoids to shrink them. Shine a type of light on the hemorrhoids to cause them to fall off. Do surgery to get rid of the hemorrhoids. Follow these instructions at home: Medicines Take vrak-wrc-pcyvndh and prescription medicines only as told by your doctor. Use creams with medicine in them or medicines that you put in your butt as told by your doctor. Eating and drinking Eat foods that have a lot of fiber in them. These include whole grains, beans, nuts, fruits, and vegetables. Ask your doctor about taking products that have fiber added to them (fibersupplements). Take in less fat. You can do this by: ?Eating low-fat dairy products. ?Eating less red meat. ?Staying away from processed foods. Drink enough fluid to keep your pee (urine) pale yellow. Managing pain and swelling Take a warm-water bath (sitz bath) for 20 minutes to ease pain. Do this 3 4 times a day. You may do this in a bathtub. You may also use a portable sitz bath that fits over the toilet. If told, put ice on the painful area. It may help to use ice between your warm baths. ?Put ice in a plastic bag. ?Place a towel between your skin and the bag. ?Leave the ice on for 20 minutes, 2 3 times a day. If your skin turns bright red, take off the ice right away to prevent skin damage. The risk of damage is higher if you cannot feel pain, heat, or cold. General instructions Exercise. Ask your doctor how much and what kind of exercise is best for you. Go to the bathroom when you need to poop. Do not wait. Try not to push too hard when you poop. Keep your butt dry and clean. Use wet toilet paper or moist towelettes after you poop. Do not sit on the toilet for a long time. Contact a doctor if: You have pain and swelling that do not get better with treatment. You have trouble pooping. You cannot poop. You have pain or swelling outside the area of the hemorrhoids. Get help right away if: You have bleeding from the butt that will not stop. This information is not intended to replace advice given to you by your health care provider. Make sure you discuss any questions you have with your health care provider. Document Revised: 07/17/2023 Document Reviewed: 07/17/2023 [employer] Patient Education 2023 [employer]. 02/03/2025 13:18:35 Diverticulosis MAGR (CUSTOM) Diverticulosis Many people have small pouches in their colon called diverticulum. The diverticulum bulge outward through weak spots in the colon. You could have one or more of these pouches in the colon. The condition of having these pouches in the colon is called diverticulosis or diverticular disease. Diverticulosis is usually diagnosed by tests to evaluate something else. For example, you may have had a colonoscopy to screen for colon cancer when the diverticulosis was found. Most people with diverticulosis do not have any discomfort or problems. If symptoms develop, they may include mild cramps, bloating, and constipation. A complication of this condition is called diverticulitis. This is when the diverticulum become inflamed and infected. How to treat diverticulosis: Increasing the amount of fiber in the diet may reduce symptoms of diverticulosis and prevent complications such as diverticulitis (infected diverticuli). Fiber keeps stool soft and lowers pressure inside the colon so that bowel contents can move through easily. You should eat 20 to 35 grams of fiber each day. The table below shows the amount of fiber in some foods that you can easily add to your diet. Adding fiber slowly may decrease the bloating and fullness sometimes felt with an immediate high fiber diet. The doctor may also recommend taking a fiber product such as Citrucel or Metamucil once a day. In the past people with diverticulosis were to avoid nuts, corn, and seeds. This has not been found to be true. If you find that certain foods create cramping or bloating, avoid that food. Foods high in fiber include: Fresh fruits, fresh vegetables, legumes (beans), whole wheat bread, bran muffins or cereal, and nuts. See the table below for examples of high fiber foods. Remember, your goal is 20-35 grams per day. Amount of fiber in different foods Food Serving Grams of fiber Fruits Apple (with skin) 1 medium apple 4.4 Banana 1 medium banana 3.1 Oranges 1 orange 3.1 Prunes 1 cup, pitted 12.4 Juices Apple, unsweetened, w/added ascorbic acid 1 cup 0.5 Grapefruit, white, canned, sweetened 1 cup 0.2 Grape, unsweetened, w/added ascorbic acid 1 cup 0.5 [place] 1 cup 0.7 Vegetables Cooked Green beans 1 cup 4.0 Carrots 1/2 cup sliced 2.3 Peas 1 cup 8.8 Potato (baked, with skin) 1 medium potato 3.8 Raw [place] (with peel) 1 cucumber 1.5 Lettuce 1 cup shredded 0.5 Tomato 1 medium tomato 1.5 Spinach 1 cup 0.7 Legumes Baked beans, canned, no salt added 1 cup 13.9 Kidney beans, canned 1 cup 13.6 [place] beans, canned 1 cup 11.6 Lentils, boiled 1 cup 15.6 Breads, pastas, flours Bran muffins 1 medium muffin 5.2 Oatmeal, cooked 1 cup 4.0 White bread 1 slice 0.6 Whole-wheat bread 1 slice 1.9 Pasta and rice, cooked Macaroni 1 cup 2.5 Rice, brown 1 cup 3.5 Rice, white 1 cup 0.6 Spaghetti (regular) 1 cup 2.5 Nuts Almonds 1/2 cup 8.7 Peanuts 1/2 [address] [facility] 2013. SEEK IMMEDIATE MEDICAL CARE IF: You develop abdominal (belly) pain. An oral temperature above _ 101 F__develops. Repeated vomiting occurs. Blood is being passed in stools (bright red or black tarry stools). You develop any bowel problems or changes which you have not had before. Extra Information: To learn how much fiber and other nutrients are in different foods, visit the [place] Department of Agriculture (USDA) National Nutrient Database at: http://www.[employer].usda.gov/fnic/fo odcomp/search/ Created using data from the USDA National Nutrient Database for Standard Reference. Available at http://www.[employer].gov/fnic/fo odcomp/search/. Information adapted from: [facility] Patient Information 2009 [employer]. [employer] 2012 http://www.[employer]/content s/cbffxvfokixj-xfywggg-fgjbwa-t he-basics Follow Up Care 01/22/2025 15:44:04 With:Armin KAUFMAN, CHAPIN Watson, [facility] Address: [address] [place] [address], [address] [phone] [phone] When: Unknown Comments:Office to call with pathology results in 7-10 days. If you do not have a follow-up appointment already scheduled, please call to make follow up appointment. Please call for any problems. [facility] 02-03-2025 Note Progress Note-Physic matteo Patient: ELSA FIGUEREDO Age: 69 years Sex: Female : 1955 Associated Diagnoses: None Author: Radha KAUFMAN, Dawood Segal Postoperative Information Postoperative disposition: Postoperative disposition: To PACU. Optimetrix number: Optimetrix number [id number]. Anesthetic utilized: General. Health Status Allergies: Allergic Reactions (Selected) Moderate Mold- Cough. Severity Not Documented Avelox- No reactions were documented. Codeine- No reactions were documented. Penicillin- No reactions were documented. Physical Examination Vital Signs 02/03/2025 13:30 EDT Heart Rate Monitored 82 bpm Respiratory Rate Monitored 18 br/min Systolic Blood Pressure 125 mmHg Diastolic Blood Pressure 74 mmHg SpO2 97 % 02/03/2025 13:20 EDT Heart Rate Monitored 91 bpm 02/03/2025 13:20 EDT Respiratory Rate Monitored 17 br/min 02/03/2025 13:20 EDT SpO2 95 % 02/03/2025 13:20 EDT Systolic Blood Pressure 135 mmHg Diastolic Blood Pressure 76 mmHg 02/03/2025 13:10 EDT SpO2 97 % 02/03/2025 13:10 EDT Systolic Blood Pressure 148 mmHg HI Diastolic Blood Pressure 75 mmHg 02/03/2025 13:10 EDT Temperature Temporal Artery 36.5 DegC Heart Rate Monitored 97 bpm Respiratory Rate Monitored 18 br/min 02/03/2025 11:46 EDT Systolic Blood Pressure 147 mmHg HI Diastolic Blood Pressure 71 mmHg Blood Pressure Location Left arm 02/03/2025 11:44 EDT Systolic Blood Pressure 139 mmHg Diastolic Blood Pressure 111 mmHg HI Blood Pressure Location Left arm 02/03/2025 11:43 EDT Systolic Blood Pressure 139 mmHg Diastolic Blood Pressure 111 mmHg HI 02/03/2025 11:40 EDT SpO2 97 % 02/03/2025 11:40 EDT Heart Rate Monitored 96 bpm 02/03/2025 11:40 EDT Respiratory Rate Monitored 19 br/min 02/03/2025 11:40 EDT Temperature Temporal Artery 36.7 DegC Blood Pressure Location Left arm 02/03/2025 11:38 EDT Systolic Blood Pressure 174 mmHg HI Diastolic Blood Pressure 92 mmHg HI Pain Assessment: Controlled. General: Awake, Alert, Appropriate. Respiratory: Adequate air exchange. Cardiovascular: Stable, Normal peripheral perfusion. Neurological: Normal sensory function, Normal motor function. Assessment Anesthetic outcome No anesthetic complications noted. Adequate pain relief. able to void without difficulty, able to ambulate with assist, tolerating PO intake, no N/V. Review / Management Condition: Stable. Plan Transfer/Discharge: Transfer/Discharge Discharge when meets criteria ( From PACU to floor ). [facility] Comment on above: Result Comment: Elec tronically Signed By: Radha KAUFMAN, Dawood Segal\.br\Date and Time Signed: 02/03/25 14:16 EDT 02-03-2025 Evaluation + Plan note Extrac jose from: Title:ANES Post-operative No te---General Radha Author:Dawood Garcia MD Date:02/03/25 Plan Transfer/Discharge: Transfer/Discharge Discharge when meets criteria ( From PACU to floor ). Extracted from: Title:1Preop H&P Author:Armin KAUFMAN, Papito powell Date:02/03/25 Impression and Plan Impression: Family history of colon cancer, history of colon polyps Plan: -Colonoscopy Extracted from: Title:ANES Pre-operative Note - Endo Author:Dawood Petit MD Date:02/03/25 Plan [place] [employer] Anesthesiologists (ASA) physical status classification: Class III. Anesthetic Preoperative Plan: Anesthesia General, and -TIVA. [facility] 03-19-2025 NotePatient Education - Text Colonoscopy Care After Surgery Please read the instructions outlined below and refer to this sheet in the next few weeks. These discharge instructions provide you with general information on [facility] Your doctor may also give you specific instructions. While your treatment has been planned according to the most current medical practices available, unavoidable complications occasionally occur. If you have any problems or questions after discharge, please call your doctor. ACTIVITY You may resume your regular activity, but move at a slower pace for the next 24 hours. Take frequent rest periods for the next 24 hours. Walking will help get rid of the air and reduce the bloated feeling in your abdomen (belly). No driving for 24 hours (because of the anesthesia (medicine) used during the test). You may shower. Do not sign any important legal documents or operate any machinery for 24 hours (because of the anesthesia used during the test). NUTRITION Drink plenty of fluids. You may resume your normal diet as instructed by your doctor. Begin with a light meal and progress to your normal diet. Heavy or fried foods are harder to digestand may make you feel nauseated (sick to your stomach). Avoid alcoholic beverages for 24 hours or as instructed. MEDICATIONS You may resume your normal medications unless your doctor tells you otherwise. WHAT YOU CAN EXPECT TODAY Some feelings of bloating in the abdomen. Passage of more gas than usual. Spotting of blood in your stool or on the toilet paper. FOLLOW-UP Your doctor will discuss the results of your test with you. SEEK IMMEDIATE MEDICAL ATTENTION IF: There is more than a spotting of blood in your stool. There is abdominal distention (your abdomen is swollen). There is vomiting. You have a temperature over 101.5 F. There is abdominal pain or discomfort that is severe or gets worse throughout the day. Diverticulosis Many people have small pouches in their colon called diverticulum. The diverticulum bulge outward through weak spots in the colon. You could have one or more of these pouches in the colon. The condition of having these pouches in the colon is called diverticulosis or diverticular disease. Diverticulosis is usually diagnosed by tests to evaluate something else. For example, you may have had a colonoscopy to screen for colon cancer when the diverticulosis was found. Most people with diverticulosis do not have any discomfort or problems. If symptoms develop, they may include mild cramps, bloating, and constipation. A complication of this condition is called diverticulitis. This is when the diverticulum become inflamed and infected. How to treat diverticulosis: Increasing the amount of fiber in the diet may reduce symptoms of diverticulosis and prevent complications such as diverticulitis (infected diverticuli). Fiber keeps stool soft and lowers pressure inside the colon so that bowel contents can move througheasily. You should eat 20 to 35 grams of fiber each day. The table below shows the amount of fiber in some foods that you can easily add to your diet. Adding fiber slowly may decrease the bloating and fullness sometimes felt with an immediate high fiber diet. The doctor may also recommend taking a fiber product such as Citrucel or Metamucil once a day. In the past people with diverticulosis were to avoid nuts, corn, and seeds. This has not been foundto be true. If you find that certain foods create cramping or bloating, avoid that food. Foods high in fiber include: Fresh fruits, fresh vegetables, legumes (beans), whole wheat bread, bran muffins or cereal, and nuts. See the table below for examples of high fiber foods. Remember, your goal is 20- 35 grams per day. Amount of fiber in different foods Food Serving Grams of fiber Fruits Apple (with skin) 1 medium apple 4.4 Banana 1 medium banana 3.1 Oranges 1 orange 3.1 Prunes 1 cup, pitted 12.4 Juices Apple, unsweetened, w/added ascorbic acid 1 cup 0.5 Grapefruit, white, canned, sweetened 1 cup 0.2 Grape, unsweetened, w/added ascorbic acid 1 cup 0.5 [place] 1 cup 0.7 Vegetables Cooked Green beans 1 cup 4.0 Carrots 1/2 cup sliced 2.3 Peas 1 cup 8.8 Potato (baked, with skin) 1 medium potato 3.8 Raw [place] (with peel) 1 cucumber 1.5 Lettuce 1 cup shredded 0.5 Tomato 1 medium tomato 1.5 Spinach 1 cup 0.7 Legumes Baked beans, canned, no salt added 1 cup 13.9 Kidney beans, canned 1 cup 13.6 [place] beans, canned 1 cup 11.6 Lentils, boiled 1 cup 15.6 Breads, pastas, flours Bran muffins 1 medium muffin 5.2 Oatmeal, cooked 1 cup 4.0 White bread 1 slice 0.6 Whole-wheat bread 1 slice 1.9 Pasta and rice, cooked Macaroni 1 cup 2.5 Rice, brown 1 cup 3.5 Rice, white 1 cup 0.6 Spaghetti (regular) 1 cup 2.5 Nuts Almonds 1/2 cup 8.7 Peanuts 1/2 cup 7.9 Chart from [employer] 2 (more content not included)...[facility] 02-03-2025 NoteEndoscopic Procedure Report - Other Patient: ELSA FIGUEREDO Age: 69 years Sex: Female : 1955 Associated Diagnoses: None Author: Papito Funez MD Pre-Procedure Procedure Date 02/03/2025 13:08:00 . Procedure Type: Colonoscopy. Procedure provider Performed by Papito Funez MD. Current history and physical Documented on chart. Reviewed. Mammography (procedure) ([id number]) on 11/07/2023 at 68 Years. Colonoscopy ([id number]) on 07/11/2023 at 67 Years. Esophagogastroduodenoscopy ([id number]) on 06/21/2023 at 67 Years. Comments: 06/21/2023 15:49 Radha Mcclure RN biopsied for celiac Colonoscopy ([id number]) on 06/21/2023 at 67 Years. Comments: 06/21/2023 15:50 Radha Mcclure RN poor prep EGD (esophagogastroduodenoscopy) and closure of duodenal fistula ([id number]) on 01/06/2016 at 60 Years. Colonoscopy ([id number]) on 11/29/2015 at 60 Years.. Past Medical History Active Hypertension ([id number]). Family History Primary malignant neoplasm of colon Mother . Procedure History Mammography (procedure) ([id number]) on 11/07/2023 at 68 Years. Colonoscopy ([id number]) on 07/11/2023 at 67 Years. Esophagogastroduodenoscopy ([id number]) on 06/21/2023 at 67 Years. Comments: 06/21/2023 15:49 Radha Mcclure RN biopsied for celiac Colonoscopy ([id number]) on 06/21/2023 at 67 Years. Comments: 06/21/2023 15:50 Radha Mcclure RN poor prep EGD (esophagogastroduodenoscopy) and closure of duodenal fistula ([id number]) on 01/06/2016 at 60 Years. Colonoscopy ([id number]) on 11/29/2015 at 60 Years.. Colorectal neoplasm risk assessment High risk Previous history of polyps. . Informed Consent After discussing the rationale, risks and benefits, and alternatives to this procedure, the patient provided signed consent for the procedure. Pre-procedure diagnosis: History of colon polyps. Medications (Selected) Inpatient Medications Ordered Sodium Chloride 0.9% IV Anjali 1000 mL 1,000 mL: 1,000 mL, IV, 20 mL/hr, Routine, Start date 02/03/25 11:30:00 EDT, 50 hour(s), Total volume (mL): 1,000, 110 kg, 2.19, m2 Documented Medications Documented Acidophilus Probiotic Blend: Oral, Daily, Refill(s) 0, Prophylaxis Azmacort inhaler: Azmacort inhaler, See Instructions Miralax 14 dose bottle: 17 gm, Oral, qWeek, Refills(s) 0, Constipation NIFEdipine: 60 mg, Oral, Daily, Refills(s) 0, High blood pressure Ventolin HFA 90 mcg/inh Aerosol: 1 puff(s), Inhalation, Shortness of breath or wheezing, Refill(s) 0 candesartan 16 mg Tab: 16 mg = 1 tab(s), Oral, BID, Refills(s) 0, High blood pressure cyclobenzaprine: Refills(s) 0, Muscle pain lisinopril: 40 mg, Oral, Daily, Refills(s) 0, High blood pressure magnesium oxide: Refills(s) 0, Prophylaxis montelukast: Refills(s) 0, Asthma sulfasalazine: 500 mg, Oral, TID, PRN Irritable bowel symptoms, 2 tablets tid/anti-inflammatory, Refills(s) 0 theophylline: 400 mg, Oral, Daily, Refills(s) 0, Shortness of breath or wheezing ASA Classification: Class III. . Monitoring: See anesthesia record. . Procedure The procedure was performed in the hospital. See anesthesia record for sedation given during procedure. The patient was positioned starting in the left lateral decubitus position. Endoscope type usedwas a pediatric-size. The endoscope was lubricated then introduced through the anus. The scope was advanced to the terminal ileum. No difficulties encountered during the procedure. The bowel preparation quality was good and was adequate (see polyps greater than or equal to 6 millimeters). The patient tolerated the procedure well. Time to Cecum: 8 min Withdrawal time 12 min Findings 1. Small internal hemorrhoids 2. Moderate sigmoid diverticulosis, otherwise normal colonic mucosa Post-Procedure Complications: none. Estimated blood loss: none. Specimens: none. Devices/ implants: none left in place. Impression and Plan 1. Small internal hemorrhoids 2. Moderate sigmoid diverticulosis, otherwise normal colonic mucosa Recommendations: Repeat colonoscopy:: In 5 years. Follow-up:: GI clinic as needed. Diet:: Previous. Medication resumption:: Continue current medications, Avoid NSAIDs. Return to activities:: After 24 hours. Education and Follow-up: Counseled: Patient, Family.[facility] Comment on above:Result Comment: Electronically Signed By: Armin KAUFMAN, Papito Nuno\.br\Date and Time Signed: 02/03/25 13:09 [id number] NoteHistory and Physical Patient: ELSA FIGUEREDO Age: 69 years Sex: Female : 1955 Associated Diagnoses: None Author: Papito Funez MD Preoperative Information Indication for procedure and diagnosis: Family history of colon cancer, history of colon polyps Chief Complaint as above Review of Systems All systems reviewed, negative except as mentioned above Health Status Current medications: (Selected) Inpatient Medications Ordered Sodium Chloride 0.9% IV Anjali 1000 mL 1,000 mL: 1,000 mL, IV, 20 mL/hr, Routine, Start date 02/03/25 11:30:00 EDT, 50 hour(s), Total volume (mL): 1,000, 110 kg, 2.19, m2 Documented Medications Documented Acidophilus Probiotic Blend: Oral, Daily, Refill(s) 0, Prophylaxis Azmacort inhaler: Azmacort inhaler, See Instructions Miralax 14 dose bottle: 17 gm, Oral, qWeek, Refills(s) 0, Constipation NIFEdipine: 60 mg, Oral, Daily, Refills(s) 0, High blood pressure Ventolin HFA 90 mcg/inh Aerosol: 1 puff(s), Inhalation, Shortness of breath or wheezing, Refill(s) 0 candesartan 16 mg Tab: 16 mg = 1 tab(s), Oral, BID, Refills(s) 0, High blood pressure cyclobenzaprine: Refills(s) 0, Muscle pain lisinopril: 40 mg, Oral, Daily, Refills(s) 0, High blood pressure magnesium oxide: Refills(s) 0, Prophylaxis montelukast: Refills(s) 0, Asthma sulfasalazine: 500 mg, Oral, TID, PRN Irritable bowel symptoms, 2 tablets tid/anti-inflammatory, Refills(s) 0 theophylline: 400 mg, Oral, Daily, Refills(s) 0, Shortness of breath or wheezing, Home Medications (12) Active Acidophilus Probiotic Blend , Oral, Daily Azmacort inhaler See Instructions candesartan 16 mg Tab 16 mg = 1 tab(s), Oral, BID cyclobenzaprine lisinopril 40 mg, Oral, Daily magnesium oxide Miralax 14 dose bottle 17 gm, Oral, qWeek montelukast NIFEdipine 60 mg, Oral, Daily sulfasalazine 500 mg, PRN, Oral, TID theophylline 400 mg, Oral, Daily Ventolin HFA 90 mcg/inh Aerosol 1 puff(s), PRN, Inhalation Problem list: All Problems History of diverticulitis / SNOMED CT 2297635641 / Confirmed Anemia / SNOMED CT 978967175 / Confirmed Constipation / SNOMED CT 12033648 / Confirmed Epigastric pain / SNOMED CT 897062937 / Confirmed History of Crohn's disease / SNOMED CT 1613479371 / Confirmed Hypertension / SNOMED CT 4984828850 / Confirmed Personal history of colonic polyps / SNOMED CT 6919677849 / Confirmed Family history of colon cancer in mother / SNOMED CT 468741310 / Confirmed History of colon polyps / SNOMED CT 9840981353 / Confirmed Histories Past Medical History: Active Hypertension ([id number]) Family History: Mother Primary malignant neoplasm of colon Procedure history: Mammography (procedure) ([id number]) on 11/07/2023 at 68 Years. Colonoscopy ([id number]) on 07/11/2023 at 67 Years. Esophagogastroduodenoscopy ([id number]) on 06/21/2023 at 67 Years. Comments: 06/21/2023 15:49 Radha Mcclure RN biopsied for celiac Colonoscopy ([id number]) on 06/21/2023 at 67 Years. Comments: 06/21/2023 15:50 Radha Mcclure RN poor prep EGD (esophagogastroduodenoscopy) and closure of duodenal fistula ([id number]) on 01/06/2016 at 60 Years. Colonoscopy ([id number]) on 11/29/2015 at 60 Years. Social History Social & Psychosocial Habits Tobacco 01/14/2025 Tobacco Use: Former smoker, quit more Smokeless tobacco use: Never Type: Cigarettes Smoking Cessation Yes 01/14/2025 Tobacco Use: Former smoker, quit more . Physical Examination Vital Signs (last 24 hrs) Last Charted Temp Temporal 36.7 DegC (FEB 03:40) Heart Rate Monitored 96 bpm (FEB 03:40) Resp Rate 19 br/min (FEB 03:40) SBP H 147 mmHg (FEB 03:46) DBP 71 mmHg (FEB 03:46) Weight 110 kg (FEB 03:33) BMI 44.63 (FEB 03:33) General: in Nad Abdomen: Soft, NTND Impression and Plan Impression: Family history of colon cancer, history of colon polyps [facility]: [facility] [place] [facility]Comment on above:Result Comment: Electronically Signed By: Armin KAUFMAN, Papito Nuno\.br\Date and Time Signed: 02/03/25 12:39 [id number] NoteProgress Note-Physician Patient: ELSA FIGUEREDO Age: 69 years Sex: Female : 1955 Associated Diagnoses: None Author: Radha KAUFMAN, Dawood Segal Preoperative Information Anesthesia history: Patient history: No prior anesthetic problems. Informed consent: Signed by patient. Re-evaluation prior to induction: Initial evaluation reviewed: No significant change. Review of Systems Respiratory: Negative except as documented in history of present illness. Cardiovascular: Negative except as documented in history of present illness. Health Status Allergies: Allergic Reactions (Selected) Moderate Mold- Cough. Severity Not Documented Avelox- No reactions were documented. Codeine- No reactions were documented. Penicillin- No reactions were documented., Allergies (4) Active Severity Reaction Mold Moderate Cough Avelox None Documented codeine None Documented Penicillin None Documented Current medications: (Selected) Inpatient Medications Ordered Sodium Chloride 0.9% IV Anjali 1000 mL 1,000 mL: 1,000 mL, IV, 20 mL/hr, Routine, Start date 02/03/25 11:30:00 EDT, 50 hour(s), Total volume (mL): 1,000, 110 kg, 2.19, m2 Documented Medications Documented Acidophilus Probiotic Blend: Oral, Daily, Refill(s) 0, Prophylaxis Azmacort inhaler: Azmacort inhaler, See Instructions Miralax 14 dose bottle: 17 gm, Oral, qWeek, Refills(s) 0, Constipation NIFEdipine: 60 mg, Oral, Daily, Refills(s) 0, High blood pressure Ventolin HFA 90 mcg/inh Aerosol: 1 puff(s), Inhalation, Shortness of breath or wheezing, Refill(s) 0 candesartan 16 mg Tab: 16 mg = 1 tab(s), Oral, BID, Refills(s) 0, High blood pressure cyclobenzaprine: Refills(s) 0, Muscle pain lisinopril: 40 mg, Oral, Daily, Refills(s) 0, High blood pressure magnesium oxide: Refills(s) 0, Prophylaxis montelukast: Refills(s) 0, Asthma sulfasalazine: 500 mg, Oral, TID, PRN Irritable bowel symptoms, 2 tablets tid/anti-inflammatory, Refills(s) 0 theophylline: 400 mg, Oral, Daily, Refills(s) 0, Shortness of breath or wheezing, Home Medications (12) Active Acidophilus Probiotic Blend , Oral, Daily Azmacort inhaler See Instructions candesartan 16 mg Tab 16 mg = 1 tab(s), Oral, BID cyclobenzaprine lisinopril 40 mg, Oral, Daily magnesium oxide Miralax 14 dose bottle 17 gm, Oral, qWeek montelukast NIFEdipine 60 mg, Oral, Daily sulfasalazine 500 mg, PRN, Oral, TID theophylline 400 mg, Oral, Daily Ventolin HFA 90 mcg/inh Aerosol 1 puff(s), PRN, Inhalation , Medications (1) Active Scheduled: (0) Continuous: (1) Sodium Chloride 0.9% 1,000 mL 1,000 mL, IV, 20 mL/hr PRN: (0) Problem list: All Problems Anemia / SNOMED CT 300118449 / Confirmed Constipation / SNOMED CT 64235184 / Confirmed Epigastric pain / SNOMED CT 323325802 / Confirmed Family history of colon cancer in mother / SNOMED CT 080605969 / Confirmed History of colon polyps / SNOMED CT 5389696035 / Confirmed History of Crohn's disease / SNOMED CT 9934217699 / Confirmed History of diverticulitis / SNOMED CT 2505319117 / Confirmed Hypertension / SNOMED CT 7642917074 / Confirmed Personal history of colonic polyps / SNOMED CT 8658831242 / Confirmed Canceled: Family history of colon cancer / SNOMED CT 806570594, Active Problems (9) Anemia Constipation Epigastric pain Family history of colon cancer in mother History of colon polyps History of Crohn's disease History of diverticulitis Hypertension Personal history of colonic polyps Histories Past Medical History: Active Hypertension ([id number]) Family History: Primary malignant neoplasm of colon Mother Procedure history: Mammography (procedure) ([id number]) on 11/07/2023 at 68 Years. Colonoscopy ([id number]) on 07/11/2023 at 67 Years. Esophagogastroduodenoscopy ([id number]) on 06/21/2023 at 67 Years. Comments: 06/21/2023 15:49 EDT - Radha Parrish RN biopsied for celiac Colonoscopy ([id number]) on 06/21/2023 at 67 Years. Comments: 06/21/2023 15:50 EDT Radha Peterson RN poor prep EGD (esophagogastroduodenoscopy) and closure of duodenal fistula ([id number]) on 01/06/2016 at 60 Years. Colonoscopy ([id number]) on 11/29/2015 at 60 Years. Social History Social & Psychosocial Habits Tobacco 01/14/2025 Tobacco Use: Former smoker, quit more Smokeless tobacco use: Never Type: Cigarettes Smoking Cessation Yes 01/14/2025 Tobacco Use: Former smoker, quit more . Physical Examination Vital Signs 02/03/2025 11:46 EDT Systolic Blood Pressure 147 mmHg HI Diastolic Blood Pressure 71 mmHg Blood Pressure Location Left arm 02/03/2025 11:44 EDT Systolic Blood Pressure 139 mmHg Diastolic Blood Pressure 111 mmHg HI Blood Pressure Location Left arm 02/03/2025 11:43 EDT Systolic Blood Pressure 139 mmHg Diastolic Blood Pressure 111 mmHg HI 02/03/2025 11:40 EDT SpO2 97 % 02/03/2025 11:40 EDT Heart Rate Monitored 96 bpm 02/03/2025 11:40 EDT Respiratory Ra (more content not included)...[facility] [place] CampusComment on above:Result Comment: Electronically Signed By: Radha KAUFMAN, Dawood Segal\.huma\Date and Time Signed: 02/04/2512:03 [id number] History of Present illness Narrative* Angie Rodrigues, CARE PROVIDER-[employer] M[employer] WORKER - 12/28/2024 2:25 PM EST Images from the original note were not included. Lesions: Location: Nose Duration: Months Quality: Asymptomatic Modifying factors: Patient states she traumatized the area and it bled. Does not bleed on its own Associated symptoms: Rough pigmented patch Treatments: None New patient, referred by Dr. Vineet Juarez MD Location # 2: Upper back Duration: Many years Quality: Bothersome Modifying factors: Rubs on clothing/jewelry Associated symptoms: Mole Treatments: None All pertinent medical history, medications, and allergies were reviewed. General Exam: alert, oriented to person, place, and time, normal affect, well appearing A focused exam completed based on patient reported problems, see below: 1. Inflamed seborrheic keratosis Right Nasal Sidewall Inflamed seborrheic keratoses: pink and brown stuck on verrucous scaly papule with surrounding erythema and bloody crust. The patient was informed that symptomatic seborrheic keratoses are benign growths that become inflamed, itchy, tender, traumatized, caught on clothing, or bleed. Symptomatic lesions can be treated with cryotherapy or curretage. Thicker lesions treated with cryotherapy may require more than one treatment. The patient was instructed to notify the office if abnormal redness or tenderness develops atthe treatment site. Cryotherapy today, see procedure note. Diagnosis: Inflamed seborrheic keratosis Indication: Inflamed Consent: Verbal consent was obtained and risks were discussed, including, but not limited to risks of scarring, darker or freezer person pigmentary changes, recurrence, incomplete removal and infection. Method: Liquid nitrogen was used to treat the lesion(s) with two 5-10 second freeze-thaw cycles Number of lesions treated: 1 Post-procedure instructions: Instructions were given orally and in writing. The office will be contacted if the lesion fails to resolve despite treatment, or if a side effect develops such as abnormal crusting, scabbing, redness or tenderness Cryotherapy, skin lesion - Right Nasal Sidewall 2. Neoplasm of unspecified behavior of bone, soft tissue, and skin Upper Mid Back Brown papule with surrounding erythema Lesion biopsy Type of biopsy: tangential Informed consent: discussed and consent obtained Informed consent comment: The risks and benefits of the biopsy were discussed. Risks include but are not limited to bleeding, infection, scarring, pain, and nerve damage. An opportunity to ask questions prior to the procedure was permitted and all questions were answered. Patient was prepped and draped in usual sterile fashion: area cleansed with alcohol. Anesthesia: the lesion was anesthetized in a standard fashion Anesthetic: 1% lidocaine w/ epinephrine 1-100,000 buffered w/ 8.4% NaHCO3 Instrument used: DermaBlade Hemostasis achieved with: electrodesiccation Outcome: patient tolerated procedure well Outcome comment: The specimen was placed in a prelabeled formalin container to be sent for pathology Post-procedure details: sterile dressing applied and wound care instructions given Post-procedure details comment: Emphasized need to contact clinic for any signs of infection, uncontrollable bleeding, or complications. Dressing type: bandage Additional details: Photo taken Amount of lidocaine used: 1.0 cc Specimen A - Dermatopathology exam Differential Diagnosis: Inflamed Nevus Check Margins: No Size of lesion: 1.0 x 1.0 cm Next Visit: 6 months, skin check documented in this encounterMer[id number] History of Present illness Narrative* CINTHIA Leonardo - 12/24/2024 2:30 PM EST Images from the original note were not included. Elsa Figueredo is a 69 y.o. female presents with chief complaint of 3 Month Follow Up of Chronic Conditions and Medicare Annual Wellness Visit Subsequent HPI: HPI History of Present Illness Patient presents today for her 3 month regular visit and MWV. She reports doing well other than herchronic low back pain, which sometimes goes down the right side of her leg. She uses flexeril 10 mgthree times a day without significant relief. Wants to see dermatology for lesion on her nose that has been there for months, she scratched and it bleed. Respiratory: admits chronic cough and wheeze, denies new/worsening shortness of breath. Cardiac: no chest pain, no edema, no palpitations, dizziness or fainting Gastrointestinal: denies constipation, rectal bleeding Neurologic: denies memory loss, tingling/numbness, tremor Pt. can get up from the chair without using the arms of the chair in < 30 seconds. Denies issueswith depression. Denies more than 2 falls in the past year. I have reviewed and reconciled the history and medication list with the patient today. CURRENT PCP/CARE TEAM: Patient Care Team: Vineet Juarez MD as PCP - General (Internal Medicine) Elsie Miller MD as Referring Physician (Dermatology) Madeleine Garcia MD as Consulting Physician (Orthopaedic Surgery) [facility] ([facility]) Pastora Joyner MD as Consulting Physician (Cardiology) Over the past 2 weeks, how often have you been bothered by any of the following problems? Little interest or pleasure in doing things: Not at all Feeling down, depressed, or hopeless: Not at all Patient Health Questionnaire-2 Score: 0 Solis Fall Risk History of Falling, Immediate or Within 3 Months: No Health Risk Assessment Form Do you need help eating, bathing, using the toilet, dressing, or getting around your home?: No Can you prepare your own meals?: Yes Can you do your own housework without help?: Yes Can you shop for groceries or clothes without help?: Yes Do you exercise for about 20 minutes 3 or more days a week?: No How confident are you that you can control and manage most of your health problems?: Very confident Can you mange your money, credit cards and accounts, pay bills and taxes?: Yes Vision Screening: Yes, patient sees regular slab off mill 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 diverticulosis, internal hemorrhoids, normal colon FINGER SURGERY Right 2021 R Thumb ROTATOR CUFF REPAIR Right 2008 TONSILLECTOMY 1993 TUBAL LIGATION 1980 SOCIAL HISTORY: Social History Tobacco Use Smoking status: Former Current packs/day: 0.00 Average packs/day: 1 pack/day for 30.0 years (30.0 ttl pk-yrs) Types: Cigarettes Start date: 04/20/1985 Quit date: 04/20/2015 Years since quittin.6 Smokeless tobacco: Never Vaping Use Vaping status: Never Used Substance Use Topics Alcohol use: Yes Comment: 1-2 drinks monthly or less. No Caffeine Drug use: Never Depression: Not at risk (12/24/2024) PHQ-2 PHQ-2 Score: 0 FAMILY HISTORY: Family History Problem Relation Name Age of Onset Diabetes Mother Colon cancer Mother Stomach cancer Mother 56 Osteoarthritis Father Stroke Father Other (cva) Father Osteoarthritis Sister Coronary artery disease Sister MEDICATIONS: Current Outpatient Medications Medication Instructions acetaminophen (TYLENOL) 500-1,000 mg, Every 6 hours PRN albuterol HFA 90 mcg/act inhaler INHALE 2 PUFFS BY MOUTH EVERY 6 HOURS NEEDED SHORTNESS OF BREATH albuterol 2.5 mg, Nebulization, Every 6 hours PRN Breztri Aerosphere 160-9-4.8 MCG/ACT aerosol INHALE 2 PUFFS BY MOUTH TWICE DAILY (rinse after use) candesartan (ATACAND) 16 mg, Oral, 2 times daily carvedilol (COREG) 6.25 mg, Oral, 2 times daily with meals cyclobenzaprine (Flexeril) 10 MG tablet TAKE 1 TABLET BY MOUTH THREE TIMES DAILY (IN THE MORNING, IN THE EVENING, and BEFORE bedtime) lidocaine (Lidoderm) 5 % patch 1 patch, Apply externally, Daily, Apply to painful area 12 hours perday, remove for 12 hours. magnesium oxide 500 mg, Oral, Daily montelukast (SINGULAIR) 10 mg, Daily sodium chloride (Aleida 128) 5 % ophthalmic solution 1 drop, 2 times daily theophylline ER (UNIPHYL) 400 mg, Daily ALLERGIES: Allergies Allergen Reactions Tenapanor Other Reaction(s): Diarrhea Aspirin GI intolerance Codeine Other syncope Lisinopril Swelling Metoprolol Moxifloxacin Unknown Nifedipine Swelling Penicillins Hives PHYSICAL EXAM: Visit Vitals BP 138/88 (BP Location: Left arm, Patient Position: Sitting) Pulse 89 Ht 5' 3 Wt 243 lb SpO2 96% BMI 43.05 kg/m OB Status Postmenopausal Smoking Status Former BSA 2.21 m BP Readings from Last 3 Encounters: 12/24/24 138/88 09/21/24 140/80 08/04/24 142/80 Wt Readings from Last 3 Encounters: 12/24/24 243 lb 09/21/24 239 lb 08/04/24 241 lb Physical Exam General Examination: alert, oriented, normal affect, well-appearing, in no acute distress, well developed, well nourished. Head: normocephalic, atraumatic Eyes: sclera non-icteric Heart: regular rate and rhythm, S1, S2 normal Lungs: clear to auscultation bilaterally. No wheezes, rales, rhonchi. Skin: small lesion to bridge of nose without active bleeding or drainage Extremities: bilateral non-pitting edema, no cyanosis Psych: alert, oriented, cognitive function intact, cooperative with exam. Results ASSESSMENT AND PLAN: Assessment & Plan 1. Essential hypertension (CMS/HCC) (Primary) Continue lifestyle modifications. Continue current regimen and call if at home BP is rising above goal BP of less than 140/90. - Comprehensive metabolic panel; Future - CBC and differential; Future - Comprehensive metabolic panel - CBC and differential 2. Asthma, chronic, severe persistent, uncomplicated (CMS/HCC) Following with Dr. Macdonald, reports her breathing is at her baseline. 3. Other emphysema (CMS/HCC) See above. 4. Primary osteoarthritis involving multiple joints See #10. 5. Osteopenia of multiple sites Due for DEXA at the end of the year. Encouraged vitamin D3 1,000 international units daily. 6. Medicare annual wellness visit, subsequent Patient here for annual Medicare Wellness visit. Demographics were updated. Self-assessment was completed. Past medical, family, and social history were updated. The medication list, including supplements being taken, was updated. A list of other current medical providers was established/updated. Time was spent discussing health maintenance issues, ordering proper testing, and a schedule was provided regarding recommended screening. We discussed safety issues and fall risk. Depression screeningwas completed and addressed. Fall screening was completed and addressed. Cognitive function was assessed by direct observation and assessment of ability to perform ADL's and IADL's was done. The current BMI was provide and will continue to be monitored at routine office visits as well. Major risk factors for chronic disease including family history were discussed and a list was provided with the care plan. 7. ACP (advance care planning) Patient has living will, encouraged healthcare POA and wishes to be full code. 8. Screening for lipid disorders Lipids with next labs. - Lipid panel; Future - Lipid panel 9. Abnormal mammogram of right breast Reviewed with her need for repeat imaging in 6 months, ordered today. - Right diagnostic mammogram with tomosynthesis; Future - Right breast US complete; Future 10. Chronic bilateral low back pain with right-sided sciatica She is asking for something else for pain due to flexeril 10 mg TID that isn't helping much. I spoke with Dr. Juarez and sent TE on this, ok for tramadol as needed on bad days but she needs to get set up with PT and or pain management. 11. Lesion of skin of nose Referral to dermatology placed, she has seen Dr. Centeno in the past and we will set her up with her again for eval of lesion of nose. - Ambulatory referral to Dermatology; Future documented in this encounterMer[facility] [id number] History of Present illness Narrative* Vineet Juarez MD - 2024 2:00 PM EST Images from the original note were not included. Elsa Figueredo is a 69 y.o. female presents with chief complaint of 3 Month Follow-up (Review labdrawn 08/19/2024) and URI (Productive cough with green sputum, SOB, wheezing, nasal congestion x 4 days. ) HPI: History of Present Illness The patient presents for evaluation of multiple medical concerns. She has been consuming a specific tea daily, which has resulted in regular bowel movements. Despitethis, she has only lost a few pounds. She experiences occasional diarrhea, but it has been less frequent since she started drinking the tea. She was previously informed of low sodium levels. Her medication regimen includes candesartan 16 mg, carvedilol, and a daily magnesium supplement of 500 mg. She is not currently taking any diuretics. She is experiencing an upper respiratory cough and sinus issues. She reports no chest pain but mentions mild shortness of breath associated with her cold and cough. Her symptoms typically begin on Giancarlo evenings. She has been taking Mucinex, which she finds effective. She also uses an inhaler and a nebulizer, both of which provide relief. She is in severe pain in her lower back. She applies a patch for 8 hours and changes it every otherday. I have reviewed and reconciled the history and medication list with the patient today. HISTORIES: PAST MEDICAL HISTORY: Past Medical History: Diagnosis Date Arthritis Lung disease SURGICAL HISTORY: Past Surgical History: Procedure Laterality Date APPENDECTOMY 1978 BUNIONECTOMY Left 2018 COLONOSCOPY 06/16/2024 mod. diverticulosis, internal hemorrhoids, normal colon FINGER SURGERY Right 2021 R Thumb ROTATOR CUFF REPAIR Right 2008 TONSILLECTOMY 1993 TUBAL LIGATION 1980 SOCIAL HISTORY: Social History Tobacco Use Smoking status: Former Current packs/day: 0.00 Average packs/day: 1 pack/day for 30.0 years (30.0 ttl pk-yrs) Types: Cigarettes Start date: 04/20/1985 Quit date: 04/20/2015 Years since quittin.4 Smokeless tobacco: Never Vaping Use Vaping status: Never Used Substance Use Topics Alcohol use: Yes Comment: 1-2 drinks monthly or less. No Caffeine Drug use: Never Depression: Not at risk (2024) PHQ-2 PHQ-2 Score: 0 FAMILY HISTORY: Family History Problem Relation Name Age of Onset Diabetes Mother Colon cancer Mother Stomach cancer Mother 56 Osteoarthritis Father Stroke Father Other (cva) Father Osteoarthritis Sister Coronary artery disease Sister MEDICATIONS: Current Outpatient Medications Medication Instructions acetaminophen (TYLENOL) 500-1,000 mg, Every 6 hours PRN albuterol HFA 90 mcg/act inhaler INHALE 2 PUFFS BY MOUTH EVERY 6 HOURS NEEDED SHORTNESS OF BREATH albuterol 2.5 mg, Nebulization, Every 6 hours PRN candesartan (ATACAND) 16 mg, Oral, 2 times daily carvedilol (COREG) 6.25 mg, Oral, 2 times daily with meals cyclobenzaprine (Flexeril) 10 MG tablet TAKE 1 TABLET BY MOUTH THREE TIMES DAILY (IN THE MORNING, IN THE EVENING, and BEFORE bedtime) magnesium oxide 500 mg, Oral, Daily montelukast (SINGULAIR) 10 mg, Daily sodium chloride (Aleida 128) 5 % ophthalmic solution 1 drop, 2 times daily theophylline ER (UNIPHYL) 400 mg, Daily ALLERGIES: Allergies Allergen Reactions Tenapanor Other Reaction(s): Diarrhea Aspirin GI intolerance Codeine Other syncope Lisinopril Swelling Metoprolol Moxifloxacin Unknown Nifedipine Swelling Penicillins Hives PHYSICAL EXAM: Visit Vitals BP 140/80 Pulse 78 Ht 5' 3 Wt 239 lb SpO2 97% BMI 42.34 kg/m OB Status Postmenopausal Smoking Status Former BSA 2.19 m BP Readings from Last 3 Encounters: 09/21/24 140/80 08/04/24 142/80 06/11/24 116/78 Wt Readings from Last 3 Encounters: 09/21/24 239 lb 08/04/24 241 lb 06/11/24 236 lb Physical Exam HENT: Right Ear: Tympanic membrane and external ear normal. Left Ear: Tympanic membrane and external ear normal. Mouth/Throat: Mouth: Mucous membranes are moist. Neck: Vascular: No carotid bruit. Cardiovascular: Rate and Rhythm: Normal rate and regular rhythm. Heart sounds: No murmur heard. No friction rub. No gallop. Pulmonary: Effort: Pulmonary effort is normal. Breath sounds: Normal breath sounds. Abdominal: General: Bowel sounds are normal. Palpations: Abdomen is soft. Tenderness: There is no abdominal tenderness. Musculoskeletal: Right lower leg: No edema. Left lower leg: No edema. Lymphadenopathy: Cervical: No cervical adenopathy. Skin: General: Skin is warm and dry. Neurological: Mental Status: She is alert and oriented to person, place, and time. Psychiatric: Thought Content: Thought content normal. Physical Exam Results Laboratory Studies Sodium level is 125. ASSESSMENT AND PLAN: Assessment & Plan 1. Essential hypertension (CMS/HCC) (Primary) Doing well. Blood pressures have been good. Continue lifestyle modifications. Continue current medication. Call if any problems or if home blood pressures rising. 2. Asthma, chronic, severe persistent, uncomplicated (CMS/HCC) Stable. Continue current regimen. 3. Chronic constipation This has improved greatly with using Herbal tea. 4. Other emphysema (CMS/HCC) Stable. Continue current regimen. 5. Irritable bowel syndrome with both constipation and diarrhea Her symptoms of constipation have improved with the use of a tea containing senna. She reports regular bowel movements and occasional diarrhea, which has decreased since starting the tea. 6. Chronic bilateral low back pain with right-sided sciatica She reports severe pain in her lower back. A prescription for 5% lidocaine patches will be sent to [facility] She is instructed to apply the patch once for up to 12 hours a day and change it every other day. Discussed this may not be covered by insurance but we can check. - lidocaine (Lidoderm) 5 % patch; Apply 1 patch over 12 hours topically Daily Apply to painful area12 hours per day, remove for 12 hours. Dispense: 30 patch; Refill: 11 7. Primary osteoarthritis involving multiple joints As above. - lidocaine (Lidoderm) 5 % patch; Apply 1 patch over 12 hours topically Daily Apply to painful area12 hours per day, remove for 12 hours. Dispense: 30 patch; Refill: 11 8. Viral URI with cough She reports symptoms of an upper respiratory infection, including a cough and sinus issues. She is advised to maintain adequate hydration and continue using her nebulizer and inhaler. Ksbo-utg-ibqctav medications like Coricidan HBP or Mucinex are recommended, avoiding those that could elevate her blood pressure. If symptoms persist for more than a week to 10 days, she should contact the office for a potential course of antibiotics. 9. Hyponatremia Her blood work indicates consistently low sodium levels, with a reading of 124 a month ago and 125 currently, despite normal levels in April 2024. She is not on any medication that typically causes hyponatremia. Reviewed UTD and will order labs for her to do soon. - Comprehensive metabolic panel - Sodium, urine, random - Osmolality, urine 10. Diaphoresis Reviewed UTD and will order labs for her to do soon. - CBC and differential - TSH - Urinalysis with microscopic - C-reactive protein - Comprehensive metabolic panel Patient was seen and examined with Jennifer Almaraz CNP. History was confirmed and verified. Sanders elements of the exam were also completed. Assessment and plan were reviewed and addended as needed. Agree with documentation above. documented in this encounterMer[facility] [id number] History of Present illness Narrative* CINTHIA Leonardo - 08/04/2024 1:00 PM EDT Images from the original note were not included. Elsa Figueredo is a 68 y.o. female presents with chief complaint of No chief complaint on file. HPI: HPI History of Present Illness The patient presents for evaluation of multiple medical concerns. Pt presents for elevated BP and follow-up form [facility] urgent care visit. She has been having headaches on and off at random and, sweating maybe 4-5 episodes of sweating per day for at least a year, reports she went to and was sent to [facility] because she took her BP at home and it was elevated 190s systolic, reports when she takes her BP at home it is usually high. She experiences sudden, unprovoked episodes of sweating 4 to 5 times daily, accompanied by headaches and flushing. She manages her headaches with Tylenol and Aleve, but not on a daily basis. Respiratory: no cough, wheeze, or shortness of breath. Cardiac: no chest pain, no edema, no palpitations, dizziness or fainting I have reviewed and reconciled the history and medication list with the patient today. HISTORIES: PAST MEDICAL HISTORY: Past Medical History: Diagnosis Date Arthritis Lung disease SURGICAL HISTORY: Past Surgical History: Procedure Laterality Date APPENDECTOMY 1978 BUNIONECTOMY Left 2018 COLONOSCOPY 06/16/2024 mod. diverticulosis, internal hemorrhoids, normal colon FINGER SURGERY Right 2021 R Thumb ROTATOR CUFF REPAIR Right 2009 TONSILLECTOMY 1993 TUBAL LIGATION 1980 SOCIAL HISTORY: Social History Tobacco Use Smoking status: Former Current packs/day: 0.00 Average packs/day: 1 pack/day for 30.0 years (30.0 ttl pk-yrs) Types: Cigarettes Start date: 04/20/1985 Quit date: 04/20/2015 Years since quittin.2 Smokeless tobacco: Never Vaping Use Vaping status: Never Used Substance Use Topics Alcohol use: Yes Comment: 1-2 drinks monthly or less. No Caffeine Drug use: Never Depression: Not at risk (10/30/2023) PHQ-2 PHQ-2 Score: 0 FAMILY HISTORY: Family History Problem Relation Name Age of Onset Diabetes Mother Colon cancer Mother Stomach cancer Mother 56 Osteoarthritis Father Stroke Father Other (cva) Father Osteoarthritis Sister Coronary artery disease Sister MEDICATIONS: Current Outpatient Medications Medication Instructions albuterol HFA 90 mcg/act inhaler INHALE 2 PUFFS BY MOUTH EVERY 6 HOURS NEEDED SHORTNESS OF BREATH albuterol 2.5 mg, Nebulization, Every 6 hours PRN candesartan (ATACAND) 32 mg, Oral, Daily carvedilol (COREG) 3.125 mg, Oral, 2 times daily with meals cyclobenzaprine (Flexeril) 10 MG tablet TAKE 1 TABLET BY MOUTH THREE TIMES DAILY (IN THE MORNING, IN THE EVENING, and BEFORE bedtime) Lactobacillus (Probiotic Acidophilus) capsule 1 capsule, Oral, Daily magnesium oxide (MAG-OX) 400 mg, Oral, Daily montelukast (SINGULAIR) 10 mg, Oral, Daily psyllium (Metamucil) 0.36 g capsule 2 capsules, Oral, Daily sodium chloride (Aleida 128) 5 % ophthalmic solution 1 drop, Both Eyes, 2 times daily theophylline ER (UNIPHYL) 400 mg, Oral, Daily ALLERGIES: Allergies Allergen Reactions Tenapanor Other Reaction(s): Diarrhea Nifedipine Swelling Penicillins Hives Aspirin GI intolerance Carvedilol Codeine Other syncope Lisinopril Swelling Metoprolol Moxifloxacin Unknown PHYSICAL EXAM: Visit Vitals OB Status Postmenopausal Smoking Status Former BP Readings from Last 3 Encounters: 06/11/24 116/78 05/19/24 (!) 150/98 04/30/24 140/90 Wt Readings from Last 3 Encounters: 06/11/24 236 lb 04/30/24 235 lb 02/21/24 232 lb Physical Exam General Examination: alert, oriented, normal affect, well-appearing, in no acute distress, well developed, well nourished. Head: normocephalic, atraumatic Eyes: sclera non-icteric Oral Cavity: no lesions, mucosa moist Throat: clear, symmetrical rise of soft palate and uvula, no erythema or exudate Heart: regular rate and rhythm, S1, S2 normal, no carotid bruits Lungs: clear to auscultation bilaterally. No wheezes, rales, rhonchi. Extremities: no edema, no cyanosis Psych: alert, oriented, cognitive function intact, cooperative with exam. Results ASSESSMENT AND PLAN: Assessment & Plan 1. Hypertension. Her blood pressure readings have been consistently high during multiple visits, with a recent reading of 192/162 at urgent care, I did review the ER report/records that were available to me at time of visit. She is currently on the maximum dose of candesartan. Increasing the dosage of carvedilol (Coreg) will be done, increase to 6.25 mg BID. We will also start hydrochlorothiazide 12.5 mg and BMP in 1 week along with urinary metanephrines. She is advised to monitor her blood pressure regularly at home. I reviewed this case with Dr. Juarez who guided treatment plan. 2. Sweating episodes. She experiences sweating episodes 4-5 times a day, accompanied by headaches and a flushed feeling. These episodes are not associated with diarrhea but are accompanied by constipation. Labs as above. documented in this encounterMercy hospital [id number] Evaluation note* Diagnosis Onset Date Resolution Status Admit Date Bronchitis acute July 10, 2 024 2:07pm Osteoarthritis of carpometacarpal joint of left thumb acute September 30 024 1:16pm Osteoarthritis of carpometacarpal joint of right thumb acute September 30, 2 024 1:16pm Other specified postprocedur al states acute September 30, 024 1:16pm [facility] Work Phone: 1(281) 713-337007-30-2024 [facility]* Encounter Date Diagnosis Assessment Notes Treatment Notes Treatment Clinical Notes Nov, Arthritis of carpometacarpal (CMC) joint of right thumb (ICD-10 - M18.11) Nov, Arthritis of carpometacarpal (CMC) joint of left thumb (ICD-10 - M18.12) We performed a cortisone injection into thel left thumb CMC joint under sterile technique. The patient tolerated this well without complication. We discussed that the finger may feel numb and tingle for hours after this injection. We will proceed with left thumb trapeziectomy/LR TI in FebruaryNov, Left hand pain (ICD- 10 - M79.642) Nov, Other specified postprocedural states (ICD-10 - Z98.890) [facility] 12-28-2023 Evaluation + Plan note Future Scheduled Tests Laboratory* Thyroid Stimulating Hormone 11/14/23 [facility] 12-07-2023 Evaluation note* Encounter Date Diagnosis Assessment Notes Treatment Notes Treatment Clinical Notes Oct, Lumbar degenerative disc disease (ICD-10 - M51.36) Oct, Other spondylosis with radiculopathy, lumbar region (ICD-10 - M47.26) Patient's primary complaint is her low back pain radiating into her bilateral lower extremities. Patient has failed multiple treatment options including physical therapy, exercise, and NSAIDs. To better treat this patient, I believe it is necessary to order a lumbar MRI for further evaluation. Patient has been instructed results will be discussed at the patients follow up unless there are acute or urgent findings. We discussed conisdering further treatment options including lumbar epidurals vs nerve blocks with subsequent radiofrequency ablations. Anatomy of spine discussed in detail with patient in regards to patients condition. Oct, Other chronic pain (ICD-10 - G89.29) Oct, Other Above note writ ten by Layne Delarosa RN, [employer]. Edited and approved by Dr. Ritchie Rodrigues MD. Medical decision making shows a new problem to me with further workup planned or suggested with the potential for extensive treatment options that were considered with the most applicable given this patient's situation as noted above. Treatment options considered include a combination of physical therapy approaches, pharmacologic management, and interventional procedures. Those most applicable to the patient were discussed at this time. Risk of complications and/or morbidity and mortality is high given that acute and chronic pain poses a threat to life and bodily function if undertreated, poorly treated or with failure to maintain adequate treatment and timely followup. Given the serious and fluctuating nature of pain with extensive consideration for whenever pain changes, there always remains the possibility of prolonged functional impairment requiring constant patient reassessment and high-level medical decision making. The amount and complexity of data reviewed is high given that patient labs, radiology reports, and other test were obtained, reviewed and summarized as applicable from the physician portal and/or outside medical records. Pertinent positive and negative findings were considered in medical decision-making. [facility] Other 11-27-2023 Evaluation note* Encounter Date Diagnosis Assessment Notes Treatment Notes Treatment Clinical Notes Sep, Other low back pain (ICD-10 - M54.59) [facility] 08-24-2023 Hospital Discharge instructions Patient Education 07/11/2023 14:19:32 Colonoscopy, Care After Surgery [place] (CUSTOM) Colonoscopy Care After Surgery Please read the instructions outlined below and refer to this sheet in the next few weeks. These discharge instructions provide you with general information on caring for [facility] Your doctor may also give you specific instructions. While your treatment has been planned according to the most current medical practices available, unavoidable complications occasionally occur. If you have any problems or questions after discharge, please call your doctor. ACTIVITY You may resume your regular activity, but move at a slower pace for the next 24 hours. Take frequent rest periods for the next 24 hours. Walking will help get rid of the air and reduce the bloated feeling in your abdomen (belly). No driving for 24 hours (because of the anesthesia (medicine) used during the test). You may shower. Do not sign any important legal documents or operate any machinery for 24 hours (because of the anesthesia used during the test). NUTRITION Drink plenty of fluids. You may resume your normal diet as instructed by your doctor. Begin with a light meal and progress to your normal diet. Heavy or fried foods are harder to digestand may make you feel nauseated (sick to your stomach). Avoid alcoholic beverages for 24 hours or as instructed. MEDICATIONS You may resume your normal medications unless your doctor tells you otherwise. WHAT YOU CAN EXPECT TODAY Some feelings of bloating in the abdomen. Passage of more gas than usual. Spotting of blood in your stool or on the toilet paper. FOLLOW-UP Your doctor will discuss the results of your test with you. SEEK IMMEDIATE MEDICAL ATTENTION IF: There is more than a spotting of blood in your stool. There is abdominal distention (your abdomen is swollen). There is vomiting. You have a temperature over 101.5 F. There is abdominal pain or discomfort that is severe or gets worse throughout the day. 07/11/2023 14:19:27 Hemorrhoids, Swne-mt-Kxtw Hemorrhoids Hemorrhoids are swollen veins that may develop: In the butt (rectum). These are called internal hemorrhoids. Around the opening of the butt (anus). These are called external hemorrhoids. Hemorrhoids can cause pain, itching, or bleeding. Most of the time, they do not cause serious problems. They usually get better with diet changes, lifestyle changes, and other home treatments. What are the causes? This condition may be caused by: Having trouble pooping (constipation). Pushing hard (straining) to poop. Watery poop (diarrhea). . Being very overweight (obese). Sitting for long periods of time. Heavy lifting or other activity that causes you to strain. Anal sex. Riding a bike for a long period of time. What are the signs or symptoms? Symptoms of this condition include: Pain. Itching or soreness in the butt. Bleeding from the butt. Leaking poop. Swelling in the area. One or more lumps around the opening of your butt. How is this diagnosed? A doctor can often diagnose this condition by looking at the affected area. The doctor may also: Do an exam that involves feeling the area with a gloved hand (digital rectal exam). Examine the area inside your butt using a small tube (anoscope). Order blood tests. This may be done if you have lost a lot of blood. Have you get a test that involves looking inside the colon using a flexible tube with a camera on the end (sigmoidoscopy or colonoscopy). How is this treated? This condition can usually be treated at home. Your doctor may tell you to change what you eat, make lifestyle changes, or try home treatments. If these do not help, procedures can be done to remove the hemorrhoids or make them smaller. These may involve: Placing rubber bands at the base of the hemorrhoids to cut off their blood supply. Injecting medicine into the hemorrhoids to shrink them. Shining a type of light energy onto the hemorrhoids to cause them to fall off. Doing surgery to remove the hemorrhoids or cut off their blood supply. Follow these instructions at home: Eating and drinking Eat foods that have a lot of fiber in them. These include whole grains, beans, nuts, fruits, and vegetables. Ask your doctor about taking products that have added fiber (fibersupplements). Reduce the amount of fat in your diet. You can do this by: ?Eating low-fat dairy products. ?Eating less red meat. ?Avoiding processed foods. Drink enough fluid to keep your pee (urine) pale yellow. Managing pain and swelling Take a warm-water bath (sitz bath) for 20 minutes to ease pain. Do this 3 4 times a day. You may dothis in a bathtub or using a portable sitz bath that fits over the toilet. If told, put ice on the painful area. It may be helpful to use ice between your warm baths. ?Put ice in a plastic bag. ?Place a towel between your skin and the bag. ?Leave the ice on for 20 minutes, 2 3 times a day. General instructions Take mfvy-bwn-dttyhpw and prescription medicines only as told by your doctor. ?Medicated creams and medicines may be used as told. Exercise often. Ask your doctor how much and what kind of exercise is best for you. Go to the bathroom when you have the urge to poop. Do not wait. Avoid pushing too hard when you poop. Keep your butt dry and clean. Use wet toilet paper or moist towelettes after pooping. Do not sit on the toilet for a long time. Keep all follow-up visits as told by your doctor. This is important. Contact a doctor if you: Have pain and swelling that do not get better with treatment or medicine. Have trouble pooping. Cannot poop. Have pain or swelling outside the area of the hemorrhoids. Get help right away if you have: Bleeding that will not stop. Summary Hemorrhoids are swollen veins in the butt or around the opening of the butt. They can cause pain, itching, or bleeding. Eat foods that have a lot of fiber in them. These include whole grains, beans, nuts, fruits, and vegetables. Take a warm-water bath (sitz bath) for 20 minutes to ease pain. Do this 3 4 times a day. This information is not intended to replace advice given to you by your health care provider. Make sure you discuss any questions you have with your health care provider. Document Revised: 05/16/2022 Document Reviewed: 05/16/2022 [employer] Patient Education 2022 [employer]. 07/11/2023 14:19:23 Diverticulosis MAGR (CUSTOM) Diverticulosis Many people have small pouches in their colon called diverticulum. The diverticulum bulge outward through weak spots in the colon. You could have one or more of these pouches in the colon. The condition of having these pouches in the colon is called diverticulosis or diverticular disease. Diverticulosis is usually diagnosed by tests to evaluate something else. For example, you may have had a colonoscopy to screen for colon cancer when the diverticulosis was found. Most people with diverticulosis do not have any discomfort or problems. If symptoms develop, they may include mild cramps, bloating, and constipation. A complication of this condition is called diverticulitis. This is when the diverticulum become inflamed and infected. How to treat diverticulosis: Increasing the amount of fiber in the diet may reduce symptoms of diverticulosis and prevent complications such as diverticulitis (infected diverticuli). Fiber keeps stool soft and lowers pressure inside the colon so that bowel contents can move througheasily. You should eat 20 to 35 grams of fiber each day. The table below shows the amount of fiber in some foods that you can easily add to your diet. Adding fiber slowly may decrease the bloating and fullness sometimes felt with an immediate high fiber diet. The doctor may also recommend taking a fiber product such as Citrucel or Metamucil once a day. In the past people with diverticulosis were to avoid nuts, corn, and seeds. This has not been foundto be true. If you find that certain foods create cramping or bloating, avoid that food. Foods high in fiber include: Fresh fruits, fresh vegetables, legumes (beans), whole wheat bread, bran muffins or cereal, and nuts. See the table below for examples of high fiber foods. Remember, your goal is 20- 35 grams per day. Amount of fiber in different foods Food Serving Grams of fiber Fruits Apple (with skin) 1 medium apple 4.4 Banana 1 medium banana 3.1 Oranges 1 orange 3.1 Prunes 1 cup, pitted 12.4 Juices Apple, unsweetened, w/added ascorbic acid 1 cup 0.5 Grapefruit, white, canned, sweetened 1 cup 0.2 Grape, unsweetened, w/added ascorbic acid 1 cup 0.5 [place] 1 cup 0.7 Vegetables Cooked Green beans 1 cup 4.0 Carrots 1/2 cup sliced 2.3 Peas 1 cup 8.8 Potato (baked, with skin) 1 medium potato 3.8 Raw [place] (with peel) 1 cucumber 1.5 Lettuce 1 cup shredded 0.5 Tomato 1 medium tomato 1.5 Spinach 1 cup 0.7 Legumes Baked beans, canned, no salt added 1 cup 13.9 Kidney beans, canned 1 cup 13.6 [place] beans, canned 1 cup 11.6 Lentils, boiled 1 cup 15.6 Breads, pastas, flours Bran muffins 1 medium muffin 5.2 Oatmeal, cooked 1 cup 4.0 White bread 1 slice 0.6 Whole-wheat bread 1 slice 1.9 Pasta and rice, cooked Macaroni 1 cup 2.5 Rice, brown 1 cup 3.5 Rice, white 1 cup 0.6 Spaghetti (regular) 1 cup 2.5 Nuts Almonds 1/2 cup 8.7 Peanuts 1/2 [address] [facility] 2013. SEEK IMMEDIATE MEDICAL CARE IF: You develop abdominal (belly) pain. An oral temperature above _ 101 F__develops. Repeated vomiting occurs. Blood is being passed in stools (bright red or black tarry stools). You develop any bowel problems or changes which you have not had before. Extra Information: To learn how much fiber and other nutrients are in different foods, visit the [place] Department of Agriculture (USDA) National Nutrient Database at: http://www.[employer].usda.gov/fnic/foodcomp/search/ Created using data from the USDA National Nutrient Database for Standard Reference. Available at http://www.[employer].gov/fnic/foodcomp/search/. Information adapted from: [facility] Patient Information 2010 [employer]. [employer] 2012 [email or web address]/[email or web address]-myalapj-pmpdqo-the-basics Follow Up Care 06/26/2023 10:03:59 With:Armin KAUFMAN, CHAPIN [facility]DE[facility] Address: [address] [place] [address], [facility] [address] [phone] When: only if needed Comments:Call for any problems. [facility]08-24-2023 Evaluation + Plan noteExtracted from: Title:CSB post op Author:Kayleigh KAUFMAN, Lyndon Castellano Date:07/11/23 Plan Transfer/Discharge: Transfer/Discharge Discharge when meets criteria ( To home ). [facility]08-04-2023 Hospital Discharge instructions Patient Education 06/21/2023 12:35:01 Upper Endoscopy, Adult, Care After Upper Endoscopy, Adult, Care After This sheet gives you information about how to care for yourself after your procedure. Your health care provider may also give you more specific instructions. If you have problems or questions, contact your health care provider. What can I expect after the procedure? After the procedure, it is common to have: A sore throat. Mild stomach pain or discomfort. Bloating. Nausea. Follow these instructions at home: Follow instructions from your health care provider about what to eat or drink after your procedure. Return to your normal activities as told by your health care provider. Ask your health care provider what activities are safe for you. Take jblv-wbs-wtoupqe and prescription medicines only as told by your health care provider. If you were given a sedative during the procedure, it can affect you for several hours. Do not drive or operate machinery until your health care provider says that it is safe. Keep all follow-up visits as told by your health care provider. This is important. Contact a health care provider if you have: A sore throat that lasts longer than one day. Trouble swallowing. Get help right away if: You vomit blood or your vomit looks like coffee grounds. You have: ?A fever. ?Bloody, black, or tarry stools. ?A severe sore throat or you cannot swallow. ?Difficulty breathing. ?Severe pain in your chest or abdomen. Summary After the procedure, it is common to have a sore throat, mild stomach discomfort, bloating, and nausea. If you were given a sedative during the procedure, it can affect you for several hours. Do not drive or operate machinery until your health care provider says that it is safe. Follow instructions from your health care provider about what to eat or drink after your procedure. Return to your normal activities as told by your health care provider. This information is not intended to replace advice given to you by your health care provider. Make sure you discuss any questions you have with your health care provider. Document Revised: 09/09/2020 Document Reviewed: 04/06/2019 [employer] Patient Education 2022 [employer]. 06/21/2023 12:34:46 Gluten-Free Diet for Celiac Disease, Adult Gluten-Free Diet for Celiac Disease, Adult The gluten-free diet includes all foods that do not contain gluten. Gluten is a protein that is found in wheat, rye, barley, and some other grains. Following the gluten-free diet is the only treatment for people with celiac disease. It helps to prevent damage to the intestines and improves or eliminates the symptoms of celiac disease. Following the gluten-free diet requires some planning. It can be challenging at first, but it gets easier with time and practice. There are more gluten-free options available today than ever before. If you need help finding gluten-free foods or if you have questions, talk with your dietitian or health care provider. What are tips for following this plan? Reading food labels Read all food labels. Gluten is often added to foods. Always check the ingredient list and look forwarnings that the food may contain gluten. Foods that list any of these sanders words on the label usually contain gluten: Wheat, flour, enriched flour, bromated flour, white flour, durum flour, karthik flour, phosphated flour, self-rising flour, semolina, farina, barley (malt), rye, and oats. Starch, dextrin, modified food starch, or cereal. Thickening, fillers, or emulsifiers. Malt flavoring, malt extract, or malt syrup. Hydrolyzed vegetable protein. In the [place] packaged foods that are gluten-free are required to be labeled GF. These foods should be easy to identify and are safe to eat. In the [place] food companies are also required to list common food allergens, including wheat, on their labels. Shopping When grocery shopping, start in the produce, meat, and dairy sections. These areas are more likely to contain gluten-free foods. Then move to the aisles that contain packaged foods if you need to. Meal planning All fruits, vegetables, and meats are safe to eat and do not contain gluten. Talk with your dietitian or health care provider before taking a gluten-free multivitamin or mineral supplement. Be aware of gluten-free foods having contact with foods that contain gluten (cross-contamination). This can happen at home and with any processed foods. ?Talk with your health care provider or dietitian about how to reduce the risk of cross-contamination in your home. ?If you have questions about how a food is processed, ask the credit analyst. What foods can I eat? Fruits All plain fresh, frozen, canned, and dried fruits, and 100% fruit juices. Vegetables All plain fresh, frozen, and canned vegetables, and 100% vegetable juices. Grains Amaranth, mathew flours, 100% buckwheat flour, corn, millet, nut flours or nut meals, GF oats, quinoa, rice, sorghum, teff, rice wafers, pure cornmeal tortillas, popcorn, and hot cereals made from cornmeal or GF grains. [place], rice, and wild rice. Some rice noodles or mathew noodles. Arrowroot starch, corn bran, corn flour, corn germ, cornmeal, corn starch, potato flour, potato starch flour, and rice bran. Plain, brown, and sweet rice flours. Rice marshallese, soy flour, and tapioca starch. Meats and other protein foods All fresh beef, pork, poultry, fish, seafood, and eggs. Fish canned in water, oil, brine, or vegetable broth. Plain nuts and seeds, peanut butter. Some precooked or cured meat, such as sausages or meat loaves. Some frankfurters. Dried beans, dried peas, and lentils. Dairy Fresh plain, dry, evaporated, or condensed milk. Cream, butter, sour cream, whipping cream, and most yogurts. Unprocessed cheese, most processed cheeses, some cottage cheeses, and some cream cheeses. Beverages Coffee, tea, and most herbal teas. Carbonated beverages and some root beers. Wine, sake, and pure distilled spirits, such as gin, vodka, and whiskey. Most hard ciders. Fats and oils Butter, margarine, vegetable oil, hydrogenated butter, olive oil, shortening, lard, cream, and somemayonnaise. Some commercial salad dressings. Olives. Sweets and desserts Sugar, honey, some syrups, molasses, jelly, and jam. Plain hard candy, marshmallows, and gumdrops. Pure cocoa powder. Plain chocolate. Custard and some pudding mixes. Gelatin desserts, sorbets, frozen ice pops, and sherbet. Cake, cookies, and other desserts prepared with allowed flours. Some commercial ice creams. Cornstarch, tapioca, and rice puddings. Seasoning and other foods Some canned or frozen soups. Monosodium glutamate (MSG). Cider, rice, and wine vinegar. Baking sodaand baking powder. Cream of tartar. Baking and nutritional yeast. Certain soy sauces made without wheat. Ask your dietitian about specific brands that are allowed. Nuts, coconut, and chocolate. Salt, pepper, herbs, spices, flavoring extracts, imitation or artificial flavorings, natural flavorings, and food colorings. Some medicines and supplements. Rice syrups. The items listed above may not be a complete list of foods and beverages you can eat and drink. Contact a dietitian for more information. What foods should I avoid? Fruits Thickened or prepared fruits and some pie fillings. Some fruit snacks and fruit roll-ups. Vegetables Most creamed vegetables and most vegetables canned in sauces. Some commercially prepared vegetablesand salads. Vegetables in a soy sauce marinade or dressing. Grains Barley, bran, bulgur, couscous, cracked wheat, Darling, farro, karthik, malt, matzo, semolina, wheat germ, and all wheat and rye cereals, including spelt and kamut. Cereals containing malt as a flavoring, such as rice cereal. Noodles, spaghetti, macaroni, most packaged rice mixes, and all mixes containing wheat, rye, barley, or triticale. Meats and other protein foods Any meat or meat alternative containing wheat, rye, barley, or gluten stabilizers. These are often marinated or packaged meats, and precooked or cured meat, such as sausages or meat loaves. Bread-containing products, such as Salvadorean steak, croquettes, meatballs, and meatloaf. Most tuna canned in vegetable broth. Ray with hydrolyzed vegetable protein (HVP) injected as part of the basting. Seitan. Imitation fish. Eggs in sauces made from ingredients to avoid. Dairy Commercial chocolate milk drinks and malted milk. Some non-dairy creamers. Any cheese product containing ingredients to avoid. Beverages Certain cereal beverages. Beer, bulmaro, malted milk, and some root beers. Some hard ciders. Some instant flavored coffees. Some herbal teas made with barley or with barley malt added. Fats and oils Some commercial salad dressings. Sour cream containing modified food starch. Sweets and desserts Some toffees. Chocolate-coated nuts (may be rolled in wheat flour) and some commercial candies and candy bars. Most cakes, cookies, donuts, pastries, and other baked goods. Some commercial ice cream. Ice cream cones. Commercially prepared mixes for cakes, cookies, and other desserts. Bread pudding and other puddings thickened with flour. Products containing brown rice syrup made with barley malt enzyme. Desserts and sweets made with malt flavoring. Seasoning and other foods Some matthews powders, some dry seasoning mixes, some gravy extracts, some meat sauces, some ketchups,some prepared mustards, and horseradish. Certain soy sauces. Malt vinegar. Bouillon and bouillon cubes that contain HVP. Some chip dips. Some chewing gum. Yeast extract. Card's yeast. Caramel color. Some medicines and supplements. The items listed above may not be a complete list of foods and beverages you should avoid. Contact a dietitian for more information. Summary Gluten is a protein that is found in wheat, rye, barley, and some other grains. The gluten-free diet includes all foods that do not contain gluten. If you need help finding gluten-free foods or if you have questions, talk with your dietitian or your health care provider. Read all food labels. Gluten is often added to foods. Always check the ingredient list and look forwarnings that the food may contain gluten. This information is not intended to replace advice given to you by your health care provider. Make sure you discuss any questions you have with your health care provider. Document Revised: 09/25/2022 Document Reviewed: 09/25/2022 [employer] Patient Education 2022 [employer]. 06/21/2023 12:34:38 Celiac Disease Celiac Disease Celiac disease is a condition in which the body's disease-fighting system (immune system) attacks the small intestine and causes damage. This is known as an autoimmune disease. When a person with celiac disease eats a food that has gluten in it, the immune system attacks the cells that line the small intestine. Over time, this reaction damages the small intestine and makes the small intestine unable to absorb nutrients from food. Gluten is found in wheat, rye, and barley, and in foods like pasta, pizza, and cereal. Celiac disease is also known as celiac sprue, nontropical sprue, and gluten-sensitive enteropathy. What are the causes? This condition is caused by a gene that is passed from parent to child (inherited). What increases the risk? You are more likely to develop this condition if you: Have a family member with the disease. Have an autoimmune condition, such as Type 1 diabetes or a thyroid disorder. Are female. What are the signs or symptoms? Symptoms of this condition include: Recurring bloating, pain in the abdomen, and gas. Long-term (chronic) diarrhea and pale, bad-smelling, greasy, or oily stool. Weight loss. Missed menstrual periods. Weak bones (osteoporosis). Fatigue and weakness. Tingling or other signs of nerve damage. Depression. Poor appetite. Rash. Anemia. In some cases, there are no symptoms of this condition. How is this diagnosed? This condition is diagnosed with a physical exam and tests. Tests may include: Blood tests to check for nutritional deficiencies. Blood tests to look for evidence that the body is attacking cells in the small intestine. A test in which a sample of tissue is taken from the small intestine and looked at under a microscope (biopsy). X-rays of the intestine. Stool tests. Tests to check for nutrient absorption from the intestine. How is this treated? There is no cure for this condition. It is managed by following a strict gluten- free diet. Treatment may also involve avoiding dairy foods, such as milk and cheese, because they are difficult to digest. Most people who follow a strict gluten-free diet feel better and stop having symptoms. The intestine usually heals within 3 months to 2 years. In a small percentage of people, this condition does not improve on a gluten- free diet. If your condition does not improve, more tests may be done. You may also need to work with a celiac disease specialist to find the best treatment for you. Follow these instructions at home: Follow instructions from your health care provider about what you may eat and drink. Monitor your body's response to the gluten-free diet. Write down any changes in your symptoms and in how you feel. If you eat while you are away from home, prepare your food ahead of time. Or, make sure that the place where you are going has gluten-free options. Suggest to family members that they get screened for early signs of celiac disease. Keep all follow-up visits. This is important. Contact a health care provider if: You continue to have symptoms, even when you are eating a gluten-free diet. You have trouble following a gluten-free diet. You develop an itchy rash with groups of tiny blisters. You develop severe weakness. You develop balance problems. You develop new symptoms. Summary Celiac disease is a condition in which the body's disease-fighting system (immune system) attacks the small intestine and causes damage. There is no cure for this condition. It is managed by following a strict gluten- free diet. For somepeople, following a low-dairy or dairy-free diet also helps. Follow instructions from your health care provider about what you may eat and drink. Write down anychanges in your symptoms and in how you feel. Contact a health care provider if you continue to have symptoms, even when you are eating a gluten-free diet, or if you have new symptoms. Keep all follow-up visits. This is important. This information is not intended to replace advice given to you by your health care provider. Make sure you discuss any questions you have with your health care provider. Document Revised: 09/25/2022 Document Reviewed: 09/25/2022 [employer] Patient Education 2022 [employer]. 06/21/2023 12:34:28 Colonoscopy, Care After Surgery [facility] (CUSTOM) Colonoscopy Care After Surgery Please read the instructions outlined below and refer to this sheet in the next few weeks. These discharge instructions provide you with general information on [facility] Your doctor may also give you specific instructions. While your treatment has been planned according to the most current medical practices available, unavoidable complications occasionally occur. If you have any problems or questions after discharge, please call your doctor. ACTIVITY You may resume your regular activity, but move at a slower pace for the next 24 hours. Take frequent rest periods for the next 24 hours. Walking will help get rid of the air and reduce the bloated feeling in your abdomen (belly). No driving for 24 hours (because of the anesthesia (medicine) used during the test). You may shower. Do not sign any important legal documents or operate any machinery for 24 hours (because of the anesthesia used during the test). NUTRITION Drink plenty of fluids. You may resume your normal diet as instructed by your doctor. Begin with a light meal and progress to your normal diet. Heavy or fried foods are harder to digestand may make you feel nauseated (sick to your stomach). Avoid alcoholic beverages for 24 hours or as instructed. MEDICATIONS You may resume your normal medications unless your doctor tells you otherwise. WHAT YOU CAN EXPECT TODAY Some feelings of bloating in the abdomen. Passage of more gas than usual. Spotting of blood in your stool or on the toilet paper. FOLLOW-UP Your doctor will discuss the results of your test with you. SEEK IMMEDIATE MEDICAL ATTENTION IF: There is more than a spotting of blood in your stool. There is abdominal distention (your abdomen is swollen). There is vomiting. You have a temperature over 101.5 F. There is abdominal pain or discomfort that is severe or gets worse throughout the day. Follow Up Care 05/02/2023 14:27:22 With:DEN KAUFMAN, CHAPIN Byrnes, [facility] Address: [facility] [address] [place] [address] When: Unknown Comments:office will call for follow up [facility]06-15-2023 Hospital Discharge instructions Patient Education 05/02/2023 13:50:30 Anemia Anemia Anemia is a condition in which there is not enough red blood cells or hemoglobin in the blood. Hemoglobin is a substance in red blood cells that carries oxygen. When you do not have enough red blood cells or hemoglobin (are anemic), your body cannot get enoughoxygen and your organs may not work properly. As a result, you may feel very tired or have other problems. What are the causes? Common causes of anemia include: Excessive bleeding. Anemia can be caused by excessive bleeding inside or outside the body, including bleeding from the intestines or from heavy menstrual periods in females. Poor nutrition. Long-lasting (chronic) kidney, thyroid, and liver disease. Bone marrow disorders, spleen problems, and blood disorders. Cancer and treatments for cancer. HIV (human immunodeficiency virus) and AIDS (acquired immunodeficiency syndrome). Infections, medicines, and autoimmune disorders that destroy red blood cells. What are the signs or symptoms? Symptoms of this condition include: Minor weakness. Dizziness. Headache, or difficulties concentrating and sleeping. Heartbeats that feel irregular or faster than normal (palpitations). Shortness of breath, especially with exercise. Pale skin, lips, and nails, or cold hands and feet. Indigestion and nausea. Symptoms may occur suddenly or develop slowly. If your anemia is mild, you may not have symptoms. How is this diagnosed? This condition is diagnosed based on blood tests, your medical history, and a physical exam. In some cases, a test may be needed in which cells are removed from the soft tissue inside of a bone and looked at under a microscope (bone marrow biopsy). Your health care provider may also check your stool (feces) for blood and may do additional testing to look for the cause of your bleeding. Other tests may include: Imaging tests, such as a CT scan or MRI. A procedure to see inside your esophagus and stomach (endoscopy). A procedure to see inside your colon and rectum (colonoscopy). How is this treated? Treatment for this condition depends on the cause. If you continue to lose a lot of blood, you may need to be treated at a hospital. Treatment may include: Taking supplements of iron, vitamin B12, or folic acid. Taking a hormone medicine (erythropoietin) that can help to stimulate red blood cell growth. Having a blood transfusion. This may be needed if you lose a lot of blood. Making changes to your diet. Having surgery to remove your spleen. Follow these instructions at home: Take [id number] and prescription medicines only as told by your health care provider. Take supplements only as told by your health care provider. Follow any diet instructions that you were given by your health care provider. Keep all follow-up visits as told by your health care provider. This is important. Contact a health care provider if: You develop new bleeding anywhere in the body. Get help right away if: You are very weak. You are short of breath. You have pain in your abdomen or chest. You are dizzy or feel faint. You have trouble concentrating. You have bloody stools, black stools, or tarry stools. You vomit repeatedly or you vomit up blood. These symptoms may represent a serious problem that is an emergency. Do not wait to see if the symptoms will go away. Get medical help right away. Call your local emergency services (911 in the [place] Do not drive yourself to the hospital. Summary Anemia is a condition in which you do not have enough red blood cells or enough of a substance in your red blood cells that carries oxygen (hemoglobin). Symptoms may occur suddenly or develop slowly. If your anemia is mild, you may not have symptoms. This condition is diagnosed with blood tests, a medical history, and a physical exam. Other tests may be needed. Treatment for this condition depends on the cause of the anemia. This information is not intended to replace advice given to you by your health care provider. Make sure you discuss any questions you have with your health care provider. Document Revised: 09/18/2022 Document Reviewed: 10/11/2020 [employer] Patient Education 2022 [employer]. Follow Up Care 04/24/2023 10:09:35 With:Rosalinda Martinez CNP Address: When:1 to 2 weeks Comments:Following EGD/Colonoscopy. [facility] 04-26-2023 Evaluation note* Encounter Date Diagnosis Assessment Notes Treatment Notes Treatment Clinical Notes Feb, Arthritis of carpometacarpal (CMC) joint of right thumb (ICD-10 - M18.11) Feb, Arthritis of carpometacarpal (CMC) joint of left thumb (ICD-10 - M18.12) Surgical options discussed with patient - CMC Fusion - Trapeziectomy/LR TI We will proceed with Left trapeziectomy/LR TI Feb, Left hand pain (ICD- 10 - M79.642) Feb, Other specified postprocedural states (ICD-10 - Z98.890) [facility] Other 03-30-2023 Evaluation note* Encounter Date Diagnosis Assessment Notes Treatment Notes Treatment Clinical Notes Jan, Primary osteoarthrit is of both first carpometacarpal joints (ICD-10 - M18.0) Jan, Right hip pain (ICD- 10 - M25.551) [facility] Other 03-02-2023 Evaluation note* Encounter Date Diagnosis Assessment Notes Treatment Notes Treatment Clinical Notes Jan, Right hip pain (ICD-10 - M25.551) Jan, Iliopsoas bursitis of right hip (ICD-10 - 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 I explained to her that her x-rays overall look good and I do not think that there is any significant signs of arthritis. However, the way she describes her pain it may be that there is labral pathology such as a labral tear or a flareup of iliopsoas bursitis. As a result, I prescribed her Celebrex 100 mg twice daily and we will get a get her into formal physical therapy. I will plan to see her back in 6 to 8 weeks to check on her progress. If she is not having improvement then we may want to consider an MRI versus getting her set up for a steroid injection in either of the hip joint or of the iliopsoas bursa. [facility] Other 10-12-2022 Evaluation note* Encounter Date Diagnosis Assessment Notes Treatment Notes Treatment Clinical Notes Aug, Localized swelling of both lower legs (ICD-10 - R22.43) This patient does have swollen legs. It is symmetrical and bilateral. There are many causes for this. I will order venous duplex to rule out any DVT and evaluate for any possible valvular insufficiency which may be contributing to leg swelling. The meantime of her suggested the patient use moisturizer therapy compression stockings elevation weight loss and exercise. We will see her back to go over the noninvasive arterial vascular studies in the near future all of her questions were addressed. She understands agrees the plan. [facility] Other 06-28-2022 Evaluation note* Encounter Date Diagnosis Assessment Notes Treatment Notes Treatment Clinical Notes Apr, Arthritis of carpometacarpal (CMC) joint of right thumb (ICD-10 - M18.11) Advance activity as tolerated. Wear brace PRN. Apr, Other specified postprocedural states (ICD-10 - Z98.890) [facility] Other 05-27-2022 Evaluation note* Encounter Date Diagnosis Assessment Notes Treatment Notes Treatment Clinical Notes March, Arthritis of carpometacarpal (CMC) joint of right thumb (ICD-10 - M18.11) Cast removed today, patient placed in thumb spica splint. Avoid heavy and strenuous use March, Other specified postprocedural states (ICD-10 - Z98.890) [facility] Other 04-29-2022 Evaluation note* Encounter Date Diagnosis Assessment Notes Treatment Notes Treatment Clinical Notes Feb, Arthritis of carpometacarpal (CMC) joint of right thumb (ICD-10 - M18.11) Patient placed in fingerglass thumb spica cast. Patient instructed on cast care and to avoid strenuous or heavy use Feb, Other specified postprocedural states (ICD-10 - Z98.890) [facility] Other 03-16-2022 Evaluation note* Encounter Date Diagnosis Assessment Notes Treatment Notes Treatment Clinical Notes Jan, Arthritis of carpometacarpal (CMC) joint of right thumb (ICD-10 - M18.11) Extensive discussion about current condition and treatment options available. Discussed conservative versus surgical treatment. Patient opts for trapeziectomy with LRTI for the right hand with cortisone injection to the left. Surgical procedure, risks, recovery and restrictions discussed in detail. Patient was in understanding and wishes to proceed. Jan, Pre-op exam (ICD-10 - Z01.818) [facility] Other [facility] complaint Narrative - ReportedLAUREL PURDHAM is being seen for an initial evaluation of Leg edema.[place] [address] DO Work Phone: Chihm complaint Narrative - ReportedLAUREL PURDHAM is being seen for an initial evaluation of Leg edema.[facility] Work Phone: chief complaint Narrative - ReportedLAUREL PURDHAM is being seen for an initial evaluation of Leg edema.[place] [address] DO Work Phone: chief complaint Narrative - ReportedLAUREL PURDHAM is being seen for an initial evaluation of Leg edema.[facility] Work Phone: chief complaint Narrative - ReportedLAUREL PURDHAM is being seen for an initial evaluation of Leg edema.[place] [address] DO Work Phone: Evaluation + Plan note Future Appointments Appointment Date:06/21/2023 12:30:00 PM Scheduled Provider: Location:[facility] Appointment Type:Surgery [facility] Evaluation + Plan note Future Appointments Appointment Date:02/06/2024 02:15:00 PM Scheduled Provider:Papito Funez MD Location:[facility] Appointment Type:[facility] Follow Up Diagnostic Tests Pending * Celiac Disease Comprehensive 11/14/23 Future Scheduled Tests Laboratory* [facility] Appointment Date:06/15/2024 12:30:00 PM Scheduled Provider: Location:[facility] Appointment Type:Surgery FT Future Scheduled Tests Laboratory* Thyroid Stimulating Hormone 11/14/23 [facility] Evaluation noteNo assessment information available [facility] Work Phone: evaluation noteNo InformationNort Tykoon Other Evaluuytxf note* Diagnosis Onset Date Resolution Status Osteoarthritis of carpometacarpal joint of left thumb acute Osteoarthritis of carpometacarpal joint of right thumb acute Other specified postprocedural states acute Pre-op examination acute [facility] Work Phone: evaluation note* Diagnosis Onset Date Resolution Status Osteoarthritis of carpometacarpal joint of left thumb acute Osteoarthritis of carpometacarpal joint of right thumb acute Other specified postprocedural states acute Osteoarthritis of carpometacarpal joint of left thumb acute Osteoarthritis of carpometacarpal joint of right thumb acute Other specified postprocedural states acute [facility] Work Phone: evaluation note* Diagnosis Onset Date Resolution Status Osteoarthritis of carpometacarpal joint of left thumb acute Osteoarthritis of carpometacarpal joint of right thumb acute Other specified postprocedural states acute Osteoarthritis of carpometacarpal joint of left thumb acute Osteoarthritis of carpometacarpal joint of right thumb acute Other specified postprocedural states acute Osteoarthritis of carpometacarpal joint of left thumb acute Osteoarthritis of carpometacarpal joint of right thumb acute Other specified postprocedural states acute [facility] Work Phone: evaluation note* Diagnosis Onset Date Resolution Status Osteoarthritis of carpometac arpal joint of left thumb acute Osteoarthritis of carpometac arpal joint of right thumb acute Other specified postprocedural states acute Osteoarthritis of carpometac arpal joint of left thumb acute Osteoarthritis of carpometac arpal joint of right thumb acute Other specified postprocedural states acute Contact with and (suspected) exposure to covid-19 noneactive [facility] Work Phone: Evaluation note* Diagnosis Essential hypertension (CMS/HCC)- Primary Unspecified essential hypertension Asthma, chronic, severe persistent, uncomplicated (CMS/HCC) Chronic constipation Unspecified constipation Other emphysema (CMS/HCC) Other emphysema Irritable bowel syndrome with both constipation and diarrhea 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 Viral URI with cough Hyponatremia Hyposmolality and/or hyponatremia Diaphoresis Generalized hyperhidrosis documented [facility] Diagnosis Essential hypertension (CMS/HCC)- Primary Unspecified essential hypertension Sweating abnormality documented in this encounter [facility]* Diagnosis Essential hypertension (CMS/HCC)- Primary Unspecified essential hypertension Asthma, chronic, severe persistent, uncomplicated (CMS/HCC) Other emphysema (CMS/HCC) Other emphysema Primary osteoarthritis involving multiple joints Osteopenia of multiple sites Medicare annual wellness visit, subsequent ACP (advance care planning) Other specified counseling Screening for lipid disorders Abnormal mammogram of right breast Chronic bilateral low back pain with right-sided sciatica Lesion of skin of nose documented [facility]* Diagnosis Inflamed seborrheic keratosis Neoplasm of unspecified behavior of bone, soft tissue, and skin documented in this [facility]* Diagnosis Chronic bilateral low back pain with right-sided sciatica- Primary Abnormal flushing and sweating documented in this encounter [facility] Author Mary Hassan [facility] June 16, 2024 8:43am Note Date/Time June 16, 2024 8:35 am [facility] [address] [place] [address] Gastroenterology H&P Signed Patient: Elsa Figueredo MR#: [id number] : 1955 Acct:[id number] Age/Sex: 68 / F Adm Date: 4 Loc: Room: Type: [facility] Attending Dr: Mary Hassan DO Copies to: Mary Hassan, DO Vineet Juarez MD~ Date of Service: 06/16/2024 HISTORY & PHYSICAL: Patient's history with special attention to the cardiovascular, pulmonary systems and the current problem was reviewed with the patient immediately prior to the procedure. Present medications and doses reviewed in the EMR. Allergies and pertinent laboratory tests were also reviewedat this time in the EMR. The physical examination, as below, was then performed. Indication, assessment and HPI: 68-year-old female who presents for colonoscopy for history of IBS and Crohn's disease dx 5 yrs ago per pt. Pt does not know where her disease is. Takes sulfasalazine as needed. Has chronic constipation at baseline. No fam hx of colon cancer. Family history of GI malignancy? Mother with gastric cancer PHYSICAL EXAMINATION General appearance: cooperative, NAD Skin: No jaundice, no rash or lesions Head: NCAT Eyes: Anicteric Neck: Supple Lungs: Normal respiratory effort, no use of accessory muscles Abdomen: Soft, nondistended Neuro: No focal deficits, Ox3. REVIEW OF SYSTEMS Constitutional: Denies malaise, fevers Cardiovascular: Denies chest pain, palpitations Respiratory: Denies shortness of breath, wheezing Gastrointestinal: As per HPI Genitourinary: Denies dysuria, polyuria Musculoskeletal: Denies joint swelling, joint stiffness Neurological: Denies confusion, numbness, tingling Endocrine: Denies fatigue Written informed consent obtained from the patient. Risks (including but not limited to perforation, infection, bloating, bleeding, need for emergent surgeryand loss of life), benefits and alternatives explained and questions answered. The patient verbalized understanding. Based on history patient is an appropriate candidate for the procedure. Mary Hassan DO Documented By: Mary Hassan DO 06/16/24 0833 Signed By: <Electronically signed by Mary Hassan DO> 06/16/24 0843 [facility] Work Phone: Hisadza general Narrative - Reported* Type Description Date Medical History Blood pressure Medical History Asthma Medical History COPD Surgical History Tubal Surgical History Tonsils/Adenoids Surgical History Left Foot Reconstruction Surgical History Appendix [employer] Other History general Narrative - Reported* Type Description Date Medical History Blood pressure Medical History Asthma Medical History COPD Surgical History Tubal Surgical History Tonsils/Adenoids Surgical History Left Foot Reconstruction Surgical History Appendix Hospitalization History see above [employer] Other History general Narrative - Reported* Type Description Date Medical History Blood pressure Medical History Asthma Medical History COPD Surgical History Tubal Surgical History Tonsils/Adenoids Surgical History Left Foot Reconstruction Surgical History Appendix Surgical History Right Trapeziectomy/LRTI Hospitalization History see above [employer] Other History of Present illness Narrative* Patient presents for follow-up after testing and medication change. She has noticed improvement in lower extremity edema when Procardia was discontinued. * She is tolerating her current medical regimen and her blood pressure is at target. Results of testing was reviewed with her. She does have reflux in the greater saphenous vein on the right side. Her lower extremity edema is probably multifactorial, and she would benefit from continued follow-up at the vein clinic. I have encouraged her to increase aerobic activity. Results of echo were reviewed. Patient is satisfied with the way she feels at this time. No additional cardiac work-up is warranted. Will defer sleep study issue to primary care. May also benefit from pulmonary function testing if shortness of breath is of major concern. She did not report significant shortness of breath today. * History so far ; * 1. Hypertension * 2. Lower extremity edema * 3. Increased BMI * 4. ? Reactive airway disease.Pt on inhalers. * 5. Lexiscan Myoview July 2021- normal perfusion ,LVef 65% * 6. History of snoring-no prior sleep study. * 7. Lower extremity edema could be multifactorial. He had to look for systolic and diastolic heart failure, pulmonary hypertension, she has pulmonary hypertension we need to look for obstructive sleepapnea as one of the causes, and lastly she may benefit from evaluation at the vein clinic to look for venous insufficiency. * 8. Increasing aerobic activity will increase venous tone, and help venous return as well. * 9. Procardia may be contributory to her lower extremity edema.Procardia was discontinued. * 10. Echocardiogram July 2021-normal LV systolic and diastolic function, grossly normal valves,normal right-sided pressures, trace anterior pericardial effusion. LV wall thickness 1.3 cm consistent with at least mild concentric left ventricular hypertrophy, left atrial volume index 26 mL/m , left atrial diameter 4 cm, no aortic stenosis mitral stenosis no mitral regurgitation was reported, RV systolic pressure was about 25 mmHg. * 11. Venous duplex lower extremities was negative for DVT. No reflux was identified in the left lower extremity. In the right lower extremity there was reflux of greater than 5 seconds in the common femoral vein, saphenofemoral junction and greater saphenous vein. The right greater saphenous vein was patent from groin to ankle. * 13. Echocardiogram August 2022-LVEF 55% normal pattern of LV diastolic filling left atrial diameter 3.6 cm right atrial size normal aortic sclerosis peak and mean gradient 10 and 5 mmHg respectivelytrace mitral regurgitation trace tricuspid regurgitation no pericardial effusion. RV systolic pressure 21 mmHg. * Assessment: * At this point I believe that her lower extremity edema is multifactorial, related to medications such as Procardia, venous insufficiency, and poor muscle tone.. * There is improvement with a combination of diuretics and withdrawal of Procardia. * Recommendations: * 1. Continue current cardiac medications * 2. Walking program is encouraged * 3. 6-month follow-up * 4. Abstain from cigarettes * 5. Basic metabolic profile prior to next visit. * 6. Strong consideration should be given to follow-up at the vein clinic for further recommendations. -[facility] 250 DO Work Phone: History of Present illness Narrative* 6-month follow- up. Patient with hypertension possible reactive airway disease, possible obstructivesleep apnea, I first saw her for lower extremity edema, her edema has resolved with initiation of some diuretic therapy and discontinuation of nifedipine. Her blood pressure is on the low side. She does not bring in her medications today, tells me that Dr. Prater has discontinued her spironolactone because of hyponatremia and I concur. I do not think she is taking Bumex at this time. She does not seem volume overloaded. She is planning to have surgery to her wrist area this coming week. She breaks out in a sweat during the night and sometimes sporadically. She denies any shortness of breath or palpitations. She denies lightheadedness or falls. * Laboratory data reviewed. * On 03/25/2023, glucose was 104 BUN 13 creatinine 1.7 sodium 121 GFR greater than 60 potassium 5.1. InSeptember 2021 sodium was 123 potassium 4.3 * History so far ; * 1. Hypertension * 2. Lower extremity edema * 3. Increased BMI * 4. ? Reactive airway disease.Pt on inhalers. * 5. Lexiscan Myoview July 2021- normal perfusion ,LVef 65% * 6. History of snoring-no prior sleep study. * 7. Lower extremity edema could be multifactorial. He had to look for systolic and diastolic heart failure, pulmonary hypertension, she has pulmonary hypertension we need to look for obstructive sleepapnea as one of the causes, and lastly she may benefit from evaluation at the vein clinic to look for venous insufficiency. * 8. Increasing aerobic activity will increase venous tone, and help venous return as well. * 9. Procardia may be contributory to her lower extremity edema.Procardia was discontinued. * 10. Echocardiogram July 2021-normal LV systolic and diastolic function, grossly normal valves,normal right-sided pressures, trace anterior pericardial effusion. LV wall thickness 1.3 cm consistent with at least mild concentric left ventricular hypertrophy, left atrial volume index 26 mL/m , left atrial diameter 4 cm, no aortic stenosis mitral stenosis no mitral regurgitation was reported, RV systolic pressure was about 25 mmHg. * 11. Venous duplex lower extremities was negative for DVT. No reflux was identified in the left lower extremity. In the right lower extremity there was reflux of greater than 5 seconds in the common femoral vein, saphenofemoral junction and greater saphenous vein. The right greater saphenous vein was patent from groin to ankle. * 13. Echocardiogram August 2022-LVEF 55% normal pattern of LV diastolic filling left atrial diameter 3.6 cm right atrial size normal aortic sclerosis peak and mean gradient 10 and 5 mmHg respectivelytrace mitral regurgitation trace tricuspid regurgitation no pericardial effusion. RV systolic pressure 21 mmHg. * Assessment: * 1. Hypertension-blood pressure is running on the low side, she does not report any symptoms of arterial hypotension * 2. Hyponatremia, slight decrease from July 2022 at which time also patient was noted to have hyponatremia * 3. Possible culprits for hyponatremia particularly in the setting of trending up potassium is spironolactone and I completely agree with discontinuation of this medication. * 4. Other possible etiologies of hyponatremia include resume Bumex and lisinopril. Patient looked atthe medication list and told me that she is not taking Bumex anymore. * 5. Preoperative cardiac risk is acceptable to proceed with surgery as planned. * Recommendations: * 1. Could down titrate lisinopril to 20 mg daily and follow blood pressure and sodium levels. If significant hyponatremia still persists, then patient will have to come off the lisinopril, and be could use an alternate agent such as diltiazem for blood pressure management. Would stay off of beta-blockers given her history of asthma requiring theophylline and inhalers. Patient wanted to discuss with Dr. Prater before making additional medication changes today. * 2. Patient can see me on an as-needed basis. * Dr. Prater, thank you for allowing me to participate in Elsa's care, please do not hesitate to call or have her come back if there are additional concerns. * Sincerely, * Pastora Joyner MD [facility] [address] DO Work Phone: Hospital course Narrative No data available for this section [facility] Discharge instructions No data available for this section [facility] Additional Instructions Follow-up with your primary care doctor [facility] if develop worsening [facility] Work Phone: Progress note No data available for this section [facility] Reason for visit Narrative* Consultation (Routine) - Closed Specialty Diagnoses / Procedures Referred By Thuy t Referred To Contact Dermatology Diagnoses Lesion of skin of nose Procedures NE OFFICE/OUTPATIENT [facility] MDM 60 MINUTES Prabhjot Alexandre PA [address] [place] [address] Phone: tel: fax: Angie Rodrigues, [employer] [address] [place] [address] Phone: tel: fax: Referral ID Status Reason Start Date Expiration Date V isits Requested Visits Authorized [id number] Closed Specialty Services Required 12/24/2024 06/22/2025 1 1 [facility] Chief Complaint and Reason for Visit Chief Complaint Thumb Pain Chief Complaint Thumb Pain Thumb Pain Chief Complaint Thumb Pain Thumb Pain Thumb Pain Chief Complaint Thumb Pain Thumb Pain Thumb Pain pain Chief Complaint Thumb Pain Thumb Pain Thumb Pain Thumb Pain pain Chief Complaint Lymphadema, pain, sw elling Chief Complaint m25.551 M25.561 arthritis of metacarpal Chief Complaint M25.561 arthritis of metacarpal arthritis of metacarpal Chief Complaint M54.59 Chief Complaint Op Sp Lt Thumb Would Like To Discuss Jami H&P LT THUMB TRAPEZIECTOMY/ LRTI Reason for Visit Osteoarthritis of ca rpometacarpal joint of left thumb Osteoarthritis of carpometacarpal joint of right thumb Other specified postprocedural states Pre-op examination Chief Complaint Op Sp Lt Thumb Would Like To Discuss Jami H&P LT THUMB TRAPEZIECTOMY/ LRTI Left Thumb Pain Reason for Visit Osteoarthritis of ca rpometacarpal joint of left thumb Osteoarthritis of carpometacarpal joint of right thumb Other specified postprocedural states Pre-op examination Chief Complaint Op Sp Lt Thumb Would Like To Discuss Jami H&P LT THUMB TRAPEZIECTOMY/ LRTI Left Thumb Pain Left Thumb Pain 1 WK POST OP Reason for Visit Osteoarthritis of ca rpometacarpal joint of left thumb Osteoarthritis of carpometacarpal joint of right thumb Other specified postprocedural states Osteoarthritis of carpometacarpal joint of left thumb Osteoarthritis of carpometacarpal joint of right thumb Other specified postprocedural states Chief Complaint H&P LT THUMB TRAPEZI ECTOMY/ LRTI Left Thumb Pain Left Thumb Pain Left Thumb Pain 1 WK POST OP 4-5 WK XR OUT OF CAST Z98.890 - Other specified postprocedural states Reason for Visit Osteoarthritis of ca rpometacarpal joint of left thumb Osteoarthritis of carpometacarpal joint of right thumb Other specified postprocedural states Osteoarthritis of carpometacarpal joint of left thumb Osteoarthritis of carpometacarpal joint of right thumb Other specified postprocedural states Osteoarthritis of carpometacarpal joint of left thumb Osteoarthritis of carpometacarpal joint of right thumb Other specified postprocedural states Chief Complaint Left Thumb Pain Left Thumb Pain 1 WK POST OP 4-5 WK XR OUT OF CAST Z98.890 - Other specified postprocedural states M18.12 - Unilateral primary osteoarthritis of firs 6 WK RECHECK Reason for Visit Osteoarthritis of ca rpometacarpal joint of left thumb Osteoarthritis of carpometacarpal joint of right thumb Other specified postprocedural states Osteoarthritis of carpometacarpal joint of left thumb Osteoarthritis of carpometacarpal joint of right thumb Other specified postprocedural states Osteoarthritis of carpometacarpal joint of left thumb Osteoarthritis of carpometacarpal joint of right thumb Other specified postprocedural states Chief Complaint Left Thumb Pain Left Thumb Pain 1 WK POST OP 4-5 WK XR OUT OF CAST Z98.890 - Other specified postprocedural states M18.12 - Unilateral primary osteoarthritis of firs 6 WK RECHECK abd pain Reason for Visit Osteoarthritis of ca rpometacarpal joint of left thumb Osteoarthritis of carpometacarpal joint of right thumb Other specified postprocedural states Osteoarthritis of carpometacarpal joint of left thumb Osteoarthritis of carpometacarpal joint of right thumb Other specified postprocedural states Osteoarthritis of carpometacarpal joint of left thumb Osteoarthritis of carpometacarpal joint of right thumb Other specified postprocedural states Chief Complaint 4-5 WK XR OUT OF DAVID T Z98.890 - Other specified postprocedural states M18.12 - Unilateral primary osteoarthritis of firs 6 WK RECHECK abd pain IBS w/ constipation & diarrhea, hx of chron's IBS w/ constipation & diarrhea, hx of chron's Reason for Visit Osteoarthritis of ca rpometacarpal joint of left thumb Osteoarthritis of carpometacarpal joint of right thumb Other specified postprocedural states Osteoarthritis of carpometacarpal joint of left thumb Osteoarthritis of carpometacarpal joint of right thumb Other specified postprocedural states Chief Complaint 4-5 WK XR OUT OF DAVID T Z98.890 - Other specified postprocedural states M18.12 - Unilateral primary osteoarthritis of firs 6 WK RECHECK abd pain IBS w/ constipation & diarrhea, hx of chron's IBS w/ constipation & diarrhea, hx of chron's Amb Documentation M18.12 - Unilateral primary osteoarthritis of firs 6 week recheck Reason for Visit Osteoarthritis of ca rpometacarpal joint of left thumb Osteoarthritis of carpometacarpal joint of right thumb Other specified postprocedural states Osteoarthritis of carpometacarpal joint of left thumb Osteoarthritis of carpometacarpal joint of right thumb Other specified postprocedural states Osteoarthritis of carpometacarpal joint of left thumb Osteoarthritis of carpometacarpal joint of right thumb Other specified postprocedural states Chief Complaint M18.12 - Unilateral primary osteoarthritis of firs 6 WK RECHECK abd pain IBS w/ constipation & diarrhea, hx of chron's IBS w/ constipation & diarrhea, hx of chron's Amb Documentation M18.12 - Unilateral primary osteoarthritis of firs 6 week recheck Cough, congestion Reason for Visit Osteoarthritis of ca rpometacarpal joint of left thumb Osteoarthritis of carpometacarpal joint of right thumb Other specified postprocedural states Osteoarthritis of carpometacarpal joint of left thumb Osteoarthritis of carpometacarpal joint of right thumb Other specified postprocedural states Contact with and (suspected) exposure to covid-19 Chief Complaint Admit Date Cough, congestion July 10, 2024 2: 07pm M18.12 - Unilateral primary osteoarthrit is of firs September 30, 2024 9:09am 3 MONTHS September 30, 2024 1:16pm Reason for Visit Admit Date Bronchitis July 10, 2024 2: 07pm Osteoarthritis of carpometacarpal joint of left thumb September 30, 2024 1:16pm Osteoarthritis of carpometacarpal joint of right thumb September 30, 2024 1:16pm Other specified postprocedural states No vember 2023 1:16pm Family History No Family History Records Found Relationship Condition Age at Onset Recorded Date/T htiago Not Specified Malignant neoplasm of colon Unknown father Acute cerebrovascula r accident (CVA) of brainstem Unknown sister Congenital anomaly of heart Unknown Unknown Family Member Name Dates Details Family history of diabetes m ellitus: Mother(V18.0, Z83.3) Status:Active Family history of malignant neoplasm of stomach: Mother(V16.0, Z80.0) Status:Active Family history of atrial sep maryam defect: Sister(V17.49, Z82.49) Status:Active Unknown Family Member Name Dates Details Family history of diabetes m ellitus: Mother(V18.0, Z83.3) Status:Active Family history of malignant neoplasm of stomach: Mother(V16.0, Z80.0) Status:Active Family history of atrial sep maryam defect: Sister(V17.49, Z82.49) Status:Active Unknown Family Member Name Dates Details Family history of diabetes m ellitus: Mother(V18.0, Z83.3) Status:Active Family history of malignant neoplasm of stomach: Mother(V16.0, Z80.0) Status:Active Family history of atrial sep maryam defect: Sister(V17.49, Z82.79) Status:Active Unknown Family Member Name Dates Details Family history of diabetes m ellitus: Mother(V18.0, Z83.3) Status:Active Family history of malignant neoplasm of stomach: Mother(V16.0, Z80.0) Status:Active Family history of atrial sep maryam defect: Sister(V17.49, Z82.79) Status:Active Unknown Family Member Name Dates Details Family history of diabetes m ellitus: Mother(V18.0, Z83.3) Status:Active Family history of malignant neoplasm of stomach: Mother(V16.0, Z80.0) Status:Active Family history of atrial sep maryam defect: Sister(V17.49, Z82.79) Status:Active Unknown Family Member Name Dates Details Family history of diabetes m ellitus: Mother(V18.0, Z83.3) Status:Active Family history of malignant neoplasm of stomach: Mother(V16.0, Z80.0) Status:Active Family history of atrial sep maryam defect: Sister(V17.49, Z82.79) Status:Active Unknown Family Member Name Dates Details Family history of diabetes m ellitus: Mother(V18.0, Z83.3) Status:Active Family history of malignant neoplasm of stomach: Mother(V16.0, Z80.0) Status:Active Family history of atrial sep maryam defect: Sister(V17.49, Z82.79) Status:Active Unknown Family Member Name Dates Details Family history of diabetes m ellitus: Mother(V18.0, Z83.3) Status:Active Family history of malignant neoplasm of stomach: Mother(V16.0, Z80.0) Status:Active Family history of atrial sep maryam defect: Sister(V17.49, Z82.79) Status:Active Relationship Condition Age at Onset Recorded Date/T thiago Not Specified Malignant neoplasm of colon Unknown father Acute cerebrovascula r accident (CVA) of brainstem Unknown sister Congenital anomaly of heart Unknown sister Diabetes mellitus Unknown brother Diabetes mellitus Unknown Unknown Family Member Name Dates Details Family history of diabetes m ellitus: Mother(V18.0, Z83.3) Status:Active Family history of malignant neoplasm of stomach: Mother(V16.0, Z80.0) Status:Active Family history of atrial sep maryam defect: Sister(V17.49, Z82.79) Status:Active Relationship Condition Age at Onset Recorded Date/T thiago Not Specified Malignant neoplasm of colon Unknown father Acute cerebrovascula r accident (CVA) of brainstem Unknown sister Congenital anomaly of heart Unknown sister Diabetes mellitus Unknown brother Diabetes mellitus Unknown father History of stroke Unknown Unknown family member Unknown Not Specified Malignant neoplasm Unknown Relationship Condition Age at Onset Recorded Date/T thiago Not Specified Malignant neoplasm of colon Unknown Malignant neoplasm Unknown Unknown Malignant neoplasm of stomach Unknown father Acute cerebrovascula r accident (CVA) of brainstem Unknown History of stroke Unknown sister Congenital anomaly of heart Unknown sister Diabetes mellitus Unknown brother Diabetes mellitus Unknown family member Unknown Relationship Condition Age at Onset Recorded Date/T thiago mother Malignant neoplasm of colon Unknown Malignant neoplasm Unknown Unknown Malignant neoplasm of stomach Unknown father Acute cerebrovascula r accident (CVA) of brainstem Unknown History of stroke Unknown sister Congenital anomaly of heart Unknown sister Diabetes mellitus Unknown brother Diabetes mellitus Unknown family member Unknown Advance Directives No Advanced Directives Records Found Advance Directive Response Recorded Date/ Time Advance Directives No July 3:55pm Advance Directive Response Recorded Date/ Time Advance Directives No July 2:55pm Summary Purpose Chief Complaint ECHO RESULTS.ELSA FIGUEREDO is being seen for a 6 month follow-up of. Additional Source Comments Care Teams (unrecognized sec tion and content) Team Status: Inactive Member Role Status Dates Madeleine Garcia MD Attending Provider Active Gabriel Prater DO Primary Care Provider Active Team Status: Active Member Role Status Lisa Prater DO Primary Care Provider Active Team Status: Inactive Member Role Status Lisa Prater DO Primary Care Provider Active Madeleine Garcia MD Attending Provider Active Team Status: Inactive Member Role Status Lisa Prater DO Primary Care Provide r, Referring Provider, Other Provider Active Jose Miguel Diehl MD Attending Provider Active Team Status: Inactive Member Role Status Lisa Prater DO Primary Care Provider Active Vineet Rowley II, MD Attending Provider Active Team Status: Active Member Role Status Lisa Juarez MD Primary Care Provider Active Team Status: Inactive Member Role Status Lisa Juarez MD Primary Care Provider Active Ritchie Rodrigues MD Attending Provider Active Team Status: Inactive Member Role Status Dates Madeleine Garcia MD Attending Provider Active Start: December 18, 2023 End: December 18, 2023 Team Status: Inactive Member Role Status Dates Vineet Juarez MD Primary Care Provider Active St art: February 11, 2024 End: February 11, 2024 Madeleine Garcia MD Attending Provider Active Start: February 11, 2024 End: February 11, 2024 Team Status: Inactive Member Role Status Lisa Juarez MD Primary Care Provider Active St art: February 13, 2024 End: February 13, 2024 Madeleine Garcia MD Attending Provider Active Start: February 13, 2024 End: February 13, 2024 Team Status: Inactive Member Role Status Lisa Juarez MD Primary Care Provider Active St art: February 27, 2024 End: February 27, 2024 Madeleine Garcia MD Attending Provider Active Start: February 27, 2024 End: February 27, 2024 Team Status: Inactive Member Role Status Lisa Juarez MD Primary Care Provider Active St art: March 04, 2024 End: March 04, 2024 Madeleine Garcia MD Attending Provider Active Start: March 04, 2024 End: March 04, 2024 Team Status: Active Member Role Status Lisa Juarez MD Primary Care Provider Active St art: February 27, 2024 Madeleine Garcia MD Attending Provider , Other Provider Active Start: February 27, 2024 Team Status: Inactive Member Role Status Lisa Juarez MD Primary Care Provider Active St art: April 07, 2024 End: April 07, 2024 Madeleine Garcia MD Attending Provider Active Start: April 07, 2024 End: April 07, 2024 Team Status: Active Member Role Status Lisa Juarez MD Primary Care Provider Active St art: April 07, 2024 Madeleine Garcia MD Attending Provider Active Start: April 07, 2024 Team Status: Active Member Role Status Lisa Juarez MD Primary Care Provider Active St art: May 19, 2024 Madeleine Garcia MD Attending Provider Active Start: May 19, 2024 Team Status: Inactive Member Role Status Lisa Juarez MD Primary Care Provider Active St art: May 19, 2024 End: May 19, 2024 Madeleine Garcia MD Attending Provider Active Start: May 19, 2024 End: May 19, 2024 Team Status: Inactive Member Role Status Lisa Juarez MD Primary Care Provider Active St art: May 26, 2024 End: May 26, 2024 Pierre Guadalupe DO Emergency Provider Active Sta rt: May 26, 2024 End: May 26, 2024 Team Status: Inactive Member Role Status Dates Vineet Juarez MD Primary Care Provider Active St art: June 16, 2024 End: June 16, 2024 Mary Hassan DO Attending Provider Active St art: June 16, 2024 End: June 16, 2024 MO Bach Referring Provider Acti ve Start: June 16, 2024 End: June 16, 2024 Team Status: Active Member Role Status Dates Vineet uJarez MD Primary Care Provider Active St art: June 16, 2024 Mary Hassan DO Attending Provider, Other Provider Active Start: June 16, 2024 MO Bach Referring Provider Active Start: June 16 Team Status: Active Member Role Status Dates Vineet Juarez MD Primary Care Provider Active St art: June 24, 2024 Marlene Penn CMA Attending Provider Active St art: June 24, 2024 Team Status: Active Member Role Status Dates Vineet Juarez MD Primary Care Provider Active St art: June 30, 2024 Madeleine Garcia MD Attending Provider Active Start: June 30, 2024 Team Status: Inactive Member Role Status Lisa Juarez MD Primary Care Provider Active St art: June 30, 2024 End: June 30, 2024 Madeleine Garcia MD Attending Provider Active Start: June 30, 2024 End: June 30, 2024 Team Status: Inactive Member Role Status Lisa Juarez MD Primary Care Provider Active St art: July 10, 2024 End: July 10, 2024 Shala Levy APRN Attending Provider Active Start: July 10, 2024 End: July 10, [address] Relationship Specialty Start Date End Date Vineet Juarez MD [address] [place] [address] PCP - General Internal Medicine 07/31/23 Vineet Juarez MD [address] [place] [address] PCP - Devoted 11/18/23 11/17/24 Elsie Miller MD [address] [place] [address] Referring Physician Dermatology 10/24/23 Ritchie Rodrigues MD [address] [facility] [place] [address] Consulting Physician Pain Medicine 10/30/23 Madeleine Garcia MD [address] [place] [phone] Consulting Physician Orthopaedic Surgery 10/30/23 Pastora Joyner MD [address] [place] [address], [address] [place] [address] Consulting Physician Cardiology 10/30/23 [place], [place] [facility] 10/30/23 Team Status: Active Member Role Status Dates Vineet Juarez MD Primary Care Provider Active St art: July 30, 2024 Luis Galo DO Attending Provider Active Sta rt: July 30, 2024 Team Status: Active Member Role Status Dates Vineet Juarez MD Primary Care Provider Active St art: September 30, 2024 Madeleine Garcia MD Attending Provider Active Start: September 30, 2024 Team Status: Inactive Member Role Status Dates Vineet Juarez MD Primary Care Provider Active St art: September 30, 2024 End: September 30, 2024 Madeleine Garcia MD Attending Provider Active Start: September 30, 2024 End: September 30, [address] Relationship Specialty Start Date End Date Vineet Juarez MD [address] [place] [address] PCP - General Internal Medicine 07/31/23 Vineet Juarez MD [address] [place] [address] PCP - Devoted 11/18/23 Elsie Miller MD [address] [place] [address] Referring Physician Dermatology 10/24/23 Ritchie Rodrigues MD [address] [place] [address] Consulting Physician Pain Medicine 10/30/23 Madeleine Garcia MD [address] [place] [place] [phone] Consulting Physician Orthopaedic Surgery 10/30/23 Pastora Joyner MD [address] [place] [address], [address] [place] [address] Consulting Physician Cardiology 10/30/23 [facility] [place], [place] [facility] 10/30/[address] Relationship Specialty Start Date End Date Vineet Juarez MD [address] [place] [phone] PCP - General Internal Medicine 07/31/23 Vineet Juarez MD [address] [place] [address] PCP - Devoted 11/18/23 Elsie Miller MD [address] [place] [address] Referring Physician Dermatology 10/24/23 Ritchie Rodrigues MD [address] [place] [address] Consulting Physician Pain Medicine 10/30/23 Madeleine Garcia MD [address] [place] [address] Consulting Physician Orthopaedic Surgery 10/30/23 Pastora Joyner MD [address] [place] [address], [address] [place] [address] Consulting Physician Cardiology 10/30/23 [place], [place] [facility] 10/30/[address] Relationship Specialty Start Date End Date Vineet Juarez MD [address] [place] [phone] PCP - General Internal Medicine 07/31/23 Elsie Miller MD [address] [place] [address] [place] [address] Referring Physician Dermatology 10/24/23 Madeleine Garcia MD [address] [place] [address] Consulting Physician Orthopaedic Surgery 10/30/23 Pastora Joyner MD [address] [place] [address], [address] [place] [address] Consulting Physician Cardiology 10/30/23 Sue Macdonald MD [address] [place] [address] Referring Physician Pulmonary Disease 12/24/24 [place], [place] [facility] 10/30/[address] Relationship Specialty Start Date End Date Vineet Juarez MD [address] [place] [address] PCP - General Internal Medicine 07/31/23 Elsie Miller MD [address] [place] [address] Referring Physician Dermatology 10/24/23 Madeleine Garcia MD [address] [place] [address] Consulting Physician Orthopaedic Surgery 10/30/23 Pastora Joyner MD [address] [place] [address], [address] [place] [address] Consulting Physician Cardiology 10/30/23 Sue Macdonald MD [address] [place] [address] Referring Physician Pulmonary Disease 12/24/24 [place], [place] [facility] 10/30/[address] Relationship Specialty Start Date End Date Vineet Juarez MD [address] [place] [address] PCP - General Internal Medicine 07/31/23 Vineet Juarez MD [address] [place] [address] PCP - Florian WALKER 11/18/24 Elsie Miller MD [address] [place] [address] Referring Physician Dermatology 10/24/23 Madeleine Garcia MD [address] [place] [address] Consulting Physician Orthopaedic Surgery 10/30/23 Pastora Joyner MD [address] [facility] [place] [address] Consulting Physician Cardiology 10/30/23 Sue Macdonald MD [address] [place] [address] Referring Physician Pulmonary Disease 12/24/24 [place], [place] [facility] 10/30/23 Goals (unrecognized section and content) Goals may be documented in a n alternate sectionGoals may be documented in an alternate sectionNo InformationNo InformationNo InformationNo InformationNo InformationNo InformationNo InformationGoals may be documented in an alternate sectionNo InformationNo InformationNo InformationGoals may be documented in an alternate sectionNo Information No data available for this sectionGoals may be documented in an alternate section No data available for this section No data available for this sectionNo InformationNo InformationGoals may be documented in an alternate sectionNo Information No data available for this sectionNo Information No data available for this sectionGoals may be documented in an alternate sectionGoals may be documented in an alternate section No data available for this sectionGoals may be documented in an alternate sectionGoals may be documented in an alternate section No data available for this section No data available for this section REASON FOR VISIT (unrecogniz ed section and content) Reason Comments 3 Month Follow-up Review lab drawn 12/2023 URI Productive cough wit h green sputum, SOB, wheezing, nasal congestion x 4 days. Reason Comments Hypertension Reason Comments 3 Month Follow Up of Chronic Conditions Medicare Annual Wellness Visit Subsequen t Reason Comments Back Pain Pt has radicular césar n down both legs, worsened over the past week. Denies any fall or known injury. At December she was prescribed Tramadol which does help. Requesting refill. INFORMATION SOURCE (unrecogn ized section and content) DATE CREATED AUTHOR 08/23/2022 [facility] DATE CREATED AUTHOR AUTHOR'S ORGANIZ ATION 04/01/2023 [facility] DATE CREATED AUTHOR AUTHOR'S ORGANIZ ATION 04/02/2023 [facility] DATE CREATED AUTHOR AUTHOR'S ORGANIZ ATION 04/02/2023 [employer] DATE CREATED AUTHOR AUTHOR'S ORGANIZ ATION 10/07/2024 [facility] DATE CREATED AUTHOR AUTHOR'S ORGANIZ ATION 02/15/2025 [facility] DATE CREATED AUTHOR AUTHOR'S ORGANIZ ATION 02/24/2025 [facility] FOR RECORDS PERTAINING TO PATIENTS WHO ARE OR HAVE BEEN ENROLLED IN A CHEMICAL DEPENDENCY/SUBSTANCEABUSE PROGRAM, SOME INFORMATION MAY BE OMITTED. This clinical summary was aggregated from multiple sources. Caution should be exercised in using it in the provision of clinical care. This summary normalizes information from multiple sources, and as a consequence, information in this document may materially change the coding, format and clinical context of patient data. In addition, data may be omitted in some cases. CLINICAL DECISIONS SHOULD BE BASED ON THE PRIMARY CLINICAL RECORDS. [facility]. provides no warranty or guarantee of the accuracy or completeness of information in this document.
[2025-03-01 21:38] LABS: Influenza Virus A Antigen Negative; Influenza Virus B Antigen Negative; Internal Control Within Normal Limits; SARS-CoV-2 Ag NEGATIVE (NEGATIVE)
--- NOTE | 2025-03-01 21:50 | ED_ITS ---
HPI - URI/Sore Throat General Chief Complaint: Upper Respiratory Infection Stated Complaint: Upper Respiratory Infection Time Seen by Provider: 03/01/25 21:46 Source: patient Limitations: no limitations History of Present Illness HPI Narrative: presents complaining of cough for a couple of days. History of asthma. Nonsmoker but is exposed to 2nd hand smoke. No fever. Throat is sore. States she did cough up some blood tonight but not sure if it may have come from her throat. No abdominal pain Related Data Home Medications ?Medication ?Instructions ?Recorded ?Confirmed albuterol sulfate 2.5 mg/3 mL mg 04/22/23 (0.083 %) solution for nebulization albuterol sulfate 90 mcg/actuation inhalation 04/22/23 aerosol inhaler (Ventolin HFA) cyclobenzaprine 10 mg tablet mg 04/22/23 lisinopril 20 mg tablet mg 04/22/23 lisinopril 40 mg tablet mg 04/22/23 montelukast 10 mg tablet mg 04/22/23 theophylline 400 mg mg PO 04/22/23 tablet,extended release 24 hr Allergies Allergy/AdvReac Type Severity Reaction Status Date / Time Sulfa (Sulfonamide Allergy Mild weight gain Verified 03/01/25 21:14 Antibiotics) Penicillins AdvReac Intermediate Anaphylaxis Verified 03/01/25 21:14 aspartame AdvReac Mild Vomiting Verified 03/01/25 21:14 codine AdvReac Severe Anaphylaxis Uncoded 03/01/25 21:14 Review of Systems ROS Status of ROS 10 or more systems reviewed and unremark able except as noted in history and below [facility] Medical History (Updated 03/02/25 @ 03:08 by Get Whipple MD) Crohn's disease ?K50.90 - Crohn's disease, unspecified, without complications (ICD-10) Colitis ?K52.9 - Noninfective gastroenteritis and colitis, unspecified (ICD-10) Acute diverticulitis ?K57.92 - Diverticulitis of intestine, part unspecified, without perforation or abscess without bleeding (ICD-10) IBS (irritable bowel syndrome) ?K58.9 - Irritable bowel syndrome without diarrhea (ICD-10) Exam Constitutional Vital Signs, click to edit/add: Last Vital Signs Temp 98.3 F 03/01/25 21:14 Pulse 69 03/02/25 00:47 Resp 22 H 04/15/25 00:47 BP 188/97 H 03/01/25 21:14 Pulse Ox 96 03/02/25 00:47 O2 Del Method Room Air 03/02/25 00:47 Common normals: no apparent distress, oriented x3, no limitations, healthy appearing, alert and well nourished [facility] Common normals: normocephalic and head/scalp atraumatic Other: limited view of her pharynx with small oral airway. No obvious swelling Eye Common normals: PERRL and EOMs intact bilaterally Neck & C-Spine Other: submandibular lymph nodes Respiratory Common normals: no use of accessory muscles Other: begins coughing with deep breath. no rales or rhonchii Cardio Common normals: regular rate, regular rhythm, S1 normal heart sound and S2 normal heart sound GI Common normals: Normal to inspection, nondistended, normoactive bowel sounds present and soft to palpation Extremity Common normals: normal to inspection and full ROM Neuro Common normals: oriented x3, CN's II-XII intact bilaterally, moves all extremities and no focal motor deficits Psych Appearance: grossly normal Course Vital Signs Vital signs: Vital Signs Temperature 98.3 F 03/01/25 21:14 Pulse Rate 92 H 03/01/25 21:14 Respiratory Rate 18 03/01/25 21:14 Blood Pressure 188/97 H 03/01/25 21:14 Pulse Oximetry 97 03/01/25 21:14 Oxygen Delivery Method Room Air 03/01/25 21:14 Temperature 98.3 F 03/01/25 21:14 Pulse Rate 69 03/02/25 00:47 Respiratory Rate 22 H 03/02/25 00:47 Blood Pressure 188/97 H 03/01/25 21:14 Pulse Oximetry 96 03/02/25 00:47 Oxygen Delivery Method Room Air 03/02/25 00:47 MDM - URI/Sore Throat MDM Narrative Medical decision making narrative: patient presents complaining of cough and sore throat. Oral airway small and difficult to see pharynx. CT soft tissue without pharyngeal mass or abscess. ? edema of the tongue. Tongue examined and not eczematous. Cxray clear. Patient treated with solumedrol and albuterol NMT and her respiratory symptoms, micheal her cough, improved. Discharged home in improved condition with working diagnosis of pharyngitis and COPD exacerbation Also her BP was elevated on admission. Known history of HTN. Patient recently started on Coreg to help control her BP. discharged home to follow up with her doctor Lab Data Labs: Lab Results 03/01/25 03/01/25 Range/Units 21:19 22:14 WBC 5.4 (4.0-11.0) 10^3/uL RBC 4.01 L (4.20-5.40) 10^6/uL Hgb 13.1 (12.0-16.0) g/dL Hct 37.8 (36.0-48.0) % MCV 94.3 (81.0-99.0) fL MCH 32.7 (26.7-34.0) pg MCHC 34.7 (29.9-35.2) g/dL RDW 13.4 (11.0-15.0) % Plt Count 186 (150-450) 10^3/uL MPV 9.6 (9.5-13.5) fL Neut % (Auto) 50.5 (43.0-75.0) % Lymph % (Auto) 23.2 (20.5-60.0) % Hamilton % (Auto) 16.4 H (1.7-12.0) % Eos % (Auto) 8.8 H (0.9-7.0) % Baso % (Auto) 0.7 (0.2-2.0) % Neut # (Auto) 2.8 (1.4-6.5) 10^3/uL Lymph # (Auto) 1.3 (1.2-3.8) 10^3/uL Hamilton # (Auto) 0.9 H (0.3-0.8) 10^3/uL Eos # (Auto) 0.5 (0.0-0.7) 10^3/uL Baso # (Auto) 0.0 (0.0-0.1) 10^3/uL Abs Immat Gran (auto) 0.02 (0.00-0.03) 10^3/uL Imm/Tot Granulo (auto) 0.4 (0.0-0.5) % Sodium 142 (136-145) mmol/L Potassium 4.0 (3.5-5.1) mmol/L Chloride 103 (98-107) mmol/L Carbon Dioxide 30.3 (21.0-32.0) mmol/L Anion Gap 12.7 BUN 9.0 (7.0-18.0) mg/dL Creatinine 0.70 (0.55-1.02) mg/dL Est GFR ( Amer) >60 (>=60 mL/min/1.73m^2) Est GFR (Non-Af Amer) >60 (>=60 mL/min/1.73m^2) BUN/Creatinine Ratio 12.9 Glucose 100 (74-106) mg/dL Calcium 9.3 (8.5-10.1) mg/dL Troponin I High Sens 7.4 (4.0-51.3) pg/mL Influenza Type A Ag Negative Influenza Type B Ag Negative SARS-CoV-2 Ag (CV2AG) Negative (NEGATIVE) Discharge Plan Discharge Chief Complaint: Upper Respiratory Infection Clinical Impression: COPD exacerbation, Pharyngitis Patient Disposition: Home, Self-Care Prescriptions / Home Meds: No Action cyclobenzaprine 10 mg tablet albuterol sulfate 2.5 mg /3 mL (0.083 %) solution for nebulization theophylline 400 mg tablet extended release 24 hr PO lisinopril 20 mg tablet montelukast 10 mg tablet albuterol sulfate [Ventolin HFA] 90 mcg/actuation HFA aerosol inhaler INHALATION lisinopril 40 mg tablet Print Language: [place] Citizen Instructions: Pharyngitis (ED), COPD (Chronic Obstructive Pulmonary Disease) (ED) Additional Instructions: follow up with your doctor in next 2-3 days for recheck Referrals: Physician,Non-Staff, MD [Physician] - 1 week
[2025-03-01 22:21] LABS: Basophils Percent Auto 0.7 % (0.2-2.0); Eosinophils Absolute Auto 0.5 10^3/uL (0.0-0.7); Eosinophils Percent Auto 8.8 % (0.9-7.0); Hematocrit 37.8 % (36.0-48.0); Hemoglobin 13.1 g/dL (12.0-16.0); Immature Granulocytes Abs Auto 0.02 10^3/uL (0.00-0.03); Immature Granulocytes Pct Auto 0.4 % (0.0-0.5); Lymphocytes Absolute Auto 1.3 10^3/uL (1.2-3.8); Lymphocytes Percent Auto 23.2 % (20.5-60.0); Mean Corpuscular HGB Conc 34.7 g/dL (29.9-35.2); Mean Corpuscular Hemoglobin 32.7 pg (26.7-34.0); Mean Corpuscular Volume 94.3 fL (81.0-99.0); Mean Platelet Volume 9.6 fL (9.5-13.5); Monocytes Absolute Auto 0.9 10^3/uL (0.3-0.8); Monocytes Percent Auto 16.4 % (1.7-12.0); Neutrophils Absolute Auto 2.8 10^3/uL (1.4-6.5); Neutrophils Percent Auto 50.5 % (43.0-75.0); Platelet Count 186 10^3/uL (150-450); Red Blood Count 4.01 10^6/uL (4.20-5.40); Red Cell Distribution Width 13.4 % (11.0-15.0); White Blood Count 5.4 10^3/uL (4.0-11.0)
[2025-03-01 22:39] LABS: Anion Gap 12.7; BUN Creatinine Ratio 12.9; Calcium 9.3 mg/dL (8.5-10.1); Carbon Dioxide 30.3 mmol/L (21.0-32.0); Chloride 103 mmol/L (98-107); Estimated GFR (African America >60 (>=60 mL/min/1.73m^2); Estimated GFR (Non-African Ame >60 (>=60 mL/min/1.73m^2); Glucose 100 mg/dL (74-106); Sodium 142 mmol/L (136-145); Troponin I High Sensitivity 7.4 pg/mL (4.0-51.3)
[2025-03-02] MEDS: METHYLPREDNISOLONE SOD SUCC PF 125 MG/2 ML VIAL IVP (00:34)
[2025-03-02 00:47] VITALS: PULSE 69; O2SAT 96
[2025-03-02] MEDS: ALBUTEROL SULFATE 2.5 MG/3 ML VIAL NEB IH (00:47)
[2025-03-02 03:20] VITALS: BP 183/90; PULSE 82; O2SAT 96
== END 2025-03-02 03:24 | disposition home or self-care (01) ==
PROVIDERS: Emergency Provider Internal Medicine; PCP Internal Medicine
DX: J44.1 Chronic obstructive pulmonary disease with (acute) exacerbation (principal); J02.9 Acute pharyngitis, unspecified; I10 Essential (primary) hypertension
CPT/HCPCS: 36415; 70491; 71046; 80048; 84484; 85025; 87804; 87811; 93005; 94640; 96374; 99285; J2919; Q9967